=== PATIENT | male | born 1955 | race Caucasian/White ===

== ENCOUNTER 2020-09-03 08:42 | Inpatient (IN) | payer MEDICARE, MEDICAID, SELFPAY ==
[2020-09-03] VITALS (9 sets, daily range): BP systolic 131–165; BP diastolic 80–91; PULSE 67–102; RESP 13–20; TEMP 36.1–36.4; O2SAT 91–97; BMI 24.7
--- NOTE | ~2020-09-03 | XR_ITS ---
XR chest 2V DATE: 09/03/2020 10:41 INDICATION: Possible pneumonia on 09/03/2020 CT abdomen pelvis examination TECHNIQUE: PA and lateral views COMPARISON: 09/03/2020 CT abdomen pelvis FINDINGS: Normal heart size. Aortic arch calcification. No hilar or mediastinal enlargement. No pulmonary infiltrate or consolidation, pleural effusion or pulmonary vascular congestion or pneumo thorax is detected. Degenerative spurring of the thoracic spine. IMPRESSION: No active cardiopulmonary disease Reviewed, dictated and finalized at location A.
--- NOTE | ~2020-09-03 | US_ITS ---
US renal BI 09/03/2020 17:45 Procedure: Realtime transabdominal ultrasound of the kidneys and bladder. Indication: Right flank pain Comparison: CT dated 09/03/2020 Findings: Renal echotexture is normal bilaterally without hydronephrosis, contour deforming mass or r enal calculus. There are bilateral renal cysts, largest on the right measuring 8 mm in largest on the left measuring 2 cm. The right kidney measures 11.3 cm and left kidney measures 11.8 cm. Bladder wi thin normal limits. Impression: 1: Bilateral renal cysts. Reviewed, dictated and finalized at location A. Impression: 1: Bilateral renal cysts.
--- NOTE | ~2020-09-03 | CT_ITS ---
EXAMINATION: CT abdomen pelvis wo con DATE: 09/03/2020 09:57 INDICATION: 3-4 days of right flank pain. The penis. Groin pain. TECHNIQUE: Computed tomography (CT) of the abdomen and pelvis was performed without intravenous contr ast. Automated exposure control and iterative reconstruction technique were employed. The dose-length product was 644.55 mGy-cm. COMPARISON: None FINDINGS: Subtle groundglass opacities in the bilateral lower lobes with additional tree-in-bud pattern in the posterior basilar right lower lobe suggesting endobronchial spread of disease. No smooth septal line thickening to suggest pulmonary edema. No pleural effusion. Heart size is normal. Atherosclerotic cor onary artery calcified calcification. No pericardial effusion. Liver, gallbladder, pancreas and bilateral adrenal glands are normal. Splenic calcific a cyst consist ent with old granulomatous disease. 1.5 similar low-attenuation cyst at the medial left kidney. There is a peripheral 6 months wedge-shaped region of high attenuation measuring up to 10 mm in maximal di ameter at the medial right kidney consistent with a likely partially decompressed hemorrhagic cyst. 8 mm exophytic lesion at the lower pole of the right kidney which is slightly greater than simple flui d attenuation but which is too small to definitively characterize. Statistically most likely to repre sent an additional cyst. Ureters are normal. No urolithiasis or hydroureteronephrosis. Normal appendi x. Moderate amount of stool scattered throughout the colon. No abnormal bowel wall thickening or obst ruction. Bladder is normal. No free intraperitoneal gas or fluid. No pathologically enlarged abdomina l or pelvic lymphadenopathy. There is calcified atherosclerosis of the aorta and many of the other ar teries. Mild lumbar levocurvature with mild to moderate spondylosis. Mild left and mild to moderate r ight hip osteoarthritis. Bone islands at the left femoral neck and intertrochanteric right femur. IMPRESSION: 1. No urolithiasis or acute intra-abdominal/pelvic process. 2. Subtle groundglass opacities in the bilateral lower lobes with region of fine tree-in-bud pattern in the right lower lobe consistent with endobronchial spread of disease most likely bronchiolitis/ear ly pneumonia. 3. Indeterminate 8 mm exophytic right renal lesion which is too small to definitively characterize st atistically most likely to represent a cyst but would recommend 6-12 month follow-up pre and postcont rast MRI. Reviewed, dictated and finalized at location B. IMPRESSION: 1. No urolithiasis or acute intra-abdominal/pelvic process. 2. Subtle groundglass opacities in the bilateral lower lobes with region of fin e tree-in-bud pattern in the right lower lobe consistent with endobronchial spr ead of disease most likely bronchiolitis/early pneumonia. 3. Indeterminate 8 mm exophytic right renal lesion which is too small to defini tively characterize statistically most likely to represent a cyst but would rec ommend 6-12 month follow-up pre and postcontrast MRI.
[2020-09-03 09:08] LABS: Basophils Absolute Auto 0.1 K/mm3 (0.0-0.1); Eosinophils Absolute Auto 0.1 K/mm3 (0-0.3); Eosinophils Percent Auto 1.5 % (0-4.4); Hematocrit 43.1 % (42.0-52.0); Hemoglobin 15.7 g/dL (14.0-18.0); Immature Granulocyte Absolute 0.03 K/mm3 (0.00-0.031); Immature Granulocyte Percent A 0.3 % (0-0.5); Lymphocytes Absolute Auto 2.88 K/mm3 (0.9-3.2); Lymphocytes Percent Auto 30.6 % (18.3-44.2); Mean Corpuscular HGB Conc 36.4 g/dl (32-36); Mean Corpuscular Hemoglobin 31.4 pg (26-34); Mean Corpuscular Volume 86.2 fl (80-100); Mean Platelet Volume 9.3 fl (7.4-10.4); Monocytes Absolute Auto 0.9 K/mm3 (0.1-0.6); Neutrophils Absolute Auto 5.3 K/mm3 (1.3-6.7); Neutrophils Percent Auto 56.6 % (45.5-73.1); Platelet Count Result 239 k/mm3 (150-375); Red Cell Distribution Width 12.8 % (11.5-14.5); White Blood Count 9.4 K/mm3 (4.5-10.0)
[2020-09-03 09:13] LABS: Add Urine Microscopic? YES; Appearance Urine Clear (Clear); Bilirubin Urine Negative (Negative); Blood Urine Negative (Negative); Color Urine Straw (Yellow); Glucose Urine UA 3+ mg/dL (Negative); Ketones Urine Negative (Negative); Leukocyte Esterase Ur Negative LEU/UL (Negative); Nitrate Urine Negative (Negative); Protein Urine 1+ mg/dL (Negative); RBC Urine 0-2 /hpf (0-2); Specific Grav Ur 1.029 (1.001-1.035); Urobilinogen Urine Negative mg/dL (<2.0); WBC Urine 0-3 /hpf
[2020-09-03 09:22] LABS: Alanine Aminotransferase 65 U/L (4-50); Albumin Level 4.4 g/dL (3.5-5.1); Alkaline Phosphatase 113 U/L (38-126); Anion Gap 8 mmol/L (8-16); Aspartate Amino Transferase 31 U/L (17-59); Bilirubin,Total 0.5 mg/dL (0.2-1.3); Blood Urea Nitrogen 24 mg/dL (9-20); Carbon Dioxide 28 mmol/L (22-30); Chloride 91 mmol/L (98-107); Estimated CRCL calculation 91 ml/min; Estimated Glomerular Filt Rate > 60; Glucose 613 mg/dL (75-110); Lipase 236 U/L (23-300); Potassium 4.6 mmol/L (3.4-5.0); Sodium 127 mmol/L (137-145)
[2020-09-03] MEDS: INSULIN HUMAN REGULAR (*BKC) 100 UNITS/ML IV PUSH (10:02)
[2020-09-03] MEDS: SODIUM CHLORIDE 0.9% IV 1,000 ML 999 ML IV CONT ×2 (10:02→12:04)
[2020-09-03 10:11] LABS: Beta-Hydroxybutyrate/Acetoacetate 0.16 mmol/L (0.02-0.27)
[2020-09-03 10:59] LABS: Glucose Point of Care > 500 (65-105)
--- NOTE | 2020-09-03 11:08 | PC.NURSE ---
Blood sugar 514.
--- NOTE | 2020-09-03 11:51 | ED.GENADULT ---
HPI - General Adult General Chief complaint: Urogenital-Male Stated complaint: flank pain, penis is swollen and painful Time Seen by Provider: 09/03/20 09:24 Source: patient Mode of arrival: ambulatory Limitations: no limitations History of Present Illness HPI narrative: Patient presents with chief complaint of right flank pain that has been occurring since January 2020. Patient states that he has been seeing his primary care who diagnosed him with kidney stones without imaging. He states he was started on medication but he does not recall the name. Patient states he has been unable to see a urologist due to Covid problems. Patient also reports that his penis is uncircumcised that he has been unable to to retract his foreskin since December. He states there is a small hole opening in which he urinates out of. He denies fever, chills, nausea, vomiting, diarrhea, sores or drainage from his penis, cough, shortness of breath, chest pain. Related Data Home Medications Medication Instructions Recorded Confirmed No Home Medications 09/03/20 09/03/20 Allergies Allergy/AdvReac Type Severity Reaction Status Date / Time No Known Allergies Allergy Verified 09/03/20 09:04 Review of Systems Review of Systems: Narrative: CONSTITUTIONAL: Denies fever, chills, or sweats. EYES: Denies visual changes, redness, or discharge. ENT: Denies rhinorrhea, congestion, sore throat, or otalgia. CARDIOVASCULAR: Denies chest pain, palpitations, or edema. RESPIRATORY: Denies cough or dyspnea. GASTROINTESTINAL: Denies abdominal pain, nausea, vomiting, or diarrhea. GENITOURINARY: Reports right flank pain denies dysuria or hematuria. SKIN: Reports unable to retract penis foreskin denies rash or itching. MUSCULOSKELETAL: Denies back pain, myalgia, or joint pain NEUROLOGIC: Denies headache, numbness, dizziness, or weakness. PSYCHIATRIC: Denies anxiety or depression. Exam Narrative: Exam Narrative: GENERAL: Disheveled but nontoxic in appearance, well-nourished. HEAD: Normocephalic, atraumatic. EYES: PERRLA and EOMI. ENT: Nares clear, no rhinorrhea or epistaxis. Mucous membranes moist. Oropharynx without tonsillar hypertrophy exudate or other lesions. Bilateral TMs pearly castano nonbulging NECK: Supple. No adenopathy or masses. No vertebral tenderness or loss of ROM. CHEST: Clear to auscultation. No respiratory distress. No wheezes rales or rhonchi HEART: Regular rate and rhythm. Normal peripheral pulses. ABDOMEN: Soft, nontender, nondistended, normal active bowel sounds. No bruises noted. No CVA tenderness. EXTREMITIES: No acute changes in ROM. No edema. SKIN: Uncircumcised penis noted, unable to retract foreskin-small opening noted. There is no erythema, drainage, sores or lesions. Warm, dry, no rash. NEURO: No focal deficits. Alert and oriented x3. PSYCH: Normal mood and affect. Course Vital Signs Vital signs: Vital Signs Temperature 97.0 F L 09/03/20 08:55 Pulse Rate 90 09/03/20 08:55 Respiratory Rate 20 09/03/20 08:55 Blood Pressure 165/91 H 09/03/20 08:55 Pulse Oximetry 95 09/03/20 08:55 Temperature 97.0 F L 09/03/20 08:55 Pulse Rate 90 09/03/20 08:55 Respiratory Rate 20 09/03/20 08:55 Blood Pressure 165/91 H 09/03/20 08:55 Pulse Oximetry 95 09/03/20 08:55 Medical Decision Making MDM Narrative Medical decision making narrative: Consult with [facility] and they will consult on patient during his admission. Informed patient phimosis and right flank pain despite absence of urinary tract infection, signs of pyelonephritis or kidney stone. Consult with Dr. Lazar hospitalist who assessed patient for admission new onset diabetes with hyperglycemic hyperosmolar state. Vital Signs Vital Signs: Vital Signs Temperature 97.0 F L 09/03/20 08:55 Pulse Rate 90 09/03/20 08:55 Respiratory Rate 20 09/03/20 08:55 Blood Pressure 165/91 H 09/03/20 08:55 Pulse Oximetry 95 09/03/20 08:55 Tem
--- NOTE | 2020-09-03 13:05 | PC.NURSE ---
BG 338
[2020-09-03] MEDS: SODIUM CHLORIDE 0.9% IV 1,000 ML 999 ML (13:23)
[2020-09-03] MEDS: INSULIN HUMAN REGULAR (*BKC) 100 UNITS in SODIUM CHLORIDE 0.9% IV 99 ML 5.56 UNITS IV CONT (13:27)
[2020-09-03 13:32] LABS: Glucose Point of Care 388 (65-105)
--- NOTE | 2020-09-03 13:41 | PC.NURSE ---
1340 - Report attempted, PHARMACY CASHIER to call back when possible. Patient updated on plan to transfer to ICU. Pt has bag of belongings and cell phone with him at bedside that will go with him to ICU.
--- NOTE | 2020-09-03 14:25 | WPDCNINT ---
Assessment and Plan Assessment and plan (1) Hyperosmolar hyperglycemic state (HHS): Code(s): E11.00 - Type 2 diabetes mellitus with hyperosmolarity without nonketotic hyperglycemic-hyperosmolar coma (NKHHC); E11.65 - Type 2 diabetes mellitus with hyperglycemia Status: Acute Assessment and Plan: patient with hyperglycemia, nonketotic state, normal anion gap, no metabolic acidosis - likely hyperosmolar hyperglycemic state, likely due to undiagnosed diabetes - patient given adequate IV fluids in the ER and started on infusion per protocol - will transition patient to long-acting insulin with blood sugars normalize - 150 x 2 readings - check hemoglobin A1c - paraeducator and dietitian will be consulted (2) Acute right flank pain: Code(s): R10.9 - Unspecified abdominal pain Status: Acute Assessment and Plan: acute right flank pain with no intra-abdominal pathology noted on CT scan of the abdomen and pelvis - will obtain renal ultrasound (3) Phimosis of penis: Code(s): N47.1 - Phimosis Status: Chronic Assessment and Plan: Phimosis of the penis, unable to retract foreskin, small meatal opening, pain on micturition. - appreciate urology evaluation recommendations, patient will need to be circumcised at some point during this admission - urology also requested bladder scan (4) Hyponatremia: Code(s): E87.1 - Hypo-osmolality and hyponatremia Status: Acute Assessment and Plan: likely pseudohyponatremia secondary to hyperglycemia, will continue to monitor (5) Suspected 2019-nCoV infection: Code(s): Z20.828 - Contact with and (suspected) exposure to other viral communicable diseases Status: Acute Assessment and Plan: given bilateral ground-glass appearance of the lower lobes on CT scan of the abdomen and pelvis, will check SARS-CoV-2 PCR - will place patient on contact, droplet, airborne isolation /precautions Additional Plan discussed with patient updated with his condition and plan of care. He may be able to have some ice chips but no diet at this time given patient is on insulin infusion and I did reiterate that to him code status: Full code critical care time spent: 44 minutes Due to a high probability of clinically significant, life threatening deterioration, the patient required my highest level of preparedness to intervene emergently and I personally spent this critical care time directly and personally managing the patient. This critical care time included obtaining a history; examining the patient; pulse oximetry; ordering and review of studies; arranging urgent treatment with development of a management plan; evaluation of patient's response to treatment; frequent reassessment; and discussions with other providers. It was exclusive of separately billable procedures and treating other patients and teaching time. Please see Assessment and Plan section and the rest of the note for further information on patient assessment and treatment Supervisor Product Inspection Consult Note Consult date: 09/03/20 Time Seen: 14:18 Reason for consult: hyperglycemia, nonketotic hyperosmolar state, pain around the urethral meatus HPI: Samuel Yeeiza Conway Sr. is a 65 year old male history of kidney stones presented the ED with complains of pain around the urethral meatus and states his urethral meatal opening S significantly small and he has pain when he urinates. He is uncircumcised and has been unable to retract his foreskin since December or January. The pain had intensified around the meatal opening that is what prompted him to come to the ER on 09/03/2020. Patient denies any fevers, chills, nausea, vomiting, diarrhea, any drainage from his penis, denies any cough, shortness of breath or chest pain. Patient currently denies any abdominal pain, back pain, chest pain. In the ED was found to have hyperglycemia nonketotic hyperosmolar state for which he was given
--- NOTE | 2020-09-03 15:23 | PM.IMHP ---
H&P: HPI History of Present Illness Date/Time: 09/03/20 15:23 Chief complaint: Hyperglycemic Hyperosmolar State/Right flank pain/ Narrative: Samuel Conway Sr. is a 65 year old male Who came to the emergency room for complaints of right flank pain that is been occurring since January of this year. Patient is uncircumcised. He was diagnosed with a kidney stone without any imaging. The patient stated that he is not on any medication and was not able to get in to his regular doctor because of the COVID pandemic. Patient has been unable to retract his foreskin since December. Patient has a very small opening. Tells me that he is able to urinate somewhat but not much. He denies any fever chills. patient stated that he still smokes about a pack a cigarettes every 3 days. Patient is reluctant to give us any information about his health history of surgical history. I reviewed his results with him and explained that I did see something on the CT scan that was is turning for possible COVID. Initially the patient refused and any agreed to the testing. Urology has been consulted. Mehran scott nurse practitioner from the urology group came to the ICU to assess the patient. The patient tells me that he has never been diagnosed with diabetes and had not been on any medicine for diabetes. Also he stated that he is not on any medication for his high blood pressure. Abdominal and pelvis CT was read as no neurolysis has are acute intra-abdominal pelvic process. Subtle ground-glass opacities in the bilateral lower lobes with region of find tree and bud pattern in the right lower lobes consistent with endobronchial spread of disease most likely bronchiolitis early pneumonia. Indeterminate 8 mm exophytic right renal lesion which is too small to definitely characterize statistically most likely to represent a cyst but would recommend a 6-12 month follow-up Prieb and postcontrast MRI. The patient is afebrile. Patient's blood pressure is noted to be 138/82. Scharff 0127. First glucose was 613 on the blood work and an Accu-Chek was greater than 500. Repeat was 388. Anion gap was listed is 8. Was she only she will was placed on insulin drip for nonketotic hyper osmolar the hyperglycemia. I did not seen A1c. Patient was very irritated with me and was stating that he may sign out against medical advice. Patient was given IV fluids and 5 units of regular insulin she in the emergency room. Date of service 09/03/2020 Review of Systems Review of Systems: All systems reviewed & are unremarkable except as noted in HPI and below Constitutional: Constitutional: Reports as per HPI and Reports no additional constitutional complaints Eyes: Eyes: Reports as per HPI and Reports no additional eye complaints ENT: Reports system reviewed and no additional complaints, except as documented and Reports Normal hearing present Cardiovascular: Cardiovascular: Reports no additional cardiovascular complaints Respiratory: Respiratory: Reports no additional respiratory complaints and Reports no additional respiratory complaints Gastrointestinal: Gastrointestinal: Reports as per HPI and Reports no additional gastrointestinal complaints Musculoskeletal: Musculoskeletal: Reports no additional musculoskeletal complaints Integumentary/Breasts: Skin/Breast: Reports system reviewed and no additional complaints, except as docu and Reports as per HPI Neurologic: Reports system reviewed and no additional complaints, except as documented, Reports as per HPI and Reports Normal hearing present Psychiatric: Psychiatric: Reports no additional psychiatric complaints and Reports as per HPI Endocrine: Endocrine: Reports no additional endocrine complaints Hematologic/Lymphatic: Hematologic/Lymphatic: Reports no additional hematologic/lymphatic complaints Allergic/Immunologic: Allergic/Immunologic: Reports no additional allergic/immunologic complaints PMFSH Past Medical History Medical Hi
--- NOTE | 2020-09-03 15:47 | WPDURCON ---
Assessment and Plan Assessment and plan (1) Phimosis of penis: Code(s): N47.1 - Phimosis Status: Chronic Assessment and Plan: Patient will need a circumcison, however d/t newly diagnosed diabetes and hyperglycemia, we will not do the circumcison at this time. He has no hydronephrosis on CT and a JENNIFER is ordered to check PVR. If PVR is elevated, I would recommend a cathter placement. NO further assessment at this time. Will follow up as outpatient to discuss circumcision with Dr. Manzo. (2) Acute right flank pain: Code(s): R10.9 - Unspecified abdominal pain Status: Acute Assessment and Plan: Not urologic in nature. (3) Renal lesion: Code(s): N28.9 - Disorder of kidney and ureter, unspecified Status: Acute Assessment and Plan: Will need to be scanned again in 6-12 months with and without contrast MRI. Not the cause of flank pain. Urology Consult Note HPI Date Seen: 09/03/20 Requesting Physician: Mikey Lazar MD Primary Care Provider: PHYSICIAN NOT ON STAFF Consult Narrative Narrative: Samuel Conway Sr. is a 65 year old male who presented to the ER today with right flank pain that has been ongoing since 01/2020. He was diagnosed with kidney stones by his PCP without imaging. He also c/o difficulty urinating at the tip of his penis and that it feels swollen. He denies straining, hesitancy, frequency, ugrency or incontinence. He also denies dysuria, hematuria or abdominal pain. He is admitted with hyperglycemia and undiagnosed diabetes. His glucose was 613, WBC is 9.4, creatinine is 0.80. CT scan was done of abdomen and pelvis showing only an 8mm right renal lesion, most likely a cyst, but no hydronephrosis or urolithiasis present. He is afebrile at this time and denies chills, nausea or vomiting. Review of Systems Respiratory: Respiratory: Reports no additional respiratory complaints and Reports cough Gastrointestinal: Gastrointestinal: Denies abdominal pain, Denies nausea and Denies vomiting Genitourinary: Genitourinary: Denies hematuria, Denies oliguria, Denies genital pain, Denies dysuria, Reports flank pain, Denies testicular pain, Denies urinary frequency, Reports urinary hesitancy, Denies urinary incontinence and Denies urinary urgency [facility] Past Medical History Medical History Phimosis of penis Surgical History Surgical History Surgical history unknown Family History Family History Sibling Diabetes mellitus Social History Social History Social History: the patient tells me that he was a significant other. He is a full code and does not have of durable power commercial attorney. Patient tells me that he smokes about a pack a cigarettes in 3 days. He denies any alcohol bruising or illicit drugs. The patient tells me he is a full code. The patient tells me that he has 4 children. Meds Home Medications and Allergies Home Medications Medication Instructions Recorded Confirmed Type No Home Medications 09/03/20 09/03/20 History Allergies Allergy/AdvReac Type Severity Reaction Status Date / Time No Known Allergies Allergy Verified 09/03/20 09:04 Vital Signs Vital Signs - 24 hr 09/03/20 08:55 09/03/20 12:09 09/03/20 12:10 Temperature 97.0 F L Pulse Rate 90 Respiratory Rate 20 Blood Pressure 165/91 H 131/89 Pulse Oximetry 95 91 09/03/20 12:15 09/03/20 12:16 Temperature Pulse Rate Respiratory Rate Blood Pressure 138/82 Pulse Oximetry 93 91 Exam Resp: Effort & Inspection: normal respiratory effort and Actively coughing actively coughing Cardio: Rate: regular rate GI: GI Palp: Yes Soft to palpation and No Tenderness to palpation present (GI) : General: Yes no CV
--- NOTE | 2020-09-03 16:13 | ADMGEN ---
This patient, Samuel Mclaughlin Man Nguyen, was admitted to Intensive Care Unit-7. Patient/family oriented to hospital policies and general routines including ID bracelet, bed and alarms, visiting hours, pain management, procedures, bathroom and other care routines, personal items, smoking policy, room service/diet, and visiting hours. Information on how to activate the Rapid Response Team has been discussed. Patient/Family are encouraged to report perceived risks to care and to ask questions if they do not understand what they are told or what they should do.
[2020-09-03 16:21] LABS: Glucose Point of Care 99 (65-105)
[2020-09-03 16:21] LABS: Glucose Point of Care 333 (65-105)
[2020-09-03 17:34] LABS: Hemoglobin A1C 12.3 % (<5.7)
[2020-09-03 17:37] LABS: Anion Gap 5 mmol/L (8-16); Blood Urea Nitrogen 16 mg/dL (9-20); Calcium 7.6 mg/dL (8.4-10.2); Carbon Dioxide 28 mmol/L (22-30); Chloride 103 mmol/L (98-107); Estimated CRCL calculation 118 ml/min; Estimated Glomerular Filt Rate > 60; Glucose 156 mg/dL (75-110); Potassium 3.3 mmol/L (3.4-5.0); Sodium 136 mmol/L (137-145)
[2020-09-03 18:10] LABS: Glucose Point of Care 141 (65-105)
--- NOTE | 2020-09-03 18:37 | PC.NURSE ---
Pt arrived to floor upset at being admitted. Stated Why am I being brought up here Refused to cooperate with admission process. Pt belligerent and cursing with admission questions. When asked if in pain pt stated fuck you Pt kept inquiring where or when his girlfriend would be here. Pt upset that I was unable to answer. Pt continually threatening to leave AMA. 1525 [employer] Gail Hampton arrived to assess pt and requested a COVID swab. Pt initially refused swab. Pt finally agreed to covid swab but then once advised that his girlfriend wouldn't be able to visit until we had results stated again that he was leaving AMA. Gail GUZMAN and Dr. Carter made aware. 1630 Pt now agreeing to stay.
--- NOTE | 2020-09-03 18:49 | PC.NURSE ---
Pt stated uses [facility] in [place]. Pharmacy closed. Unable to verify PT's meds.
[2020-09-03] MEDS: POTASSIUM CHLORIDE 20 MEQ TABLET 40 MEQ PO (18:57)
[2020-09-03] MEDS: INSULIN DETEMIR 100 UNITS/ML 8 UNITS SUB-Q (20:00)
[2020-09-03 22:00] LABS: Glucose Point of Care 439 (65-105)
[2020-09-03 22:40] LABS: SARS-CoV-2 RNA PCR Negative
[2020-09-03 23:38] LABS: Glucose Point of Care 300 (65-105)
[2020-09-04] VITALS (14 sets, daily range): BP systolic 126–143; BP diastolic 58–105; PULSE 74–95; RESP 16–24; TEMP 36.4–36.9; O2SAT 92–96
[2020-09-04] MEDS: BENZOCAINE/MENTHOL (*BKC) 18 EA LOZENGE 1 LOZENGE PO (00:03)
[2020-09-04 04:27] LABS: Basophils Absolute Auto 0.1 K/mm3 (0.0-0.1); Basophils Percent Auto 0.7 % (0.2-1.2); Eosinophils Absolute Auto 0.2 K/mm3 (0-0.3); Eosinophils Percent Auto 2.4 % (0-4.4); Hematocrit 43.4 % (42.0-52.0); Hemoglobin 15.4 g/dL (14.0-18.0); Immature Granulocyte Absolute 0.03 K/mm3 (0.00-0.031); Immature Granulocyte Percent A 0.3 % (0-0.5); Lymphocytes Absolute Auto 2.76 K/mm3 (0.9-3.2); Lymphocytes Percent Auto 29.1 % (18.3-44.2); Mean Corpuscular HGB Conc 35.5 g/dl (32-36); Mean Corpuscular Hemoglobin 31.2 pg (26-34); Mean Corpuscular Volume 87.9 fl (80-100); Mean Platelet Volume 9.2 fl (7.4-10.4); Monocytes Absolute Auto 0.8 K/mm3 (0.1-0.6); Monocytes Percent Auto 8.2 % (2.6-8.5); Neutrophils Absolute Auto 5.6 K/mm3 (1.3-6.7); Neutrophils Percent Auto 59.3 % (45.5-73.1); Platelet Count Result 273 k/mm3 (150-375); Red Blood Count 4.94 M/mm3 (4.6-6.20); Red Cell Distribution Width 13.2 % (11.5-14.5); White Blood Count 9.5 K/mm3 (4.5-10.0)
[2020-09-04 04:45] LABS: Alanine Aminotransferase 63 U/L (4-50); Alkaline Phosphatase 92 U/L (38-126); Anion Gap 4 mmol/L (8-16); Aspartate Amino Transferase 42 U/L (17-59); Bilirubin,Total 0.5 mg/dL (0.2-1.3); Blood Urea Nitrogen 14 mg/dL (9-20); Calcium 9.1 mg/dL (8.4-10.2); Carbon Dioxide 33 mmol/L (22-30); Chloride 100 mmol/L (98-107); Estimated CRCL calculation 93 ml/min; Estimated Glomerular Filt Rate > 60; Glucose 232 mg/dL (75-110); Lactate Dehydrogenase 395 U/L (313-618); Magnesium 2.2 mg/dL (1.6-2.3); Phosphorus 3.5 mg/dL (2.5-4.5); Potassium 4.5 mmol/L (3.4-5.0); Sodium 137 mmol/L (137-145)
[2020-09-04 07:53] LABS: Glucose Point of Care 274 (65-105)
[2020-09-04] MEDS: INSULIN DETEMIR 100 UNITS/ML 12 UNITS SUB-Q (08:02)
[2020-09-04] MEDS: INSULIN ASPART (*BKC) 100 UNITS/ML SUB-Q ×4 (08:02→17:27)
[2020-09-04] MEDS: NICOTINE (*PBKC) 7 MG PATCH 1 PATCH TRANSDERM (08:04)
--- NOTE | 2020-09-04 09:26 | WPDINTPN ---
Progress Note: A&P Assessment and Plan (1) Hyperosmolar hyperglycemic state (HHS): Code(s): E11.00 - Type 2 diabetes mellitus with hyperosmolarity without nonketotic hyperglycemic-hyperosmolar coma (NKHHC); E11.65 - Type 2 diabetes mellitus with hyperglycemia Status: Acute Assessment and Plan: patient with hyperglycemia, nonketotic state, normal anion gap, no metabolic acidosis - likely hyperosmolar hyperglycemic state, likely due to undiagnosed diabetes - patient given adequate IV fluids in the ER and started on infusion per protocol - increased her Levemir and continue high dose sliding scale insulin with Accu-Cheks - hemoglobin A1c this admission is 12.3 - certified adaptive physical educator and dietitian have been consulted (2) Acute right flank pain: Code(s): R10.9 - Unspecified abdominal pain Status: Acute Assessment and Plan: acute right flank pain with no intra-abdominal pathology noted on CT scan of the abdomen and pelvis - renal ultrasound showed bilateral renal cyst. Bladder was within normal limits, no hydronephrosis bilaterally (3) Phimosis of penis: Code(s): N47.1 - Phimosis Status: Chronic Assessment and Plan: Phimosis of the penis, unable to retract foreskin, small meatal opening, pain on micturition. - appreciate urology evaluation recommendations, patient will need to be circumcised at some point during this admission - urology also requested bladder scan (4) Hyponatremia: Code(s): E87.1 - Hypo-osmolality and hyponatremia Status: Acute Assessment and Plan: sodium levels are normal - likely pseudohyponatremia secondary to hyperglycemia, will continue to monitor (5) Suspected 2019-nCoV infection: Code(s): Z20.828 - Contact with and (suspected) exposure to other viral communicable diseases Status: Acute Assessment and Plan: given bilateral ground-glass appearance of the lower lobes on CT scan of the abdomen and pelvis, - SARS-CoV-2 PCR was NEGATIVE - discontinued contact, droplet, airborne isolation /precautions Additional Plan discussed with patient updated with his condition and plan of care. patient is on diabetic diet, good appetite. code status: Full code critical care time spent: 31 minutes Will be transferred out of the ICU Due to a high probability of clinically significant, life threatening deterioration, the patient required my highest level of preparedness to intervene emergently and I personally spent this critical care time directly and personally managing the patient. This critical care time included obtaining a history; examining the patient; pulse oximetry; ordering and review of studies; arranging urgent treatment with development of a management plan; evaluation of patient's response to treatment; frequent reassessment; and discussions with other providers. It was exclusive of separately billable procedures and treating other patients and teaching time. Please see Assessment and Plan section and the rest of the note for further information on patient assessment and treatment Subjective Date/time seen: 09/04/20 09:26 Interval history: Reason for consult: hyperglycemia, nonketotic hyperosmolar state, pain around the urethral meatus 09/04/2020: Patient seen and examined this morning, denies any chest pain, shortness of breath abdominal pain, nausea, vomiting. States he feels better, blood sugars remain slightly high but his hemoglobin A1c is 12.3, new onset diabetes. Urine output has been adequate, patient is afebrile and hemodynamically stable. Review of Systems Review of Systems: All systems reviewed & are unremarkable except as noted in HPI and below Exam Const: General: comfortable and no acute distress HENMT: Mouth: Yes moist mucous membranes Eyes: Sclera: sclerae normal Pupils: Equal, round and reactive pupils present Neck: Neck: supple and no JVD Resp: Effort & Inspecti
[2020-09-04 11:29] LABS: Glucose Point of Care 400 (65-105)
[2020-09-04] MEDS: INSULIN DETEMIR 100 UNITS/ML 6 UNITS SUB-Q (11:47)
--- NOTE | 2020-09-04 13:42 | PCNSR ---
On 09/04/20, the student, Ana Luisa Duffy, provided care and completed [facility] documentation on this patient. I have reviewed the student's documentation and agree with the findings.
--- NOTE | 2020-09-04 15:52 | PM.IMPN ---
Progress Note: A&P Assessment and Plan (1) Hyperosmolar hyperglycemic state (HHS): Code(s): E11.00 - Type 2 diabetes mellitus with hyperosmolarity without nonketotic hyperglycemic-hyperosmolar coma (NKHHC); E11.65 - Type 2 diabetes mellitus with hyperglycemia Status: Acute Assessment and Plan: Patient's blood glucose was over 500 on admission. The patient was on an insulin drip. His blood sugars improved and eventually changed to Levemir. cosmetology educator and dietitian for new diabetic education. (2) Acute right flank pain: Code(s): R10.9 - Unspecified abdominal pain Status: Acute Assessment and Plan: Flank pain much improved. He is not requiring any pain medication at this time. No urolithiasis or acute intra-abdominal/pelvic process. Subtle groundglass opacities in the bilateral lower lobes with region of fine tree-in-bud pattern in the right lower lobe consistent with endobronchial spread of disease most likely bronchiolitis/early pneumonia. No fevers or elevated WBC but now hypoxic. Will add neb treatments and Symbicort. Add Levaquin. (3) Hyponatremia: Code(s): E87.1 - Hypo-osmolality and hyponatremia Status: Acute Assessment and Plan: Pseudohyponatremia related to the glucose. Na corrected quickly related to correction of the glucose. (4) Phimosis of penis: Code(s): N47.1 - Phimosis Status: Chronic Assessment and Plan: Patient with phimosis but able to void and no evidence of retention. He will be need to be circumcised at some point. (5) Renal lesion: Code(s): N28.9 - Disorder of kidney and ureter, unspecified Status: Acute Assessment and Plan: CT scan showing an indeterminate 8 mm exophytic right renal lesion which is too small to definitively characterize statistically most likely to represent a cyst but would recommend 6-12 month follow-up pre and postcontrast MRI. Patient will follow-up with urology for this issue (6) DVT prophylaxis: Code(s): Z29.9 - Encounter for prophylactic measures, unspecified Status: Acute Assessment and Plan: Lovenox (7) Diabetes mellitus: Code(s): E11.9 - Type 2 diabetes mellitus without complications Status: Acute Assessment and Plan: A1c 12.3. The patient's blood glucose was reviewed on 09/04 Glucose remains better controlled. Continue AccuCheks covering with sliding scale. Hypoglycemia protocol available as needed. Continue current medications. Dietitian consult. cosmetology educator consult (8) Tobacco abuse: Code(s): Z72.0 - Tobacco use Status: Acute Assessment and Plan: Patient has been educated about the benefits smoking cessation. Subjective Date/time seen: 09/04/20 15:52 Interval history: Date of service 09/04 65yo healthy male here for right flank pain and found to have phimosis and new onset DM. Patient does not wear O2 at home. His flank pain better but does have pain in the groin currntly. No CP or SOB. Eating okay. Exam Narrative: Exam Narrative: AF 98.2 131/79 80 16 92% 2L Gen - NARD lying semi-recumbent in bed Chest - inspiratory and expiratory rhocnhi throughout anteriorely. nml RR CV - RRR S1/S2; Tele showing no significant dysrhythmias Abd - minimal suprapubic pain; no significant right flank pain Ext - No pedal edema Psych - Nml mood and affect Skin - Warm and dry Objective Data Vital Signs Vital Signs: Vital Signs - 24 hr 09/03/20 16:00 09/03/20 18:00 09/03/20 20:00 Temperature 97.6 F 97.6 F Pulse Rate 69 68 102 H Respiratory Rate 19 18 16 Blood Pressure 150/80 H 131/83 137/88 Pulse Oximetry 94 95 95 09/03/20 22:00 09/04/20 00:00 09/04/20 02:00 Temperature 97.7 F Pulse Rate 76 82 78 Respiratory Rate 13 19 18 Blood Pressure 143/90 H 142/105 H 135/79 Pulse Oximetry 97 96 95 09/04/20 04:00 09/04/20 06:00 09/04/20 08:00 Tempera
[2020-09-04 17:07] LABS: Glucose Point of Care 252 (65-105)
[2020-09-04] MEDS: ENOXAPARIN 40 MG/0.4 ML SYRINGE SUB-Q (20:12)
[2020-09-04] MEDS: INSULIN DETEMIR 100 UNITS/ML 18 UNITS SUB-Q (20:12)
[2020-09-04] MEDS: CYCLOBENZAPRINE HCL 10 MG TABLET PO (20:14)
[2020-09-04] MEDS: IPRATROPIUM BR 0.02% INH SOLN 0.5 MG/2.5 ML VIAL INHALATION (20:16)
[2020-09-04 20:20] LABS: Glucose Point of Care 312 (65-105)
[2020-09-05] VITALS: PULSE 86; RESP 20
[2020-09-05] MEDS: IPRATROPIUM BR 0.02% INH SOLN 0.5 MG/2.5 ML VIAL INHALATION ×3 (01:49→13:10)
[2020-09-05 01:51] VITALS: PULSE 84; RESP 20
[2020-09-05 04:33] LABS: Albumin Level 3.9 g/dL (3.5-5.1); Anion Gap 7 mmol/L (8-16); Blood Urea Nitrogen 12 mg/dL (9-20); Calcium 8.8 mg/dL (8.4-10.2); Carbon Dioxide 30 mmol/L (22-30); Chloride 98 mmol/L (98-107); Estimated CRCL calculation 105 ml/min; Estimated Glomerular Filt Rate > 60; Glucose 234 mg/dL (75-110); Phosphorus 3.6 mg/dL (2.5-4.5); Potassium 4.3 mmol/L (3.4-5.0); Sodium 135 mmol/L (137-145)
[2020-09-05 05:37] LABS: Hepatitis C Virus Antibody Reactive (Negative)
[2020-09-05 07:50] VITALS: PULSE 84; RESP 18
[2020-09-05 08:00] VITALS: BP 119/73; PULSE 74; PULSE 84; RESP 18; RESP 20; TEMP 36.6; O2SAT 95
[2020-09-05] MEDS: INSULIN ASPART (*BKC) 100 UNITS/ML SUB-Q ×3 (08:39→17:55)
[2020-09-05] MEDS: ENOXAPARIN 40 MG/0.4 ML SYRINGE SUB-Q (08:40)
[2020-09-05] MEDS: INSULIN DETEMIR 100 UNITS/ML 24 UNITS SUB-Q (08:40)
[2020-09-05] MEDS: NICOTINE (*PBKC) 7 MG PATCH 1 PATCH TRANSDERM (08:41)
[2020-09-05] MEDS: TAMSULOSIN HCL 0.4 MG CAPSULE PO (09:01)
--- NOTE | 2020-09-05 11:16 | PCDIET ---
MD consult received. Patient educated re: carbohydrate counting on 09/04/20. Visited patient today - he denies questions or concerns at this time. Encouraged patient to see outpatient RD upon discharge; patient states he will consider this.
[2020-09-05 13:02] LABS: Glucose Point of Care 361 (65-105)
[2020-09-05 13:02] LABS: Glucose Point of Care 218 (65-105)
[2020-09-05 13:10] VITALS: PULSE 85; RESP 18
[2020-09-05 13:21] VITALS: PULSE 86; RESP 18
[2020-09-05 17:00] VITALS: BMI 24.7
--- NOTE | 2020-09-05 17:33 | PM.DS ---
DS: Admitting Diagnosis Admitting Diagnosis Admitting Diagnosis: Hyperglycemic Hyperosmolar State/Right flank pain/ DS: Discharge Diagnosis Discharge Diagnosis (1) Hyperosmolar hyperglycemic state (HHS): Code(s): E11.00 - Type 2 diabetes mellitus with hyperosmolarity without nonketotic hyperglycemic-hyperosmolar coma (NKHHC); E11.65 - Type 2 diabetes mellitus with hyperglycemia Status: Acute Assessment and Plan: Patient's blood glucose was over 500 on admission. The patient was placed on an insulin drip and admitted to the ICU. His blood sugars improved and eventually changed to Levemir then ultimately Lantus. software support representative and dietitian consulted and patient received education prior to discharge. Metformin added as well. (2) Acute right flank pain: Code(s): R10.9 - Unspecified abdominal pain Status: Acute Assessment and Plan: Presented with right flank pain. No urolithiasis or acute intra-abdominal/pelvic process. Subtle groundglass opacities in the bilateral lower lobes with region of fine tree-in-bud pattern in the right lower lobe consistent with endobronchial spread of disease most likely bronchiolitis/early pneumonia. No fevers or elevated WBC but with mild hypoxia. We added neb treatments and Symbicort. We also added Levaquin but he developed a fine maculopapular rash so Levaquin stopped. Unclear if allergic reaction or viral etiology. No respiratory problem or wheals. Flank pain much improved. He is not requiring any pain medication. Unclear if he has early PNA causing the flank pain. Will change to Azithromycin at discharge. (3) Hyponatremia: Code(s): E87.1 - Hypo-osmolality and hyponatremia Status: Acute Assessment and Plan: Sodium at 127 on admission. Pseudohyponatremia related to the glucose. Na corrected quickly related to correction of the glucose. (4) Phimosis of penis: Code(s): N47.1 - Phimosis Status: Chronic Assessment and Plan: Patient with phimosis but able to void and no evidence of retention. He was seen by Urology and will need to be circumcised at some point. Patient to follow up with urology after discharge. (5) Renal lesion: Code(s): N28.9 - Disorder of kidney and ureter, unspecified Status: Acute Assessment and Plan: CT scan showing an indeterminate 8 mm exophytic right renal lesion which is too small to definitively characterize statistically most likely to represent a cyst but would recommend 6-12 month follow-up pre and postcontrast MRI. Patient will follow-up with urology for this issue (6) Diabetes mellitus: Code(s): E11.9 - Type 2 diabetes mellitus without complications Status: Acute Assessment and Plan: A1c 12.3. The patient's blood glucose was monitored closely. Glucose became better controlled but still elevated. We monitored with AccuCheks covering with sliding scale. Hypoglycemia protocol available as needed. Education as above. Home with Lantus and metformin (7) Tobacco abuse: Code(s): Z72.0 - Tobacco use Status: Acute Assessment and Plan: Patient has been educated about the benefits smoking cessation. DS: Summary Hospital Course Reason for hospitalization: 65yo male prsents to the ER with complaints of right flank pain. Please see H&P for details. Hospital Course: As above Time Spent with Patient Time attestation: Total time spent providing and/or coordinating discharge services: 35 minutes Time spent: Greater than 30 minutes Exam Narrative: Exam Narrative: AF 98.0 119/72 86 18 95% ra Gen - NARD Chest - few scattered rhonchi, nml RR CV - RRR S1/S2; Tele showing no significant dysrhythmias Abd - NT/ND, +BS Ext - No pedal edema Psych - Nml mood and affect Skin - Warm and dry DS: Data Data Completed and Pending Labs on day of discharge: Labs from last 24 hours 09/05/20 09/05/20
[2020-09-05 17:48] LABS: Glucose Point of Care 278 (65-105)
[2020-09-05] MEDS: metFORMIN HCL 500 MG TABLET PO (17:55)
--- NOTE | 2020-09-12 12:11 | PC.NURSE ---
Hep C Ab RNa is reactive. Dr. Lazar aware. Patient does not remember the name of his PCP.
[2020-09-12 18:30] LABS: Hepatitis C RNA, Quant PCR <15 IU/mL
--- NOTE | 2020-09-18 09:54 | PC.NURSE ---
Attempted to call patient. VM box is full. No answer.
--- NOTE | 2020-09-23 09:55 | PC.NURSE ---
Attempted to contact patient. No answer. VM is full.
== END 2020-09-05 18:37 | disposition home or self-care (01) | DRG 638 ==
LOC: ANHED 12:30 → ANHICU 12:54
PROVIDERS: Emergency Medicine; Internal Medicine; Nurse Practitioner; Physician Assistant; Admitting Provider Internal Medicine; Emergency Provider Emergency Medicine; Visit Provider Internal Medicine
DX: E11.00 Type 2 diabetes mellitus with hyperosmolarity without nonketotic hyperglycemic-hyperosmolar coma (NKHHC) (principal); E87.1 Hypo-osmolality and hyponatremia; Z20.828 Contact with and (suspected) exposure to other viral communicable diseases; N47.1 Phimosis; R10.9 Unspecified abdominal pain; R33.9 Retention of urine, unspecified; N28.9 Disorder of kidney and ureter, unspecified; F17.210 Nicotine dependence, cigarettes, uncomplicated
CPT/HCPCS: 36415; 71046; 74176; 76775; 80048; 80053; 80069; 81001; 82010; 82728; 82948; 83036; 83605; 83615; 83690; 83735; 84100; 84443; 85025; 86803; 87522; 87635; 94640; 96361; 96374; 99285; A9270; C9803; J1650; J1815; J7030; U0003

== ENCOUNTER 2020-12-12 18:45 | Observation (INO) | payer MEDICARE, MEDICAID, SELFPAY ==
[2020-12-12 19:01] VITALS: BP 128/84; PULSE 97; RESP 16; TEMP 36.1; O2SAT 97
[2020-12-12 19:17] LABS: Glucose Point of Care 420 (65-105)
[2020-12-12 20:07] LABS: Basophils Percent Auto 0.4 % (0.2-1.2); Eosinophils Absolute Auto 0.2 K/mm3 (0-0.3); Eosinophils Percent Auto 1.7 % (0-4.4); Hematocrit 40.1 % (42.0-52.0); Hemoglobin 14.1 g/dL (14.0-18.0); Immature Granulocyte Absolute 0.03 K/mm3 (0.00-0.031); Immature Granulocyte Percent A 0.3 % (0-0.5); Lymphocytes Absolute Auto 1.73 K/mm3 (0.9-3.2); Lymphocytes Percent Auto 16.7 % (18.3-44.2); Mean Corpuscular HGB Conc 35.2 g/dl (32-36); Mean Corpuscular Hemoglobin 30.6 pg (26-34); Mean Platelet Volume 8.9 fl (7.4-10.4); Monocytes Absolute Auto 0.5 K/mm3 (0.1-0.6); Monocytes Percent Auto 4.4 % (2.6-8.5); Neutrophils Absolute Auto 7.9 K/mm3 (1.3-6.7); Neutrophils Percent Auto 76.5 % (45.5-73.1); Platelet Count Result 286 k/mm3 (150-375); Red Blood Count 4.61 M/mm3 (4.6-6.20); Red Cell Distribution Width 12.1 % (11.5-14.5); White Blood Count 10.3 K/mm3 (4.5-10.0)
[2020-12-12 20:08] VITALS: BP 119/70; PULSE 89; RESP 18; O2SAT 96
[2020-12-12 20:18] LABS: Anion Gap 2 mmol/L (8-16); Blood Urea Nitrogen 13 mg/dL (9-20); Calcium 8.6 mg/dL (8.4-10.2); Carbon Dioxide 33 mmol/L (22-30); Chloride 98 mmol/L (98-107); Estimated CRCL calculation 118 ml/min; Estimated Glomerular Filt Rate > 60; Glucose 362 mg/dL (75-110); Potassium 4.1 mmol/L (3.4-5.0); Sodium 133 mmol/L (137-145)
[2020-12-12 20:18] LABS: Add Urine Microscopic? YES; Appearance Urine Clear (Clear); Bilirubin Urine Negative (Negative); Blood Urine Negative (Negative); Color Urine Straw (Yellow); Glucose Urine UA 3+ mg/dL (Negative); Ketones Urine Negative (Negative); Leukocyte Esterase Ur Negative LEU/UL (Negative); Nitrate Urine Negative (Negative); Protein Urine 2+ mg/dL (Negative); RBC Urine 0-2 /hpf (0-2); Specific Grav Ur 1.027 (1.001-1.035); Squamous Epithelial Cell Urine Rare /hpf (Few); Urobilinogen Urine Negative mg/dL (<2.0); WBC Urine 0-3 /hpf
--- NOTE | 2020-12-12 20:43 | ED.MALEGU ---
HPI - Male Genitourinary General Chief complaint: Urogenital-Male Stated complaint: PENILE PROBLEM Time Seen by Provider: 12/12/20 19:16 History of Present Illness HPI Narrative: Patient is a 65-year-old male who presents ER with difficulty with urination. Patient has known phimosis of the foreskin of his penis. He has had increased issues with urination. Has a lot of pain when he urinates in the distal aspect of his penis swells when urine enters the cavity between the phymotic stricture and his glans. He reports he is having increased urinary frequency. He is supposed to have a circumcision performed by Dr. Manzo but that has not happened yet. Related Data Home Medications Medication Instructions Recorded Confirmed albuterol sulfate [ProAir HFA] 2 puff INHALATION QID PRN 09/04/20 12/12/20 tamsulosin 0.4 mg PO DAILY 09/04/20 12/12/20 Allergies Allergy/AdvReac Type Severity Reaction Status Date / Time No Known Allergies Allergy Verified 12/12/20 19:13 Review of Systems Review of Systems: All systems reviewed & are unremarkable except as noted in HPI and below Constitutional: Constitutional: Denies chills, Denies fever(s) and Denies weakness ENT: Denies nasal congestion and Denies sore throat Gastrointestinal: Gastrointestinal: Reports abdominal pain, Denies nausea and Denies vomiting Genitourinary: Genitourinary: Denies hematuria, Reports oliguria, Denies dysuria and Reports urinary frequency PMF Past Medical History Medical History COPD (chronic obstructive pulmonary disease) Diabetes mellitus Hemoglobin A1c 12.09 August 2020 Obstructive sleep apnea Renal lesion Skin cancer Surgical History Surgical History History of left knee surgery History of right knee surgery History of shoulder surgery Left Family History Family History Sibling Diabetes mellitus Father Emphysema lung Social History Social History Social History: He lives with his significant other. He smokes about a 3rd of pack of cigarettes per day. He denies any alcohol abuse or illicit drugs. He has 4 children. Primary care physician: Code status: Full code Surrogate decision maker: Smoking packs per day: 0.5 Smoking cigarettes per day: 10.0 Years smoked: 58 Smoking pack-years: 29.00 Smoking status: Current every day smoker Tobacco type: cigarettes Second hand tobacco smoke exposure: Yes Alcohol intake: former Substance use: former Substance use type: marijuana Other substance usage details: former meth user current marijuana, drinks 1 a month Gender identity (if verbalized by the patient): Male Spiritual care concerns: No Exam Narrative: Exam Narrative: GENERAL: Well-appearing, well-nourished, and in no acute distress. HEAD: Normocephalic, atraumatic. CHEST: Clear to auscultation. No respiratory distress. HEART: Regular rate and rhythm. Normal peripheral pulses. ABDOMEN: Soft, nontender, nondistended. : Phimosis of the foreskin. No redness or swelling. Nontender phallus. Testicles/scrotum appear normal. EXTREMITIES: Normal range of motion. No edema. SKIN: Warm, dry, no rash. NEURO: Alert and oriented x3. PSYCH: Normal mood and affect. Course Reevaluation(s) Reevaluation #1: Discussed case with Dr. Manzo who is on-call for urology. He would like the patient admitted for diabetic management to the hospitalist so that he can then perform a circumcision when the blood sugars are controlled. Patient to remain n.p.o. at midnight. Date: 12/12/20 Time: 20:47 Vital Signs Vital signs: Vital Signs Temperature 97 F L 12/12/20 19:01 Pulse Rate 97 12/12/20 19:01 Respiratory Rate 16 12/12/20 19:01 Blood Pressure 128/84 12/12/20 19:01 P
[2020-12-12] MEDS: INSULIN ASPART (*BKC) 100 UNITS/ML 8 UNITS SUB-Q (21:17)
[2020-12-12] MEDS: INSULIN GLARGINE (*BKC) 100 UNITS/ML 26 UNITS SUB-Q (21:17)
[2020-12-12 22:00] VITALS: BP 116/58; PULSE 86; RESP 13; O2SAT 93
[2020-12-12 22:45] LABS: Glucose Point of Care 237 (65-105)
--- NOTE | 2020-12-12 23:27 | ADMGEN ---
This patient, Samuel Conway , was admitted to Medical Room 242-01 at 2320. Patient/family oriented to hospital policies and general routines including ID bracelet, bed and alarms, visiting hours, pain management, procedures, bathroom and other care routines, personal items, smoking policy, room service/diet, and visiting hours. Information on how to activate the Rapid Response Team has been discussed. Patient/Family are encouraged to report perceived risks to care and to ask questions if they do not understand what they are told or what they should do.
[2020-12-12 23:53] VITALS: BP 124/90; PULSE 85; RESP 16; TEMP 36.3; O2SAT 95
[2020-12-13] VITALS (14 sets, daily range): BP systolic 100–126; BP diastolic 42–69; PULSE 69–96; RESP 11–16; TEMP 35.9–36.6; O2SAT 92–100; BMI 24.3
[2020-12-13] MEDS: MORPHINE SULFATE (*CRX) 4 MG/ML INJ IV PUSH (03:57)
[2020-12-13 05:14] LABS: Glucose Point of Care 142 (65-105)
--- NOTE | 2020-12-13 05:27 | PM.IMHP ---
H&P: HPI History of Present Illness Date/Time: 12/13/20 05:27 Chief Complaint: Difficulty urinating, high glucoses Narrative: Samuel Conway Sr. is a 65 year old male with a past medical history of COPD, insulin-dependent diabetes mellitus, chronic tobacco use, obstructive sleep apnea and medication non compliance who presented to the ER the patient has a history of phimosis and was supposed to have a circumcision earlier this year with Dr. Manzo but he failed to follow-up. He subsequently reports increased urinary frequency and spraying of urine from his urethral orifice. He has a sensation of incomplete bladder emptying and dysuria. Between his stricture and is glands. He will often get a release of white material when he urinates. He denies any hematuria. He has a known history of diabetes in his last hemoglobin A1c in August was 12.3 when he was admitted the hospital for HHS. He was discharged home on Lantus. He told the ER staff that he had ran out of his diabetic medications and did not get them refilled. However the time of my evaluation he told me that he still had 3 syringes of Lantus left and that he last took is insulin on the evening of the . He reports that his since he was discharged from the hospital in August his blood sugars immediately were reading high or air on his glucometer. His sugars have never been below 300 on on his home glucometer. He had not contacted the physician that he was referred to on discharge regarding his hyperglycemia. He states that he has been taking his insulin and his metformin. He has not followed up with an eye doctor for diabetic eye exam. He does have frequent cramping in his legs and sounds as if he is having some symptoms of peripheral neuropathy. Patient is a difficult historian at best. He has a history of obstructive sleep apnea and is supposed to use a CPAP machine. Instead of using his CPAP machine he just uses a fan to below in his face. He reports that he has been having some cough for the last couple of weeks but no increased shortness of breath. He continues to smoke a half a pack of cigarettes per day. His cough is productive of white sputum. He has not been having any fevers or chills. He does have some chest discomfort associated with his cough. He denies chest pain on exertion. He has not been having any palpitations. He denies any recent COVID exposure or ill contacts. Review of Systems Review of Systems: Narrative: 12 systems were reviewed with pertinent positives and negatives per HPI. Except as documented in the HPI, all other systems were reviewed and are negative. [facility] Past Medical History Medical History (Updated 12/13/20 @ 07:33 by Renetta Palacios DO) COPD (chronic obstructive pulmonary disease) Diabetes mellitus Hemoglobin A1c 12.09 August 2020 Obstructive sleep apnea Renal lesion Skin cancer Surgical History Surgical History (Updated 12/13/20 @ 07:33 by Renetta Palacios DO) History of left knee surgery History of right knee surgery History of shoulder surgery Left Family History Family History Sibling Diabetes mellitus Father Emphysema lung Social History Social History (Updated 12/13/20 @ 05:29 by Renetta Palacios DO) Social History: He lives with his significant other. He smokes about a 3rd of pack of cigarettes per day. He denies any alcohol abuse or illicit drugs. He has 4 children. Primary care physician: Code status: Full code Surrogate decision maker: Smoking packs per day: 0.5 Smoking cigarettes per day: 10.0 Years smoked: 58 Smoking pack-years: 29.00 Smoking status: Current every day smoker Tobacco type: cigarettes Second hand tobacco smoke exposure: Yes Alcohol intake: former Substance use: former Substance use type: marijuana Other substance usage details: former meth user current marijuana, drinks 1 a month Gender identi
[2020-12-13 06:31] LABS: Hematocrit 38.5 % (42.0-52.0); Hemoglobin 13.4 g/dL (14.0-18.0); Mean Corpuscular HGB Conc 34.8 g/dl (32-36); Mean Corpuscular Hemoglobin 30.3 pg (26-34); Mean Corpuscular Volume 87.1 fl (80-100); Platelet Count Result 301 k/mm3 (150-375); Red Blood Count 4.42 M/mm3 (4.6-6.20); White Blood Count 8.2 K/mm3 (4.5-10.0)
[2020-12-13 06:50] LABS: Anion Gap 1 mmol/L (8-16); Blood Urea Nitrogen 12 mg/dL (9-20); Calcium 8.4 mg/dL (8.4-10.2); Carbon Dioxide 33 mmol/L (22-30); Chloride 103 mmol/L (98-107); Estimated CRCL calculation 102 ml/min; Estimated Glomerular Filt Rate > 60; Glucose 146 mg/dL (75-110); Potassium 3.3 mmol/L (3.4-5.0); Sodium 137 mmol/L (137-145)
[2020-12-13 07:42] LABS: Glucose Point of Care 162 (65-105)
[2020-12-13] MEDS: TAMSULOSIN HCL 0.4 MG CAPSULE PO (10:04)
--- NOTE | 2020-12-13 11:03 | PM.IMPN ---
Progress Note: A&P Assessment and Plan (1) Phimosis of penis: Code(s): N47.1 - Phimosis Status: Acute Assessment and Plan: He is established with urology and was planning for outpatient circumcision but did not follow-up from prior hospitalization. Urology has been consulted and input is appreciated. Planning for circumcision this afternoon by Dr. Manzo. Analgesics available as needed for pain. Currently NPO for procedure. (2) Urinary retention: Code(s): R33.9 - Retention of urine, unspecified Status: Acute Assessment and Plan: He has urinary retention due to phimosis. Per RN he urinated this morning with 500 cc urine output. plan as above will monitor intake and output continue Flomax (3) Type 2 diabetes mellitus with hyperglycemia: Qualifiers: Diabetes mellitus machine long goods helper insulin use: with skilled nursing use Qualified Code(s): E11.65 - Type 2 diabetes mellitus with hyperglycemia; Z79.4 - senior living (current) use of insulin Code(s): E11.65 - Type 2 diabetes mellitus with hyperglycemia Status: Acute Assessment and Plan: poorly controlled. last A1c in August 2020 was 12.3 and he was admitted to the hospital with [facility]. It appears are some issues with noncompliance. Blood sugars better controlled today with appropriate insulin regimen. Continue Accu-Cheks ACHS, SSI, hypoglycemic protocol continue Lantus 26 units HS continue metformin 5 mg b.i.d. he will benefit from Diabetes Education. If he is still here on Tuesday, will consult CDE. If discharged prior, will provide outpatient referral for diabetes education. (4) Tobacco abuse: Code(s): Z72.0 - Tobacco use Status: Acute Assessment and Plan: Reports smoking about 1/3 pack per day. He declined need for nicotine patch. He has been educated on smoking cessation and resources have been provided. (5) Obstructive sleep apnea: Code(s): G47.33 - Obstructive sleep apnea (adult) (pediatric) Status: Acute Assessment and Plan: He does not use home CPAP and has refused CPAP therapy as an inpatient. (6) COPD (chronic obstructive pulmonary disease): Code(s): J44.9 - Chronic obstructive pulmonary disease, unspecified Status: Inactive Assessment and Plan: Does not appear to be in acute exacerbation. He does have occasional cough that he reports is chronic. No wheezing. He is maintaining adequate O2 sats on room air. Continue scheduled Symbicort and albuterol prn Subjective Date/time seen: 12/13/20 11:03 Interval history: Date of service: 12/13/2020 Samuel Conway is a 65-year-old male with a history of COPD, uncontrolled insulin-dependent diabetes mellitus, and MARTIN who is seen in follow-up for phimosis. he is having pain of his penis, his groin, and his lower abdomen. He reports an overall soreness. Currently endorsing 7/10 pain. Also endorses very significant dysuria, stating when he urinates his pain is 10/10. He is not urinated yet this morning. He has been ambulating around the room. He reports a little bit unsteadiness on his feet but states this is not uncommon for him. He denies dizziness or lightheadedness. No fevers, chills, nausea, vomiting. Denies chest pain. Reports occasional cough. Also endorses cramping in his legs. he is very hungry and eager to have something to eat and drink. Review of Systems Review of Systems: All systems reviewed & are unremarkable except as noted in HPI and below Exam Narrative: Exam Narrative: Mr. Conway is a well-nourished, slightly disheveled-appearing 65-year-old male who is lying supine in bed. he appears comfortable and is in NARD. HR 69, BP 108/56, R 16, T 97.8?, 90% on room air Neuro: awake, alert and oriented x4, speech clear, no focal neuro deficits noted HEENMT: normocephalic, atraumatic, EOMI, sclerae anicteric, moist oral mucosa
[2020-12-13 11:21] LABS: Glucose Point of Care 208 (65-105)
[2020-12-13] MEDS: INSULIN ASPART (*BKC) 100 UNITS/ML SUB-Q (11:24)
--- NOTE | 2020-12-13 13:04 | PC.NURSE ---
To OR per bed, IV 20 right forearm. Report given to Julia.
--- NOTE | 2020-12-13 13:24 | WPDURCON ---
Assessment and Plan Assessment and plan (1) Phimosis of penis: Code(s): N47.1 - Phimosis Status: Acute Assessment and Plan: Is a 65-year-old gentleman with poorly controlled diabetes who presents the emergency department with severe phimosis and difficult the urinating. The patient has able to empty his bladder to some degree leaving over 500mL in his bladder. It appears that the cause of his retention is likely due to severe phimosis. His foreskin is unretractable and has a pinpoint opening. -I discussed risk benefits and alternatives with the patient. He agrees to proceed with a circumcision today. He understands risks of procedure include but limited to infection, bleeding, pain, injury to surrounding structures, need for additional operations. -we will reassess the patient's ability to empty his bladder with a bladder scan after his circumcision. I expect that his voiding symptoms will improve significantly after today's procedure. (2) Urinary retention: Code(s): R33.9 - Retention of urine, unspecified Status: Acute Urology Consult Note HPI Date Seen: 12/13/20 Requesting Physician: Alisa Palm PA-C Primary Care Provider: UNKNOWN,DOCTOR Consult Narrative Narrative: Samuel Conway Sr. is a 65 year old male with phimosis Review of Systems Review of Systems: All systems reviewed & are unremarkable except as noted in HPI and below Constitutional: Constitutional: Reports as per HPI [facility] Past Medical History Medical History (Updated 12/13/20 @ 11:25 by Alisa Palm PA-C) COPD (chronic obstructive pulmonary disease) Diabetes mellitus Hemoglobin A1c 12.09 August 2020 Obstructive sleep apnea Renal lesion Skin cancer Surgical History Surgical History (Updated 12/13/20 @ 07:33 by Renetta Palacios DO) History of left knee surgery History of right knee surgery History of shoulder surgery Left Family History Family History Sibling Diabetes mellitus Father Emphysema lung Social History Social History (Updated 12/13/20 @ 05:29 by Renetta Palacios DO) Social History: He lives with his significant other. He smokes about a 3rd of pack of cigarettes per day. He denies any alcohol abuse or illicit drugs. He has 4 children. Primary care physician: Code status: Full code Surrogate decision maker: Smoking packs per day: 0.5 Smoking cigarettes per day: 10.0 Years smoked: 58 Smoking pack-years: 29.00 Smoking status: Current every day smoker Tobacco type: cigarettes Second hand tobacco smoke exposure: Yes Alcohol intake: former Substance use: former Substance use type: marijuana Other substance usage details: former meth user current marijuana, drinks 1 a month Gender identity (if verbalized by the patient): Male Spiritual care concerns: No Meds Home Medications and Allergies Home Medications Medication Instructions Recorded Confirmed Type albuterol sulfate [ProAir HFA] 2 puff INHALATION QID PRN 09/04/20 12/12/20 History tamsulosin 0.4 mg PO DAILY 09/04/20 12/12/20 History budesonide-formoterol [Symbicort] 2 puff INHALATION Q12HRT #10.2 g 09/05/20 12/12/20 Rx insulin glargine [Lantus Solostar 26 unit SUBCUT HS #15 ml 09/05/20 12/12/20 Rx U-100 Insulin] metformin [Glucophage] 500 mg PO BIDWM #60 tablet 09/05/20 12/12/20 Rx Allergies Allergy/AdvReac Type Severity Reaction Status Date / Time No Known Allergies Allergy Verified 12/12/20 19:13 Vital Signs Vital Signs - 24 hr 12/12/20 19:01 12/12/20 20:08 12/12/20 22:00 Temperature 36.1 C L Pulse Rate 97 89 86 Respiratory Rate 16 18 13 Blood Pressure 128/84 119/70 116/58 L Pulse Oximetry 97 96 93 12/12/20 23:53 12/13/20 01:44 12/13/20 05:01 Temperature 36.3 C L 36.6 C Pulse Rate 85 69 Respiratory Rate 16 16 Blood Pressure 124/90 108/56 L Pulse Oximetry 95 95 92 Exam Const: G
--- NOTE | 2020-12-13 13:27 | WPDANESEPPF ---
Anes - Initial Pre Proc Eval Procedure: Operation Date: 12/13/20 14:00 Proposed Procedures p Circumcision - Germán Manzo MD Date/Time: 12/13/20 13:27 Surgeon: Alisa Palm PA-C Pre Op Diagnosis: phimosis, hyperglycemia Patient Data Age: 65 Gender: M Height: 6 ft 1 in Weight: 83.8 kg Last Vital Signs Temp 36.6 C 12/13/20 05:01 Pulse 69 12/13/20 05:01 Resp 16 12/13/20 05:01 BP 108/56 L 12/13/20 05:01 Pulse Ox 92 12/13/20 05:01 Allergies Allergy/AdvReac Type Severity Reaction Status Date / Time No Known Allergies Allergy Verified 12/12/20 19:13 Home Medications Medication Instructions Recorded Confirmed Type albuterol sulfate [ProAir HFA] 2 puff INHALATION QID PRN 09/04/20 12/12/20 History tamsulosin 0.4 mg PO DAILY 09/04/20 12/12/20 History budesonide-formoterol [Symbicort] 2 puff INHALATION Q12HRT #10.2 g 09/05/20 12/12/20 Rx insulin glargine [Lantus Solostar 26 unit SUBCUT HS #15 ml 09/05/20 12/12/20 Rx U-100 Insulin] metformin [Glucophage] 500 mg PO BIDWM #60 tablet 09/05/20 12/12/20 Rx Laboratory Tests 12/12/20 12/12/20 12/12/20 19:15 19:54 19:54 WBC 10.3 K/mm3 H K/mm3 (4.5-10.0) RBC 4.61 M/mm3 M/mm3 (4.6-6.20) Hgb 14.1 g/dL g/dL (14.0-18.0) Hct 40.1 % L % (42.0-52.0) MCV 87.0 fl fl (80-100) MCH 30.6 pg pg (26-34) MCHC 35.2 g/dl g/dl (32-36) RDW 12.1 % % (11.5-14.5) Plt Count 286 k/mm3 k/mm3 (150-375) MPV 8.9 fl fl (7.4-10.4) Immature Gran % (Auto) 0.3 % % (0-0.5) Neut % (Auto) 76.5 % H % (45.5-73.1) Lymph % (Auto) 16.7 % L % (18.3-44.2) Stanton % (Auto) 4.4 % % (2.6-8.5) Eos % (Auto) 1.7 % % (0-4.4) Baso % (Auto) 0.4 % % (0.2-1.2) Lymph # (Auto) 1.73 K/mm3 K/mm3 (0.9-3.2) Stanton # (Auto) 0.5 K/mm3 K/mm3 (0.1-0.6) Eos # (Auto) 0.2 K/mm3 K/mm3 (0-0.3) Baso # (Auto) 0.0 K/mm3 K/mm3 (0.0-0.1) Abs Immat Gran (auto) 0.03 K/mm3 K/mm3 (0.00-0.031) Absolute Neuts (auto) 7.9 K/mm3 H K/mm3 (1.3-6.7) Absolute Nucleated RBC 0.0 K/mm3 K/mm3 (0.0-0.012) Nucleated RBC % 0.0 % % (0.0-0.2) Sodium 133 mmol/L L mmol/L (137-145) Potassium 4.1 mmol/L mmol/L (3.4-5.0) Chloride 98 mmol/L mmol/L (98-107) Carbon Dioxide 33 mmol/L H mmol/L (22-30) Anion Gap 2 mmol/L L mmol/L (8-16) BUN 13 mg/dL mg/dL (9-20) Creatinine 0.60 mg/dL L mg/dL (0.7-1.3) Estim Creat Clear Calc 118 ml/min ml/min Estimated GFR > 60 (59 - ) Glucose 362 mg/dL H mg/dL (75-110) POC Capillary Glucose 420 mg/dl H mg/dl (65-105) Hemoglobin A1c Calcium 8.6 mg/dL mg/dL (8.4-10.2) Urine Color Urine Appearance Urine pH Ur Specific [place] Urine Protein Urine Glucose (UA) Urine Ketones Ur Blood (Man) Urine Nitrate Urine Bilirubin Urine Urobilinogen Leukocyte Esterase Rfl Urine RBC Urine WBC Ur Squamous Epith Cells 12/12/20 12/12/20 12/13/20 20:06 22:41 05:00 WBC RBC Hgb Hct MCV MCH MCHC RDW Plt Count MPV Immature Gran % (Auto) Neut % (Auto) Lymph % (Auto) Stanton % (Auto) Eos % (Auto) Baso % (Auto) Lymph # (Auto) Stanton # (Auto) Eos # (Auto) Baso # (Auto) Abs Immat Gran (auto) Absolute Neuts (auto) Absolute Nucleated RBC Nucleated
--- NOTE | 2020-12-13 13:32 | WPDHPUPDATE1 ---
History and Physical Update Update Date/Time: 12/13/20 13:32 History and Physical has been reviewed, including an updated exam of the patient. There are NO changes in the patient's condition. Risks, benefits, and alternatives have been discussed and questions answered. Patient agrees to proceed with procedure.
[2020-12-13 13:56] LABS: Hemoglobin A1C > 14.0 % (<5.7)
[2020-12-13] MEDS: ceFAZolin SODIUM 1 GM VIAL 2 GM IV PUSH (13:57)
[2020-12-13] MEDS: BUPIVACAINE HCL 0.5% PF 30 ML VIAL INFILTRATE (14:10)
[2020-12-13] MEDS: LACTATED RINGERS 1,000 ML 30 ML IV CONT ×2 (14:52→15:20)
--- NOTE | 2020-12-13 15:03 | PM.PROC ---
Procedure Note - Detailed Date of procedure: 12/13/20 Pre-op diagnosis: phimosis, hyperglycemia Post-op diagnosis: same Procedure performed: Circumcision Description of procedure: Informed consent was obtained. Patient was taken the operating. He was given preoperative IV antibiotics. He was induced with anesthesia. He was shaved and prepped. Drapes were placed. We then performed a penile block with 0.5% Marcaine without epinephrine. The patient had a very fibrotic foreskin that was with a blunt instrument. We then incised the skin dorsally to reveal a normal appearing glans with moderate skin thickening around the coronal margin. A Prolene suture was used for retraction through the glans. We excised a 3cm portion of the preputial skin taking great care not to injure the urethra. Preputial skin was sent to specimen. We then irrigated copiously and achieved hemostasis. We reapproximated the deep dermal layers with the 3 0 Vicryl suture. We reapproximated the skin in quadrants of 3 O chromic suture and interrupted 4 0 chromic sutures were placed in between the 3 0 sutures. Considering the patient's skin thickening this appeared to be an excellent cosmetic result. Retraction suture was removed. A compressive dressing was placed. The patient was taken recovery room stable condition Anesthesia: GLMA Surgeon: Germán Manzo MD Drains: No Packing: No Pathology: yes Complications: No immediate complications Condition: stable Disposition: PACU
[2020-12-13] MEDS: fentaNYL CITRATE INJ (*CRX) 100 MCG/2 ML VIAL 25 MCG IV PUSH ×4 (15:10→15:26)
[2020-12-13 15:21] LABS: Glucose Point of Care 165 (65-105)
--- NOTE | 2020-12-13 15:39 | SUR.PHASEI ---
PT SLEEPING. RESP EVEN UNLABORED. REPORT FAXED TO FLOOR.
--- NOTE | 2020-12-13 15:53 | SUR.PHASEI ---
PT SLEEPING IN INTERVALS.
--- NOTE | 2020-12-13 16:02 | SUR.PHASEI ---
PT AWAKE AND ALERT. TALKATIVE, EATING ICE CHIPS.
--- NOTE | 2020-12-13 16:43 | SUR.PHASEI ---
CALLED FLOOR NURSE SUNDAY. SHE STATED LOIS FAJARDO THE HOSPITALIST, JUST ORDERED PO POTASSIUM FOR AMI. OK TO CONTINUE TO PROCESS THE TRANSFER
--- NOTE | 2020-12-13 16:57 | PC.NURSE ---
Returned from OR. Report received from Delfina.
[2020-12-13] MEDS: POTASSIUM CHLORIDE 20 MEQ TABLET PO (17:09)
[2020-12-13 18:03] LABS: Glucose Point of Care 174 (65-105)
[2020-12-13] MEDS: HYDROcodone/acetaminophen (*CRX) 5-325 MG TABLET 1 TAB PO (18:07)
[2020-12-13] MEDS: metFORMIN HCL 500 MG TABLET PO (18:07)
[2020-12-13] MEDS: INSULIN GLARGINE (*BKC) 100 UNITS/ML 26 UNITS SUB-Q (21:16)
[2020-12-13 21:54] LABS: Glucose Point of Care 337 (65-105)
[2020-12-14] MEDS: HYDROcodone/acetaminophen (*CRX) 5-325 MG TABLET 1 TAB PO ×3 (01:22→10:18)
[2020-12-14 01:58] VITALS: BP 132/76; PULSE 72; RESP 16; TEMP 36.1; O2SAT 96
[2020-12-14 05:39] VITALS: BP 120/50; PULSE 70; RESP 16; TEMP 36.3; O2SAT 97
[2020-12-14 05:51] LABS: Hematocrit 37.4 % (42.0-52.0); Hemoglobin 12.7 g/dL (14.0-18.0); Mean Corpuscular Hemoglobin 29.9 pg (26-34); Platelet Count Result 296 k/mm3 (150-375); Red Blood Count 4.25 M/mm3 (4.6-6.20); Red Cell Distribution Width 12.2 % (11.5-14.5); White Blood Count 6.8 K/mm3 (4.5-10.0)
[2020-12-14 06:06] LABS: Anion Gap 2 mmol/L (8-16); Blood Urea Nitrogen 10 mg/dL (9-20); Calcium 7.9 mg/dL (8.4-10.2); Carbon Dioxide 31 mmol/L (22-30); Chloride 101 mmol/L (98-107); Estimated CRCL calculation 91 ml/min; Estimated Glomerular Filt Rate > 60; Glucose 239 mg/dL (75-110); Sodium 134 mmol/L (137-145)
--- NOTE | 2020-12-14 07:34 | WPDANESPN ---
Anes - Prog Note Post-Op Date/Time: 12/14/20 07:34 Cardiovascular status: normal Respiratory status: normal Airway patency: baseline Mental status: baseline Post-Op hydration status: normal Vital Signs: Last Vital Signs Temp 36.3 C L 12/14/20 05:39 Pulse 70 12/14/20 05:39 Resp 16 12/14/20 05:39 BP 120/50 L 12/14/20 05:39 Pulse Ox 97 12/14/20 05:39 Pain Score (VAS): pain 4/10 I/O: Intake & Output 12/13/20 12/13/20 12/14/20 15:59 23:59 07:59 Intake Total 400 540 400 Output Total 500 500 Balance -100 40 400 Laboratory Tests 12/14/20 05:05 12/14/20 05:05 12/13/20 12/13/20 12/13/20 05:35 07:32 11:16 WBC RBC Hgb Hct MCV MCH MCHC RDW Plt Count MPV Sodium Potassium Chloride Carbon Dioxide Anion Gap BUN Creatinine Estim Creat Clear Calc Estimated GFR Glucose POC Capillary Glucose 162 H 208 H Hemoglobin A1c > 14.0 H Calcium 12/13/20 12/13/20 12/13/20 15:18 17:50 21:15 WBC RBC Hgb Hct MCV MCH MCHC RDW Plt Count MPV Sodium Potassium Chloride Carbon Dioxide Anion Gap BUN Creatinine Estim Creat Clear Calc Estimated GFR Glucose POC Capillary Glucose 165 H 174 H 337 H Hemoglobin A1c Calcium 12/14/20 12/14/20 05:05 05:05 WBC 6.8 RBC 4.25 L Hgb 12.7 L Hct 37.4 L MCV 88.0 MCH 29.9 MCHC 34.0 RDW 12.2 Plt Count 296 MPV 9.0 Sodium 134 L Potassium 4.0 Chloride 101 Carbon Dioxide 31 H Anion Gap 2 L BUN 10 Creatinine 0.80 Estim Creat Clear Calc 91 Estimated GFR > 60 Glucose 239 H POC Capillary Glucose Hemoglobin A1c Calcium 7.9 L Post-procedural complaints: none Patient Feedback: Patient satisfied with anesthetic care.
[2020-12-14] MEDS: TAMSULOSIN HCL 0.4 MG CAPSULE PO (08:01)
[2020-12-14] MEDS: metFORMIN HCL 500 MG TABLET PO (08:01)
[2020-12-14 08:46] LABS: Glucose Point of Care 185 (65-105)
[2020-12-14 10:00] VITALS: BP 145/70; PULSE 78; RESP 18; TEMP 35.9; O2SAT 96
--- NOTE | 2020-12-14 10:14 | WPDUROPN2 ---
Progress Note: A&P Assessment and Plan (1) Urinary retention: Code(s): R33.9 - Retention of urine, unspecified Status: Acute Assessment and Plan: -the patient is voiding well today after circumcision, PVR less than 100mL (2) Phimosis of penis: Code(s): N47.1 - Phimosis Status: Acute Assessment and Plan: The patient is healing well from circumcision. He should follow-up in the office in 3 to 4 weeks. The office will call to schedule this appointment Subjective Subjective Date/Time Seen: 12/14/20 10:14 Postop day 1. From circumcision Exam Narrative: Exam Narrative: The patient is awake alert oriented in no acute distress. He is feeling well. The patient incision is healing well without significant edema or ecchymosis. Objective Data Vital Signs Vital Signs: Vital Signs - 24 hr 12/13/20 14:52 12/13/20 15:05 12/13/20 15:20 Temperature 36.1 C L Pulse Rate 76 73 72 Respiratory Rate 11 L 14 12 Blood Pressure 100/68 106/68 108/64 Pulse Oximetry 99 97 100 12/13/20 15:35 12/13/20 15:50 12/13/20 16:05 Temperature Pulse Rate 74 74 71 Respiratory Rate 14 16 14 Blood Pressure 101/63 100/63 101/62 Pulse Oximetry 92 92 92 12/13/20 16:20 12/13/20 17:00 12/13/20 17:15 Temperature 35.9 C L 35.9 C L Pulse Rate 71 78 74 Respiratory Rate 16 16 16 Blood Pressure 100/62 114/66 110/62 Pulse Oximetry 92 96 100 12/13/20 17:45 12/13/20 18:45 12/13/20 20:45 Temperature 36.1 C L 36.4 C L 36.0 C L Pulse Rate 83 90 96 Respiratory Rate 16 16 16 Blood Pressure 118/69 126/64 100/42 L Pulse Oximetry 93 96 96 12/14/20 01:58 12/14/20 05:39 Temperature 36.1 C L 36.3 C L Pulse Rate 72 70 Respiratory Rate 16 16 Blood Pressure 132/76 120/50 L Pulse Oximetry 96 97 Intake/Output Intake/Output: Intake & Output 12/11/20 12/12/20 12/13/20 12/14/20 23:59 23:59 23:59 23:59 Intake Total 1040 880 Output Total 400 1000 Balance -400 40 880 Meds/Results Medications: Active Medications Generic Name Dose Route Start Last Admin Trade Name Freq PRN Reason Stop Dose Admin Hydrocodone Bitart/Acetaminophen 1 tab 12/13/20 16:43 12/14/20 05:45 Hydrocodone/Acetaminophen (*Crx) 5-325 Mg Tablet PO 1 tab Q4H PRN Administration Pain Rated 4-6 Albuterol 2 puff 12/13/20 02:24 Albuterol Sulfate (*Sp) Aerosol 1 Puff INHALATION QID PRN Shortness Of Breath Or Wheezing Budesonide/Formoterol Fumarate 2 puff 12/13/20 08:00 12/14/20 08:02 Budesonide/Form 160-4.5 Mcg (*Sp) INHALATION 2 puff Q12HRT GO Administration Dextrose 12.5 gm 12/13/20 02:23 Dextrose 50% 25 Gm/50 Ml Syringe IV PUSH PRN PRN Hypoglycemia Protocol Glucagon 1 mg 12/13/20 02:23 Glucagon For Inj 1 Mg Vial IM PRN PRN Hypoglycemia Protocol Glucose 15 gm 12/13/20 02:23 Glucose Oral Gel 15 Gm Of Glucse In 37.5 Gm Tube PO PRN PRN Hypoglycemia Protocol Dextrose 1,000 mls @ 100 mls/hr 12/13/20 02:23 Dextrose 5% 1,000 Ml IVPB PRN PRN Hypoglycemia Protocol Lactated Ringer's 1,000 mls @ 30 mls/hr 12/13/20 13:30 12/13/20 15:19 Lr - Lactated Ringers Iv IV CONT Infused .Q24H GO Infusion Lactated Ringer's 1,000 mls @ 30 mls/hr 12/13/20 13:30 12/13/20 15:53 Lr - Lactated Ringers Iv IV CONT Infused .Q24H GO Infusion Insulin Aspart 3 - 6 units 12/14/20 08:00 12/14/20 08:00 Insulin Aspart (*Bkc) 100 Units/Ml SUB-Q Not Given TIDWM GO Protocol Insulin Glargine 26 units 12/13/20 21:00 12/13/20 21:16 Insulin Glargine (*Bkc) 100 Units/Ml SUB-Q 26 units HS GO Administration Metformin HCl 500 mg 02/06/21 08:00 12/14/20 08:01 Metformin Hcl 500 Mg Tablet PO 500 mg BIDWM GO Administration Ondansetron HCl 4 mg 12/12/20 21:12 Ondansetron Inj 4 Mg/2 Ml Vial IV PUSH Q4H PRN Nausea Ondansetron HCl 4 mg 12/13/20 13:28 Ondansetron Inj
--- NOTE | 2020-12-14 10:20 | PM.DS ---
DS: Admitting Diagnosis Admitting Diagnosis Admitting Diagnosis: Phimosis DS: Discharge Diagnosis Discharge Diagnosis (1) Phimosis of penis: Code(s): N47.1 - Phimosis Status: Acute Assessment and Plan: He developed pain and dysuria secondary to known phimosis. He is established with urology and was planning for outpatient circumcision but did not follow-up from prior hospitalization. He was seen in consultation by Urology and underwent circumcision on 12/13/2020. he tolerated the procedure well. he is able to urinate without difficulty following. He will apply triple antibiotic ointment to the penis 2 times per day and will follow-up with urology in 1 month. Short course of analgesics provided. (2) Urinary retention: Code(s): R33.9 - Retention of urine, unspecified Status: Acute Assessment and Plan: He has urinary retention due to phimosis. Following circumcision, he was able to urinate without difficulty. Continue Flomax. (3) Type 2 diabetes mellitus with hyperglycemia: Qualifiers: Diabetes mellitus termite inspector insulin use: with termite inspector use Qualified Code(s): E11.65 - Type 2 diabetes mellitus with hyperglycemia; Z79.4 - skilled nursing (current) use of insulin Code(s): E11.65 - Type 2 diabetes mellitus with hyperglycemia Status: Acute Assessment and Plan: A1c >14.0. Poorly controlled and he has been noncompliant with medications. Last A1c in August 2020 was 12.3 and he was admitted to the hospital with [facility]. Blood sugars were better controlled after restarting his home regimen. Because he had not been taking his medication as prescribed, I did not increase any of his medications to prevent possible hypoglycemia. I discussed with him at length the importance of monitoring his blood sugars and taking his insulin consistently. I provided refills for glucometer, test strips, lancets, and pen needles. I have instructed him to record his blood sugar readings and bring a log to his PCP for review in 1-2 weeks. He will benefit from Diabetes Education and I will place an outpatient referral. (4) Tobacco abuse: Code(s): Z72.0 - Tobacco use Status: Acute Assessment and Plan: Reports smoking about 1/3 pack per day. He declined need for nicotine patch. He was educated on smoking cessation for 5 minutes and resources were provided. (5) Obstructive sleep apnea: Code(s): G47.33 - Obstructive sleep apnea (adult) (pediatric) Status: Acute Assessment and Plan: He does not use home CPAP and refused CPAP therapy as an inpatient. I encouraged him to revisit this topic with his PCP and consider CPAP therapy. (6) COPD (chronic obstructive pulmonary disease): Code(s): J44.9 - Chronic obstructive pulmonary disease, unspecified Status: Inactive Assessment and Plan: Not in acute exacerbation. He had occasional cough that he reports is chronic. No wheezing. He maintained adequate O2 sats on room air. I provided refills for his Symbicort and albuterol at his request DS: Summary Hospital Course Reason for hospitalization: difficulty urinating Hospital Course: date of admission: 12/12/2020 date of discharge: 12/14/2020 Samuel Conway is a noncompliant 65-year-old male with a history of COPD, uncontrolled insulin-dependent diabetes mellitus, MARTIN who has refused CPAP, and known phimosis who presented to the emergency department on 12/12/20 with pain with urination and penile swelling after urinating. upon presentation to the emergency department, his vital signs were stable H&H slightly decreased, potassium 3.3 with additional electrolytes stable, and UA with no signs of infection. He was admitted to the hospitalist service for further evaluation management was seen in consultation by Urology. Please see above for further details. He underwent circumcision on 12/13/2020 and his urinary symptoms resolved followin
[2020-12-14 14:00] VITALS: BP 131/73; PULSE 82; RESP 18; TEMP 35.7; O2SAT 93
[2020-12-14 14:15] LABS: Glucose Point of Care 382 (65-105)
[2020-12-14] MEDS: INSULIN ASPART (*BKC) 100 UNITS/ML SUB-Q (14:19)
[2020-12-14 16:08] LABS: Glucose Point of Care 302 (65-105)
== END 2020-12-14 16:23 | disposition home or self-care (01) ==
LOC: ANHED 19:22 → ANH2MED 22:39
PROVIDERS: Physician Assistant; Urology; Admitting Provider Internal Medicine; Emergency Provider Emergency Medicine; Visit Provider Family Medicine
PROC: (CPT 54161; principal; 2020-12-13 14:00)
DX: N47.1 Phimosis (principal); R33.8 Other retention of urine; N47.7 Other inflammatory diseases of prepuce; J44.9 Chronic obstructive pulmonary disease, unspecified; E11.9 Type 2 diabetes mellitus without complications; G47.33 Obstructive sleep apnea (adult) (pediatric); F17.210 Nicotine dependence, cigarettes, uncomplicated; F12.90 Cannabis use, unspecified, uncomplicated; E11.65 Type 2 diabetes mellitus with hyperglycemia; Z91.14 Patient's other noncompliance with medication regimen; Z79.84 Long term (current) use of oral hypoglycemic drugs; Z79.4 Long term (current) use of insulin; Z23 Encounter for immunization
CPT/HCPCS: 54161; 36415; 80048; 81001; 82948; 83036; 85025; 85027; 88304; 90471; 90653; 96374; 96375; 96376; 99285; A9270; G0008; G0378; J0131; J0690; J1815; J2250; J2270; J2405; J2704; J3010; J7120

== ENCOUNTER 2021-05-25 04:04 | Inpatient (IN) | payer MEDICARE, MEDICAID, SELFPAY ==
[2021-05-25] VITALS (9 sets, daily range): BP systolic 119–160; BP diastolic 64–85; PULSE 64–95; RESP 15–22; TEMP 37.3; O2SAT 91–97
--- NOTE | ~2021-05-25 | CT_ITS ---
EXAMINATION: CT brain wo con INDICATION: Transient alteration of awareness COMPARISON: 05/26/2009 TECHNIQUE: Standard unenhanced head CT. The dose-length product (DLP) was 605.33 mGy-cm. The mA was a djusted according to patient size. Iterative reconstruction technique was employed. FINDINGS: There is no acute intraparenchymal hemorrhage. No evidence of mass lesion. No evidence of a cute infarction. There is no lacunar infarct versus prominent perivascular space of the right basal g anglia which is unchanged. There is mild periventricular and subcortical hypodensity probably related to small vessel ischemic disease. There is mild prominence of the sulci and ventricles related to ce rebral atrophy. Intracranial calcified cerebral atherosclerosis is noted. There are no extra-axial co llections. There is no mass effect or midline shift. The orbits and soft tissues are unremarkable. Th e visualized sinuses and mastoid air cells are well aerated. IMPRESSION: 1. No acute intracranial abnormality. 2. Age related findings. Reviewed, dictated and finalized at location B.
--- NOTE | ~2021-05-25 | US_ITS ---
EXAMINATION: US abdomen limited DATE: 05/26/2021 09:36 INDICATION: Right upper quadrant pain TECHNIQUE: Multiple grayscale and Doppler ultrasound images of the abdomen were obtained. COMPARISON: None available FINDINGS: The pancreas is obscured by bowel gas. The liver is normal with normal echogenicity and ech otexture. No surface nodularity. Normal hepatopetal flow in the main portal vein. The gallbladder is normal with no abnormal wall thickening, pericholecystic fluid or stones. The normal common bile duct measures 4 mm. There was no sonographic Young sign. IMPRESSION: 1. Normal sonographic study of the gallbladder. Reviewed, dictated and finalized at location B.
--- NOTE | ~2021-05-25 | XR_ITS ---
EXAMINATION: XR chest 1V portable DATE: 05/25/2021 05:06 INDICATION: Cough. Hypoxia. TECHNIQUE: frontal view of the chest was obtained. COMPARISON: Chest radiograph dated 09/03/2020 FINDINGS: The lungs remain clear with no focal airspace opacities, pulmonary edema, pleural effusion or pneumot horax. The cardiomediastinal silhouette is normal. IMPRESSION: 1. No acute cardiopulmonary disease. Reviewed, dictated and finalized at location A.
--- NOTE | 2021-05-25 04:12 | ECG_ITS ---
Measurements Intervals [place] Rate: 93 P: 65 MD: 168 QRS: 50 QRSD: 103 T: 50 QT: 362 QTc: 451 Interpretive Statements SINUS RHYTHM VENTRICULAR PREMATURE COMPLEX POSSIBLE LEFT ATRIAL ENLARGEMENT BORDERLINE ECG Electronically Signed On 05-25-2021 6:20:05 CDT by Jordan Wright D.O.
[2021-05-25 04:18] LABS: Glucose Point of Care > 500 mg/dl (65-105)
--- NOTE | 2021-05-25 04:24 | ED.GENADULT ---
HPI - General Adult General Chief complaint: Altered Mental Status Stated complaint: hallucinations/ high bs Time Seen by Provider: 05/25/21 04:12 Limitations: altered mental status History of Present Illness HPI narrative: Patient 65-year-old gentleman who presents the emergency department with chief complaint of altered mental status and elevated blood sugar. Patient was brought in by EMS after the patient called the police and was trying to make a police report and was found to be somewhat confused. Patient reports she has not had his insulin for over a week and his blood sugars have been running very high. The patient states that he has not had a fever denies abdominal pain. Related Data Home Medications Medication Instructions Recorded Confirmed tamsulosin 0.4 mg PO DAILY 09/04/20 12/12/20 Allergies Allergy/AdvReac Type Severity Reaction Status Date / Time No Known Allergies Allergy Verified 05/25/21 04:51 Review of Systems Review of Systems: Narrative: A 10 system review of systems was completed on the patient and is negative except for what is stated in the HPI. Nursing and ancillary documentation was reviewed. [facility] Past Medical History Medical History COPD (chronic obstructive pulmonary disease) Diabetes mellitus Hemoglobin A1c 12.09 August 2020 Obstructive sleep apnea Renal lesion Skin cancer Surgical History Surgical History History of left knee surgery History of right knee surgery History of shoulder surgery Left Family History Family History Sibling Diabetes mellitus Father Emphysema lung Social History Social History Social History: He lives with his significant other. He smokes about a 3rd of pack of cigarettes per day. He denies any alcohol abuse or illicit drugs. He has 4 children. Primary care physician: Code status: Full code Surrogate decision maker: Smoking packs per day: 0.5 Smoking cigarettes per day: 10.0 Years smoked: 58 Smoking pack-years: 29.00 Smoking status: Current every day smoker Tobacco type: cigarettes Second hand tobacco smoke exposure: Yes Alcohol intake: former Substance use: former Substance use type: marijuana Other substance usage details: former meth user current marijuana, drinks 1 a month Gender identity (if verbalized by the patient): Male Spiritual care concerns: No Exam Narrative: Exam Narrative: GENERAL: Well-appearing, well-nourished, and in no acute distress. HEAD: Normocephalic, atraumatic. EYES: PERRLA and EOMI. ENT: Nares clear, no rhinorrhea or epistaxis. Mucous membranes moist. NECK: Supple. CHEST: Clear to auscultation. No respiratory distress. HEART: Regular rate and rhythm. No murmur heard. Normal peripheral pulses. ABDOMEN: Soft, nontender, nondistended, normal active bowel sounds. EXTREMITIES: Normal range of motion. No edema. SKIN: Warm, dry, no rash. NEURO: No focal deficits. Alert and oriented x3. Somewhat confused PSYCH: Normal mood and affect. Course Vital Signs Vital signs: Vital Signs Temperature 37.3 C 05/25/21 04:06 Pulse Rate 95 05/25/21 04:06 Respiratory Rate 22 H 05/25/21 04:06 Blood Pressure 147/75 H 05/25/21 04:06 Pulse Oximetry 93 05/25/21 04:06 Temperature 37.3 C 05/25/21 04:06 Pulse Rate 95 05/25/21 04:06 Respiratory Rate 22 H 05/25/21 04:06 Blood Pressure 147/75 H 05/25/21 04:06 Pulse Oximetry 93 05/25/21 04:06 Medical Decision Making Vital Signs Vital Signs: Vital Signs Temperature 37.3 C 05/25/21 04:06 Pulse Rate 95 05/25/21 04:06 Respiratory Rate 22 H 05/25/21 04:06 Blood Pressure 147/75 H 05/25/21 04:06 Pulse Oximetry 93 05/25/21 04:06 Temperature 37
[2021-05-25 04:39] LABS: Alveolar/Arterial O2 Gradient 38.1 mmHg; Base Excess ABG 0.1 mEq/l (+/-2.0); Fractional Inspired Oxygen 21 %; HCO3 ABG 26.1 mEq/l (22.0-26.0); Oxygen Content ABG 16.8 %vol (16.0-22.0); Oxygen Saturation ABG 87.1 % (95.0-100.0); PCO2 ABG 47.4 mmHg (35.0-45.0); PO2 ABG 54.9 mmHg (80.0-100.0); PO2 FiO2 Ratio Arterial Blood 2.61 %; Total Hemoglobin 13.9 g/dL (12.0-18.0); pH ABG 7.358 (7.350-7.450)
[2021-05-25 04:42] LABS: Device ROOM AIR; Modified Allen's Test Pass; Site Drawn RIGHT RADIAL
[2021-05-25] MEDS: SODIUM CHLORIDE 0.9% IV 1,000 ML 999 ML IV CONT ×2 (04:47→04:48)
[2021-05-25 04:53] LABS: Basophils Absolute Auto 0.1 K/mm3 (0.0-0.1); Basophils Percent Auto 0.9 % (0.2-1.2); Eosinophils Absolute Auto 0.1 K/mm3 (0-0.3); Eosinophils Percent Auto 1.1 % (0-4.4); Hematocrit 37.1 % (42.0-52.0); Hemoglobin 12.8 g/dL (14.0-18.0); Immature Granulocyte Absolute 0.03 K/mm3 (0.00-0.031); Immature Granulocyte Percent A 0.3 % (0-0.5); Lymphocytes Absolute Auto 1.77 K/mm3 (0.9-3.2); Lymphocytes Percent Auto 19.5 % (18.3-44.2); Mean Corpuscular HGB Conc 34.5 g/dl (32-36); Mean Corpuscular Hemoglobin 30.7 pg (26-34); Mean Platelet Volume 9.5 fl (7.4-10.4); Monocytes Absolute Auto 0.8 K/mm3 (0.1-0.6); Monocytes Percent Auto 9.3 % (2.6-8.5); Neutrophils Absolute Auto 6.3 K/mm3 (1.3-6.7); Neutrophils Percent Auto 68.9 % (45.5-73.1); Platelet Count Result 244 k/mm3 (150-375); Red Blood Count 4.17 M/mm3 (4.6-6.20); Red Cell Distribution Width 12.3 % (11.5-14.5); White Blood Count 9.1 K/mm3 (4.5-10.0)
[2021-05-25 05:09] LABS: INR 0.9; Prothrombin Time 12.1 Seconds (11.1-14.7)
[2021-05-25 05:10] LABS: Add Urine Microscopic? YES; Appearance Urine Clear (Clear); Bilirubin Urine Negative (Negative); Blood Urine Negative (Negative); Color Urine Straw (Yellow); Glucose Urine UA 3+ mg/dL (Negative); Ketones Urine Negative (Negative); Leukocyte Esterase Ur Negative LEU/UL (Negative); Nitrate Urine Negative (Negative); Protein Urine 2+ mg/dL (Negative); Specific Grav Ur 1.028 (1.001-1.035); Urobilinogen Urine Negative mg/dL (<2.0)
[2021-05-25 05:10] LABS: Partial Thromboplastin Time 26.4 SECONDS (22.3-36.8)
[2021-05-25 05:11] LABS: Alanine Aminotransferase 188 U/L (4-50); Albumin Level 3.4 g/dL (3.5-5.1); Alkaline Phosphatase 85 U/L (38-126); Anion Gap 8 mmol/L (8-16); Aspartate Amino Transferase 105 U/L (17-59); Bilirubin,Total 0.5 mg/dL (0.2-1.3); Blood Urea Nitrogen 20 mg/dL (9-20); Calcium 8.4 mg/dL (8.4-10.2); Carbon Dioxide 23 mmol/L (22-30); Chloride 97 mmol/L (98-107); Estimated CRCL calculation 91 ml/min; Estimated Glomerular Filt Rate > 60; Lipase 111 U/L (23-300); Magnesium 1.8 mg/dL (1.6-2.3); Potassium 3.8 mmol/L (3.4-5.0); Sodium 128 mmol/L (137-145)
[2021-05-25 05:15] LABS: Troponin I 0.016 ng/mL (0.000-0.034)
[2021-05-25 05:19] LABS: Ethanol < 10 mg/dL (<10)
[2021-05-25 05:25] LABS: Beta-Hydroxybutyrate/Acetoacetate 0.51 mmol/L (0.02-0.27)
[2021-05-25 05:30] LABS: Benzodiazepines Screen Urine Negative (Negative)
[2021-05-25 05:41] LABS: Glucose 638 mg/dL (65-110)
[2021-05-25 05:42] LABS: Amphetamine Screen Urine Positive (Negative); Barbiturate Screen Urine Negative (Negative); Cannabinoid Screen Urine Negative (Negative); Cocaine Screen Urine Negative (Negative); Methadone Screen Urine Negative (Negative); Opiate Screen Urine Negative (Negative); Phencyclidine Screen Urine Negative (Negative)
[2021-05-25 06:33] LABS: Glucose Point of Care > 500 mg/dl (65-105)
--- NOTE | 2021-05-25 07:30 | ADMGEN ---
This patient, Samuel Conway , was admitted to 3 [facility] Surg Room 304-01. Patient/family oriented to hospital policies and general routines including ID bracelet, bed and alarms, visiting hours, pain management, procedures, bathroom and other care routines, personal items, smoking policy, room service/diet, and visiting hours. Information on how to activate the Rapid Response Team has been discussed. Patient/Family are encouraged to report perceived risks to care and to ask questions if they do not understand what they are told or what they should do.
[2021-05-25] MEDS: SODIUM CHLORIDE 0.9% IV 1,000 ML 125 ML IV CONT (07:51)
[2021-05-25 07:58] LABS: Glucose Point of Care 432 mg/dl (65-105)
[2021-05-25] MEDS: INSULIN ASPART (*BKC) 100 UNITS/ML 12 UNITS SUB-Q ×2 (10:53→11:55)
[2021-05-25 10:56] LABS: Glucose Point of Care > 500 mg/dl (65-105)
[2021-05-25 11:34] LABS: Glucose 594 mg/dL (65-110)
--- NOTE | 2021-05-25 12:15 | PM.IMHP ---
H&P: HPI History of Present Illness Date/Time: 05/25/21 12:15 Samuel Conway is a 65 year old man who has been admitted after presenting to the ED via EMS due to mental status changes and elevated blood glucose levels. He tells me he was living with his girlfriend and her mother; and he was having a problem with his girlfriend's mother so he contacted the police. When the police arrive they found him confused and contacted EMS. He tells me he hasn't taken his insulin in a couple of weeks because it wasn't called in to the pharmacy. He denied any HICKEY, dizziness, CP, SOB, N/V or abdominal pain. ED evaluation and revealed: BG 638; anion gap wnl; Na+ 128; H/H 12.8/37.1. UDS positive for amphetamine. CT of head showed no acute abnormality; CXR showed no acute disease; ECG showed SR with PVC and possible left atrial enlargement. His blood glucose readings have been consistently >. He received 2L of NS while in the ED. He received 12 units of insulin and BG reading ws greater than 500. He was given an additional 12 units insulin. I have discussed the case with Dr. Dutton, consumer insights specialist and he agrees to accept the patient to ICU for further management. Chief Complaint: mental status change; elevated blood sugar Review of Systems Review of Systems: All systems reviewed & are unremarkable except as noted in HPI and below PMFSH Past Medical History Medical History COPD (chronic obstructive pulmonary disease) Diabetes mellitus Hemoglobin A1c 12.09 August 2020 Obstructive sleep apnea Renal lesion Skin cancer Surgical History Surgical History History of left knee surgery History of right knee surgery History of shoulder surgery Left Family History Family History Sibling Diabetes mellitus Father Emphysema lung Social History Social History Social History: He lives with his significant other. He smokes about a 3rd of pack of cigarettes per day. He denies any alcohol abuse or illicit drugs. He has 4 children. Primary care physician: Code status: Full code Surrogate decision maker: Smoking packs per day: 0.5 Smoking cigarettes per day: 10.0 Years smoked: 58 Smoking pack-years: 29.00 Smoking status: Current every day smoker Tobacco type: cigarettes Second hand tobacco smoke exposure: Yes Alcohol intake: former Substance use: former Substance use type: amphetamines Other substance usage details: former meth user current marijuana, drinks 1 a month Gender identity (if verbalized by the patient): Male Spiritual care concerns: No Meds Home Medications and Allergies Home Medications Medication Instructions Recorded Confirmed Type Lantus Solostar U-100 Insulin 26 unit SUBCUT HS #15 ml 09/05/20 05/25/21 Rx metformin [Glucophage] 500 mg PO BIDWM #60 tablet 09/05/20 05/25/21 Rx albuterol sulfate [ProAir HFA] 2 puff INHALATION QID PRN #6.7 g 12/14/20 05/25/21 Rx blood sugar diagnostic [OneTouch #1 [facility] 12/14/20 05/25/21 Rx Verio test strips] blood-glucose meter [OneTouch #1 g 12/14/20 05/25/21 Rx Verio Flex meter] lancets [OneTouch Delica Plus #1 pkg 12/14/20 05/25/21 Rx Lancet] pen needle, diabetic [BD #1 g 12/14/20 05/25/21 Rx Ultra-Fine Vannessa Pen Needle] Allergies Allergy/AdvReac Type Severity Reaction Status Date / Time No Known Allergies Allergy Verified 05/25/21 04:51 Vital Signs Vital Signs - 24 hr 05/25/21 04:06 05/25/21 06:32 Temperature 37.3 C Pulse Rate 95 88 Respiratory Rate 22 H 18 Blood Pressure 147/75 H 160/85 H Pulse Oximetry 93 93 Exam Const: General: no acute distress, alert and awake Orientation/consciousness: patient oriented x3 HENMT: Head: normocephalic and atraumatic Ears: hearing grossly no
--- NOTE | 2021-05-25 12:44 | PC.NURSE ---
This patient, Samuel Conway , was transferred to ICU on 05/25/21 at 1244. Personal belongings sent with patient. Report given to Johanna @ 1241. Appropriate documentation sent with patient.
[2021-05-25 12:58] LABS: Anion Gap 8 mmol/L (8-16); Blood Urea Nitrogen 15 mg/dL (9-20); Calcium 8.5 mg/dL (8.4-10.2); Carbon Dioxide 25 mmol/L (22-30); Chloride 97 mmol/L (98-107); Estimated CRCL calculation 102 ml/min; Estimated Glomerular Filt Rate > 60; Magnesium 1.9 mg/dL (1.6-2.3); Phosphorus 3.3 mg/dL (2.5-4.5); Potassium 4.5 mmol/L (3.4-5.0); Sodium 130 mmol/L (137-145)
--- NOTE | 2021-05-25 13:13 | WPDCNINT ---
Assessment and Plan Assessment and plan (1) DKA, type 2: Code(s): E11.10 - Type 2 diabetes mellitus with ketoacidosis without coma Status: Acute Assessment and Plan: patient is in DKA likely secondary to noncompliance. Although his anion gap was normal his beta hydroxybutyrate was positive patient has received 2 L IV fluid bolus and will continue IV fluids start insulin infusion serial BMPs monitor and treat electrolytes as needed (2) COPD (chronic obstructive pulmonary disease): Code(s): J44.9 - Chronic obstructive pulmonary disease, unspecified Status: Acute Assessment and Plan: not in exacerbation p.r.n. bronchodilators (3) Tobacco abuse: Code(s): Z72.0 - Tobacco use Status: Acute (4) DVT prophylaxis: Code(s): Z29.9 - Encounter for prophylactic measures, unspecified Status: Acute Assessment and Plan: Lovenox subcu (5) Elevated liver enzymes: Code(s): R74.8 - Abnormal levels of other serum enzymes Status: Acute Assessment and Plan: elevated AST and ALT with normal bilirubin check right upper quadrant ultrasound monitor levels Echocardiography Tech Consult Note Consult date: 05/25/21 Time Seen: 12:30 HPI: Samuel Conway . is a 65 year old male who was brought to ED by EMS for confusion and l elevated blood glucose. patient states that he has not been able to fill his insulin prescription for last 2-3 weeks and has not taken any insulin. Patient states that he does not have prescriptions to get his insulin refilled. He states he has been taking his metformin. Today police was called for other unrelated issue and they noticed the patient to be confused and called EMS. EMS found his blood sugar to be very high and brought him to ER. Patient denied any specific complaints and was found to be having very high blood sugar. Patient was given IV fluid bolus and was admitted on floor. Despite subcutaneous insulin his blood sugar increased to above 500 hence I was consulted to transfer patient to ICU for insulin infusion. Patient denies any specific complaint he states that he has been weaning weak and tired. Review of system was positive for cramps in legs. He is requesting diet and states that he will leave against medical advise if not fed. Patient denies fever, chest pain, shortness of breath, cough, nausea vomiting, abdominal pain, diarrhea, headache or constipation. All other systems were reviewed and were negative. He has not received a COVID vaccine. he has not seen a primary care physician for a long time in ED his head CT and chest x-ray were unremarkable. EKG showed sinus rhythm with PVCs. His WBC was normal. We showed compensated hypercarbia and hypoxia but not requiring supplemental oxygen. Beta hydroxybutyrate was slightly abnormal and most recent blood sugar was 594 Review of Systems Review of Systems: All systems reviewed & are unremarkable except as noted in HPI and below ( HPI) REPLACED BY [facility] Past Medical History Medical History (Updated 05/25/21 @ 13:24 by Chaitanya Dutton MD) COPD (chronic obstructive pulmonary disease) Diabetes mellitus Hemoglobin A1c 12.09 August 2020 Obstructive sleep apnea Renal lesion Skin cancer Surgical History Surgical History History of left knee surgery History of right knee surgery History of shoulder surgery Left Family History Family History Sibling Diabetes mellitus Father Emphysema lung Social History Social History (Updated 05/25/21 @ 13:21 by Chaitanya Dutton MD) Social History: He lives with his significant other. He smokes about a 3rd of pack of cigarettes per day. He denies any alcohol abuse or illicit drugs. He has 4 children. Primary care physician: Code status: Full code Surrogate decision maker: Smoking packs per day: 0.5 Smoking cigarette
[2021-05-25] MEDS: INSULIN HUMAN REGULAR (*BKC) 100 UNITS in SODIUM CHLORIDE 0.9% IV 99 ML IV CONT (13:21)
[2021-05-25 13:26] LABS: Glucose Point of Care 114 mg/dl (65-105)
[2021-05-25] MEDS: KCL 20 MEQ/D5/0.45% SOD CHL 1,000 ML 150 ML IV CONT ×2 (13:44→20:25)
[2021-05-25 13:58] LABS: Hemoglobin A1C > 14.0 % (<5.7)
[2021-05-25] MEDS: ACETAMINOPHEN 325 MG TABLET 650 MG PO (14:06)
[2021-05-25 15:03] LABS: Glucose Point of Care 249 mg/dl (65-105)
[2021-05-25] MEDS: NICOTINE (*PBKC) 14 MG PATCH 1 PATCH TRANSDERM (15:15)
[2021-05-25 15:37] LABS: Anion Gap 5 mmol/L (8-16); Blood Urea Nitrogen 16 mg/dL (9-20); Calcium 8.5 mg/dL (8.4-10.2); Carbon Dioxide 26 mmol/L (22-30); Chloride 103 mmol/L (98-107); Estimated CRCL calculation 102 ml/min; Estimated Glomerular Filt Rate > 60; Glucose 251 mg/dL (65-110); Potassium 3.6 mmol/L (3.4-5.0); Sodium 134 mmol/L (137-145)
[2021-05-25 16:54] LABS: Glucose Point of Care 293 mg/dl (65-105)
[2021-05-25] MEDS: POTASSIUM CHLORIDE 20 MEQ TABLET 40 MEQ PO (17:37)
[2021-05-25] MEDS: INSULIN GLARGINE (*BKC) 100 UNITS/ML 30 UNITS SUB-Q (17:37)
[2021-05-25] MEDS: ENOXAPARIN 40 MG/0.4 ML SYRINGE SUB-Q (17:41)
[2021-05-25 17:45] LABS: Glucose Point of Care 248 mg/dl (65-105)
[2021-05-25 19:02] LABS: Glucose Point of Care 190 mg/dl (65-105)
[2021-05-25 21:05] LABS: Glucose Point of Care 196 mg/dl (65-105)
[2021-05-25 21:07] LABS: Anion Gap 5 mmol/L (8-16); Blood Urea Nitrogen 16 mg/dL (9-20); Calcium 8.1 mg/dL (8.4-10.2); Carbon Dioxide 25 mmol/L (22-30); Chloride 106 mmol/L (98-107); Estimated CRCL calculation 102 ml/min; Estimated Glomerular Filt Rate > 60; Glucose 196 mg/dL (65-110); Potassium 4.1 mmol/L (3.4-5.0); Sodium 136 mmol/L (137-145)
[2021-05-25 22:16] LABS: Glucose Point of Care 138 mg/dl (65-105)
[2021-05-25 23:26] LABS: Glucose Point of Care 97 mg/dl (65-105)
--- NOTE | 2021-05-25 23:54 | PC.NURSE ---
Gail Hampton FELT COVERER updated regarding insulin drip. Patient has already had insulin too. Start low dose SSI. Shut off insulin drip.
[2021-05-26] VITALS (9 sets, daily range): BP systolic 119–148; BP diastolic 64–112; PULSE 61–85; RESP 13–25; TEMP 36.6–36.9; O2SAT 92–98; BMI 25.9
[2021-05-26 04:29] LABS: Hematocrit 37.4 % (42.0-52.0); Mean Corpuscular HGB Conc 34.8 g/dl (32-36); Mean Corpuscular Volume 89.3 fl (80-100); Mean Platelet Volume 9.3 fl (7.4-10.4); Platelet Count Result 226 k/mm3 (150-375); Red Blood Count 4.19 M/mm3 (4.6-6.20); Red Cell Distribution Width 12.6 % (11.5-14.5); White Blood Count 8.8 K/mm3 (4.5-10.0)
[2021-05-26 04:41] LABS: Alanine Aminotransferase 194 U/L (4-50); Alkaline Phosphatase 62 U/L (38-126); Anion Gap 2 mmol/L (8-16); Aspartate Amino Transferase 178 U/L (17-59); Bilirubin,Total 0.4 mg/dL (0.2-1.3); Blood Urea Nitrogen 12 mg/dL (9-20); Carbon Dioxide 28 mmol/L (22-30); Chloride 105 mmol/L (98-107); Estimated CRCL calculation 118 ml/min; Estimated Glomerular Filt Rate > 60; Glucose 155 mg/dL (65-110); Magnesium 1.9 mg/dL (1.6-2.3); Potassium 3.7 mmol/L (3.4-5.0); Sodium 135 mmol/L (137-145)
[2021-05-26] MEDS: NICOTINE (*PBKC) 14 MG PATCH 1 PATCH TRANSDERM (08:04)
[2021-05-26 08:21] LABS: Glucose Point of Care 214 mg/dl (65-105)
[2021-05-26 11:23] LABS: Glucose Point of Care 184 mg/dl (65-105)
--- NOTE | 2021-05-26 13:36 | WPDINTPN ---
Progress Note: A&P Assessment and Plan (1) DKA, type 2: Code(s): E11.10 - Type 2 diabetes mellitus with ketoacidosis without coma Status: Acute Assessment and Plan: patient is in DKA likely secondary to noncompliance. Although his anion gap was normal his beta hydroxybutyrate was positive patient has received 2 L IV fluid bolus and will continue IV fluids patient has been transition to long-acting insulin and sliding scale insulin. Off insulin infusion early this morning - patient has been noncompliant with his diabetic medications - hemoglobin A1 is > 14.0 - will have dietitian clinical informatics educator evaluate the patient (2) COPD (chronic obstructive pulmonary disease): Code(s): J44.9 - Chronic obstructive pulmonary disease, unspecified Status: Acute Assessment and Plan: not in exacerbation p.r.n. bronchodilators (3) Tobacco abuse: Code(s): Z72.0 - Tobacco use Status: Acute Assessment and Plan: consult patient's tobacco cessation (4) DVT prophylaxis: Code(s): Z29.9 - Encounter for prophylactic measures, unspecified Status: Acute Assessment and Plan: Lovenox subcu (5) Elevated liver enzymes: Code(s): R74.8 - Abnormal levels of other serum enzymes Status: Acute Assessment and Plan: elevated AST and ALT with normal bilirubin RUQ ultrasound of the abdomen showed normal sonographic study of the gallbladder - continue to monitor LFTs Additional Plan discussed with patient updated with his condition and plan of care. Code status: Full code Critical care time spent: 34 minutes This dictation may have been done utilizing a voice recognition system. Attempts have been made to correct errors. However, there may be uncorrected grammatical, spelling, and recognition errors present. Due to a high probability of clinically significant, life threatening deterioration, the patient required my highest level of preparedness to intervene emergently and I personally spent this critical care time directly and personally managing the patient. This critical care time included obtaining a history; examining the patient; pulse oximetry; ordering and review of studies; arranging urgent treatment with development of a management plan; evaluation of patient's response to treatment; frequent reassessment; and discussions with other providers. It was exclusive of separately billable procedures and treating other patients and teaching time. Please see Assessment and Plan section and the rest of the note for further information on patient assessment and treatment Subjective Date/time seen: 05/26/21 13:36 Interval history: Reason for consult: hyperglycemia, elevated beta hydroxybutyrate, noncompliance, Diabetic ketoacidosis 05/26/2021: Patient seen examined the ICU, has been transition to long-acting insulin sliding scale insulin. Patient was currently NPO the time of examination she was awaiting his abdominal ultrasound was elevated LFTs. Patient denies any chest pain, shortness of breath, nausea, vomiting. complains of mild abdominal pain right upper quadrant. Also complained of tingling sensation in his arms or legs which has been an ongoing. urine output has been adequate, patient is afebrile, hemodynamically stable. Positive bowel movement Review of Systems Review of Systems: All systems reviewed & are unremarkable except as noted in HPI and below ( HPI) Exam Narrative: Exam Narrative: General: Pt is alert awake and in NAD Lungs/Chest: Trachea central Clear BS B/L, No wheezing. few crackles on the bases Cardiac: RRR. Normal S1 S2. No murmurs Circulation: Pedal pulses are intact and symmetrical. Abdomen: Normal bowel sounds.. Soft. NT. ND. Extremities: No clubbing, cyanosis or edema. Warm : Armas in place Neurologic: alert oriented x3 Follows commands. Moves all 4 extremities PERRL Skin: No Rash, several tattoos Objecti
--- NOTE | 2021-05-26 15:55 | WPDGICN ---
Assessment and Plan Assessment and plan (1) Elevated liver enzymes: Code(s): R74.8 - Abnormal levels of other serum enzymes Status: Acute Assessment and Plan: could be from fatty liver/uncontrolled dm will repeat HCV again with RNA to assess if active disease ultrasound unremarkable, no abdominal pain (2) DKA, type 2: Code(s): E11.10 - Type 2 diabetes mellitus with ketoacidosis without coma Status: Acute Assessment and Plan: treated and better now on insulin (3) COPD (chronic obstructive pulmonary disease): Code(s): J44.9 - Chronic obstructive pulmonary disease, unspecified Status: Acute (4) Hyponatremia with normal extracellular fluid volume: Code(s): E87.1 - Hypo-osmolality and hyponatremia Status: Acute Assessment and Plan: improving after glucose was corrected (5) Tobacco abuse: Code(s): Z72.0 - Tobacco use Status: Acute (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 is a 65 year old male with history of DM who has not filled his meds including his insulin for few weeks. He was brought to emergency via EMS after he was confused and noted to have elevated blood glucose levels. Police was called and he was confused and contacted EMS. ER evaluation found BG 638; anion gap wnl; Na+ 128; Hb 12.8 UDS positive for amphetamine. CT of head reviewed, showed no acute abnormality. He was admitted to ICU for insulin drip and now he is feeling better. I was called because transaminases 100-190's, normal bili. HCV ab positive in the past with RNA + but too low to read. Abdominal ultrasound unremarkable. Review of Systems Constitutional: Constitutional: Denies chills Eyes: Eyes: Reports no additional eye complaints ENT: Reports Normal hearing present Cardiovascular: Cardiovascular: Denies chest pain Respiratory: Respiratory: Denies dyspnea Gastrointestinal: Gastrointestinal: Denies abdominal pain Genitourinary: Genitourinary: Denies hematuria Musculoskeletal: Musculoskeletal: Reports no additional musculoskeletal complaints Integumentary/Breasts: Skin/Breast: Reports system reviewed and no additional complaints, except as docu Neurologic: Reports system reviewed and no additional complaints, except as documented Psychiatric: Psychiatric: Reports no additional psychiatric complaints PMFSH Past Medical History Medical History (Updated 05/25/21 @ 13:24 by Chaitanya Dutton MD) COPD (chronic obstructive pulmonary disease) Diabetes mellitus Hemoglobin A1c 12.09 August 2020 Obstructive sleep apnea Renal lesion Skin cancer Surgical History Surgical History History of left knee surgery History of right knee surgery History of shoulder surgery Left Family History Family History Sibling Diabetes mellitus Father Emphysema lung Social History Social History (Updated 05/25/21 @ 13:21 by Chaitanya Dutton MD) Social History: He lives with his significant other. He smokes about a 3rd of pack of cigarettes per day. He denies any alcohol abuse or illicit drugs. He has 4 children. Primary care physician: Code status: Full code Surrogate decision maker: Smoking packs per day: 0.5 Smoking cigarettes per day: 10.0 Years smoked: 58 Smoking pack-years: 29.00 Smoking status: Current every day smoker Tobacco type: cigarettes Second hand tobacco smoke exposure: Yes Alcohol intake: former Substance use: current Substance use type: amphetamines Other substance usage details: former meth user current marijuana, drinks 1 a month Gender identity (if verbalized by the patient): Male Spiritual care con
[2021-05-26] MEDS: INSULIN ASPART (*BKC) 100 UNITS/ML SUB-Q (16:31)
[2021-05-26 16:34] LABS: Glucose Point of Care 341 mg/dl (65-105)
[2021-05-26] MEDS: ENOXAPARIN 40 MG/0.4 ML SYRINGE SUB-Q (17:19)
[2021-05-26] MEDS: INSULIN GLARGINE (*BKC) 100 UNITS/ML 30 UNITS SUB-Q (19:43)
[2021-05-26 20:06] LABS: Glucose Point of Care 456 mg/dl (65-105)
[2021-05-26] MEDS: INSULIN ASPART (*BKC) 100 UNITS/ML 8 UNITS SUB-Q (20:18)
[2021-05-26 23:18] LABS: Glucose Point of Care 334 mg/dl (65-105)
[2021-05-27] MEDS: ACETAMINOPHEN 325 MG TABLET 650 MG PO (01:53)
[2021-05-27 02:33] LABS: Basophils Absolute Auto 0.1 K/mm3 (0.0-0.1); Basophils Percent Auto 0.6 % (0.2-1.2); Eosinophils Absolute Auto 0.2 K/mm3 (0-0.3); Eosinophils Percent Auto 2.1 % (0-4.4); Hematocrit 39.9 % (42.0-52.0); Hemoglobin 13.6 g/dL (14.0-18.0); Immature Granulocyte Absolute 0.02 K/mm3 (0.00-0.031); Immature Granulocyte Percent A 0.3 % (0-0.5); Lymphocytes Absolute Auto 1.93 K/mm3 (0.9-3.2); Lymphocytes Percent Auto 24.8 % (18.3-44.2); Mean Corpuscular HGB Conc 34.1 g/dl (32-36); Mean Corpuscular Hemoglobin 30.6 pg (26-34); Mean Corpuscular Volume 89.7 fl (80-100); Mean Platelet Volume 9.3 fl (7.4-10.4); Monocytes Absolute Auto 0.8 K/mm3 (0.1-0.6); Monocytes Percent Auto 9.6 % (2.6-8.5); Neutrophils Absolute Auto 4.9 K/mm3 (1.3-6.7); Neutrophils Percent Auto 62.6 % (45.5-73.1); Platelet Count Result 246 k/mm3 (150-375); Red Blood Count 4.45 M/mm3 (4.6-6.20); Red Cell Distribution Width 12.5 % (11.5-14.5); White Blood Count 7.8 K/mm3 (4.5-10.0)
[2021-05-27 02:38] LABS: Alanine Aminotransferase 207 U/L (4-50); Albumin Level 3.2 g/dL (3.5-5.1); Alkaline Phosphatase 71 U/L (38-126); Anion Gap 4 mmol/L (8-16); Aspartate Amino Transferase 142 U/L (17-59); Bilirubin,Total 0.3 mg/dL (0.2-1.3); Blood Urea Nitrogen 12 mg/dL (9-20); Calcium 8.6 mg/dL (8.4-10.2); Carbon Dioxide 27 mmol/L (22-30); Chloride 100 mmol/L (98-107); Estimated CRCL calculation 118 ml/min; Estimated Glomerular Filt Rate > 60; Glucose 244 mg/dL (65-110); Magnesium 1.9 mg/dL (1.6-2.3); Sodium 131 mmol/L (137-145)
[2021-05-27] MEDS: INSULIN ASPART (*BKC) 100 UNITS/ML SUB-Q ×3 (03:10→17:03)
[2021-05-27 04:24] LABS: Hepatitis B Surface Antigen Negative (Negative)
[2021-05-27 04:42] LABS: Hepatitis B Surface Anti Res Negative
[2021-05-27 07:53] LABS: Glucose Point of Care 71 mg/dl (65-105)
[2021-05-27 08:00] VITALS: BP 137/64; PULSE 83; RESP 16; TEMP 37; O2SAT 95
[2021-05-27] MEDS: NICOTINE (*PBKC) 14 MG PATCH 1 PATCH TRANSDERM (08:59)
[2021-05-27] MEDS: INSULIN GLARGINE (*BKC) 100 UNITS/ML SUB-Q (09:15)
--- NOTE | 2021-05-27 11:09 | PCDIET ---
Nutrition Follow-Up Complete: Nutrition Diagnosis: Altered nutrition related labs related to diabetes mellitus as evidenced by HgbA1C of greater than 14%. Nutrition Goal: Patient to consume 75% of meals or greater. Goal met. Patient now consuming 100% of meals on diabetic diet. Reports good appetite and denies nutrition related concerns. Reviewed carbohydrate control with patient this date. See Nutritional Teaching for additional details. Last recorded weight is 89 kg (on admission). Bowel Motility: Last documented BM on 05/26/21 x 1. Labs Reviewed: RBC (4.45), Hgb (13.6), Hct (39.9), Glu (244), Na (131), Alb (3.2) Meds Noted: Novolog, Lantus Additional Notes: Right middle finger abrasion. No documented pressure sores. Will continue to monitor with same goal. Nutrition Monitoring and Evaluation: Follow up in 7 days.
[2021-05-27 11:37] LABS: Glucose Point of Care 228 mg/dl (65-105)
--- NOTE | 2021-05-27 14:09 | WPDINTPN ---
Progress Note: A&P Assessment and Plan (1) DKA, type 2: Code(s): E11.10 - Type 2 diabetes mellitus with ketoacidosis without coma Status: Acute Assessment and Plan: patient is in DKA likely secondary to noncompliance. Although his anion gap was normal his beta hydroxybutyrate was positive - increase Lantus - continue sliding scale insulin and Accu-Cheksg - patient has been noncompliant with his diabetic medications - hemoglobin A1 is > 14.0 - will have dietitian software educator evaluate the patient (2) COPD (chronic obstructive pulmonary disease): Code(s): J44.9 - Chronic obstructive pulmonary disease, unspecified Status: Acute Assessment and Plan: not in exacerbation p.r.n. bronchodilators (3) Tobacco abuse: Code(s): Z72.0 - Tobacco use Status: Acute Assessment and Plan: consult patient's tobacco cessation (4) DVT prophylaxis: Code(s): Z29.9 - Encounter for prophylactic measures, unspecified Status: Acute Assessment and Plan: Lovenox subcu (5) Elevated liver enzymes: Code(s): R74.8 - Abnormal levels of other serum enzymes Status: Acute Assessment and Plan: elevated AST and ALT with normal bilirubin RUQ ultrasound of the abdomen showed normal sonographic study of the gallbladder - continue to monitor LFTs - hepatitis B negative - hepatitis C pending - GI following the patient Additional Plan discussed with patient updated with his condition and plan of care. Code status: Full code This dictation may have been done utilizing a voice recognition system. Attempts have been made to correct errors. However, there may be uncorrected grammatical, spelling, and recognition errors present. Due to a high probability of clinically significant, life threatening deterioration, the patient required my highest level of preparedness to intervene emergently and I personally spent this critical care time directly and personally managing the patient. This critical care time included obtaining a history; examining the patient; pulse oximetry; ordering and review of studies; arranging urgent treatment with development of a management plan; evaluation of patient's response to treatment; frequent reassessment; and discussions with other providers. It was exclusive of separately billable procedures and treating other patients and teaching time. Please see Assessment and Plan section and the rest of the note for further information on patient assessment and treatment Subjective Date/time seen: 05/27/21 14:09 Interval history: Reason for consult: hyperglycemia, elevated beta hydroxybutyrate, noncompliance, Diabetic ketoacidosis 05/27/2021: patient being seen for hospitalist team. patient states he is doing well, denies any nausea, vomiting, abdominal pain, chest pain, diarrhea. Denies any shortness of breath. urine output has been adequate, hemodynamically stable, afebrile. Review of Systems Review of Systems: All systems reviewed & are unremarkable except as noted in HPI and below ( HPI) Exam Narrative: Exam Narrative: General: Pt is alert awake and in NAD Lungs/Chest: Trachea central Clear BS B/L, No wheezing. few crackles on the bases Cardiac: RRR. Normal S1 S2. No murmurs Circulation: Pedal pulses are intact and symmetrical. Abdomen: Normal bowel sounds.. Soft. NT. ND. Extremities: No clubbing, cyanosis or edema. Warm : Armas in place Neurologic: alert oriented x3 Follows commands. Moves all 4 extremities PERRL Skin: No Rash, several tattoos Objective Data Vital Signs Vital Signs: Vital Signs - 24 hr 05/26/21 16:00 05/26/21 20:00 05/26/21 21:10 Temperature 98.2 F Pulse Rate 85 83 55 L Respiratory Rate 16 25 H Blood Pressure 136/64 Pulse Oximetry 95 96 94 05/26/21 23:13 05/27/21 08:00 Temperature 98.3 F 98.6 F Pulse Rate 74 83 Respiratory Rate 14 16 Blood Pressure 148/87 H 137/6
[2021-05-27 15:26] LABS: Glucose Point of Care 306 mg/dl (65-105)
[2021-05-27 16:00] VITALS: BP 138/71; PULSE 88; RESP 16; TEMP 36.8; O2SAT 94
--- NOTE | 2021-05-27 16:15 | WPDGIPROGNO ---
Progress Note: A&P Assessment and Plan (1) Elevated liver enzymes: Code(s): R74.8 - Abnormal levels of other serum enzymes Status: Acute Assessment and Plan: relatively stable pending HCV RNA (if abnormal then he can follow up in office in 3-4 weeks to discuss potential treatment), if negative then we can complete work up of chronic liver disease as outpatient but probably related to DM ? fatty liver (2) DKA, type 2: Code(s): E11.10 - Type 2 diabetes mellitus with ketoacidosis without coma Status: Acute Assessment and Plan: treated and better h/o non-compliance (3) COPD (chronic obstructive pulmonary disease): Code(s): J44.9 - Chronic obstructive pulmonary disease, unspecified Status: Acute Subjective Date/time seen: 05/27/21 16:15 Interval history: no new events Review of Systems Review of Systems: All systems reviewed & are unremarkable except as noted in HPI and below Exam Const: General: comfortable and no acute distress HENMT: General nose exam: Normal nares present Eyes: Sclera: sclerae normal Neck: Neck: supple Resp: Auscultation: clear to auscultation bilaterally Cardio: Rate: regular rate GI: GI Palp: Yes Soft to palpation, No Tenderness to palpation present (GI) and No Guarding due to palpation present (GI) Auscultation: normal bowel sounds Skin: General skin exam: no rashes or lesions noted Neuro: Speech: normal speech Extrem: General: normal to inspection Psych: Mental Status: mental status grossly normal Objective Data Vital Signs Vital Signs: Vital Signs - 24 hr 05/26/21 20:00 05/26/21 21:10 05/26/21 23:13 Temperature 98.3 F Pulse Rate 83 55 L 74 Respiratory Rate 25 H 14 Blood Pressure 148/87 H Pulse Oximetry 96 94 95 05/27/21 08:00 Temperature 98.6 F Pulse Rate 83 Respiratory Rate 16 Blood Pressure 137/64 Pulse Oximetry 95 Intake/Output Intake/Output: Intake & Output 05/24/21 05/25/21 05/26/21 05/27/21 23:59 23:59 23:59 23:59 Intake Total 4800 3640 4130 Output Total 2754 8140 Balance 4800 -235 1380 Meds/Results Medications: Active Medications Generic Name Dose Route Start Last Admin Trade Name Freq PRN Reason Stop Dose Admin Acetaminophen 650 mg 05/25/21 13:49 05/27/21 01:53 Acetaminophen 325 Mg Tablet PO 650 mg Q4H PRN Administration Headache or Fever Albuterol 2 puff 05/25/21 12:20 Albuterol Sulfate (*Sp) Aerosol 1 Puff INHALATION Q6HRT PRN Shortness Of Breath Dextrose 12.5 gm 05/25/21 12:18 Dextrose 50% 25 Gm/50 Ml Syringe IV PUSH PRN PRN Hypoglycemia Protocol Enoxaparin Sodium 40 mg 05/25/21 18:00 05/26/21 17:19 Enoxaparin 40 Mg/0.4 Ml Syringe SUB-Q 40 mg Q24H GO Administration Glucagon 1 mg 05/25/21 12:18 Glucagon For Inj 1 Mg Vial IM PRN PRN Hypoglycemia Protocol Glucose 15 gm 05/25/21 12:18 Glucose Oral Gel 15 Gm Of Glucse In 37.5 Gm Tube PO PRN PRN Hypoglycemia Protocol Dextrose 1,000 mls @ 100 mls/hr 05/25/21 12:18 Dextrose 5% 1,000 Ml IVPB PRN PRN Hypoglycemia Protocol Insulin Aspart 3 - 6 units 05/26/21 08:00 05/27/21 15:24 Insulin Aspart (*Bkc) 100 Units/Ml SUB-Q 5 units TIDWM [facility] Administration Protocol Insulin Glargine 35 units 05/27/21 21:00 Insulin Glargine (*Bkc) 100 Units/Ml SUB-Q HS GO Nicotine 1 patch 05/25/21 14:00 05/27/21 08:59 Nicotine (*Pbkc) 14 Mg Patch TRANSDERM 1 patch QAM [facility] Administration Radiology Results: ITS Impressions Head CT 05/25/21 08:08 IMPRESSION: 1. No acute intracranial abnormality. 2. Age related findings. Chest X-Ray 05/25/21 08:11 IMPRESSION: 1. No acute cardiopulmonary disease. Abdomen Ultrasound 05/26/21 10:01 IMPRESSION: 1. Normal sonographic study of the gallbladder. Labs Labs: Laboratory Results - last 24 hr 05/26/21 0
[2021-05-27 17:00] LABS: Glucose Point of Care 255 mg/dl (65-105)
[2021-05-27] MEDS: ENOXAPARIN 40 MG/0.4 ML SYRINGE SUB-Q (17:04)
--- NOTE | 2021-05-27 20:07 | PC.NURSE ---
Obtained patient point of care glucose. Noted it to be 300. Patient requested snack of gracie crackers, pudding and turkey sandwich. Encouraged to wait until POC glucose is closer to normal since patient was admitted on an insulin drip and no evening SSI dose was ordered. Patient states he wants to leave AMA. Dr. Palacios notified. Patient provided with AMA paperwork. States I'll just wait until tomorrow morning.
[2021-05-27] MEDS: INSULIN GLARGINE (*BKC) 100 UNITS/ML 35 UNITS SUB-Q (20:08)
[2021-05-27 20:14] LABS: Glucose Point of Care 300 mg/dl (65-105)
[2021-05-27 23:58] VITALS: BP 139/81; PULSE 61; RESP 14; TEMP 36.6; O2SAT 95
[2021-05-28 00:05] LABS: Glucose Point of Care 209 mg/dl (65-105)
[2021-05-28 04:26] LABS: Basophils Absolute Auto 0.1 K/mm3 (0.0-0.1); Basophils Percent Auto 0.9 % (0.2-1.2); Eosinophils Absolute Auto 0.2 K/mm3 (0-0.3); Eosinophils Percent Auto 1.8 % (0-4.4); Hematocrit 42.4 % (42.0-52.0); Hemoglobin 14.8 g/dL (14.0-18.0); Immature Granulocyte Absolute 0.03 K/mm3 (0.00-0.031); Immature Granulocyte Percent A 0.4 % (0-0.5); Lymphocytes Absolute Auto 2.16 K/mm3 (0.9-3.2); Lymphocytes Percent Auto 25.5 % (18.3-44.2); Mean Corpuscular HGB Conc 34.9 g/dl (32-36); Mean Corpuscular Volume 88.9 fl (80-100); Mean Platelet Volume 9.3 fl (7.4-10.4); Monocytes Absolute Auto 0.8 K/mm3 (0.1-0.6); Monocytes Percent Auto 8.8 % (2.6-8.5); Neutrophils Absolute Auto 5.3 K/mm3 (1.3-6.7); Neutrophils Percent Auto 62.6 % (45.5-73.1); Platelet Count Result 304 k/mm3 (150-375); Red Blood Count 4.77 M/mm3 (4.6-6.20); Red Cell Distribution Width 12.5 % (11.5-14.5); White Blood Count 8.5 K/mm3 (4.5-10.0)
[2021-05-28 04:36] LABS: Alanine Aminotransferase 247 U/L (4-50); Albumin Level 3.5 g/dL (3.5-5.1); Alkaline Phosphatase 84 U/L (38-126); Anion Gap 5 mmol/L (8-16); Aspartate Amino Transferase 185 U/L (17-59); Bilirubin,Total 0.4 mg/dL (0.2-1.3); Blood Urea Nitrogen 11 mg/dL (9-20); Calcium 8.7 mg/dL (8.4-10.2); Carbon Dioxide 29 mmol/L (22-30); Chloride 102 mmol/L (98-107); Estimated CRCL calculation 91 ml/min; Estimated Glomerular Filt Rate > 60; Glucose 321 mg/dL (65-110); Phosphorus 3.9 mg/dL (2.5-4.5); Potassium 4.2 mmol/L (3.4-5.0); Sodium 136 mmol/L (137-145)
--- NOTE | 2021-05-28 05:51 | PC.NURSE ---
Patient refusing to void per urinal. Uses toilet per self
[2021-05-28 08:00] VITALS: BP 149/87; PULSE 75; RESP 16; TEMP 36.8; O2SAT 92
[2021-05-28] MEDS: INSULIN GLARGINE (*BKC) 100 UNITS/ML 10 UNITS SUB-Q (08:52)
[2021-05-28] MEDS: NICOTINE (*PBKC) 14 MG PATCH 1 PATCH TRANSDERM (08:54)
[2021-05-28 09:41] LABS: Glucose Point of Care 182 mg/dl (65-105)
--- NOTE | 2021-05-28 12:32 | PM.DS ---
DS: Admitting Diagnosis Admitting Diagnosis Admitting Diagnosis: DKA DS: Discharge Diagnosis Discharge Diagnosis (1) DKA, type 2: Code(s): E11.10 - Type 2 diabetes mellitus with ketoacidosis without coma Status: Acute Assessment and Plan: patient is in DKA likely secondary to noncompliance. Although his anion gap was normal his beta hydroxybutyrate was positive - increase Lantus - continue sliding scale insulin and Accu-Cheksg - patient has been noncompliant with his diabetic medications - hemoglobin A1 is > 14.0 - Appreciate dietitian evaluation (2) COPD (chronic obstructive pulmonary disease): Code(s): J44.9 - Chronic obstructive pulmonary disease, unspecified Status: Acute Assessment and Plan: not in exacerbation p.r.n. bronchodilators (3) Tobacco abuse: Code(s): Z72.0 - Tobacco use Status: Acute Assessment and Plan: consult patient's tobacco cessation (4) DVT prophylaxis: Code(s): Z29.9 - Encounter for prophylactic measures, unspecified Status: Acute Assessment and Plan: Lovenox subcu (5) Elevated liver enzymes: Code(s): R74.8 - Abnormal levels of other serum enzymes Status: Acute Assessment and Plan: elevated AST and ALT with normal bilirubin RUQ ultrasound of the abdomen showed normal sonographic study of the gallbladder - continue to monitor LFTs - hepatitis B negative - hepatitis C pending - GI following the patient DS: Summary Hospital Course Reason for hospitalization: Samuel Conway is a 65 year old man who has been admitted after presenting to the ED via EMS due to mental status changes and elevated blood glucose levels. He tells me he was living with his girlfriend and her mother; and he was having a problem with his girlfriend's mother so he contacted the police. When the police arrive they found him confused and contacted EMS. He tells me he hasn't taken his insulin in a couple of weeks because it wasn't called in to the pharmacy. He denied any HICKEY, dizziness, CP, SOB, N/V or abdominal pain. ED evaluation and revealed: BG 638; anion gap wnl; Na+ 128; H/H 12.8/37.1. UDS positive for amphetamine. CT of head showed no acute abnormality; CXR showed no acute disease; ECG showed SR with PVC and possible left atrial enlargement. His blood glucose readings have been consistently >. He received 2L of NS while in the ED. He received 12 units of insulin and BG reading ws greater than 500. He was given an additional 12 units insulin. I have discussed the case with Dr. Dutton, briquette maker and he agrees to accept the patient to ICU for further management. Chief Complaint: mental status change; elevated blood sugar Hospital Course: Patient is clinically stable, his blood sugars are trending down, he is noncompliants with his meds, He has scheduled appointment with Dr. Hernandez at [facility]. he was seen by GI and will follow up with software consultant, patient is clinically stable, will discharge patient home today. Status at Discharge Functional status at discharge: independent ambulation Overall status at discharge: patient is back to baseline Time Spent with Patient Time attestation: Total time spent providing and/or coordinating discharge services: Time spent: Greater than 30 minutes Exam Narrative: Exam Narrative: Patient is comfortable, NAD HEENT: eyes are clear and none icteric LUNGS: respiratory effort are normal ABD: not distended Lower extremities: no edema SKIN: nonjaundiced Neuro: grossly intact and normal speech. DS: Data Data Completed and Pending Labs on day of discharge: Labs from last 24 hours 05/28/21 05/28/21 05/28/21 08:51 03:40 03:40 WBC 8.5 RBC 4.77 Hgb 14.8 Hct 42.4 MCV 88.9 MCH 31.0 MCHC 34.9 RDW 12.5 Plt Count 304 MPV 9.3 Immature Gran % (Auto) 0.4 Neut % (Auto) 62.6 Lymph % (Auto) 25.5 Harper % (Auto) 8.8 H Eos % (Auto) 1
--- NOTE | 2021-05-28 12:46 | PM.IMPN ---
Progress Note: A&P Assessment and Plan (1) DKA, type 2: Code(s): E11.10 - Type 2 diabetes mellitus with ketoacidosis without coma Status: Acute Assessment and Plan: patient is in DKA likely secondary to noncompliance. Although his anion gap was normal his beta hydroxybutyrate was positive - increase Lantus - continue sliding scale insulin and Accu-Cheksg - patient has been noncompliant with his diabetic medications - hemoglobin A1 is > 14.0 - Appreciate dietitian evaluation (2) COPD (chronic obstructive pulmonary disease): Code(s): J44.9 - Chronic obstructive pulmonary disease, unspecified Status: Acute Assessment and Plan: not in exacerbation p.r.n. bronchodilators (3) Tobacco abuse: Code(s): Z72.0 - Tobacco use Status: Acute Assessment and Plan: consult patient's tobacco cessation (4) DVT prophylaxis: Code(s): Z29.9 - Encounter for prophylactic measures, unspecified Status: Acute Assessment and Plan: Lovenox subcu (5) Elevated liver enzymes: Code(s): R74.8 - Abnormal levels of other serum enzymes Status: Acute Assessment and Plan: elevated AST and ALT with normal bilirubin RUQ ultrasound of the abdomen showed normal sonographic study of the gallbladder - continue to monitor LFTs - hepatitis B negative - hepatitis C pending - GI following the patient Additional Plan discussed with patient, updated with his condition and plan of care. I encouraged him to take his insulin regular basis as his hemoglobin A1c is > 14.0. - Care coordination as arranged for his transport, set have a primary care physician appointment, and insulin Code status: Full code This dictation may have been done utilizing a voice recognition system. Attempts have been made to correct errors. However, there may be uncorrected grammatical, spelling, and recognition errors present. Due to a high probability of clinically significant, life threatening deterioration, the patient required my highest level of preparedness to intervene emergently and I personally spent this critical care time directly and personally managing the patient. This critical care time included obtaining a history; examining the patient; pulse oximetry; ordering and review of studies; arranging urgent treatment with development of a management plan; evaluation of patient's response to treatment; frequent reassessment; and discussions with other providers. It was exclusive of separately billable procedures and treating other patients and teaching time. Please see Assessment and Plan section and the rest of the note for further information on patient assessment and treatment Subjective Date/time seen: 05/28/21 12:46 Interval history: Reason for consult: hyperglycemia, elevated beta hydroxybutyrate, noncompliance, Diabetic ketoacidosis 05/28/2021: Patient being seen for hospitalist team. Patient states he is feeling better denies any shortness of breath, chest pain, abdominal pain, nausea vomiting. Urine output has been adequate, patient has good appetite. Hemodynamically stable and afebrile. Blood sugars were slightly elevated requiring increase in his Lantus. Review of Systems Review of Systems: All systems reviewed & are unremarkable except as noted in HPI and below ( HPI) Exam Narrative: Exam Narrative: General: Pt is alert awake and in NAD Lungs/Chest: Trachea central Clear BS B/L, No wheezing. few crackles on the bases Cardiac: RRR. Normal S1 S2. No murmurs Circulation: Pedal pulses are intact and symmetrical. Abdomen: Normal bowel sounds.. Soft. NT. ND. Extremities: No clubbing, cyanosis or edema. Warm : Armas in place Neurologic: alert oriented x3 Follows commands. Moves all 4 extremities PERRL Skin: No Rash, several tattoos Objective Data Vital Signs Vital Signs: Vital Signs - 24 hr 05/27/21 16:00 05/27/21 23:58 05/28/21 08:0
[2021-06-01 13:25] LABS: HCV Genotype, LiPA 3
[2021-06-01 14:22] LABS: Hepatitis B Core Ab Total Reactive (Nonreactive)
== END 2021-05-28 13:15 | disposition home or self-care (01) | DRG 639 ==
LOC: ANHED 06:01 → ANH3MEDSUR 09:07 → ANHICU 05-26 04:15 → ANH3MEDSUR 05-29 13:13 → ANHICU 05-29 13:13
PROVIDERS: Internal Medicine; Internal Medicine Gastroenterology; Nurse Practitioner Adult Health; Admitting Provider Internal Medicine; Emergency Provider Emergency Medicine; Visit Provider Family Medicine
DX: E11.10 Type 2 diabetes mellitus with ketoacidosis without coma (principal); Z91.14 Patient's other noncompliance with medication regimen; J44.9 Chronic obstructive pulmonary disease, unspecified; F17.210 Nicotine dependence, cigarettes, uncomplicated; R74.8 Abnormal levels of other serum enzymes; F15.10 Other stimulant abuse, uncomplicated; G47.33 Obstructive sleep apnea (adult) (pediatric); Z79.4 Long term (current) use of insulin
CPT/HCPCS: 36415; 36600; 70450; 71045; 76705; 80048; 80053; 80307; 81001; 82010; 82805; 82947; 82948; 83036; 83690; 83735; 84100; 84484; 85025; 85027; 85610; 85730; 86704; 86706; 87340; 87522; 93005; 94003; 99285; A9270; J1650; J1815; J3480; J7030

== ENCOUNTER 2022-03-30 07:20 | Outpatient (CLI) | payer MEDICARE, MEDICAID, SELFPAY ==
--- NOTE | ~2022-03-30 | US_ITS ---
EXAMINATION: US aorta [facility] DATE: 03/30/2022 09:19 INDICATION: Screening for abdominal aortic aneurysm TECHNIQUE: Grayscale, color Doppler, and pulsed Doppler images of the aorta and common iliac arteries were obtained. COMPARISON: None. FINDINGS: The proximal aorta measures 2.7 cm. The mid aorta measures 2.3 cm. The distal aorta measures 2.1 cm. The right common iliac artery measures 1.7 cm. The left common iliac artery measures 1.4 cm. IMPRESSION: 1. Normal caliber abdominal aorta. Reviewed, dictated and finalized at location B.
== END 2022-03-30 07:21 | disposition home or self-care (01) ==
LOC: ANHIMG 07:23
PROVIDERS: Visit Provider Internal Medicine
DX: Z12.2 Encounter for screening for malignant neoplasm of respiratory organs (principal); Z13.6 Encounter for screening for cardiovascular disorders; J44.9 Chronic obstructive pulmonary disease, unspecified; R06.00 Dyspnea, unspecified
CPT/HCPCS: 76706

== ENCOUNTER 2022-04-03 01:09 | Inpatient (IN) | payer MEDICARE, MEDICAID, SELFPAY ==
[2022-04-03] VITALS (33 sets, daily range): BP systolic 91–167; BP diastolic 61–91; PULSE 54–103; RESP 16–30; TEMP 36.2–36.8; O2SAT 91–100; BMI 21.9
--- NOTE | 2022-04-03 | ECHO_ITS ---
Patient Info Name: Samuel Conway Age: 66 years : 1955 Gender: Male Ht: 73 in Wt: 198 lbs BSA: 2.16 m2 HR: 95 bpm BP: 127 / 91 mmHg Heart Rhythm: Sinus Rhythm Technical Quality: Fair Exam Date: 04/03/2022 9:11 AM Exam Location: [facility] Pulmonary Patient Status: Inpatient Admit Date: 04/03/2022 Staff Ordering Physician: Chaitanya Dutton MD Neuropsychiatric Aide: 95 Attending Provider: Chantelle Gutiérrez DO Exam Type: CA echo dop color flow w con Study Info Indications I21.4 - Non-ST elevation (NSTEMI) myocardial infarction Complete two-dimensional, color flow and Doppler transthoracic echocardiogram is performed with contrast to opacify the left ventricle and to improve the deliniation of the left ventricle endocardial borders. Contrast/Agitated Saline Contrast/Ag. Saline: Definity Amount: 4.00 ml Summary 1. Left ventricular chamber dimension is mildly enlarged. 2. Left ventricular systolic function is severely reduced, estimated at 25% with dyskinetic apex, akinetic apical septal and apical lateral harrell, hypokinesis of the anterior wall.. 3. There is mildly increased left ventricular wall thickness. 4. There is mild mitral valve regurgitation. Left Ventricle Left ventricular chamber dimension is mildly enlarged. Left ventricular systolic function is severely reduced, estimated at 25% with dyskinetic apex, akinetic apical septal and apical lateral harrell, hypokinesis of the anterior wall.. There is mildly increased left ventricular wall thickness. The left ventricular diastolic function is abnormal. There is no thrombus visualized in the left ventricle. Right Ventricle Right ventricular chamber dimension is normal. Right ventricular systolic function is normal. Left Atria Left atrial chamber dimension is moderately enlarged. Right Atria Right atrial chamber dimension is normal. Aortic Valve The aortic valve is not well visualized. There is moderate aortic valve sclerosis. There is no aortic valve stenosis. There is no aortic valve regurgitation. Pulmonic Valve The pulmonic valve is not well visualized. Mitral Valve The mitral valve has thickened leaflets. There is mild mitral valve regurgitation. The mitral valve annulus is moderately calcified. Tricuspid Valve The tricuspid valve leaflets are normal. There is mild tricuspid valve regurgitation. Unable to estimate PA systolic pressure due to poor spectral resolution of tricuspid regurgitant jet velocity. Pericardium/Pleural The pericardium appears normal. There is no pericardial effusion. Inferior Vena Cava Normal inferior vena cava with >50% collapse upon inspiration consistent with normal right atrial pressure, 5 mmHg. Aorta The aortic root size at the sinus of Valsalva is normal. Left Ventricular Outflow Tract Name Value Normal LVOT 2D LVOT Diameter 2.32 cm LVOT Doppler LVOT Peak Gradient 2 mmHg LVOT Mean Gradient 1 mmHg LVOT VTI 13.30 cm LVOT VTI/AV VTI Ratio 0.63
--- NOTE | ~2022-04-03 | XR_ITS ---
XR chest 2V DATE: 04/03/2022 01:56 INDICATION: Chest pain TECHNIQUE: 2 views COMPARISON: 05/25/2021 portable AP chest views FINDINGS: Normal heart size. Bilateral hyperinflation suggesting obstructive airways disease. No pulmonary consolidation, pleural effusion, pulmonary vascular congestion or pneumothorax. Osteopenia. Degenerative spurring of the thoracic spine. IMPRESSION: Bilateral hyperinflation consistent with COPD No active cardiopulmonary disease Reviewed, dictated and finalized at location A.
--- NOTE | 2022-04-03 01:21 | ECG_ITS ---
Measurements Intervals [place] Rate: 103 P: 18 [place]: 186 QRS: 54 QRSD: 101 T: 113 QT: 361 QTc: 473 Interpretive Statements SINUS TACHYCARDIA CONSIDER ANTERIOR INFARCT, AGE INDETERMINATE BORDERLINE ST-T WAVE ABNORMALITY IN ANTEROLAT/HIGH LAT LEADS ABNORMAL ECG Electronically Signed On 04-03-2022 7:11:17 CDT by Jordan Wright D.O.
--- NOTE | 2022-04-03 01:33 | ECG_ITS ---
Measurements Intervals [place] Rate: 101 P: 20 [place]: 189 QRS: 51 QRSD: 98 T: 111 QT: 345 QTc: 449 Interpretive Statements SINUS TACHYCARDIA ANTERIOR INFARCT, AGE INDETERMINATE BORDERLINE ST-T WAVE ABNORMALITY- ANTEROLAT/HIGH LAT LEADS ABNORMAL ECG Electronically Signed On 04-03-2022 7:10:43 CDT by Jordan Wright D.O.
[2022-04-03 01:36] LABS: Glucose Point of Care 298 mg/dl (65-105)
[2022-04-03 01:37] LABS: Basophils Absolute Auto 0.1 K/mm3 (0.0-0.1); Basophils Percent Auto 0.6 % (0.2-1.2); Eosinophils Absolute Auto 0.2 K/mm3 (0-0.3); Eosinophils Percent Auto 1.5 % (0-4.4); Hematocrit 36.9 % (42.0-52.0); Hemoglobin 12.3 g/dL (14.0-18.0); Immature Granulocyte Absolute 0.02 K/mm3 (0.00-0.031); Immature Granulocyte Percent A 0.2 % (0-0.5); Lymphocytes Absolute Auto 2.01 K/mm3 (0.9-3.2); Lymphocytes Percent Auto 20.4 % (18.3-44.2); Mean Corpuscular HGB Conc 33.3 g/dl (32-36); Mean Corpuscular Hemoglobin 30.4 pg (26-34); Mean Corpuscular Volume 91.1 fl (80-100); Mean Platelet Volume 9.1 fl (7.4-10.4); Monocytes Absolute Auto 0.9 K/mm3 (0.1-0.6); Monocytes Percent Auto 8.6 % (2.6-8.5); Neutrophils Absolute Auto 6.8 K/mm3 (1.3-6.7); Neutrophils Percent Auto 68.7 % (45.5-73.1); Platelet Count Result 238 k/mm3 (150-375); Red Blood Count 4.05 M/mm3 (4.6-6.20); Red Cell Distribution Width 12.6 % (11.5-14.5); White Blood Count 9.9 K/mm3 (4.5-10.0)
[2022-04-03] MEDS: NITROGLYCERIN SL 0.4 MG TABLET SUBLINGUAL ×2 (01:40→03:30)
[2022-04-03] MEDS: ASPIRIN 81 MG CHEWABLE TABLET 324 MG PO (01:46)
--- NOTE | 2022-04-03 01:46 | PC.NURSE ---
Pt reports pain 2/10 after nitro SL
[2022-04-03 01:48] LABS: INR 1.2; Prothrombin Time 14.5 Seconds (11.1-14.7)
[2022-04-03 01:49] LABS: Partial Thromboplastin Time 30.8 SECONDS (22.3-36.8)
--- NOTE | 2022-04-03 01:55 | ED.CHESTPAIN ---
HPI - Chest Pain General Chief Complaint: Chest Pain Stated Complaint: CHEST PAIN ALL DAY Time Seen by Provider: 04/03/22 01:12 History of Present Illness HPI narrative: Patient is a 66-year-old male who presents ER with chest pain. Reports its been ongoing for 2 to 3 weeks intermittently. Unsure what causes the pain to occur. Reports it last for 30 minutes at a time. It will radiate to his back. He also feels it in his abdomen. Reports mild nausea but no vomiting. No fevers or chills or sweats. Denies exertional component. Unsure if it is associated with eating or drinking. Reports he called the ambulance because the symptoms came back tonight around 11 PM. He reports its a hard pain in his chest that goes into his abdomen and back. He has found no alleviating factors for this. Denies history of heart disease. Patient does have history of diabetes. Related Data Allergies Allergy/AdvReac Type Severity Reaction Status Date / Time No Known Allergies Allergy Verified 05/25/21 04:51 Review of Systems Review of Systems: All systems reviewed & are unremarkable except as noted in HPI and below Constitutional: Constitutional: Denies chills, Denies fatigue and Denies fever(s) Cardiovascular: Cardiovascular: Reports chest pain, Denies rapid heart rate and Denies radiating jaw, neck or arm pain Respiratory: Respiratory: Denies chest congestion, Denies cough and Denies dyspnea Gastrointestinal: Gastrointestinal: Reports abdominal pain, Denies diarrhea, Reports nausea and Denies vomiting PMFSH Past Medical History Medical History COPD (chronic obstructive pulmonary disease) Diabetes mellitus Hemoglobin A1c 12.09 August 2020 Obstructive sleep apnea Renal lesion Skin cancer Surgical History Surgical History History of left knee surgery History of right knee surgery History of shoulder surgery Left Family History Family History Sibling Diabetes mellitus Father Emphysema lung Social History Social History Social History: He lives with his significant other. He smokes about a 3rd of pack of cigarettes per day. He denies any alcohol abuse or illicit drugs. He has 4 children. Primary care physician: Code status: Full code Surrogate decision maker: Smoking packs per day: 0.33 Smoking cigarettes per day: 6.6 Years smoked: 58 Smoking pack-years: 19.14 Smoking status: Current every day smoker Tobacco type: cigarettes Second hand tobacco smoke exposure: Yes Additional smoking assessment comments: currently wearing nocitone patch, reports he is cutting down and trying to Alcohol intake: current Drinks per week: 2 Substance use: current Substance use type: marijuana and amphetamines Other substance usage details: former meth user current marijuana, drinks 1 a month Last use: daughter suspects amphetamine use-not sure Gender identity (if verbalized by the patient): Male Spiritual care concerns: No Exam Narrative: GENERAL: Chronically ill-appearing, well-nourished, and in mild distress. HEAD: Normocephalic, atraumatic. ENT: Mucous membranes moist. NECK: Supple. CHEST: Clear to auscultation. No respiratory distress. HEART: Regular rate and rhythm. Normal peripheral pulses. ABDOMEN: Soft, nontender, nondistended. EXTREMITIES: Normal range of motion. No edema. SKIN: Warm, dry, no rash. NEURO: Alert and oriented x3. PSYCH: Normal mood and affect. Course Course Emergency Course: Patient had improvement of chest pain from 05/16-2/ with [address] Hernandez at the mail inserter was consulted about the EKGs and does not feel this is sales representatives of [facility]. It does look like the patient has LVH with early repolarization abnormality. P
[2022-04-03 02:01] LABS: Alanine Aminotransferase 89 U/L (6-50); Albumin Level 3.7 g/dL (3.5-5.1); Alkaline Phosphatase 66 U/L (38-126); Anion Gap 2 mmol/L (8-16); Aspartate Amino Transferase 51 U/L (17-59); Bilirubin,Total 0.6 mg/dL (0.2-1.3); Blood Urea Nitrogen 18 mg/dL (9-20); Calcium 8.4 mg/dL (8.4-10.2); Carbon Dioxide 29 mmol/L (22-30); Chloride 105 mmol/L (98-107); Estimated CRCL calculation 73 ml/min; Estimated Glomerular Filt Rate > 60; Glucose 294 mg/dL (65-110); Lipase 47 U/L (23-300); NT Pro B Type Natriuretic Pept 4610 pg/mL (5-100); Potassium 4.1 mmol/L (3.4-5.0); Sodium 136 mmol/L (137-145); Troponin I 0.121 ng/mL (0.000-0.034)
[2022-04-03] MEDS: FUROSEMIDE INJ 40 MG/4 ML VIAL IV PUSH ×2 (02:42→10:22)
[2022-04-03] MEDS: HEPARIN SODIUM 5,000 UNITS/ML VIAL 4000 UNITS IV PUSH ×3 (02:43→17:25)
[2022-04-03] MEDS: HEPARIN SOD/D5W 100 UNITS/ML 25,000 UNITS/250 ML BAG 10 UNITS IV CONT (02:46)
--- NOTE | 2022-04-03 03:03 | PM.IMHP ---
H&P: HPI History of Present Illness Date/Time: 04/03/22 03:03 Chief Complaint: chest pain Narrative: 66-year-old male with past medical history significant for COPD, prior polysubstance user, current tobacco user, uncontrolled diabetes, sleep apnea and prior skin cancers presenting with chest pain for the last 2-3 weeks. The pain is intermittent and lasts for about a 1/2 hour time and radiates into his back. Sometimes it radiates into his belly. He does report some associated nausea but denies any emesis or diarrhea. No fevers or chills. No associated shortness of breath. It does not seem to alleviate with rest and is not worse with exertion. Does not seem to be associated with food intake or positional changes. It is not reproducible with palpation. Cardiology was consulted from the ER for abnormal EKG and did not think it was an acute STEMI. He was started on Lasix for some noted pulmonary edema and elevated BNP. His chest pain worsened and was associated with shortness of breath and orthopnea any had oxygen requirement at that time. He was given nitroglycerin which seemed to improve his pain and therefore he was started on nitroglycerin drip as well as a heparin drip. The leaf tier was consulted and he was accepted to the ICU on BiPAP. Diuresis continues with Lasix. ABG pending. [facility] Past Medical History Medical History COPD (chronic obstructive pulmonary disease) Diabetes mellitus Hemoglobin A1c 12.09 August 2020 Obstructive sleep apnea Renal lesion Skin cancer Surgical History Surgical History History of left knee surgery History of right knee surgery History of shoulder surgery Left Family History Family History Sibling Diabetes mellitus Father Emphysema lung Social History Social History Social History: He lives with his significant other. He smokes about a 3rd of pack of cigarettes per day. He denies any alcohol abuse or illicit drugs. He has 4 children. Primary care physician: Code status: Full code Surrogate decision maker: Smoking packs per day: 0.33 Smoking cigarettes per day: 6.6 Years smoked: 58 Smoking pack-years: 19.14 Smoking status: Current every day smoker Tobacco type: cigarettes Second hand tobacco smoke exposure: Yes Additional smoking assessment comments: currently wearing nocitone patch, reports he is cutting down and trying to Alcohol intake: current Drinks per week: 2 Substance use: current Substance use type: marijuana and amphetamines Other substance usage details: former meth user current marijuana, drinks 1 a month Last use: daughter suspects amphetamine use-not sure Gender identity (if verbalized by the patient): Male Spiritual care concerns: No Meds Home Medications and Allergies Home Medications Medication Instructions Recorded Confirmed Type albuterol sulfate 90 mcg/actuation 2 puff inhalation QID PRN 12/14/20 04/03/22 Rx aerosol inhaler (ProAir HFA) Shortness Of Breath Or Wheezing #6.7 grams blood sugar diagnostic (OneTouch #1 pkg 12/14/20 04/03/22 Rx Verio test strips) blood-glucose meter (OneTouch #1 pkg 12/14/20 04/03/22 Rx Verio Flex meter) lancets 30 gauge (OneTouch Delica #1 pkg 12/14/20 04/03/22 Rx Plus Lancet) pen needle, diabetic 32 gauge x #1 pkg 12/14/20 04/03/22 Rx 5/32 (BD Ultra-Fine Vannessa Pen Needle) insulin glargine 100 unit/mL 45 unit (0.45 mL) subcut HS #10 mL 05/28/21 04/03/22 Rx subcutaneous solution (Lantus U-100 Insulin) metformin 500 mg tablet 500 mg PO BID #60 tabs 05/28/21 04/03/22 Rx nicotine 14 mg/24 hr daily 1 patch transdermal QAM #28 ea 05/28/21 04/03/22 Rx transdermal patch Allergies Allergy/AdvReac Type Severity Reaction Status
--- NOTE | 2022-04-03 03:22 | ECG_ITS ---
Measurements Intervals [place] Rate: 100 P: 24 [place]: 188 QRS: 54 QRSD: 96 T: 117 QT: 338 QTc: 436 Interpretive Statements SINUS TACHYCARDIA ANTERIOR INFARCT, AGE INDETERMINATE BORDERLINE ST-T WAVE ABNORMALITY- ANTEROLAT/HIGH LAT LEADS BASELINE ARTIFACT- I, II, III ABNORMAL ECG Electronically Signed On 04-03-2022 7:10:04 CDT by Jordan Wright D.O.
--- NOTE | 2022-04-03 03:26 | ECG_ITS ---
Measurements Intervals [place] Rate: 109 P: 22 HI: 152 QRS: 57 QRSD: 98 T: 150 QT: 311 QTc: 420 Interpretive Statements SINUS TACHYCARDIA BASELINE ARTIFACT ST DEVIATION AND MODERATE T-WAVE ABNORMALITY, CONSIDER LATERAL ISCHEMIA [-0.1+ mV T WAVE IN I/aVL/V5/V6] ANTEROSEPTAL INFARCTION, AGE INDETERMINATE ABNORMAL ECG COMPARED TO ECG 04/03/2022 02:05:44 NO SIGNIFICANT CHANGES Electronically Signed On 04-07-2022 11:27:32 CDT by Jose Angel Garcia M.D.
[2022-04-03] MEDS: NITROGLYCERIN/D5W 200 MCG/ML 50 MG/250 ML BTL IV CONT (03:39)
--- NOTE | 2022-04-03 03:46 | PC.NURSE ---
first dose of 0.4 mg subl nitro given at 0330 per order, pt symptoms not relieved second dose given 0335 and final dose given [address]10.
[2022-04-03] MEDS: LORazepam INJ (*CRX) 2 MG/ML VIAL 0.5 MG IV PUSH (04:11)
[2022-04-03 05:04] LABS: Troponin I 0.139 ng/mL (0.000-0.034)
--- NOTE | 2022-04-03 05:06 | ADMGEN ---
This patient, Samuel Conway , was admitted to Intensive Care Unit-9. Patient/family oriented to hospital policies and general routines including ID bracelet, bed and alarms, visiting hours, pain management, procedures, bathroom and other care routines, personal items, smoking policy, room service/diet, and visiting hours. Information on how to activate the Rapid Response Team has been discussed. Patient/Family are encouraged to report perceived risks to care and to ask questions if they do not understand what they are told or what they should do.
--- NOTE | 2022-04-03 05:43 | PC.NURSE ---
ed rn dumped 200ml urine output at this time.
[2022-04-03 05:48] LABS: Glucose Point of Care 144 mg/dl (65-105)
--- NOTE | 2022-04-03 06:00 | PC.NURSE ---
[id number] Patient requests his daughter answer admission questions. Suicide screening and abuse questions answered by patient. Daughter states that patient has been getting increasingly paranoid over the last 2 years. He thinks there is a conspiracy with the internet; that people are watching him and know what he is doing. Pt does not have cell phone with him because per daughter it makes him worse . Daughter Shaina states he may ask staff to read his papers he keeps in a yellow bag as part of the paranoia.
[2022-04-03 06:37] LABS: Alveolar/Arterial O2 Gradient 157.1 mmHg; Base Excess ABG 3.6 mEq/l (+/-2.0); Carboxyhemoglobin 0.3 % THb (0-2.0); Fractional Inspired Oxygen 50 %; HCO3 ABG 28.4 mEq/l (22.0-26.0); Methemoglobin ABG 0.4 %THb (0-1.5); Oxygen Content ABG 18.9 %vol (16.0-22.0); Oxyhemoglobin 97.4 % THb (90.0-100.0); PCO2 ABG 43.9 mmHg (35.0-45.0); Reduced Hemoglobin 1.9 %THb (0-5.0); Total Hemoglobin 13.6 g/dL (12.0-18.0); pH ABG 7.429 (7.350-7.450)
[2022-04-03 06:38] LABS: Device BIPAP; Expiratory Pressure 5 cmH2O; Inspiratory Pressure 10 cmH2O; Modified Allen's Test Pass; Site Drawn LEFT RADIAL
[2022-04-03 08:03] LABS: Hemoglobin A1C 8.2 % (<5.7)
[2022-04-03 08:07] LABS: Troponin I 0.149 ng/mL (0.000-0.034)
[2022-04-03 08:26] LABS: Cholesterol 143 mg/dL (0-200); HDL Direct 36 mg/dL; Triglycerides 52 mg/dL (<150)
[2022-04-03 08:36] LABS: LDL Cholesterol Direct 80 mg/dL
--- NOTE | 2022-04-03 08:44 | WPDCNINT ---
Assessment and Plan Assessment and plan (1) Acute respiratory failure: Code(s): J96.00 - Acute respiratory failure, unspecified whether with hypoxia or hypercapnia Status: Acute Assessment and Plan: Acute Respiratory failure secondary to CHF and acute exacerbation of COPD patient was placed on BiPAP last night. will wean BiPAP of this morning see if patient tolerates nasal cannula ABG and chest x-ray reviewed short course of prednisone bronchodilators Lasix IV will be continued patient's is afebrile and WBCs normal but he does report increased expectoration patient. Start a course of azithromycin wean nitroglycerin infusion check COVID influenza (2) Congestive heart failure: Code(s): I50.9 - Heart failure, unspecified Status: Acute Assessment and Plan: see above (3) Acute exacerbation of chronic obstructive pulmonary disease (COPD): Code(s): J44.1 - Chronic obstructive pulmonary disease with (acute) exacerbation Status: Acute Assessment and Plan: see above (4) NSTEMI (non-ST elevated myocardial infarction): Code(s): I21.4 - Non-ST elevation (NSTEMI) myocardial infarction Status: Acute Assessment and Plan: continue heparin infusion, aspirin check lipid panel add statin, low-dose beta-jessica and low-dose lisinopril check echocardiogram cardiology has been consulted and is following wean down nitroglycerin infusion (5) Type 2 diabetes mellitus with hyperglycemia: Qualifiers: Diabetes mellitus roasterman insulin use: with shelter use Qualified Code(s): E11.65 - Type 2 diabetes mellitus with hyperglycemia; Z79.4 - exterminator helper termite (current) use of insulin Code(s): E11.65 - Type 2 diabetes mellitus with hyperglycemia Status: Acute Assessment and Plan: resume Lantus increase sliding scale in density (6) Amphetamine abuse: Code(s): F15.10 - Other stimulant abuse, uncomplicated Status: Acute Assessment and Plan: patient was counseled to not use methamphetamine (7) Tobacco abuse: Code(s): Z72.0 - Tobacco use Status: Acute Assessment and Plan: patient was encouraged and counseled to quit smoking. He states that he will try to quit this time Additional Plan DVT prophylaxis - on heparin infusion Nutrition - diabetic diet Code Status - Full Code Total Critical Care Time - 35 minutes Due to a high probability of clinically significant, life threatening deterioration, the patient required my highest level of preparedness to intervene emergently and I personally spent this critical care time directly and personally managing the patient. This critical care time included obtaining a history; examining the patient; pulse oximetry; ordering and review of studies; arranging urgent treatment with development of a management plan; evaluation of patient's response to treatment; frequent reassessment; and discussions with other providers. It was exclusive of separately billable procedures and treating other patients and teaching time. Please see Assessment and Plan section and the rest of the note for further information on patient assessment and treatment Classified Ad Taker Consult Note Consult date: 04/03/22 Reason for consult: respiratory failure,nstemi HPI: Samuel Conway . is a 66 year old male with past medical history of COPD, poorly-controlled diabetes, tobacco abuse, Drug abuse presented yesterday to ER with chief complaint of shortness of breath. Patient states that he started having shortness of breath therefore yesterday. He also noticed cough with white sputum. He denied any fever chills or rigors. He also states that inhaler that he has at home was not working. He also reported chest pain which she has been having for 2-3 weeks. Chest pain is intermittent pressure-like quality in anterior chest with no radiation. Pain is 7 to 8/10 severe Lasts 20 minutes and goes
[2022-04-03] MEDS: PERFLUTREN LIPID MICROSPHERES 1.5 ML VIAL DILUTED TO 10 ML TOTAL VOLUME IV PUSH (09:11)
--- NOTE | 2022-04-03 09:43 | PM.CNCAR ---
Assessment and Plan Assessment and plan (1) NSTEMI (non-ST elevated myocardial infarction): Code(s): I21.4 - Non-ST elevation (NSTEMI) myocardial infarction Status: Acute Assessment and Plan: likely subacute NSTEMI mild fairly flat troponin elevation with significant LV dysfunction and dyskinetic apex with primary insult recurring much prior to admission. Continue heparin infusion times 48 hours then transition to subcutaneous Lovenox. Aspirin, statin, beta-jessica, YASIR-inhibitor, supportive medical therapy. Discussed with Interventional Cardiology plan to continue supportive care for the time being and invasive angiography this hospitalization. Would like to stabilize patient from a respiratory perspective prior to proceeding to the tree tapping laborer as patient is currently asymptomatic and chest pain-free. Continue to monitor patient clinically and if any decompensation and recurrent 0 refractorychest pain will proceed to coronary angiography. discussed importance of compliance with medications, follow-up and the risks with stent thrombosis and myocardial infarction resulting in potential . Patient verbalized understanding and states he would be compliant with medications And follow-up. (2) Ischemic cardiomyopathy: Code(s): I25.5 - Ischemic cardiomyopathy Status: Acute Assessment and Plan: New diagnosis mild acute heart failure with reduced ejection fraction EF visually estimated proximal 25-30%. (3) Congestive heart failure: Code(s): I50.9 - Heart failure, unspecified Status: Acute Assessment and Plan: As above, new diagnosis acute heart failure with reduced ejection fraction. patient denies prior history of CHF. (4) Acute exacerbation of chronic obstructive pulmonary disease (COPD): Code(s): J44.1 - Chronic obstructive pulmonary disease with (acute) exacerbation Status: Acute Assessment and Plan: Per primary service. Bronchodilator therapy, O2 supplementation. noninvasive positive-pressure ventilatory support. (5) Type 2 diabetes mellitus with hyperglycemia: Qualifiers: Diabetes mellitus residential insulin use: with residential use Qualified Code(s): E11.65 - Type 2 diabetes mellitus with hyperglycemia; Z79.4 - terminal makeup operator (current) use of insulin Code(s): E11.65 - Type 2 diabetes mellitus with hyperglycemia Status: Acute Assessment and Plan: Per primary service. (6) Amphetamine abuse: Code(s): F15.10 - Other stimulant abuse, uncomplicated Status: Acute Assessment and Plan: Patient must immediately and absolutely avoid amphetamine use. Discussed risk for decompensation acute cardiovascular complications including . (7) Tobacco abuse: Code(s): Z72.0 - Tobacco use Status: Acute Assessment and Plan: Immediate and absolute smoking cessation counseling. History of Present Illness History of Present Illness Consult date/time: Date of service: 04/03/22 09:43 Cardiology consultation at the request of Dr. Gutiérrez of the [facility] service for opinion regarding chest pain shortness of breath and elevated troponin. Requesting physician: Chantelle Gutiérrez DO Reason For Visit: nstemi Narrative: Patient is a 66-year-old male with a history of COPD, polysubstance abuse with recent methamphetamine use, uncontrolled diabetes mellitus, obstructive sleep apnea, patient reported history of CAD and prior myocardial infarction 1996 presents emergency department complaint chest pain worsening shortness of breath with the past 3 weeks intermittent, occurring at rest and with activity. Symptoms described as a heaviness and pressure-like sensation center of his chest EKG radiating to his back worse with activity associated with fatigue, decreased activity tolerance and shortness of breath. Patient states with regards to shortness of breath inhalers would help but then with
[2022-04-03 10:10] LABS: Glucose Point of Care 158 mg/dl (65-105)
[2022-04-03] MEDS: ASPIRIN 325 MG ENTERIC TABLET PO (10:19)
[2022-04-03] MEDS: predniSONE 40 MG, predniSONE 10 MG 50 MG PO (10:20)
[2022-04-03] MEDS: AZITHROMYCIN 250 MG TABLET 500 MG PO (10:21)
[2022-04-03] MEDS: ATORVASTATIN 20 MG TABLET PO (10:21)
[2022-04-03] MEDS: carvediloL 3.125 MG TABLET PO ×2 (10:54→20:07)
[2022-04-03] MEDS: lisinopriL 10 MG TABLET PO (10:54)
--- NOTE | 2022-04-03 11:24 | PM.IMPN ---
Progress Note: A&P Assessment and Plan (1) Acute respiratory failure: Code(s): J96.00 - Acute respiratory failure, unspecified whether with hypoxia or hypercapnia Status: Acute Assessment and Plan: Acute Respiratory failure secondary to CHF and acute exacerbation of COPD patient was placed on BiPAP last night. will wean BiPAP of this morning see if patient tolerates nasal cannula ABG and chest x-ray reviewed short course of prednisone bronchodilators Lasix IV will be continued patient's is afebrile and WBCs normal but he does report increased expectoration patient. Start a course of azithromycin wean nitroglycerin infusion check COVID influenza (2) Congestive heart failure: Code(s): I50.9 - Heart failure, unspecified Status: Acute Assessment and Plan: see above (3) Acute exacerbation of chronic obstructive pulmonary disease (COPD): Code(s): J44.1 - Chronic obstructive pulmonary disease with (acute) exacerbation Status: Acute Assessment and Plan: see above (4) NSTEMI (non-ST elevated myocardial infarction): Code(s): I21.4 - Non-ST elevation (NSTEMI) myocardial infarction Status: Acute Assessment and Plan: continue heparin infusion, aspirin check lipid panel add statin, low-dose beta-jessica and low-dose lisinopril check echocardiogram cardiology has been consulted and is following wean down nitroglycerin infusion (5) Type 2 diabetes mellitus with hyperglycemia: Qualifiers: Diabetes mellitus long filler cigar roller machine insulin use: with long filler cigar roller machine use Qualified Code(s): E11.65 - Type 2 diabetes mellitus with hyperglycemia; Z79.4 - wafer substrate tester (current) use of insulin Code(s): E11.65 - Type 2 diabetes mellitus with hyperglycemia Status: Acute Assessment and Plan: resume Lantus increase sliding scale in density (6) Amphetamine abuse: Code(s): F15.10 - Other stimulant abuse, uncomplicated Status: Acute Assessment and Plan: patient was counseled to not use methamphetamine (7) Tobacco abuse: Code(s): Z72.0 - Tobacco use Status: Acute Assessment and Plan: patient was encouraged and counseled to quit smoking. He states that he will try to quit this time Additional Plan 04/03/2022 consult noted. plan is to continue current treatment, monitor labs. DVT prophylaxis - on heparin infusion Nutrition - diabetic diet Code Status - Full Code Subjective Date/time seen: 04/03/22 11:24 patient was seen during the morning rounds today. Feeling slightly better. No chest pain. Mild shortness of breath. Mood stable. Review of Systems Review of Systems: All systems reviewed & are unremarkable except as noted in HPI and below ( HPI) Exam Narrative: General: Pt is alert awake and in NAD Lungs/Chest: Trachea central Clear BS B/L, bibasilar crackles and occasional wheezing bilaterally Cardiac: RRR. Normal S1 S2. No murmurs Circulation: Pedal pulses are intact and symmetrical. Abdomen: Normal bowel sounds.. Soft. NT. ND. Extremities: No clubbing, cyanosis , no significant edema on lower extremity exam, Warm : Armas in place Neurologic: Follows commands. Moves all 4 extremities PERRL AO x3 Skin: No Rash Objective Data Vital Signs Vital Signs: Vital Signs - 24 hr 04/03/22 01:13 04/03/22 01:22 04/03/22 01:23 Temperature 36.4 C L Pulse Rate 102 H 101 H 102 H Respiratory Rate 23 H 22 H Blood Pressure 130/78 130/76 Pulse Oximetry 91 92 Oxygen Delivery Room Air Oxygen Flow Rate Fraction of Inspired Oxygen 04/03/22 03:39 04/03/22 04:05 04/03/22 04:06 Temperature Pulse Rate 96 103 H Respiratory Rate 26 H Blood Pressure 167/91 H Pulse Oximetry 100 100 Oxygen Delivery BiPAP BiPAP Oxygen Flow Rate Fraction of Inspired Oxygen 50 04/03/22 05:17 04/03/22 05:25 04/03/22 05:29 Temperature 36.2 C L Pulse Rate 99 93 Resp
--- NOTE | 2022-04-03 14:12 | PC.NURSE ---
1400 Pt dangling legs while eating lunch. Bed alarm was on. On rounding, pt supine, lying sideways in bed. He woke easily to voice and followed commands. Pt stated I fell asleep. I sleep sideways in bed at home. RN assisted patient in getting legs back into the bed. BP checked and noted to be 80's/60's. Pt also diaphoretic. Denied chest pain, dizziness, lightheadedness. Drowsy still, but oriented to person, place, time, and situation. Daughter in the room with patient. BP medications started this am and patient stated he does not take cardiac meds at home. He also has been diuresed today and urine output has been over 1.5 L. BP being obtained every 10 minutes. Pt no longer diaphoretic. Pressure 95/67. Will continue to monitor closely.
[2022-04-03 14:56] LABS: Glucose Point of Care 341 mg/dl (65-105)
[2022-04-03 16:57] LABS: Anion Gap 7 mmol/L (8-16); Blood Urea Nitrogen 19 mg/dL (9-20); Calcium 8.5 mg/dL (8.4-10.2); Carbon Dioxide 29 mmol/L (22-30); Chloride 98 mmol/L (98-107); Estimated CRCL calculation 68 ml/min; Estimated Glomerular Filt Rate > 60; Glucose 332 mg/dL (65-110); Partial Thromboplastin Time 36.1 SECONDS (22.3-36.8); Potassium 4.5 mmol/L (3.4-5.0); Sodium 134 mmol/L (137-145)
[2022-04-03 17:52] LABS: Glucose Point of Care 328 mg/dl (65-105)
[2022-04-03] MEDS: INSULIN ASPART (*BKC) 100 UNITS/ML SUB-Q (17:57)
[2022-04-03 20:07] LABS: Glucose Point of Care 354 mg/dl (65-105)
[2022-04-03] MEDS: INSULIN GLARGINE (*BKC) 100 UNITS/ML 30 UNITS SUB-Q (20:08)
[2022-04-03 20:52] LABS: Influenza A QL RT-PCR Negative (Negative); Influenza B QL RT-PCR Negative (Negative); SARS-CoV-2 RNA PCR Negative
[2022-04-03] MEDS: HEPARIN SOD/D5W 100 UNITS/ML 25,000 UNITS/250 ML BAG 15 UNITS IV CONT (22:36)
[2022-04-04] VITALS (18 sets, daily range): BP systolic 95–121; BP diastolic 60–77; PULSE 70–90; RESP 15–20; TEMP 36.3–36.9; O2SAT 92–100
[2022-04-04 00:08] LABS: Partial Thromboplastin Time 59.4 SECONDS (22.3-36.8)
[2022-04-04] MEDS: HEPARIN SODIUM 5,000 UNITS/ML VIAL 3000 UNITS IV PUSH (00:17)
[2022-04-04 06:57] LABS: Basophils Percent Auto 0.3 % (0.2-1.2); Eosinophils Absolute Auto 0.1 K/mm3 (0-0.3); Eosinophils Percent Auto 0.9 % (0-4.4); Hematocrit 41.8 % (42.0-52.0); Hemoglobin 14.1 g/dL (14.0-18.0); Immature Granulocyte Absolute 0.04 K/mm3 (0.00-0.031); Immature Granulocyte Percent A 0.3 % (0-0.5); Lymphocytes Absolute Auto 2.56 K/mm3 (0.9-3.2); Lymphocytes Percent Auto 20.2 % (18.3-44.2); Mean Corpuscular HGB Conc 33.7 g/dl (32-36); Mean Corpuscular Hemoglobin 30.9 pg (26-34); Mean Corpuscular Volume 91.7 fl (80-100); Mean Platelet Volume 9.1 fl (7.4-10.4); Monocytes Absolute Auto 0.9 K/mm3 (0.1-0.6); Neutrophils Absolute Auto 9.1 K/mm3 (1.3-6.7); Neutrophils Percent Auto 71.3 % (45.5-73.1); Platelet Count Result 271 k/mm3 (150-375); Red Blood Count 4.56 M/mm3 (4.6-6.20); Red Cell Distribution Width 12.6 % (11.5-14.5); White Blood Count 12.7 K/mm3 (4.5-10.0)
[2022-04-04 07:05] LABS: Alanine Aminotransferase 98 U/L (6-50); Albumin Level 3.9 g/dL (3.5-5.1); Alkaline Phosphatase 67 U/L (38-126); Anion Gap 4 mmol/L (8-16); Aspartate Amino Transferase 61 U/L (17-59); Bilirubin,Total 0.6 mg/dL (0.2-1.3); Blood Urea Nitrogen 25 mg/dL (9-20); Calcium 8.4 mg/dL (8.4-10.2); Carbon Dioxide 30 mmol/L (22-30); Chloride 101 mmol/L (98-107); Estimated CRCL calculation 80 ml/min; Estimated Glomerular Filt Rate > 60; Glucose 142 mg/dL (65-110); Magnesium 2.3 mg/dL (1.6-2.3); Potassium 3.9 mmol/L (3.4-5.0); Sodium 135 mmol/L (137-145)
[2022-04-04 07:12] LABS: Partial Thromboplastin Time 34.3 SECONDS (22.3-36.8)
[2022-04-04] MEDS: HEPARIN SODIUM 5,000 UNITS/ML VIAL 4000 UNITS IV PUSH (07:24)
--- NOTE | 2022-04-04 08:08 | WPDINTPN ---
Progress Note: A&P Assessment and Plan (1) Acute respiratory failure: Code(s): J96.00 - Acute respiratory failure, unspecified whether with hypoxia or hypercapnia Status: Acute Assessment and Plan: Acute Respiratory failure secondary to CHF and acute exacerbation of COPD patient was placed on BiPAP for admission but has been weaned off since yesterday morning most recent ABG and chest x-ray reviewed continue short course of prednisone continue bronchodilators improved and will hold further Lasix patient's is afebrile and WBCs normal but he does report increased expectoration patient. continue course of azithromycin off nitroglycerin infusion negative influenza and COVID (2) Congestive heart failure: Code(s): I50.9 - Heart failure, unspecified Status: Acute Assessment and Plan: see above (3) Acute exacerbation of chronic obstructive pulmonary disease (COPD): Code(s): J44.1 - Chronic obstructive pulmonary disease with (acute) exacerbation Status: Acute Assessment and Plan: see above (4) NSTEMI (non-ST elevated myocardial infarction): Code(s): I21.4 - Non-ST elevation (NSTEMI) myocardial infarction Status: Acute Assessment and Plan: continue heparin infusion, aspirin will discuss with cardiology regarding transition to subcutaneous Lovenox check lipid panel continue statin, low-dose beta-jessica and low-dose lisinopril cardiology has been consulted and is following. For cardiac catheterization echo Summary ? 1. Left ventricular chamber dimension is mildly enlarged. ? 2. Left ventricular systolic function is severely reduced, estimated at 25% with dyskinetic apex, akinetic apical septal and apical lateral harrell, hypokinesis of the anterior wall.. ? 3. There is mildly increased left ventricular wall thickness. ? 4. There is mild mitral valve regurgitation. (5) Type 2 diabetes mellitus with hyperglycemia: Qualifiers: Diabetes mellitus intermediate manager insulin use: with fdc use Qualified Code(s): E11.65 - Type 2 diabetes mellitus with hyperglycemia; Z79.4 - FDC (current) use of insulin Code(s): E11.65 - Type 2 diabetes mellitus with hyperglycemia Status: Acute Assessment and Plan: continue Lantus and sliding scale insulin (6) Amphetamine abuse: Code(s): F15.10 - Other stimulant abuse, uncomplicated Status: Acute Assessment and Plan: patient was counseled to not use methamphetamine (7) Tobacco abuse: Code(s): Z72.0 - Tobacco use Status: Acute Assessment and Plan: patient was encouraged and counseled to quit smoking. He states that he will try to quit this time (8) Elevated liver enzymes: Code(s): R74.8 - Abnormal levels of other serum enzymes Status: Acute Assessment and Plan: on review of record patient has chronically elevated liver enzymes. Patient now has been started on a statin for his ischemic cardiomyopathy and non STEMI monitor levels he had ultrasound done as an outpatient last year and was negative for any abnormality of his gallbladder Additional Plan DVT prophylaxis - on heparin infusion Nutrition - diabetic diet Code Status - Full Code incentive spirometry, up in chair transfer out of ICU today Subjective Date/time seen: 04/04/22 08:08 Patient denies any new complaints and states he feels fine. he would like to go home possible . Denies any chest pain shortness a breath. All other systems were reviewed and were negative. He has been off of nitroglycerin infusion since yesterday. He also had a good response to Lasix. Blood pressure has been on the softer side starting all the medications. Review of Systems Review of Systems: All systems reviewed & are unremarkable except as noted in HPI and below ( HPI) Exam Narrative: General: Pt is alert awake and in NAD Lungs/Chest: Trachea central Clear
[2022-04-04 08:39] LABS: Glucose Point of Care 119 mg/dl (65-105)
[2022-04-04] MEDS: AZITHROMYCIN 250 MG TABLET 500 MG PO (08:43)
[2022-04-04] MEDS: predniSONE 40 MG, predniSONE 10 MG 50 MG PO (08:43)
[2022-04-04] MEDS: ASPIRIN 325 MG ENTERIC TABLET PO (08:43)
[2022-04-04] MEDS: carvediloL 3.125 MG TABLET PO ×2 (08:43→20:07)
[2022-04-04] MEDS: ATORVASTATIN 20 MG TABLET PO (08:43)
[2022-04-04] MEDS: lisinopriL 5 MG TABLET PO (08:44)
--- NOTE | 2022-04-04 10:10 | PM.IMPN ---
Progress Note: A&P Assessment and Plan (1) Acute respiratory failure: Code(s): J96.00 - Acute respiratory failure, unspecified whether with hypoxia or hypercapnia Status: Acute Assessment and Plan: Acute Respiratory failure secondary to CHF and acute exacerbation of COPD patient was placed on BiPAP for admission but has been weaned off since yesterday morning most recent ABG and chest x-ray reviewed continue short course of prednisone continue bronchodilators improved and will hold further Lasix patient's is afebrile and WBCs normal but he does report increased expectoration patient. continue course of azithromycin off nitroglycerin infusion negative influenza and COVID (2) Congestive heart failure: Code(s): I50.9 - Heart failure, unspecified Status: Acute Assessment and Plan: see above (3) Acute exacerbation of chronic obstructive pulmonary disease (COPD): Code(s): J44.1 - Chronic obstructive pulmonary disease with (acute) exacerbation Status: Acute Assessment and Plan: see above (4) NSTEMI (non-ST elevated myocardial infarction): Code(s): I21.4 - Non-ST elevation (NSTEMI) myocardial infarction Status: Acute Assessment and Plan: continue heparin infusion, aspirin will discuss with cardiology regarding transition to subcutaneous Lovenox check lipid panel continue statin, low-dose beta-jessica and low-dose lisinopril cardiology has been consulted and is following. For cardiac catheterization echo Summary ? 1. Left ventricular chamber dimension is mildly enlarged. ? 2. Left ventricular systolic function is severely reduced, estimated at 25% with dyskinetic apex, akinetic apical septal and apical lateral harrell, hypokinesis of the anterior wall.. ? 3. There is mildly increased left ventricular wall thickness. ? 4. There is mild mitral valve regurgitation. (5) Type 2 diabetes mellitus with hyperglycemia: Qualifiers: Diabetes mellitus superintendent container terminal insulin use: with penitentiary use Qualified Code(s): E11.65 - Type 2 diabetes mellitus with hyperglycemia; Z79.4 - correction (current) use of insulin Code(s): E11.65 - Type 2 diabetes mellitus with hyperglycemia Status: Acute Assessment and Plan: continue Lantus and sliding scale insulin (6) Amphetamine abuse: Code(s): F15.10 - Other stimulant abuse, uncomplicated Status: Acute Assessment and Plan: patient was counseled to not use methamphetamine (7) Tobacco abuse: Code(s): Z72.0 - Tobacco use Status: Acute Assessment and Plan: patient was encouraged and counseled to quit smoking. He states that he will try to quit this time (8) Elevated liver enzymes: Code(s): R74.8 - Abnormal levels of other serum enzymes Status: Acute Assessment and Plan: on review of record patient has chronically elevated liver enzymes. Patient now has been started on a statin for his ischemic cardiomyopathy and non STEMI monitor levels he had ultrasound done as an outpatient last year and was negative for any abnormality of his gallbladder Additional Plan 04/04/2022 Plan is to continue with IV heparin. Patient is pain-free now. Cardiology consult. DVT prophylaxis - on heparin infusion Nutrition - diabetic diet Code Status - Full Code incentive spirometry, up in chair transfer out of ICU today Subjective Date/time seen: 04/04/22 10:10 Patient was seen during the morning rounds today. Patient is pain-free now. No shortness of breath or chest pain. Mood stable. Review of Systems Review of Systems: All systems reviewed & are unremarkable except as noted in HPI and below ( HPI) Exam Narrative: General: Pt is alert awake and in NAD Lungs/Chest: Trachea central Clear BS B/L, No crackles or wheezing heard on today's exam Cardiac: RRR. Normal S1 S2. No murmurs Circulation: Pedal pulses are intact an
[2022-04-04] MEDS: ENOXAPARIN 100 MG/ML SYRINGE 90 MG SUB-Q ×2 (10:16→20:08)
[2022-04-04 12:06] LABS: Glucose Point of Care 126 mg/dl (65-105)
--- NOTE | 2022-04-04 13:44 | PM.PNCARD ---
Progress Note: A&P Assessment and Plan (1) NSTEMI (non-ST elevated myocardial infarction): Code(s): I21.4 - Non-ST elevation (NSTEMI) myocardial infarction Status: Acute Assessment and Plan: Clinically suspect subacute NSTEMI mild fairly flat troponin elevation with significant LV dysfunction and dyskinetic apex with primary insult recurring much prior to admission. Continue heparin infusion times 48 hours then transition to subcutaneous Lovenox. Aspirin, statin, beta-jessica, YASIR-inhibitor, supportive medical therapy. As previously discussed with Interventional Cardiology, plan to continue supportive care for the time being and invasive angiography this hospitalization on Tuesday. Would like to stabilize patient from a respiratory perspective prior to proceeding to the lab technician as patient is currently asymptomatic and chest pain-free. Continue to monitor patient clinically and if any decompensation and recurrent pain will proceed to coronary angiography. Patient agrees with plan. May discontinue heparin infusion, transition to enoxaparin 1 mg/kg subcutaneous q.12 hours. Last dose of enoxaparin Tuesday in anticipation for coronary angiography Tuesday. Into after midnight tomorrow evening. Continue atorvastatin 20 mg daily. Abnormal LFTs. LDL 80 goal less than 70. Continue for now. Okay to transfer to IMU on telemetry (2) Ischemic cardiomyopathy: Code(s): I25.5 - Ischemic cardiomyopathy Status: Acute Assessment and Plan: New diagnosis mild acute heart failure with reduced ejection fraction EF visually estimated proximal 25-30%. Continue lisinopril, carvedilol as BP tolerates. (3) Congestive heart failure: Code(s): I50.9 - Heart failure, unspecified Status: Acute Assessment and Plan: As above, new diagnosis acute heart failure with reduced ejection fraction. patient denies prior history of CHF. Patient compensated at this time and not requiring diuretic therapy. (4) Acute exacerbation of chronic obstructive pulmonary disease (COPD): Code(s): J44.1 - Chronic obstructive pulmonary disease with (acute) exacerbation Status: Acute Assessment and Plan: Per primary service. Bronchodilator therapy, O2 supplementation. noninvasive positive-pressure ventilatory support. 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 (6) Amphetamine abuse: Code(s): F15.10 - Other stimulant abuse, uncomplicated Status: Acute Assessment and Plan: Patient must immediately and absolutely avoid amphetamine use. Discussed risk for decompensation acute cardiovascular complications including . (7) Tobacco abuse: Code(s): Z72.0 - Tobacco use Status: Acute Assessment and Plan: Immediate and absolute smoking cessation counseling. Subjective Date/time seen: Date of service: 04/04/22 10:15 Follow-up for NSTEMI, CHF, respiratory failure No new issues overnight. Denies chest pain. Breathing improved much less short of breath. Remains on heparin infusion. No significant arrhythmias noted on telemetry. Afebrile. Review of Systems Review of Systems: All systems reviewed & are unremarkable except as noted in HPI and below Constitutional: Constitutional: Reports as per HPI and Reports no additional constitutional complaints Eyes: Eyes: Reports as per HPI and Reports no additional eye complaints ENT: Reports system reviewed and no additional complaints, except as documented and Reports as per HPI Cardiovascular: Cardiovascular: Reports as per HPI and Reports no additi
[2022-04-04 16:25] LABS: Glucose Point of Care 281 mg/dl (65-105)
[2022-04-04] MEDS: INSULIN ASPART (*BKC) 100 UNITS/ML SUB-Q (17:25)
[2022-04-04 19:57] LABS: Glucose Point of Care 316 mg/dl (65-105)
[2022-04-04] MEDS: INSULIN GLARGINE (*BKC) 100 UNITS/ML 30 UNITS SUB-Q (20:10)
[2022-04-05] VITALS (21 sets, daily range): BP systolic 107–138; BP diastolic 59–86; PULSE 62–97; RESP 18–20; TEMP 36.1–37; O2SAT 90–100
[2022-04-05 04:34] LABS: Hematocrit 41.9 % (42.0-52.0); Mean Corpuscular HGB Conc 33.4 g/dl (32-36); Mean Corpuscular Hemoglobin 30.6 pg (26-34); Mean Corpuscular Volume 91.5 fl (80-100); Mean Platelet Volume 9.3 fl (7.4-10.4); Platelet Count Result 309 k/mm3 (150-375); Red Blood Count 4.58 M/mm3 (4.6-6.20); Red Cell Distribution Width 12.7 % (11.5-14.5); White Blood Count 14.7 K/mm3 (4.5-10.0)
[2022-04-05 04:48] LABS: Alanine Aminotransferase 87 U/L (6-50); Alkaline Phosphatase 65 U/L (38-126); Anion Gap 7 mmol/L (8-16); Aspartate Amino Transferase 54 U/L (17-59); Bilirubin,Total 0.4 mg/dL (0.2-1.3); Blood Urea Nitrogen 29 mg/dL (9-20); Calcium 8.8 mg/dL (8.4-10.2); Carbon Dioxide 29 mmol/L (22-30); Chloride 102 mmol/L (98-107); Estimated CRCL calculation 66 ml/min; Estimated Glomerular Filt Rate > 60; Glucose 109 mg/dL (65-110); Magnesium 2.4 mg/dL (1.6-2.3); Sodium 138 mmol/L (137-145)
[2022-04-05 08:34] LABS: Glucose Point of Care 196 mg/dl (65-105)
[2022-04-05] MEDS: ASPIRIN 325 MG ENTERIC TABLET PO (08:49)
[2022-04-05] MEDS: predniSONE 40 MG, predniSONE 10 MG 50 MG PO (08:49)
[2022-04-05] MEDS: carvediloL 3.125 MG TABLET PO ×2 (08:50→20:17)
[2022-04-05] MEDS: AZITHROMYCIN 250 MG TABLET 500 MG PO (08:50)
[2022-04-05] MEDS: ENOXAPARIN 100 MG/ML SYRINGE 90 MG SUB-Q (08:51)
[2022-04-05] MEDS: lisinopriL 5 MG TABLET PO (08:51)
[2022-04-05] MEDS: ATORVASTATIN 20 MG TABLET PO (08:51)
--- NOTE | 2022-04-05 11:16 | PM.IMPN ---
Progress Note: A&P Assessment and Plan (1) Acute respiratory failure: Code(s): J96.00 - Acute respiratory failure, unspecified whether with hypoxia or hypercapnia Status: Acute Assessment and Plan: Acute Respiratory failure secondary to CHF and acute exacerbation of COPD patient was placed on BiPAP for admission but has been weaned off since yesterday morning most recent ABG and chest x-ray reviewed continue short course of prednisone continue bronchodilators improved and will hold further Lasix patient's is afebrile and WBCs normal but he does report increased expectoration patient. continue course of azithromycin off nitroglycerin infusion negative influenza and COVID (2) Congestive heart failure: Code(s): I50.9 - Heart failure, unspecified Status: Acute Assessment and Plan: see above (3) Acute exacerbation of chronic obstructive pulmonary disease (COPD): Code(s): J44.1 - Chronic obstructive pulmonary disease with (acute) exacerbation Status: Acute Assessment and Plan: see above (4) NSTEMI (non-ST elevated myocardial infarction): Code(s): I21.4 - Non-ST elevation (NSTEMI) myocardial infarction Status: Acute Assessment and Plan: continue heparin infusion, aspirin will discuss with cardiology regarding transition to subcutaneous Lovenox check lipid panel continue statin, low-dose beta-jessica and low-dose lisinopril cardiology has been consulted and is following. For cardiac catheterization echo Summary ? 1. Left ventricular chamber dimension is mildly enlarged. ? 2. Left ventricular systolic function is severely reduced, estimated at 25% with dyskinetic apex, akinetic apical septal and apical lateral harrell, hypokinesis of the anterior wall.. ? 3. There is mildly increased left ventricular wall thickness. ? 4. There is mild mitral valve regurgitation. (5) Type 2 diabetes mellitus with hyperglycemia: Qualifiers: Diabetes mellitus press tender long goods insulin use: with shelter use Qualified Code(s): E11.65 - Type 2 diabetes mellitus with hyperglycemia; Z79.4 - FDC (current) use of insulin Code(s): E11.65 - Type 2 diabetes mellitus with hyperglycemia Status: Acute Assessment and Plan: continue Lantus and sliding scale insulin (6) Amphetamine abuse: Code(s): F15.10 - Other stimulant abuse, uncomplicated Status: Acute Assessment and Plan: patient was counseled to not use methamphetamine (7) Tobacco abuse: Code(s): Z72.0 - Tobacco use Status: Acute Assessment and Plan: patient was encouraged and counseled to quit smoking. He states that he will try to quit this time (8) Elevated liver enzymes: Code(s): R74.8 - Abnormal levels of other serum enzymes Status: Acute Assessment and Plan: on review of record patient has chronically elevated liver enzymes. Patient now has been started on a statin for his ischemic cardiomyopathy and non STEMI monitor levels he had ultrasound done as an outpatient last year and was negative for any abnormality of his gallbladder Additional Plan 04/04/2022 Plan is to continue with IV heparin. Patient is pain-free now. Cardiology consult. 04/05/2022 patient is pain-free at present time. Patient is scheduled for cardiac catheterization tomorrow morning. Increased WBC probably secondary to steroids. Will continue current treatment. Monitor closely. Code Status - Full Code Subjective Date/time seen: 04/05/22 11:16 Patient was seen during the morning rounds today. Patient shortness of breath is much better. No chest pain. No abdominal pain, nausea, no vomiting. Mood stable Review of Systems Review of Systems: All systems reviewed & are unremarkable except as noted in HPI and below ( HPI) Exam Narrative: General: Pt is alert awake and in NAD Lungs/Chest: Trachea central Clear BS
[2022-04-05 11:38] LABS: Glucose Point of Care 168 mg/dl (65-105)
--- NOTE | 2022-04-05 12:39 | ECG_ITS ---
Measurements Intervals [place] Rate: 67 P: 19 OK: 184 QRS: 50 QRSD: 98 T: 123 QT: 395 QTc: 418 Interpretive Statements SINUS RHYTHM BORDERLINE R WAVE PROGRESSION, ANTERIOR LEADS ST-T WAVE ABNORMALITY IN HIGH LATERAL LEADS- CONSIDER ISCHEMIA BASELINE WANDER- V5 ABNORMAL ECG Electronically Signed On 04-05-2022 20:14:43 CDT by Jordan Wright D.O.
--- NOTE | 2022-04-05 15:31 | PM.PNCARD ---
Progress Note: A&P Assessment and Plan (1) NSTEMI (non-ST elevated myocardial infarction): Code(s): I21.4 - Non-ST elevation (NSTEMI) myocardial infarction Status: Acute Assessment and Plan: Clinically suspect subacute NSTEMI mild fairly flat troponin elevation with significant LV dysfunction and dyskinetic apex with primary insult recurring much prior to admission. Continue heparin infusion times 48 hours then transition to subcutaneous Lovenox. Aspirin, statin, beta-jessica, YASIR-inhibitor, supportive medical therapy. As previously discussed with Interventional Cardiology, plan for invasive angiography this hospitalization on Tuesday morning given unstable angina presentation, a new diagnosis severe LV dysfunction with wall motion abnormalities. Patient agrees with plan. Enoxaparin has been held in anticipation for coronary angiography with last dose morning of 04/05/2022. Continue atorvastatin 20 mg daily. Abnormal LFTs. LDL 80 goal less than 70. Continue for now. NPO after midnight for coronary angiography in a.m.. Check labs in a.m.. (2) Ischemic cardiomyopathy: Code(s): I25.5 - Ischemic cardiomyopathy Status: Acute Assessment and Plan: New diagnosis mild acute heart failure with reduced ejection fraction EF visually estimated proximal 25-30%. Continue lisinopril, carvedilol as BP tolerates. (3) Congestive heart failure: Code(s): I50.9 - Heart failure, unspecified Status: Acute Assessment and Plan: As above, new diagnosis acute heart failure with reduced ejection fraction. patient denies prior history of CHF. Patient compensated at this time and not requiring diuretic therapy. (4) Acute exacerbation of chronic obstructive pulmonary disease (COPD): Code(s): J44.1 - Chronic obstructive pulmonary disease with (acute) exacerbation Status: Acute Assessment and Plan: Per primary service. Bronchodilator therapy, O2 supplementation. noninvasive positive-pressure ventilatory support. 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 (6) Amphetamine abuse: Code(s): F15.10 - Other stimulant abuse, uncomplicated Status: Acute Assessment and Plan: Patient must immediately and absolutely avoid amphetamine use. Discussed risk for decompensation acute cardiovascular complications including . (7) Tobacco abuse: Code(s): Z72.0 - Tobacco use Status: Acute Assessment and Plan: Immediate and absolute smoking cessation counseling. Subjective Date/time seen: Date of service: 04/05/22 12:25 Follow-up for NSTEMI, severe cardiomyopathy, acute respiratory failure Patient feeling better overall. No chest pain or significant shortness of breath. Complains of restless legs. No new issues overnight. No palpitations. Tolerating medications. Review of Systems Review of Systems: All systems reviewed & are unremarkable except as noted in HPI and below Constitutional: Constitutional: Reports as per HPI and Reports no additional constitutional complaints Eyes: Eyes: Reports as per HPI and Reports no additional eye complaints ENT: Reports system reviewed and no additional complaints, except as documented and Reports as per HPI Cardiovascular: Cardiovascular: Reports as per HPI and Reports no additional cardiovascular complaints Respiratory: Respiratory: Reports as per HPI and Reports no additional respiratory complaints Gastrointestinal: Gastrointestinal: Reports as per HPI and Reports no additional gastrointestinal complaints Genitourinary: Genitourinary: Reports no a
[2022-04-05 16:02] LABS: Glucose Point of Care 335 mg/dl (65-105)
[2022-04-05] MEDS: INSULIN ASPART (*BKC) 100 UNITS/ML SUB-Q (16:22)
[2022-04-05 19:57] LABS: Glucose Point of Care 336 mg/dl (65-105)
[2022-04-05] MEDS: INSULIN GLARGINE (*BKC) 100 UNITS/ML 30 UNITS SUB-Q (20:18)
[2022-04-06] VITALS (29 sets, daily range): BP systolic 111–138; BP diastolic 67–90; PULSE 56–99; RESP 12–20; TEMP 36.2–36.6; O2SAT 90–100
[2022-04-06 04:59] LABS: Hematocrit 40.1 % (42.0-52.0); Hemoglobin 13.6 g/dL (14.0-18.0); Mean Corpuscular HGB Conc 33.9 g/dl (32-36); Mean Corpuscular Hemoglobin 30.6 pg (26-34); Mean Corpuscular Volume 90.3 fl (80-100); Mean Platelet Volume 9.1 fl (7.4-10.4); Platelet Count Result 333 k/mm3 (150-375); Red Blood Count 4.44 M/mm3 (4.6-6.20); Red Cell Distribution Width 12.5 % (11.5-14.5); White Blood Count 12.9 K/mm3 (4.5-10.0)
[2022-04-06 05:16] LABS: Alanine Aminotransferase 74 U/L (6-50); Albumin Level 3.5 g/dL (3.5-5.1); Alkaline Phosphatase 60 U/L (38-126); Anion Gap 4 mmol/L (8-16); Aspartate Amino Transferase 45 U/L (17-59); Bilirubin,Total 0.4 mg/dL (0.2-1.3); Blood Urea Nitrogen 22 mg/dL (9-20); Calcium 8.4 mg/dL (8.4-10.2); Carbon Dioxide 31 mmol/L (22-30); Chloride 104 mmol/L (98-107); Estimated CRCL calculation 80 ml/min; Estimated Glomerular Filt Rate > 60; Glucose 136 mg/dL (65-110); Magnesium 2.3 mg/dL (1.6-2.3); Sodium 139 mmol/L (137-145)
[2022-04-06 07:55] LABS: Glucose Point of Care 84 mg/dl (65-105)
[2022-04-06] MEDS: ASPIRIN 325 MG ENTERIC TABLET PO (08:08)
[2022-04-06] MEDS: carvediloL 3.125 MG TABLET PO (08:08)
[2022-04-06] MEDS: ATORVASTATIN 20 MG TABLET PO (08:09)
[2022-04-06] MEDS: predniSONE 20 MG TABLET PO (08:09)
[2022-04-06] MEDS: AZITHROMYCIN 250 MG TABLET 500 MG PO (08:09)
[2022-04-06] MEDS: lisinopriL 5 MG TABLET PO (08:09)
[2022-04-06 10:05] LABS: Glucose Point of Care 94 mg/dl (65-105)
--- NOTE | 2022-04-06 10:31 | WPDMODSED ---
Moderate Sedation Note-Pt Data Patient Data Allergies Allergy/AdvReac Type Severity Reaction Status Date / Time No Known Allergies Allergy Verified 05/25/21 04:51 Home Medications Medication Instructions Recorded Confirmed Type albuterol sulfate 90 mcg/actuation 2 puff inhalation QID PRN 12/14/20 04/03/22 Rx aerosol inhaler (ProAir HFA) Shortness Of Breath Or Wheezing #6.7 grams blood sugar diagnostic (OneTouch #1 pkg 12/14/20 04/03/22 Rx Verio test strips) blood-glucose meter (OneTouch #1 pkg 12/14/20 04/03/22 Rx Verio Flex meter) lancets 30 gauge (OneTouch Delica #1 pkg 12/14/20 04/03/22 Rx Plus Lancet) pen needle, diabetic 32 gauge x #1 g 12/14/20 04/03/22 Rx 5/32 (BD Ultra-Fine [place] Pen Needle) insulin glargine 100 unit/mL 45 unit (0.45 mL) subcut HS #10 mL 05/28/21 04/03/22 Rx subcutaneous solution (Lantus U-100 Insulin) metformin 500 mg tablet 500 mg PO BID #60 tabs 05/28/21 04/03/22 Rx nicotine 14 mg/24 hr daily 1 patch transdermal QAM #28 ea 05/28/21 04/03/22 Rx transdermal patch Current Medications: Active Medications Hydrocodone Bitart/Acetaminophen (Hydrocodone/Acetaminophen (*Crx) 5-325 Mg Tablet) 1 tab PO Q4H PRN PRN Reason: Pain Rated 4-6 Albuterol (Albuterol Sulfate (*Sp) Aerosol 1 Puff) 2 puff INHALATION QID PRN PRN Reason: Shortness Of Breath Or Wheezing Aspirin (Aspirin 325 Mg Enteric Tablet) 325 mg PO QAM [facility] Last Admin: 04/06/22 08:08 Dose: 325 mg Atorvastatin Calcium (Atorvastatin 20 Mg Tablet) 20 mg PO DAILY [facility] Last Admin: 04/06/22 08:09 Dose: 20 mg Azithromycin (Azithromycin 250 Mg Tablet) 500 mg PO DAILY [facility] Last Admin: 04/06/22 08:09 Dose: 500 mg Carvedilol (Carvedilol 3.125 Mg Tablet) 3.125 mg PO Q12HR [facility] Last Admin: 04/06/22 08:08 Dose: 3.125 mg Dextrose (Dextrose 50% 25 Gm/50 Ml Syringe) 12.5 gm IV PUSH PRN PRN; Protocol PRN Reason: Hypoglycemia Glucagon (Glucagon For Inj 1 Mg Vial) 1 mg IM PRN PRN; Protocol PRN Reason: Hypoglycemia Glucose (Glucose Oral Gel 15 Gm Of Glucse In 37.5 Gm Tube) 15 gm PO PRN PRN; Protocol PRN Reason: Hypoglycemia Dextrose (Dextrose 5% 1,000 Ml) 1,000 mls @ 100 mls/hr IVPB PRN PRN; Protocol PRN Reason: Hypoglycemia Insulin Aspart (Insulin Aspart (*Bkc) 100 Units/Ml) 3 - 6 units SUB-Q TIDWM GO; Protocol Last Admin: 04/06/22 08:09 Dose: Not Given Insulin Glargine (Insulin Glargine (*Bkc) 100 Units/Ml) 30 units SUB-Q HS [facility] Last Admin: 04/05/22 20:18 Dose: 30 units Lisinopril (Lisinopril 5 Mg Tablet) 5 mg PO DAILY [facility] Last Admin: 04/06/22 08:09 Dose: 5 mg Morphine Sulfate (Morphine Sulfate (*Crx) 4 Mg/Ml Inj) 4 mg IV PUSH Q2H PRN PRN Reason: Pain Rated 7-10 Perflutren Lipid Microsphere (Perflutren Lipid Microspheres 1.5 Ml Vial Diluted To 10 Ml Total Volume) 0 ml IV PUSH ONCE PRN; Protocol PRN Reason: adequate visualization Prednisone (Prednisone 20 Mg Tablet) 20 mg PO DAILY@0800 [facility] Stop: 04/08/22 06:00 Last Admin: 04/06/22 08:09 Dose: 20 mg Sedation/Anesthesia: No previous sedation/anesthesia problems (including family history). [facility] Past Medical History Medical History COPD (chronic obstructive pulmonary disease) Diabetes mellitus Hemoglobin A1c 12.09 August 2020 Obstructive sleep apnea Renal lesion Skin cancer Surgical History Surgical History History of left knee surgery History of right knee surgery History of shoulder surgery Left Family History Family History Sibling Diabetes mellitus Father Emphysema lung Social History Social History Social History: He lives with his significant other. He smokes about a 3rd of pack of cigarettes per day. He denies any alcohol abuse or illicit drugs. He has 4 children. [place]
--- NOTE | 2022-04-06 10:31 | WPDHPUPDATE1 ---
History and Physical Update Update Date/Time: 04/06/22 10:31 History and Physical has been reviewed, including an updated exam of the patient. There are NO changes in the patient's condition. Risks, benefits, and alternatives have been discussed and questions answered. Patient agrees to proceed with procedure.
--- NOTE | 2022-04-06 11:19 | WPDCARDPROC ---
Cardiac Cath Procedure Note Date of procedure:: 04/06/22 Performing physician:: Abdoulaye Irving MD Procedure Procedure note:: LEFT HEART CATHETERIZATION, CORONARY AND PERIPHERAL ANGIOGRAM REPORT DATE OF PROCEDURE: 04/06/2022 INDICATION FOR PROCEDURE: Non ST-elevation OK BRIEF CLINICAL HISTORY: 66-year-old male with history of ? CAD; uncontrolled diabetes mellitus, COPD, polysubstance abuse with recent methamphetamine use, obstructive sleep apnea. Patient presented to [facility] Room on 04/03/2022 with about 3 week history of intermittent chest pain and shortness of breath. EKG showed sinus rhythm, ST-T abnormality suggestive of ischemia. Troponins were mildly elevated with clinical presentation consistent with non ST elevation myocardial infarction. Echocardiogram reportedly showed severe LV systolic dysfunction, EF about 25% with dyskinetic apex, akinetic apical septal and apical lateral harrell, hypokinesis of the anterior wall. Patient was referred for cardiac catheterization to rule out significant obstructive CAD. Benefits and risks of the procedure were discussed with the patient in depth, and informed consent was obtained prior to the procedure. Risks of the procedure include but are not limited to vascular complications including groin hematoma, retroperitoneal bleed, vessel perforation; periprocedural OK, cardiac arrhythmias, stroke, contrast induced nephropathy, and . After discussing all the benefits, risks and alternatives, patient was willing to proceed with the procedure. PROCEDURES PERFORMED: 1. Left heart catheterization- Selective left and right coronary angiogram; left ventriculogram and hemodynamic assessment 2. Distal abdominal aortogram with bilateral iliac runoff 3. Moderate sedation-CPT code 39851 MODERATE SEDATION: Midazolam 1 mg; fentanyl 25 mcg; Start time 1054 , Stop time 1111 ; Total [id number] time 17 minutes; Alen Sloan RN was trained observer for moderate sedation. ACCESS SITE: Right common femoral artery PROCEDURE NOTE: After obtaining informed consent, patient was brought to catheterization lab and prepped and draped in a usual sterile manner. After local anesthesia with lidocaine, right common femoral artery access was taken with micropuncture needle followed by insertion of a 5 [place] sheath. Selective left and right coronary angiogram was performed using 5 [place] JL4 and JR4 catheters respectively. Orthogonal views were taken. Next, a 5 [place] pigtail catheter was advanced in the LV cavity and was flushed with normal saline. LV pressure measurement was performed. After this, left ventriculogram was performed. The catheter was flushed again, and gradient across the aortic valve was measured on the pullback of the catheter. Finally, the pigtail catheter was withdrawn into the distal abdominal aorta and distal abdominal aortagram was performed with bilateral iliac runoff to check for patency of the iliac vessels before consideration for any mechanical support for PCI. The sheath was secured in place which will be taken out in the cath laboratory technician holding area, manual pressure will be used for local hemostasis. Patient tolerated procedure well without any immediate procedure related complications. FINDINGS: LEFT MAIN CORONARY: The left main coronary artery is a medium to large caliber vessel in the proximal and mid segment with a taper in the distal segment. No significant focal stenosis seen. The vessel bifurcates into LAD and left circumflex branches. LEFT ANTERIOR DESCENDING ARTERY: The LAD is a medium caliber vessel with mild diffuse disease in the proximal segment. There is high-grade diffuse about 90-95% stenosis in the mid segment. The vessel becomes medium caliber vessel in the mid -distal segment and reaches LV apex. Sluggish blood flow is seen in the LAD due to the high-grade stenosis. LEFT CIRCUMFLEX ARTERY: The LCX is a large size, dominant vessel with minor irre
--- NOTE | 2022-04-06 12:09 | PM.TDS ---
Transfer Discharge Sum: Prov Provider Date of admission: 04/03/22 08:33 Primary care physician: German Henrandez MD Admitting clinician: Chantelle Gutiérrez DO Consults: 04/03/22 Care Coordination Consult Routine Comment: family concerned about paranoid thoughts Reason for Consult:: Other Consult to Physician Routine Comment: Consulting Provider: Chaitanya Dutton will call clerk/MD group to consult: anna Reason for consultation: nstemi Has provider been notified: Yes 04/03/22 02:27 Consult to Physician Routine Comment: Consulting Provider: Jose Angel Garcia will call clerk/MD group to consult: Jose Reason for consultation: NSTEMI, chf Has provider been notified: Yes Anticipated date of transfer: 04/07/22 Receiving physician/facility: [facility] DS: Admitting Diagnosis Discharge Date 04/06/2022 Admitting Diagnosis Chest pain DS: Discharge Diagnosis Discharge Diagnosis Plan Non ST-elevation MT Severe CAD Severe LV systolic dysfunction with segmental wall motion abnormality Transfer Discharge Sum: Med Medications Active and Home Medications: Home Medications albuterol sulfate 90 mcg/actuation aerosol inhaler (ProAir HFA) 2 puff inhalation QID PRN Shortness Of Breath Or Wheezing #6.7 grams 12/14/20 [Rx Confirmed 04/03/22] blood sugar diagnostic (OneTouch Verio test strips) #1 pkg 12/14/20 [Rx Confirmed 04/03/22] blood-glucose meter (OneTouch Verio Flex meter) #1 pkg 12/14/20 [Rx Confirmed 04/03/22] lancets 30 gauge (OneTouch Delica Plus Lancet) #1 pkg 12/14/20 [Rx Confirmed 04/03/22] pen needle, diabetic 32 gauge x 5/32 (BD Ultra-Fine Vannessa Pen Needle) #1 pkg 12/14/20 [Rx Confirmed 04/03/22] insulin glargine 100 unit/mL subcutaneous solution (Lantus U-100 Insulin) 45 unit (0.45 mL) subcut HS #10 mL 05/28/21 [Rx Confirmed 04/03/22] metformin 500 mg tablet 500 mg PO BID #60 tabs 05/28/21 [Rx Confirmed 04/03/22] nicotine 14 mg/24 hr daily transdermal patch 1 patch transdermal QAM #28 ea 05/28/21 [Rx Confirmed 04/03/22] Active Medications Hydrocodone Bitart/Acetaminophen (Hydrocodone/Acetaminophen (*Crx) 5-325 Mg Tablet) 1 tab PO Q4H PRN PRN Reason: Pain Rated 4-6 Albuterol (Albuterol Sulfate (*Sp) Aerosol 1 Puff) 2 puff INHALATION QID PRN PRN Reason: Shortness Of Breath Or Wheezing Aspirin (Aspirin 325 Mg Enteric Tablet) 325 mg PO QAM [facility] Last Admin: 04/06/22 08:08 Dose: 325 mg Atorvastatin Calcium (Atorvastatin 20 Mg Tablet) 20 mg PO DAILY [facility] Last Admin: 04/06/22 08:09 Dose: 20 mg Azithromycin (Azithromycin 250 Mg Tablet) 500 mg PO DAILY [facility] Last Admin: 04/06/22 08:09 Dose: 500 mg Carvedilol (Carvedilol 3.125 Mg Tablet) 3.125 mg PO Q12HR [facility] Last Admin: 04/06/22 08:08 Dose: 3.125 mg Dextrose (Dextrose 50% 25 Gm/50 Ml Syringe) 12.5 gm IV PUSH PRN PRN; Protocol PRN Reason: Hypoglycemia Glucagon (Glucagon For Inj 1 Mg Vial) 1 mg IM PRN PRN; Protocol PRN Reason: Hypoglycemia Glucose (Glucose Oral Gel 15 Gm Of Glucse In 37.5 Gm Tube) 15 gm PO PRN PRN; Protocol PRN Reason: Hypoglycemia Dextrose (Dextrose 5% 1,000 Ml) 1,000 mls @ 100 mls/hr IVPB PRN PRN; Protocol PRN Reason: Hypoglycemia Insulin Aspart (Insulin Aspart (*Bkc) 100 Units/Ml) 3 - 6 units SUB-Q TIDWM [facility]; Protocol Last Admin: 04/06/22 08:09 Dose: Not Given Insulin Glargine (Insulin Glargine (*Bkc) 100 Units/Ml) 30 units SUB-Q HS [facility] Last Admin: 04/05/22 20:18 Dose: 30 units Lisinopril (Lisinopril 5 Mg Tablet) 5 mg PO DAILY [facility] Last Admin: 04/06/22 08:09 Dose: 5 mg Morphine Sulfate (Morphine Sulfate (*Crx) 4 Mg/Ml Inj) 4 mg IV PUSH Q2H PRN PRN Reason: Pain Rated 7-10 Perflutren Lipid Microsphere (Perflutren Lipid Microspheres 1.5 Ml Vial Diluted To 10 Ml Total Volume) 0 ml IV PUSH ONCE PRN; Protocol PRN Reason: adequate visualization Prednisone (Prednisone 20 Mg Tablet) 20 mg PO DAILY@0800 GO Stop: 04/08/22 06:00 Last Admin: 04/06/22 08:09 Dose: 20 mg Transfer Disch
--- NOTE | 2022-04-06 12:10 | SUR.PHASEII ---
Dr Irving attempted to call daughter Kaylen - number not a working number. Pt gave Dr Irving phone number for girlfriend. Dr Irving spoke with girlfriend Charleen and informed her of the findings of procedure and that pt will need to be transferred to another facility to fix his heart. Dr Irving had already discussed findings and needing to transport with pt.
[2022-04-06 15:38] LABS: Glucose Point of Care 123 mg/dl (65-105)
--- NOTE | 2022-04-06 16:54 | PC.NURSE ---
[facility] flyer was given to patient.
--- NOTE | 2022-04-06 18:02 | PM.IMPN ---
Progress Note: A&P Assessment and Plan (1) Acute respiratory failure: Code(s): J96.00 - Acute respiratory failure, unspecified whether with hypoxia or hypercapnia Status: Acute Assessment and Plan: Acute Respiratory failure secondary to CHF and acute exacerbation of COPD patient was placed on BiPAP for admission but has been weaned off since yesterday morning most recent ABG and chest x-ray reviewed continue short course of prednisone continue bronchodilators improved and will hold further Lasix patient's is afebrile and WBCs normal but he does report increased expectoration patient. continue course of azithromycin off nitroglycerin infusion negative influenza and COVID (2) Congestive heart failure: Code(s): I50.9 - Heart failure, unspecified Status: Acute Assessment and Plan: see above (3) Acute exacerbation of chronic obstructive pulmonary disease (COPD): Code(s): J44.1 - Chronic obstructive pulmonary disease with (acute) exacerbation Status: Acute Assessment and Plan: see above (4) NSTEMI (non-ST elevated myocardial infarction): Code(s): I21.4 - Non-ST elevation (NSTEMI) myocardial infarction Status: Acute Assessment and Plan: continue heparin infusion, aspirin will discuss with cardiology regarding transition to subcutaneous Lovenox check lipid panel continue statin, low-dose beta-jessica and low-dose lisinopril cardiology has been consulted and is following. For cardiac catheterization echo Summary ? 1. Left ventricular chamber dimension is mildly enlarged. ? 2. Left ventricular systolic function is severely reduced, estimated at 25% with dyskinetic apex, akinetic apical septal and apical lateral harrell, hypokinesis of the anterior wall.. ? 3. There is mildly increased left ventricular wall thickness. ? 4. There is mild mitral valve regurgitation. (5) Type 2 diabetes mellitus with hyperglycemia: Qualifiers: Diabetes mellitus intermediate designer insulin use: with chcf use Qualified Code(s): E11.65 - Type 2 diabetes mellitus with hyperglycemia; Z79.4 - terminal makeup operator (current) use of insulin Code(s): E11.65 - Type 2 diabetes mellitus with hyperglycemia Status: Acute Assessment and Plan: continue Lantus and sliding scale insulin (6) Amphetamine abuse: Code(s): F15.10 - Other stimulant abuse, uncomplicated Status: Acute Assessment and Plan: patient was counseled to not use methamphetamine (7) Tobacco abuse: Code(s): Z72.0 - Tobacco use Status: Acute Assessment and Plan: patient was encouraged and counseled to quit smoking. He states that he will try to quit this time (8) Elevated liver enzymes: Code(s): R74.8 - Abnormal levels of other serum enzymes Status: Acute Assessment and Plan: on review of record patient has chronically elevated liver enzymes. Patient now has been started on a statin for his ischemic cardiomyopathy and non STEMI monitor levels he had ultrasound done as an outpatient last year and was negative for any abnormality of his gallbladder Additional Plan 04/04/2022 Plan is to continue with IV heparin. Patient is pain-free now. Cardiology consult. 04/05/2022 patient is pain-free at present time. Patient is scheduled for cardiac catheterization tomorrow morning. Increased WBC probably secondary to steroids. Will continue current treatment. Monitor closely. 04/06/2022 interval history: 66 year old male with history of coronary artery presented with shortness of breath found to have non STEMI, today patient had a cardiac catheterization it showed patient with severe coronary artery disease and severe systolic dysfunction with ejection fraction of 20%, grievance and appeals coordinator recommending thoracic surgery evaluation and possibly CABG, patient is being transferred to [facility] grievance and appeals coordinator at [facility] for the t
[2022-04-06] MEDS: ALBUTEROL SULFATE (*SP) AEROSOL 1 PUFF 2 PUFF INHALATION (19:40)
== END 2022-04-06 19:58 | disposition short-term general hospital (02) | DRG 280 ==
LOC: ANHED 01:40 → ANHICU 04:11 → ANHIMU 04-06 08:50 → ANHICU 04-07 15:02 → ANHIMU 04-07 15:02
PROVIDERS: Internal Medicine; Admitting Provider Student in an Organized Health Care Education/Training Program; Emergency Provider Emergency Medicine; PCP Internal Medicine; Visit Provider Internal Medicine Cardiovascular Disease
PROC: 4A023N7 Measurement of Cardiac Sampling and Pressure, Left Heart, Percutaneous Approach (ICD-10-PCS; CPT 93452; principal; 2022-04-06 10:30)
PROC: 4A023N7 Measurement of Cardiac Sampling and Pressure, Left Heart, Percutaneous Approach (ICD-10-PCS; CPT 36200; 2022-04-06 10:30)
PROC: 4A023N7 Measurement of Cardiac Sampling and Pressure, Left Heart, Percutaneous Approach (ICD-10-PCS; CPT 75625; 2022-04-06 10:30)
DX: I21.4 Non-ST elevation (NSTEMI) myocardial infarction (principal); J96.00 Acute respiratory failure, unspecified whether with hypoxia or hypercapnia; I50.21 Acute systolic (congestive) heart failure; J44.1 Chronic obstructive pulmonary disease with (acute) exacerbation; Z20.822 Contact with and (suspected) exposure to COVID-19; I25.110 Atherosclerotic heart disease of native coronary artery with unstable angina pectoris; I25.5 Ischemic cardiomyopathy; E11.65 Type 2 diabetes mellitus with hyperglycemia; G47.33 Obstructive sleep apnea (adult) (pediatric); F15.10 Other stimulant abuse, uncomplicated; F17.210 Nicotine dependence, cigarettes, uncomplicated; Z85.828 Personal history of other malignant neoplasm of skin; Z79.4 Long term (current) use of insulin; Z79.84 Long term (current) use of oral hypoglycemic drugs; I25.2 Old myocardial infarction
CPT/HCPCS: 36140; 36200; 36415; 36600; 71046; 75625; 80048; 80053; 80061; 82375; 82805; 82948; 83036; 83050; 83690; 83735; 83880; 84484; 85025; 85027; 85610; 85730; 87502; 93005; 93458; 94002; 94640; 96365; 96366; 96368; 96375; 99285; A9270; C1887; C1894; C8929; C9803; G0378; J1644; J1650; J1815; J1940; J2060; J2250; J3010; J7040; J7512; Q9957; U0003; U0005

== ENCOUNTER 2022-07-03 11:17 | Inpatient (IN) | payer MEDICARE, MEDICAID, SELFPAY ==
[2022-07-03] VITALS (79 sets, daily range): BP systolic 77–192; BP diastolic 57–167; PULSE 84–130; RESP 10–32; TEMP 36.4–36.9; O2SAT 77–100; BMI 24.5
--- NOTE | ~2022-07-03 | XR_ITS ---
EXAMINATION: XR abdomen NG/feed tube insert INDICATION: OG tube placement TECHNIQUE: Portable AP KUB-NG at 1347 hours COMPARISON: None available FINDINGS: The tip of the OG tube is in the stomach. The proximal side port is at the gastroesophageal junction. Patchy airspace opacities are seen throughout the lungs. IMPRESSION: 1. OG tube in the stomach with the proximal side port at the gastroesophageal junction. Recommend adv ancing 4 to 5 cm. Reviewed, dictated and finalized at location A. IMPRESSION: 1. OG tube in the stomach with the proximal side port at the gastroesophageal j unction. Recommend advancing 4 to 5 cm.
--- NOTE | ~2022-07-03 | XR_ITS ---
EXAMINATION: XR chest 1V portable DATE: 07/10/2022 05:23 INDICATION: Congestive heart failure. Respiratory failure. TECHNIQUE: frontal view of the chest was obtained. COMPARISON: Chest radiograph dated 07/09/2022 FINDINGS: Right internal jugular central venous catheter with distal tip at the midsuperior vena cava. Persiste nt gradient of hazy opacities throughout both lungs with basilar predominance consistent with likely small bilateral posterior layering pleural effusions. Mild increased perihilar and infrahilar interst itial pattern consistent with mild pulmonary edema. No pneumothorax. The cardiomediastinal silhouette is normal. Coronary artery stenting. IMPRESSION: 1. Interval development of mild pulmonary edema with small bilateral posterior layering pleural effus ions. Superimposed atelectasis or pneumonia not excludable. Reviewed, dictated and finalized at location A. IMPRESSION: 1. Interval development of mild pulmonary edema with small bilateral posterior layering pleural effusions. Superimposed atelectasis or pneumonia not excludabl e.
--- NOTE | ~2022-07-03 | XR_ITS ---
EXAMINATION: XR chest 1V portable DATE: 07/07/2022 05:16 INDICATION: Respiratory failure. Congestive heart failure. TECHNIQUE: A single frontal view of the chest was obtained. COMPARISON: Chest single view 07/06/2022 FINDINGS: There are interstitial and airspace opacities in all lung zones bilaterally. No pleural eff usion or pneumothorax. The heart size is normal. The endotracheal tube tip is 6.0 cm above the ruthann . A right internal jugular central venous catheter is seen with tip in the superior vena cava. The na sogastric tube tip is beyond the inferior margin of the radiograph, but at least to the stomach. IMPRESSION: 1. Stable diffuse lung disease, left worse than right, consistent with pulmonary edema versus pneumon ia. Reviewed, dictated and finalized at location A. IMPRESSION: 1. Stable diffuse lung disease, left worse than right, consistent with pulmonar y edema versus pneumonia.
--- NOTE | ~2022-07-03 | XR_ITS ---
EXAMINATION: XR chest 1V portable DATE: 07/08/2022 06:05 INDICATION: Respiratory failure. Congestive heart failure. TECHNIQUE: A single frontal view of the chest was obtained. COMPARISON: Chest single view 07/07/2022 FINDINGS: There are airspace opacities in right lower lung zone and left mid and lower lung zones. No pleural effusion or pneumothorax. The heart size is normal. The endotracheal tube tip is 5.4 cm abov e the ruthann. A right internal jugular central venous catheter is seen with tip in the superior vena cava. The nasogastric tube tip is beyond the inferior margin of the radiograph, but at least to the s tomach. IMPRESSION: 1. Airspace opacities in right lower lung zone and left mid and lower lung zones with mild interval i mprovement, pulmonary edema versus pneumonia. Reviewed, dictated and finalized at location A. IMPRESSION: 1. Airspace opacities in right lower lung zone and left mid and lower lung zone s with mild interval improvement, pulmonary edema versus pneumonia.
--- NOTE | ~2022-07-03 | XR_ITS ---
EXAMINATION: XR abdomen obstructive series DATE: 07/11/2022 08:21 INDICATION: Nausea and vomiting. TECHNIQUE: Upright and supine views of the abdomen on 3 radiographs were obtained. COMPARISON: CT abdomen and pelvis 09/03/2020 FINDINGS: There are no dilated loops of bowel. There is a small volume of stool in the colon. No free intraperitoneal gas. There is a central line tip in superior vena cava. IMPRESSION: 1. Normal bowel gas pattern. Reviewed, dictated and finalized at location A.
--- NOTE | ~2022-07-03 | XR_ITS ---
EXAMINATION: XR chest 1V portable DATE: 07/06/2022 05:23 INDICATION: Respiratory failure. TECHNIQUE: A single frontal view of the chest was obtained. COMPARISON: Chest single view 07/05/2022, CT abdomen and pelvis 09/03/2020 FINDINGS: There is a diffuse interstitial pattern in the lungs. There are airspace opacities in the l ower lung zones. No pleural effusion or pneumothorax. The heart size is normal. IMPRESSION: 1. Stable diffuse lung disease, consistent with mild pulmonary edema without or with superimposed pne umonia. Reviewed, dictated and finalized at location A. IMPRESSION: 1. Stable diffuse lung disease, consistent with mild pulmonary edema without or with superimposed pneumonia.
--- NOTE | ~2022-07-03 | XR_ITS ---
EXAMINATION: XR chest 1V portable DATE: 07/11/2022 05:23 INDICATION: Respiratory failure. TECHNIQUE: A single frontal view of the chest was obtained. COMPARISON: Chest single view 07/10/2022, CT abdomen and pelvis 09/03/2020 FINDINGS: There is a small right pleural effusion. There are airspace opacities in the lower lung zon es. No pneumothorax. The heart size is normal. A right internal jugular central venous catheter is se en with tip in the superior vena cava. IMPRESSION: 1. Stable small right pleural effusion. 2. Airspace opacities in the lower lung zones with interval improvement, consistent with atelectasis versus pneumonia. Reviewed, dictated and finalized at location A. IMPRESSION: 1. Stable small right pleural effusion. 2. Airspace opacities in the lower lung zones with interval improvement, consis tent with atelectasis versus pneumonia.
--- NOTE | ~2022-07-03 | XR_ITS ---
EXAMINATION: XR chest ET placement, XR abdomen NG/feed tube insert DATE: 07/06/2022 10:23 INDICATION: Intubation. Respiratory failure. Orogastric tube insertion. TECHNIQUE: 1. Portable AP view of the chest was obtained. 2. Portable AP view of the abdomen was obtained. COMPARISON: Chest radiograph dated 07/06/2022 at 5:11 AM FINDINGS: Chest: Endotracheal tube tip 6.8 cm above the ruthann. Diffuse increased interstitial pattern with some scatt ered patchy airspace opacities throughout both lungs. No pleural effusion or pneumothorax. Mild degen erative skeletal changes in the spine and at both shoulders. ABDOMEN: Nasogastric tube tip in proximal side port in the body of the stomach. IMPRESSION: 1. Endotracheal tube tip 6.8 cm above the ruthann. Consider advancement by 4 cm. 2. Nasogastric tube in the stomach. 3. Diffuse bilateral lung disease consistent with pulmonary edema detected with superimposed atelecta sis or pneumonia. Reviewed, dictated and finalized at location A. IMPRESSION: 1. Endotracheal tube tip 6.8 cm above the ruthann. Consider advancement by 4 cm. 2. Nasogastric tube in the stomach. 3. Diffuse bilateral lung disease consistent with pulmonary edema detected with superimposed atelectasis or pneumonia.
--- NOTE | ~2022-07-03 | XR_ITS ---
EXAMINATION: XR chest 1V portable DATE: 07/09/2022 06:02 INDICATION: Respiratory failure. Congestive heart failure. TECHNIQUE: A single frontal view of the chest was obtained. COMPARISON: Chest single view 07/08/2022 FINDINGS: There are mild airspace opacities in the mid and lower lung zones. No pleural effusion or p neumothorax. The heart size is normal. The endotracheal tube tip is 5.1 cm above the ruthann. The naso gastric tube tip is in the stomach. A right internal jugular central venous catheter is seen with tip in the superior vena cava. IMPRESSION: 1. Mild airspace opacities in the mid and lower lung zones with improvement on the left, consistent w ith pulmonary edema versus pneumonia. Reviewed, dictated and finalized at location A. IMPRESSION: 1. Mild airspace opacities in the mid and lower lung zones with improvement on the left, consistent with pulmonary edema versus pneumonia.
--- NOTE | ~2022-07-03 | XR_ITS ---
EXAMINATION: XR chest ET placement INDICATION: Respiratory failure TECHNIQUE: Portable AP chest at 1304 hours COMPARISON: 1240 hours FINDINGS: An endotracheal tube has been inserted which ends approximately 3 cm above the ruthann. Patc hy bilateral airspace opacities are unchanged. No pleural effusion or pneumothorax. The cardiomediast inal silhouette is normal. IMPRESSION: 1. Endotracheal tube ending approximately 3 cm above the ruthann, otherwise no change. Reviewed, dictated and finalized at location A. IMPRESSION: 1. Endotracheal tube ending approximately 3 cm above the ruthann, otherwise no c hange.
--- NOTE | ~2022-07-03 | XR_ITS ---
EXAMINATION: XR chest 1V portable DATE: 07/05/2022 05:36 INDICATION: Respiratory failure TECHNIQUE: frontal view of the chest was obtained. COMPARISON: Chest radiograph dated 07/04/2022 FINDINGS: Endotracheal tube tip 4.0 cm above the ruthann. Nasogastric tube tip in the body of the stomach. No significant interval change in patchy airspace opacity scattered throughout both lungs most promin ent at the lower lung zones. No pleural effusion or pneumothorax. The cardiomediastinal silhouette is normal. Coronary artery stenting. IMPRESSION: 1. No significant change in the lower lung predominant scattered bilateral lung disease which could r epresent pneumonia, pulmonary edema, atelectasis or some combination thereof. Reviewed, dictated and finalized at location A. IMPRESSION: 1. No significant change in the lower lung predominant scattered bilateral lung disease which could represent pneumonia, pulmonary edema, atelectasis or some combination thereof.
--- NOTE | ~2022-07-03 | XR_ITS ---
EXAMINATION: XR chest port-a-cath/central DATE: 07/06/2022 13:31 INDICATION: Central line placement. TECHNIQUE: A single frontal view of the chest was obtained. COMPARISON: Chest single view at 10:14 AM FINDINGS: There are patchy airspace opacities in all lung zones bilaterally. Left lateral costophreni c angle is not included. No pleural effusion or pneumothorax. The heart size is normal. The endotrach eal tube tip is 6.3 cm above the ruthann. The nasogastric tube tip is beyond the inferior margin of th e radiograph, but at least to the stomach. A right internal jugular central venous catheter is seen w ith tip in the superior vena cava. IMPRESSION: 1. Central line tip in superior vena cava. 2. Diffuse lung disease with mild improvement on the right and mild worsening in the left, likely mod erate pulmonary edema without or with superimposed pneumonia. Reviewed, dictated and finalized at location A. IMPRESSION: 1. Central line tip in superior vena cava. 2. Diffuse lung disease with mild improvement on the right and mild worsening i n the left, likely moderate pulmonary edema without or with superimposed pneumo olivia.
--- NOTE | ~2022-07-03 | XR_ITS ---
EXAMINATION: XR chest 1V portable INDICATION: Respiratory failure TECHNIQUE: Portable AP chest at 0533 hours COMPARISON: 07/03/2022 FINDINGS: The endotracheal tube ends approximately 5.6 cm above the ruthann. The nasogastric tube is i n the stomach. Patchy bilateral airspace opacities persist with slight interval worsening. No pleural effusion or pneumothorax. The cardiac mediastinal silhouette is stable. IMPRESSION: 1. Diffuse lung disease with interval worsening, consistent with pneumonia and/or pulmonary edema. Reviewed, dictated and finalized at location A. IMPRESSION: 1. Diffuse lung disease with interval worsening, consistent with pneumonia and/ or pulmonary edema.
--- NOTE | ~2022-07-03 | XR_ITS ---
EXAMINATION: XR chest 1V portable INDICATION: Shortness of breath TECHNIQUE: Portable AP chest at 1240 hours COMPARISON: 04/03/2022 FINDINGS: There are patchy bilateral airspace opacities. No pleural effusion or pneumothorax. The hea rt size is normal for technique. IMPRESSION: 1. Patchy bilateral airspace opacities, consistent with atelectasis versus pneumonia versus pulmonary edema. Reviewed, dictated and finalized at location A. IMPRESSION: 1. Patchy bilateral airspace opacities, consistent with atelectasis versus pneu monia versus pulmonary edema.
--- NOTE | 2022-07-03 11:32 | ECG_ITS ---
Measurements Intervals [place] Rate: 129 P: 75 [place]: 185 QRS: 66 QRSD: 94 T: 90 QT: 250 QTc: 366 Interpretive Statements SINUS TACHYCARDIA POSSIBLE ANTERIOR MYOCARDIAL INFARCTION , OF INDETERMINATE AGE [30 ms Q WAVE IN V3/V4, OR R < 0.2 mV IN V4] ABNORMAL ECG COMPARED TO ECG 04/05/2022 14:22:54 SINUS TACHYCARDIA NOW PRESENT Electronically Signed On 07-03-2022 17:22:35 CDT by Chemo Best M.D.
[2022-07-03] MEDS: FUROSEMIDE INJ 40 MG/4 ML VIAL IV PUSH (11:36)
[2022-07-03] MEDS: NITROGLYCERIN OINTMENT 1 INCH DOSE 0.5 INCH TRANSDERM ×2 (11:40→12:03)
[2022-07-03 11:49] LABS: Alveolar/Arterial O2 Gradient 303.2 mmHg; Base Excess ABG 2.5 mEq/l (+/-2.0); Carboxyhemoglobin 0.4 % THb (0-2.0); Fractional Inspired Oxygen 100 %; HCO3 ABG 32.4 mEq/l (22.0-26.0); Methemoglobin ABG 0.3 %THb (0-1.5); Oxygen Content ABG 20.2 %vol (16.0-22.0); Oxygen Saturation ABG 99.6 % (95.0-100.0); Oxyhemoglobin 98.2 % THb (90.0-100.0); PO2 ABG 331.9 mmHg (80.0-100.0); PO2 FiO2 Ratio Arterial Blood 3.32 %; Reduced Hemoglobin 1.1 %THb (0-5.0)
[2022-07-03 11:50] LABS: Basophils Absolute Auto 0.1 K/mm3 (0.0-0.1); Basophils Percent Auto 0.6 % (0.2-1.2); Eosinophils Absolute Auto 0.4 K/mm3 (0-0.3); Hematocrit 43.6 % (42.0-52.0); Hemoglobin 14.3 g/dL (14.0-18.0); Immature Granulocyte Percent A 0.5 % (0-0.5); Lymphocytes Absolute Auto 5.85 K/mm3 (0.9-3.2); Lymphocytes Percent Auto 27.8 % (18.3-44.2); Mean Corpuscular HGB Conc 32.8 g/dl (32-36); Mean Corpuscular Hemoglobin 30.6 pg (26-34); Mean Corpuscular Volume 93.4 fl (80-100); Mean Platelet Volume 8.8 fl (7.4-10.4); Monocytes Absolute Auto 1.6 K/mm3 (0.1-0.6); Monocytes Percent Auto 7.4 % (2.6-8.5); Neutrophils Percent Auto 61.7 % (45.5-73.1); Platelet Count Result 427 k/mm3 (150-375); Red Blood Count 4.67 M/mm3 (4.6-6.20); Red Cell Distribution Width 15.3 % (11.5-14.5); White Blood Count 21.1 K/mm3 (4.5-10.0)
[2022-07-03 11:52] LABS: pH ABG 7.237 (7.350-7.450)
[2022-07-03 11:53] LABS: Device BIPAP; Inspiratory Pressure 14 cmH2O; PCO2 ABG 77.9 mmHg (35.0-45.0); Site Drawn LEFT RADIAL
[2022-07-03 11:54] LABS: Expiratory Pressure 8 cmH2O
[2022-07-03 12:00] LABS: Prothrombin Time 12.9 Seconds (11.1-14.7)
[2022-07-03 12:01] LABS: Partial Thromboplastin Time 28.6 SECONDS (22.3-36.8)
[2022-07-03 12:02] LABS: Alanine Aminotransferase 79 U/L (6-50); Albumin Level 4.9 g/dL (3.5-5.1); Alkaline Phosphatase 73 U/L (38-126); Anion Gap 10 mmol/L (8-16); Aspartate Amino Transferase 78 U/L (17-59); Bilirubin,Total 0.8 mg/dL (0.2-1.3); Blood Urea Nitrogen 15 mg/dL (9-20); Calcium 9.2 mg/dL (8.4-10.2); Carbon Dioxide 36 mmol/L (22-30); Chloride 96 mmol/L (98-107); Estimated CRCL calculation 72 ml/min; Estimated Glomerular Filt Rate > 60; Glucose 200 mg/dL (65-110); Potassium 3.8 mmol/L (3.4-5.0); Sodium 142 mmol/L (137-145)
[2022-07-03 12:04] LABS: Glucose Point of Care 216 mg/dl (65-105)
[2022-07-03 12:16] LABS: NT Pro B Type Natriuretic Pept 5700 pg/mL (5-100); Troponin I 0.037 ng/mL (0.000-0.034)
--- NOTE | 2022-07-03 12:16 | ECG_ITS ---
Measurements Intervals [place] Rate: 126 P: [place]: 0 QRS: 65 QRSD: 88 T: 68 QT: 395 QTc: 573 Interpretive Statements SINUS TACHYCARDIA ANTEROSEPTAL MYOCARDIAL INFARCTION , PROBABLY RECENT [40+ ms Q WAVE IN V1-V4] ABNORMAL ECG COMPARED TO ECG 07/03/2022 11:38:59 NO SIGNIFICANT CHANGE Electronically Signed On 07-03-2022 17:23:40 CDT by Chemo Best M.D.
[2022-07-03] MEDS: LORazepam INJ (*CRX) 2 MG/ML VIAL 1 MG IV PUSH (12:31)
[2022-07-03 12:39] LABS: Alveolar/Arterial O2 Gradient 149.4 mmHg; Fractional Inspired Oxygen 40 %; HCO3 ABG 31.7 mEq/l (22.0-26.0); Oxygen Content ABG 17.1 %vol (16.0-22.0); PO2 ABG 58.2 mmHg (80.0-100.0); PO2 FiO2 Ratio Arterial Blood 1.46 %; Total Hemoglobin 14.1 g/dL (12.0-18.0)
[2022-07-03 12:40] LABS: pH ABG 7.289 (7.350-7.450)
[2022-07-03 12:41] LABS: Oxygen Saturation ABG 86.2 % (95.0-100.0); PCO2 ABG 67.5 mmHg (35.0-45.0)
[2022-07-03 12:42] LABS: Device BIPAP; Expiratory Pressure 8 cmH2O; Inspiratory Pressure 14 cmH2O; Oxyhemoglobin 86.4 % THb (90.0-100.0); Site Drawn LEFT RADIAL
--- NOTE | 2022-07-03 12:51 | ED.GENADULT ---
HPI - General Adult General Chief complaint: Chest Pain Stated complaint: CP Time Seen by Provider: 07/03/22 11:26 History of Present Illness HPI narrative: Patient is a 67-year-old male who presents ER with shortness of breath. Sudden onset prior to arrival. Reports he has been compliant with home medications. Denies chest pain. Patient tripoding and on nonrebreather. Poor perfusion to extremities. Related Data Home Medications Medication Instructions Recorded Confirmed atorvastatin 40 mg tablet 40 mg PO HS 07/03/22 07/03/22 carvedilol 3.125 mg tablet 3.125 mg PO BID 07/03/22 07/03/22 clopidogrel 75 mg tablet 75 mg PO DAILY 07/03/22 07/03/22 furosemide 20 mg tablet 20 mg PO DAILY 07/03/22 07/03/22 lisinopril 5 mg tablet 5 mg PO DAILY 07/03/22 07/03/22 metformin 500 mg tablet 500 mg PO BIDWM 07/03/22 07/03/22 ticagrelor 90 mg tablet (Brilinta) 90 mg PO BID 07/03/22 07/03/22 Allergies Allergy/AdvReac Type Severity Reaction Status Date / Time No Known Allergies Allergy Verified 07/03/22 11:33 [facility] Past Medical History Medical History COPD (chronic obstructive pulmonary disease) Diabetes mellitus Hemoglobin A1c 12.09 August 2020 Obstructive sleep apnea Renal lesion Skin cancer Surgical History Surgical History History of left knee surgery History of right knee surgery History of shoulder surgery Left Family History Family History Sibling Diabetes mellitus Father Emphysema lung Social History Social History Social History: He lives with his significant other. He smokes about a 3rd of pack of cigarettes per day. He denies any alcohol abuse or illicit drugs. He has 4 children. Code status: Full code Smoking packs per day: 0.33 Smoking cigarettes per day: 6.6 Years smoked: 58 Smoking pack-years: 19.14 Smoking status: Current every day smoker Tobacco type: cigarettes Second hand tobacco smoke exposure: Yes Additional smoking assessment comments: currently wearing nocitone patch, reports he is cutting down and trying to Alcohol intake: current Drinks per week: 2 Substance use: current Substance use type: marijuana and amphetamines Other substance usage details: former meth user current marijuana, drinks 1 a month Last use: daughter suspects amphetamine use-not sure Gender identity (if verbalized by the patient): Male Spiritual care concerns: No Exam Narrative: GENERAL: Ill-appearing, well-nourished, and in severe distress. HEAD: Normocephalic, atraumatic. EYES: PERRL and EOMI. ENT: Mucous membranes moist. CHEST: Diminished breath sounds bilaterally with faint crackles. Severe respiratory distress. Elevated respiratory rate. Accessory muscle usage. HEART: Tachycardic and regular. Normal peripheral pulses. ABDOMEN: Soft, nontender, nondistended. EXTREMITIES: Normal range of motion. No edema. SKIN: Cool, dry, mottled. NEURO: Alert and oriented x3. PSYCH: Anxious. Course Course Emergency Course: Multiple discussions with cardiology about EKG. Not felt to be STEMI. Patient can go to the ICU. ICU physician consulted and has seen patient at bedside. Patient being diuresed but also received IV antibiotics for possible pneumonia given elevated white blood cell count. Patient was transiently hypotensive and propofol was discontinued, the Nitropaste was removed, patient was switched to fentanyl and Versed for sedation. Apparently last month patient had in-stent thrombosis that required balloon angioplasty at [facility]. This affected the LAD. Reevaluation(s) Reevaluation #1: Patient failing BiPAP as patient is wearing out. Discussed intubation and patient agreed though patient was an extremis Date: 07/03/22 Time: 13:23 Vital
[2022-07-03] MEDS: PROPOFOL IV EMULSION 100 ML 2.54 MG IV CONT (13:04)
[2022-07-03] MEDS: fentaNYL CITRATE INJ (*CRX) 100 MCG/2 ML VIAL 25 MCG IV PUSH (13:23)
--- NOTE | 2022-07-03 13:33 | WPDCNINT ---
Assessment and Plan Assessment and plan (1) Acute respiratory failure: Code(s): J96.00 - Acute respiratory failure, unspecified whether with hypoxia or hypercapnia Status: Acute Assessment and Plan: Acute multifactorial hypoxic and hypercarbic Respiratory failure secondary to congestive heart failure, COPD and possible community-acquired pneumonia Patient intubated in the ER Continue full mechanical ventilation support to prevent hypoxemia/hypercarbia and end organ damage. PCXR reviewed and will repeat in am. ABG and Vent settings reviewed -rate increased to 18. Will repeat ABG Low tidal volume ventilation strategy to prevent volutrauma Short course of steroid, Bronchodilators Patient received Lasix in the ER. Hold further Lasix due to soft blood pressure on sedation Currently sedated with propofol Check blood culture and sputum culture Check procalcitonin level Empiric Rocephin and azithromycin Patient will be going for chest CT scan in ER which is pending (2) CHF exacerbation: Code(s): I50.9 - Heart failure, unspecified Status: Acute Assessment and Plan: See above (3) Pneumonia: Code(s): J18.9 - Pneumonia, unspecified organism Status: Acute Assessment and Plan: See above (4) COPD (chronic obstructive pulmonary disease): Code(s): J44.9 - Chronic obstructive pulmonary disease, unspecified Status: Acute Assessment and Plan: See above (5) Non-ST elevation OR (NSTEMI): Code(s): I21.4 - Non-ST elevation (NSTEMI) myocardial infarction Status: Acute Assessment and Plan: Elevated troponin, there is ST segment abnormality on EKG but patient had similar changes on his last admission Patient denied chest pain or presentation Patient has known coronary artery disease and is status post recent stent placement Cardiology is being consulted in ER for further guidance in case patient need to go to cardiac catheterization lab. Serial troponin to be continue Check echocardiogram Continue aspirin and statin Hold beta-jessica and YASIR-inhibitor due to some low blood pressure (6) Ischemic cardiomyopathy: Code(s): I25.5 - Ischemic cardiomyopathy Status: Acute Assessment and Plan: Last echo showed EF of 20% post that patient had stents placed Will check limited echo (7) Type 2 diabetes mellitus with hyperglycemia: Qualifiers: Diabetes mellitus mcc insulin use: with mcc use Qualified Code(s): E11.65 - Type 2 diabetes mellitus with hyperglycemia; Z79.4 - intermediate manager (current) use of insulin Code(s): E11.65 - Type 2 diabetes mellitus with hyperglycemia Status: Acute Assessment and Plan: Sliding scale insulin Plan DVT prophylaxis -Lovenox Stress ulcer prophylaxis -PPI Nutrition -NPO Code Status - Full Code Total Critical Care Time - minutes Due to a high probability of clinically significant, life threatening deterioration, the patient required my highest level of preparedness to intervene emergently and I personally spent this critical care time directly and personally managing the patient. This critical care time included obtaining a history; examining the patient; pulse oximetry; ordering and review of studies; arranging urgent treatment with development of a management plan; evaluation of patient's response to treatment; frequent reassessment; and discussions with other providers. It was exclusive of separately billable procedures and treating other patients and teaching time. Please see Assessment and Plan section and the rest of the note for further information on patient assessment and treatment Change Management Consultant Consult Note Consult date: 07/04/22 Reason for consult: Acute respiratory failure HPI: Samuel Conway Sr. is a 67 year old male with history of CAD, uncontrolled diabetes mellitus, COPD, polysubstance abuse with methamphetamine use, obstructive sleep apnea who was recently admi
[2022-07-03] MEDS: IPRATROPIUM BR 0.02% INH SOLN 0.5 MG/2.5 ML VIAL INHALATION ×2 (14:07→20:48)
[2022-07-03] MEDS: ALBUTEROL SULFATE NEB 2.5 MG/3 ML INH INHALATION ×2 (14:07→20:49)
[2022-07-03] MEDS: MIDAZOLAM 100MG/NS 100ML(*CRX) 100 MG/100 ML BAG IV CONT (14:13)
[2022-07-03] MEDS: FENTANYL 2,500MCG/NS250ML(*CRX 2,500 MCG/250 ML BAG IV CONT (14:20)
[2022-07-03 14:24] LABS: Glucose Point of Care 177 mg/dl (65-105)
--- NOTE | 2022-07-03 14:34 | PC.NURSE ---
Patient began not tolerating bipap mask. MD made aware and decision was made to intubate patient at 1250. 1254: 30mg of etomidate was administered by SILVIA El 1254: 100mg of succ administered by SILVIA El 1256: 7.5mm ET tube placed at 25cm at the lip. positive color change.
--- NOTE | 2022-07-03 14:36 | PM.IMHP ---
H&P: HPI History of Present Illness Date/Time: 07/03/22 14:36 Chief Complaint: chest pain Narrative: this is a 67-year-old male patient with a history of COPD COPD and diabetes. The patient came to the emergency room with complaints of shortness of breath. It was sudden onset just prior to arrival to the emergency room. It was reported that the patient has been compliant with his home medications. Patient was tripoding in the non-rebreather was placed on the patient. Also BiPAP was attempted. The patient was intubated in the emergency room. The patient was placed on propofol drip. His white count is noted to be 21.1. Initial chest x-ray was read as patchy bilateral airspace opacities consistent with atelectasis versus pneumonia versus pulmonary edema. Follow-up chest x-ray shows endotracheal tube ending approximately 3 cm above the ruthann otherwise no change. Abdominal x-ray shows OG tube in the stomach with proximal side port at the gastroesophageal junction. Recommend advancing 4-5 cm. The patient was started on a azithromycin Rocephin. The patient was given nitroglycerin, Lasix IV, Ativan, and rapid sequence intubation medication. The patient was initially admitted to observation but then changed to inpatient. The patient is being admitted to ICU as inpatient status on 07/03/2022. Review of Systems Review of Systems: See HPI All systems reviewed & are unremarkable except as noted in HPI and below Constitutional: Constitutional: Reports as per HPI and Reports no additional constitutional complaints Eyes: Eyes: Reports as per HPI and Reports no additional eye complaints ENT: Reports system reviewed and no additional complaints, except as documented and Reports Normal hearing present Cardiovascular: Cardiovascular: Reports no additional cardiovascular complaints Respiratory: Respiratory: Reports no additional respiratory complaints and Reports no additional respiratory complaints Gastrointestinal: Gastrointestinal: Reports as per HPI and Reports no additional gastrointestinal complaints Musculoskeletal: Musculoskeletal: Reports no additional musculoskeletal complaints Integumentary/Breasts: Skin/Breast: Reports system reviewed and no additional complaints, except as docu and Reports as per HPI Neurologic: Reports system reviewed and no additional complaints, except as documented, Reports as per HPI and Reports Normal hearing present Psychiatric: Psychiatric: Reports no additional psychiatric complaints and Reports as per HPI Endocrine: Endocrine: Reports no additional endocrine complaints Hematologic/Lymphatic: Hematologic/Lymphatic: Reports no additional hematologic/lymphatic complaints Allergic/Immunologic: Allergic/Immunologic: Reports no additional allergic/immunologic complaints [facility] Past Medical History Medical History COPD (chronic obstructive pulmonary disease) Diabetes mellitus Hemoglobin A1c 12.09 August 2020 Obstructive sleep apnea Renal lesion Skin cancer Surgical History Surgical History History of left knee surgery History of right knee surgery History of shoulder surgery Left Family History Family History Sibling Diabetes mellitus Father Emphysema lung Social History Social History (Updated 07/03/22 @ 14:53 by Gail Hampton NP) Social History: He lives with his significant other. He smokes about a 3rd of pack of cigarettes per day. He denies any alcohol abuse or illicit drugs. He has 4 children. Code status: Full code Smoking packs per day: 0.33 Smoking cigarettes per day: 6.6 Years smoked: 58 Smoking pack-years: 19.14 Smoking status: Current every day smoker Tobacco type: cigarettes Second hand tobacco smoke exposure: Yes Additional smoking assessment comments: currently wearing noc
[2022-07-03 15:05] LABS: Barbiturate Screen Urine Negative (Negative); Benzodiazepines Screen Urine Positive (Negative)
[2022-07-03] MEDS: RAPID SEQUENCE INTUBATION KIT 1 EACH (15:09)
[2022-07-03 15:13] LABS: Cannabinoid Screen Urine Negative (Negative); Cocaine Screen Urine Negative (Negative); Methadone Screen Urine Negative (Negative); Opiate Screen Urine Negative (Negative); Phencyclidine Screen Urine Negative (Negative)
[2022-07-03 15:16] LABS: Alveolar/Arterial O2 Gradient 331.5 mmHg; Base Excess ABG 4.1 mEq/l (+/-2.0); Device VENTILATOR; Fractional Inspired Oxygen 100 %; HCO3 ABG 30.8 mEq/l (22.0-26.0); Oxygen Content ABG 18.1 %vol (16.0-22.0); Oxygen Saturation ABG 99.7 % (95.0-100.0); Oxyhemoglobin 98.3 % THb (90.0-100.0); PCO2 ABG 55.3 mmHg (35.0-45.0); PO2 ABG 326.2 mmHg (80.0-100.0); PO2 FiO2 Ratio Arterial Blood 3.26 %; Site Drawn LEFT RADIAL; Total Hemoglobin 12.5 g/dL (12.0-18.0); pH ABG 7.363 (7.350-7.450)
[2022-07-03 15:17] LABS: Arterial Blood Gas PEEP 5 cmH2O; Arterial Blood Gas Vent Mode ASSIST CONTROL; Arterial Blood Gas Ventilator rate 18 /MIN
[2022-07-03 15:18] LABS: Procalcitonin 0.2 ng/mL
[2022-07-03 15:18] LABS: Arterial Blood Gas Tidal Volume 450 ml
[2022-07-03 15:35] LABS: Amphetamine Screen Urine Positive (Negative)
--- NOTE | 2022-07-03 16:01 | ADMGEN ---
This patient, Samuel Conway , was admitted to Intensive Care Unit-8 at 1600. Patient/family oriented to hospital policies and general routines including ID bracelet, bed and alarms, visiting hours, pain management, procedures, bathroom and other care routines, personal items, smoking policy, room service/diet, and visiting hours. Information on how to activate the Rapid Response Team has been discussed. Patient/Family are encouraged to report perceived risks to care and to ask questions if they do not understand what they are told or what they should do.
--- NOTE | 2022-07-03 17:11 | PM.CNCAR ---
Assessment and Plan Assessment and plan (1) Acute exacerbation of CHF (congestive heart failure): Code(s): I50.9 - Heart failure, unspecified Status: Acute Assessment and Plan: Acute on chronic systolic congestive heart failure. Possibly related to hypertension at the time. Continue carvedilol and lisinopril as BP will tolerate. Continue diuresis with IV furosemide (2) Acute respiratory failure: Code(s): J96.00 - Acute respiratory failure, unspecified whether with hypoxia or hypercapnia Status: Acute Assessment and Plan: Secondary to pulmonary edema versus pneumonia (3) Ischemic cardiomyopathy: Code(s): I25.5 - Ischemic cardiomyopathy Status: Acute Assessment and Plan: Severe (4) Amphetamine abuse: Code(s): F15.10 - Other stimulant abuse, uncomplicated Status: Acute (5) CAD (coronary artery disease): Code(s): I25.10 - Atherosclerotic heart disease of [place] coronary artery without angina pectoris Status: Acute Assessment and Plan: Status post multivessel PCI and recent stent thrombosis of the LAD. Continue aspirin, Plavix, statin History of Present Illness History of Present Illness Consult date/time: 07/03/22 17:11 Requesting physician: Micha Bhatt MD Consult reason: congestive heart failure Reason For Visit: Acute Respiratory Failure, Pneumonia, CHF Narrative: Date of service 07/03/2022 Requesting provider: Dr. Bhatt Reason consultation: Elevated troponin, CHF, pulmonary edema History: Patient is a 67-year-old male patient with a history of COPD COPD and diabetes.? The patient came to the emergency room with complaints of shortness of breath.? It was sudden onset just prior to arrival to the emergency room.? Reported the patient was compliant with medications. His respiratory status worsened and he needed to be placed on BiPAP. Patient was still in distress and so he was intubated. He does have patchy by space opacifications consistent with pneumonia versus pulmonary edema. Reportedly no recent chest pain. Was given IV furosemide and currently is stable. He does have a complex coronary history with multivessel PCI performed at [facility] and acute stent thrombosis of the LAD. He also has a history of substance abuse. Review of Systems Review of Systems: All systems reviewed & are unremarkable except as noted in HPI and below Constitutional: Constitutional: Denies body ache(s) Eyes: Eyes: Denies blurry vision ENT: Denies epistaxis Cardiovascular: Cardiovascular: Denies leg edema Respiratory: Respiratory: Reports dyspnea Gastrointestinal: Gastrointestinal: Denies melena Genitourinary: Genitourinary: Denies hematuria Musculoskeletal: Musculoskeletal: Denies arthralgias Integumentary/Breasts: Skin/Breast: Denies unusual bruising Neurologic: Denies Abnormal speech present Psychiatric: Psychiatric: Denies confusion Endocrine: Endocrine: Denies excessive sweating Hematologic/Lymphatic: Hematologic/Lymphatic: Reports easy bleeding Allergic/Immunologic: Allergic/Immunologic: Denies lip swelling PMFSH Past Medical History Medical History COPD (chronic obstructive pulmonary disease) Diabetes mellitus Hemoglobin A1c 12.09 August 2020 Obstructive sleep apnea Renal lesion Skin cancer Surgical History Surgical History History of left knee surgery History of right knee surgery History of shoulder surgery Left Family History Family History Sibling Diabetes mellitus Father Emphysema lung Social History Social History Social History: He lives with his significant other. He smokes about a 3rd of pack of cigarettes per day. He denies any alcohol abuse or illic
[2022-07-03 18:16] LABS: Troponin I 0.123 ng/mL (0.000-0.034)
[2022-07-03] MEDS: ASPIRIN 325 MG TABLET FEED TUBE (18:36)
[2022-07-03 20:56] LABS: Glucose Point of Care 106 mg/dl (65-105)
[2022-07-04] VITALS (40 sets, daily range): BP systolic 88–122; BP diastolic 55–78; PULSE 70–105; RESP 18–20; TEMP 36.8–37.2; O2SAT 94–98
[2022-07-04 00:25] LABS: Glucose Point of Care 109 mg/dl (65-105)
[2022-07-04] MEDS: IPRATROPIUM BR 0.02% INH SOLN 0.5 MG/2.5 ML VIAL INHALATION ×4 (02:30→20:31)
[2022-07-04] MEDS: ALBUTEROL SULFATE NEB 2.5 MG/3 ML INH INHALATION ×4 (02:30→20:31)
[2022-07-04 04:06] LABS: Basophils Absolute Auto 0.1 K/mm3 (0.0-0.1); Basophils Percent Auto 0.7 % (0.2-1.2); Eosinophils Absolute Auto 0.2 K/mm3 (0-0.3); Eosinophils Percent Auto 2.1 % (0-4.4); Hematocrit 35.1 % (42.0-52.0); Hemoglobin 11.3 g/dL (14.0-18.0); Immature Granulocyte Absolute 0.03 K/mm3 (0.00-0.031); Immature Granulocyte Percent A 0.3 % (0-0.5); Lymphocytes Absolute Auto 2.17 K/mm3 (0.9-3.2); Lymphocytes Percent Auto 23.6 % (18.3-44.2); Mean Corpuscular HGB Conc 32.2 g/dl (32-36); Mean Corpuscular Hemoglobin 30.8 pg (26-34); Mean Corpuscular Volume 95.6 fl (80-100); Mean Platelet Volume 8.9 fl (7.4-10.4); Monocytes Absolute Auto 0.9 K/mm3 (0.1-0.6); Monocytes Percent Auto 10.2 % (2.6-8.5); Neutrophils Absolute Auto 5.8 K/mm3 (1.3-6.7); Neutrophils Percent Auto 63.1 % (45.5-73.1); Platelet Count Result 251 k/mm3 (150-375); Red Blood Count 3.67 M/mm3 (4.6-6.20); Red Cell Distribution Width 15.4 % (11.5-14.5); White Blood Count 9.2 K/mm3 (4.5-10.0)
[2022-07-04 04:22] LABS: Alanine Aminotransferase 66 U/L (6-50); Albumin Level 3.4 g/dL (3.5-5.1); Alkaline Phosphatase 53 U/L (38-126); Anion Gap 9 mmol/L (8-16); Aspartate Amino Transferase 61 U/L (17-59); Bilirubin,Total 0.7 mg/dL (0.2-1.3); Blood Urea Nitrogen 21 mg/dL (9-20); Calcium 8.7 mg/dL (8.4-10.2); Carbon Dioxide 33 mmol/L (22-30); Chloride 99 mmol/L (98-107); Estimated CRCL calculation 72 ml/min; Estimated Glomerular Filt Rate > 60; Glucose 96 mg/dL (65-110); Magnesium 1.8 mg/dL (1.6-2.3); Potassium 3.3 mmol/L (3.4-5.0); Sodium 141 mmol/L (137-145)
[2022-07-04 05:17] LABS: Alveolar/Arterial O2 Gradient 235.4 mmHg; Base Excess ABG 4.3 mEq/l (+/-2.0); Fractional Inspired Oxygen 50 %; HCO3 ABG 30.4 mEq/l (22.0-26.0); Methemoglobin ABG 0.3 %THb (0-1.5); Oxygen Content ABG 17.4 %vol (16.0-22.0); Oxygen Saturation ABG 91.4 % (95.0-100.0); Oxyhemoglobin 90.8 % THb (90.0-100.0); PCO2 ABG 51.9 mmHg (35.0-45.0); PO2 ABG 62.7 mmHg (80.0-100.0); PO2 FiO2 Ratio Arterial Blood 1.25 %; Reduced Hemoglobin 8.9 %THb (0-5.0); Total Hemoglobin 13.6 g/dL (12.0-18.0); pH ABG 7.386 (7.350-7.450)
[2022-07-04 05:19] LABS: Device VENTILATOR; Modified Allen's Test Pass; Site Drawn RIGHT RADIAL
[2022-07-04 05:20] LABS: Arterial Blood Gas PEEP 5 cmH2O; Arterial Blood Gas Tidal Volume 450 ml; Arterial Blood Gas Vent Mode CMV; Arterial Blood Gas Ventilator rate 18 /MIN
[2022-07-04 08:18] LABS: Glucose Point of Care 99 mg/dl (65-105)
--- NOTE | 2022-07-04 08:46 | WPDINTPN ---
Progress Note: A&P Assessment and Plan (1) Acute respiratory failure: Code(s): J96.00 - Acute respiratory failure, unspecified whether with hypoxia or hypercapnia Status: Acute Assessment and Plan: Acute multifactorial hypoxic and hypercarbic Respiratory failure secondary to congestive heart failure, COPD and possible community-acquired pneumonia Patient intubated in the ER Continue full mechanical ventilation support to prevent hypoxemia/hypercarbia and end organ damage. PCXR reviewed -advance ET tube by 3 cm. ABG and Vent settings reviewed - continue current settings Low tidal volume ventilation strategy to prevent volutrauma Continue Short course of steroid, Bronchodilators Will give another dose of Lasix today Currently sedated with Versed and fentanyl Pending blood culture and sputum culture procalcitonin level low suggesting infection Patient is on Empiric Rocephin and azithromycin His urine drug screen is positive again for amphetamines which may have precipitated the respiratory failure (2) CHF exacerbation: Code(s): I50.9 - Heart failure, unspecified Status: Acute Assessment and Plan: Repeat echo is pending See above (3) Pneumonia: Code(s): J18.9 - Pneumonia, unspecified organism Status: Acute Assessment and Plan: See above (4) COPD (chronic obstructive pulmonary disease): Code(s): J44.9 - Chronic obstructive pulmonary disease, unspecified Status: Acute Assessment and Plan: See above (5) Non-ST elevation [place] (NSTEMI): Code(s): I21.4 - Non-ST elevation (NSTEMI) myocardial infarction Status: Acute Assessment and Plan: Elevated troponin, there is ST segment abnormality on EKG but patient had similar changes on his last admission Patient denied chest pain on presentation Patient has known coronary artery disease and is status post recent stent placement which was followed by acute stent thrombosis of LAD likely due to noncompliance which was intervened Cardiology was consulted in ER and evaluated patient and did not feel the patient needed to go for for emergent cardiac catheterization. Serial troponin were checked and although elevated remained flat for the most part Pending echocardiogram Continue aspirin Plavix and statin Continue to Hold beta-jessica and YASIR-inhibitor due to soft blood pressure (6) Ischemic cardiomyopathy: Code(s): I25.5 - Ischemic cardiomyopathy Status: Acute Assessment and Plan: Last echo showed EF of 20% post that patient had stents placed Will check limited echo (7) Type 2 diabetes mellitus with hyperglycemia: Qualifiers: Diabetes mellitus terminal manager insulin use: with chcf use Qualified Code(s): E11.65 - Type 2 diabetes mellitus with hyperglycemia; Z79.4 - termite technician (current) use of insulin Code(s): E11.65 - Type 2 diabetes mellitus with hyperglycemia Status: Acute Assessment and Plan: Continue Sliding scale insulin (8) Electrolyte abnormality: Code(s): E87.8 - Other disorders of electrolyte and fluid balance, not elsewhere classified Status: Acute Assessment and Plan: Replace low potassium Plan DVT prophylaxis -Lovenox Stress ulcer prophylaxis -PPI Nutrition -start tube feeds Code Status - Full Code Total Critical Care Time - 30 minutes Due to a high probability of clinically significant, life threatening deterioration, the patient required my highest level of preparedness to intervene emergently and I personally spent this critical care time directly and personally managing the patient. This critical care time included obtaining a history; examining the patient; pulse oximetry; ordering and review of studies; arranging urgent treatment with development of a management plan; evaluation of patient's response to treatment; frequent reassessment; and discussions with other providers. It was exclusive of separately billable p
[2022-07-04] MEDS: POTASSIUM CHLORIDE 20 MEQ PACKET (FOR LIQUID) 40 MEQ FEED TUBE (09:06)
[2022-07-04] MEDS: FUROSEMIDE INJ 40 MG/4 ML VIAL IV PUSH (09:06)
[2022-07-04] MEDS: ENOXAPARIN 40 MG/0.4 ML SYRINGE SUB-Q (09:07)
[2022-07-04] MEDS: ASPIRIN 325 MG TABLET FEED TUBE (09:07)
[2022-07-04] MEDS: CLOPIDOGREL BISULFATE 75 MG TABLET PO (09:07)
[2022-07-04] MEDS: ATORVASTATIN 20 MG TABLET PO (09:07)
[2022-07-04] MEDS: PANTOPRAZOLE SODIUM IV 40 MG VIAL IV PUSH (09:08)
[2022-07-04] MEDS: methylPREDNISolone SOD SUCC 125 MG VIAL 60 MG IV PUSH (09:11)
--- NOTE | 2022-07-04 09:52 | PM.PNCARD ---
Progress Note: A&P Assessment and Plan (1) Acute exacerbation of CHF (congestive heart failure): Code(s): I50.9 - Heart failure, unspecified Status: Acute Assessment and Plan: Acute on chronic systolic congestive heart failure. Possibly related to hypertension at the time. Restarting lisinopril 5 mg daily today. Add carvedilol as tolerated. Continue diuresis with IV furosemide (2) Acute respiratory failure: Code(s): J96.00 - Acute respiratory failure, unspecified whether with hypoxia or hypercapnia Status: Acute Assessment and Plan: Secondary to pulmonary edema versus pneumonia (3) Ischemic cardiomyopathy: Code(s): I25.5 - Ischemic cardiomyopathy Status: Acute Assessment and Plan: Severe (4) Amphetamine abuse: Code(s): F15.10 - Other stimulant abuse, uncomplicated Status: Acute (5) CAD (coronary artery disease): Code(s): I25.10 - Atherosclerotic heart disease of [place] coronary artery without angina pectoris Status: Acute Assessment and Plan: Status post multivessel PCI and recent stent thrombosis of the LAD. Continue aspirin, Plavix, statin Subjective Date/time seen: 07/04/22 09:52 Interval history: 67-year-old admitted for shortness of breath, acute pulmonary edema. History of multivessel PCI, polysubstance abuse Date of service 07/04/2022: Still intubated sedated. Hemodynamically more stable. Oxygenating well. Review of Systems Review of Systems: All systems reviewed & are unremarkable except as noted in HPI and below Constitutional: Constitutional: Denies body ache(s) and Denies excessive sweating Eyes: Eyes: Denies blurry vision ENT: Denies lip swelling and Denies epistaxis Cardiovascular: Cardiovascular: Denies leg edema and Reports dyspnea Respiratory: Respiratory: Reports dyspnea Gastrointestinal: Gastrointestinal: Denies melena Genitourinary: Genitourinary: Denies hematuria Musculoskeletal: Musculoskeletal: Denies arthralgias Integumentary/Breasts: Skin/Breast: Denies unusual bruising Neurologic: Denies Abnormal speech present and Denies confusion Psychiatric: Psychiatric: Denies confusion Endocrine: Endocrine: Denies excessive sweating Hematologic/Lymphatic: Hematologic/Lymphatic: Reports easy bleeding Allergic/Immunologic: Allergic/Immunologic: Denies lip swelling Exam Narrative: Currently intubated appears stated age Const: General: No confusion or uncomfortable Orientation/consciousness: No confusion Other: Intubated sedated HENMT: General nose exam: Normal nares present Eyes: Sclera: sclerae normal Neck: Neck: supple Carotids: no bruits Chest: Other: No chest wall deformity Resp: Effort & Inspection: normal respiratory effort Auscultation: diminished lung sounds Cardio: Rate: regular rate Rhythm: regular rhythm GI: Inspection: non-distended Auscultation: normal bowel sounds Skin: General skin exam: normal color Neuro: General: No confusion Speech: No Abnormal speech present Other: Sedated Extrem: General: no edema Psych: Other: Intubated and sedated Objective Data Vital Signs Vital Signs: Vital Signs - 24 hr 07/03/22 11:30 07/03/22 11:39 07/03/22 11:45 Temperature Pulse Rate 124 H 130 H 123 H Respiratory Rate 30 H 26 H 26 H Blood Pressure 185/160 H Pulse Oximetry 77 L 100 Oxygen Delivery Fraction of Inspired Oxygen 07/03/22 11:46 07/03/22 11:47 07/03/22 11:54 Temperature 36.4 C Pulse Rate Respiratory Rate 29 H Blood Pressure Pulse Oximetry Oxygen Delivery BiPAP BiPAP Fraction of Inspired Oxygen 07/03/22 11:46 07/03/22 12:01 07/03/22 13:04 Temperature Pulse Rate 124 H 124 H 115 H Respiratory Rate 27 H 26 H 26 H Blood Pressure 192/120 H 191/167 H Pulse Oximetry 100 93 Oxygen Delivery Fraction of Inspired Oxygen 07/03/22 13:10 07/03/22 12:02 07/03/22 12:13 Temperature
[2022-07-04] MEDS: lisinopriL 5 MG TABLET PO (11:57)
[2022-07-04 12:00] LABS: Glucose Point of Care 141 mg/dl (65-105)
[2022-07-04] MEDS: MIDAZOLAM 100MG/NS 100ML(*CRX) 100 MG/100 ML BAG IV CONT (13:41)
--- NOTE | 2022-07-04 13:44 | PM.IMPN ---
Progress Note: A&P Assessment and Plan (1) Acute respiratory failure: Code(s): J96.00 - Acute respiratory failure, unspecified whether with hypoxia or hypercapnia Status: Acute Assessment and Plan: -Acute multifactorial hypoxic and hypercarbic Respiratory failure secondary to congestive heart failure, COPD and possible community-acquired pneumonia -Patient intubated in the ER via ED provider -Continue full mechanical ventilation support per online media director. -PCXR r repeat in am. -ABG reviewed per intensive and Vent settings reviewed -rate increased to 18 per online media director.? Will repeat ABG -Low tidal volume ventilation strategy to prevent volutrauma -Short course of steroid, Bronchodilators -Patient received Lasix in the ER.? Hold further Lasix due to soft blood pressure on sedation -Currently sedated with propofol -Check blood culture and sputum culture -Check procalcitonin level -Empiric Rocephin and azithromycin -Patient will be going for chest CT scan in ER which is pending - online media director was consulted and the recommendations were mentioned above per online media director. 07/04/2022 interval history: patient with shortness of breath, respiratry failure on vent 2/2 multifactorial secondary to exacerbation of acute on chronic systolic congestive Heart failure patient is being diuresed seen by cardiology resume lisinopril and added Coreg, community-acquired pneumonia being treated with ceftriaxone and azithromycin, exacerbation of COPD patient is being treated with steroids and bronchodilator, also patient with a drug abuse and positive for amphetamine, patient with history severe ischemic cardiomyopathy now with a non STEMI seen by cardiology no ischemic workup recommended (2) CHF exacerbation: Code(s): I50.9 - Heart failure, unspecified Status: Acute Assessment and Plan: - Echo has been ordered. - Lasix is on hold due to low blood pressure. (3) Pneumonia: Code(s): J18.9 - Pneumonia, unspecified organism Status: Acute Assessment and Plan: - Azithromycin Rocephin - blood and sputum cultures pending. (4) Acute exacerbation of chronic obstructive pulmonary disease (COPD): Code(s): J44.1 - Chronic obstructive pulmonary disease with (acute) exacerbation Status: Acute Assessment and Plan: - Continue with nebulizer treatments - continue with steroid (5) Non-ST elevation [place] (NSTEMI): Code(s): I21.4 - Non-ST elevation (NSTEMI) myocardial infarction Status: Acute Assessment and Plan: -Elevated troponin, there is ST segment abnormality on EKG but patient had similar changes on his last admission -Patient has known coronary artery disease and is status post recent stent placement -Cardiology is being consulted in ER for further guidance in case patient need to go to cardiac catheterization lab. -Serial troponin to be continue -Check echocardiogram -Continue aspirin and statin -Hold beta-jessica and YASIR-inhibitor due to some low blood pressure (6) Ischemic cardiomyopathy: Code(s): I25.5 - Ischemic cardiomyopathy Status: Acute Assessment and Plan: -Last echo showed EF of 20% post that patient had stents placed Will check limited echo (7) Type 2 diabetes mellitus with hyperglycemia: Qualifiers: Diabetes mellitus care home insulin use: with roasterman use Qualified Code(s): E11.65 - Type 2 diabetes mellitus with hyperglycemia; Z79.4 - termite treater helper (current) use of insulin Code(s): E11.65 - Type 2 diabetes mellitus with hyperglycemia Status: Acute Assessment and Plan: - sliding scale insulin with Accu-Cheks every 4 hours - check A1c Subjective Date/time seen: 07/04/22 13:44 chest pain HPI-Narrative: ?this is a 67-year-old male patient with a history of COPD COPD and diabetes.? The patient came to the emergency room with complaints of shortness of breath.? It was sudden onset just prior to arrival to the emergency
[2022-07-04 18:14] LABS: Glucose Point of Care 278 mg/dl (65-105)
[2022-07-04] MEDS: INSULIN ASPART (*BKC) 100 UNITS/ML SUB-Q ×2 (18:33→23:19)
[2022-07-04] MEDS: MINERAL OIL/WHITE PETROLATUM OINTMENT 1 APPLIC EACH EYE (19:38)
[2022-07-04] MEDS: FENTANYL 2,500MCG/NS250ML(*CRX 2,500 MCG/250 ML BAG 7.5 MCG IV CONT (22:10)
[2022-07-04 23:18] LABS: Glucose Point of Care 240 mg/dl (65-105)
[2022-07-05] VITALS (35 sets, daily range): BP systolic 95–124; BP diastolic 60–78; PULSE 71–89; RESP 12–23; TEMP 36.2–37.2; O2SAT 88–100; BMI 25.1
--- NOTE | 2022-07-05 | ECHO_ITS ---
Patient Info Name: Samuel Conway Age: 67 years : 1955 Gender: Male Ht: 73 in Wt: 197 lbs BSA: 2.15 m2 HR: 76 bpm BP: 108 / 68 mmHg Heart Rhythm: Sinus Rhythm Technical Quality: Fair Exam Date: 07/05/2022 7:49 AM Exam Location: [facility] Pulmonary Patient Status: Inpatient Admit Date: 07/03/2022 Staff Ordering Physician: Chaitanya Dutton MD Sales Advisor: Fior Velazquez RDCS Attending Provider: Adria Pond MD Exam Type: CA echo limited w contrast Study Info Indications - congestive heart failure Complete two-dimensional, color flow and Doppler transthoracic echocardiogram is performed with contrast to opacify the left ventricle and to improve the deliniation of the left ventricle endocardial borders. Contrast/Agitated Saline Contrast/Ag. Saline: Definity Amount: 3.00 ml Administered By: Fior Velazquez RDCS Existing IV Access: Yes IV Access Condition: patent with no signs of infiltration Summary 1. The mid to apical anterior wall is akinetic. 2. The apex is dyskinetic. 3. The mid to apical septum is akinetic. 4. The apical lateral wall is akinetic. 5. The apical inferior wall is akinetic. 6. Left ventricular systolic function is severely reduced, estimated at 25-30%. 7. Left atrial chamber dimension is mildly enlarged. 8. Compared with examination from March of this year left ventricular systolic function has not changed appreciably. Left Ventricle The mid to apical anterior wall is akinetic. The apex is dyskinetic. The mid to apical septum is akinetic. The apical lateral wall is akinetic. The apical inferior wall is akinetic. Left ventricular chamber dimension is moderately enlarged. Left ventricular systolic function is severely reduced, estimated at 25-30%. Right Ventricle Right ventricular chamber dimension is normal. Left Atria Left atrial chamber dimension is mildly enlarged. Right Atria Right atrial chamber dimension is normal. Aortic Valve The aortic valve is trileaflet. There is mild aortic valve sclerosis. Pulmonic Valve The pulmonic valve is not well visualized. Mitral Valve The mitral valve has normal leaflets. Tricuspid Valve The tricuspid valve leaflets are normal. Pericardium/Pleural The pericardium appears normal. Aorta The aortic root size at the sinus of Valsalva is normal. Left Ventricular Outflow Tract Name Value Normal LVOT Doppler LVOT Peak Gradient 2 mmHg LVOT Mean Gradient 1 mmHg LVOT VTI 14 cm LVOT VTI/AV VTI Ratio 0.5 Mitral Valve Name Value Normal MV Doppler MV Decel [place] 381 cm/s2 MV PHT 47 ms MV Area (PHT) 4.7 cm2 4.0-5.0 MV Diastolic Function
[2022-07-05] MEDS: ALBUTEROL SULFATE NEB 2.5 MG/3 ML INH INHALATION ×4 (02:42→20:15)
[2022-07-05] MEDS: IPRATROPIUM BR 0.02% INH SOLN 0.5 MG/2.5 ML VIAL INHALATION ×4 (02:43→20:15)
[2022-07-05 05:01] LABS: Basophils Percent Auto 0.2 % (0.2-1.2); Eosinophils Percent Auto 0.1 % (0-4.4); Hematocrit 34.4 % (42.0-52.0); Hemoglobin 11.1 g/dL (14.0-18.0); Immature Granulocyte Absolute 0.07 K/mm3 (0.00-0.031); Immature Granulocyte Percent A 0.6 % (0-0.5); Lymphocytes Absolute Auto 1.36 K/mm3 (0.9-3.2); Lymphocytes Percent Auto 12.1 % (18.3-44.2); Mean Corpuscular HGB Conc 32.3 g/dl (32-36); Mean Corpuscular Hemoglobin 30.4 pg (26-34); Mean Corpuscular Volume 94.2 fl (80-100); Monocytes Absolute Auto 0.9 K/mm3 (0.1-0.6); Monocytes Percent Auto 8.1 % (2.6-8.5); Neutrophils Absolute Auto 8.8 K/mm3 (1.3-6.7); Neutrophils Percent Auto 78.9 % (45.5-73.1); Platelet Count Result 292 k/mm3 (150-375); Red Blood Count 3.65 M/mm3 (4.6-6.20); Red Cell Distribution Width 14.7 % (11.5-14.5); White Blood Count 11.2 K/mm3 (4.5-10.0)
[2022-07-05 05:14] LABS: Alanine Aminotransferase 56 U/L (6-50); Albumin Level 3.6 g/dL (3.5-5.1); Alkaline Phosphatase 57 U/L (38-126); Anion Gap 4 mmol/L (8-16); Aspartate Amino Transferase 42 U/L (17-59); Bilirubin,Total 0.4 mg/dL (0.2-1.3); Blood Urea Nitrogen 41 mg/dL (9-20); Calcium 8.6 mg/dL (8.4-10.2); Carbon Dioxide 33 mmol/L (22-30); Chloride 98 mmol/L (98-107); Estimated CRCL calculation 49 ml/min; Estimated Glomerular Filt Rate 47; Glucose 239 mg/dL (65-110); Magnesium 2.2 mg/dL (1.6-2.3); Potassium 3.8 mmol/L (3.4-5.0); Sodium 135 mmol/L (137-145)
[2022-07-05 05:46] LABS: Alveolar/Arterial O2 Gradient 198.3 mmHg; Base Excess ABG 4.7 mEq/l (+/-2.0); Carboxyhemoglobin 0.5 % THb (0-2.0); Fractional Inspired Oxygen 50 %; HCO3 ABG 31.2 mEq/l (22.0-26.0); Methemoglobin ABG 0.4 %THb (0-1.5); Oxygen Content ABG 20.7 %vol (16.0-22.0); Oxygen Saturation ABG 97.3 % (95.0-100.0); PCO2 ABG 53.3 mmHg (35.0-45.0); PO2 ABG 98.2 mmHg (80.0-100.0); PO2 FiO2 Ratio Arterial Blood 1.96 %; Reduced Hemoglobin 3.1 %THb (0-5.0); Total Hemoglobin 15.3 g/dL (12.0-18.0); pH ABG 7.385 (7.350-7.450)
[2022-07-05 05:47] LABS: Device VENTILATOR; Modified Allen's Test Pass; Site Drawn RIGHT RADIAL
[2022-07-05 05:48] LABS: Arterial Blood Gas PEEP 5 cmH2O; Arterial Blood Gas Tidal Volume 450 ml; Arterial Blood Gas Vent Mode CMV; Arterial Blood Gas Ventilator rate 18 /MIN
[2022-07-05] MEDS: INSULIN ASPART (*BKC) 100 UNITS/ML SUB-Q ×3 (06:34→18:37)
[2022-07-05] MEDS: SODIUM CHLORIDE 0.9% IV 1,000 ML 100 ML IV CONT (07:55)
[2022-07-05] MEDS: ATORVASTATIN 20 MG TABLET PO (08:01)
[2022-07-05] MEDS: ENOXAPARIN 40 MG/0.4 ML SYRINGE SUB-Q (08:01)
[2022-07-05] MEDS: CLOPIDOGREL BISULFATE 75 MG TABLET PO (08:01)
[2022-07-05] MEDS: ASPIRIN 325 MG TABLET FEED TUBE (08:01)
[2022-07-05] MEDS: PANTOPRAZOLE SODIUM IV 40 MG VIAL IV PUSH (08:01)
[2022-07-05] MEDS: MINERAL OIL/WHITE PETROLATUM OINTMENT 1 APPLIC EACH EYE (08:01)
[2022-07-05] MEDS: methylPREDNISolone SOD SUCC 125 MG VIAL 60 MG IV PUSH (08:03)
[2022-07-05] MEDS: PERFLUTREN LIPID MICROSPHERES 1.5 ML VIAL DILUTED TO 10 ML TOTAL VOLUME IV PUSH (08:14)
--- NOTE | 2022-07-05 08:14 | IVDEFINITY ---
Prior to administration of IV Definity the patient was educated on the risks and benefits of the imaging enhancing agent including potential adverse side effects. The patient verbalized understanding. Allergies were verified. No exclusion criteria were identified and at least one of the following inclusion criteria were met: 1) physician request, 2) patient technically difficult to image (per the [place] Society of Echocardiography guidelines of two or more segments not discernable within the apical view), or 3) questionable left ventricular function. ?
--- NOTE | 2022-07-05 08:34 | WPDINTPN ---
Progress Note: A&P Assessment and Plan (1) Acute respiratory failure: Code(s): J96.00 - Acute respiratory failure, unspecified whether with hypoxia or hypercapnia Status: Acute Assessment and Plan: Acute multifactorial hypoxic and hypercarbic Respiratory failure secondary to congestive heart failure, COPD and possible community-acquired pneumonia Patient intubated in the ER Continue full mechanical ventilation support to prevent hypoxemia/hypercarbia and end organ damage. PCXR reviewed ABG and Vent settings reviewed - continue current settings Will attempt a weaning trial today after sedation holiday Continue Short course of steroid, Bronchodilators Hold further Lasix due to increasing creatinine Currently sedated with Versed and fentanyl Pending blood cultures procalcitonin level low suggesting against infection Patient is on Empiric Rocephin and azithromycin His urine drug screen is positive again for amphetamines which may have precipitated the respiratory failure (2) CHF exacerbation: Code(s): I50.9 - Heart failure, unspecified Status: Acute Assessment and Plan: Repeat echo was done and report is pending See above (3) Pneumonia: Code(s): J18.9 - Pneumonia, unspecified organism Status: Acute Assessment and Plan: See above (4) COPD (chronic obstructive pulmonary disease): Code(s): J44.9 - Chronic obstructive pulmonary disease, unspecified Status: Acute Assessment and Plan: See above (5) Non-ST elevation [place] (NSTEMI): Code(s): I21.4 - Non-ST elevation (NSTEMI) myocardial infarction Status: Acute Assessment and Plan: Elevated troponin, there is ST segment abnormality on EKG but patient had similar changes on his last admission Patient denied chest pain on presentation Patient has known coronary artery disease and is status post recent stent placement which was followed by acute stent thrombosis of LAD likely due to noncompliance which was intervened Cardiology was consulted in ER and evaluated patient and did not feel the patient needed to go for for emergent cardiac catheterization. 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 Qualified Code(s): E11.65 - Type 2 diabetes mellitus with hyperglycemia; Z79.4 - snf (current) use of insulin Code(s): E11.65 - Type 2 diabetes mellitus with hyperglycemia Status: Acute Assessment and Plan: Continue Sliding scale insulin Add Lantus if unable to extubate and patient continues to be on tube feeds (8) Electrolyte abnormality: Code(s): E87.8 - Other disorders of electrolyte and fluid balance, not elsewhere classified Status: Acute Assessment and Plan: Replace low potassium (9) Acute kidney injury: Code(s): N17.9 - Acute kidney failure, unspecified Status: Acute Assessment and Plan: Creatinine increased to 1.5 this morning with drop in urine output Patient has been getting diuretics. This is likely secondary to intravascular volume depletion and cardiogenic Hold further diuretics Will give some IV fluids and albumin Monitor renal function creatinine and electrolytes Plan DVT prophylaxis -Lovenox Stress ulcer prophylaxis -PPI Nutrition -continue tube feeds Code Status - Full Code Total Critical Care Time - 30 minutes Due to a high probability of clinically significant, life threatening deterioratio
[2022-07-05] MEDS: ALBUMIN HUMAN 5% 25 GM/500 ML BTL IV CONT (08:44)
[2022-07-05] MEDS: INSULIN GLARGINE (*BKC) 100 UNITS/ML 10 UNITS SUB-Q (10:17)
[2022-07-05 10:45] LABS: Alveolar/Arterial O2 Gradient 153.6 mmHg; Fractional Inspired Oxygen 40 %; HCO3 ABG 32.2 mEq/l (22.0-26.0); Oxygen Content ABG 15.9 %vol (16.0-22.0); Oxygen Saturation ABG 93.5 % (95.0-100.0); Oxyhemoglobin 92.6 % THb (90.0-100.0); PCO2 ABG 54.1 mmHg (35.0-45.0); PO2 ABG 69.4 mmHg (80.0-100.0); PO2 FiO2 Ratio Arterial Blood 1.74 %; Total Hemoglobin 12.2 g/dL (12.0-18.0); pH ABG 7.393 (7.350-7.450)
[2022-07-05 10:47] LABS: Device VENTILATOR; Modified Allen's Test Pass; Site Drawn LEFT RADIAL
[2022-07-05 10:48] LABS: Arterial Blood Gas PEEP 5 cmH2O; Arterial Blood Gas Vent Mode SPONTANEOUS
[2022-07-05 10:49] LABS: Arterial Blood Gas Pressure Support 5 cmH2O
--- NOTE | 2022-07-05 10:53 | PM.EVENT ---
Event Note Event Note Event Note: 5/5 PSV SBT done for close to 1 hour. RSBI, ABGI and Vitals acceptable. Patient does have chronic hypercarbia. Pt awake and following commands. Will extubate and monitor. NPO for now. Bipap PRN and at night
[2022-07-05 11:53] LABS: Glucose Point of Care 302 mg/dl (65-105)
[2022-07-05] MEDS: ALBUMIN HUMAN 25% 25 GM/100 ML 100 ML IVPB ×2 (13:13→18:41)
--- NOTE | 2022-07-05 14:41 | PM.PNCARD ---
Progress Note: A&P Assessment and Plan (1) Acute exacerbation of CHF (congestive heart failure): Code(s): I50.9 - Heart failure, unspecified Status: Acute Assessment and Plan: Acute on chronic systolic congestive heart failure. Possibly related to hypertension at the time. Furosemide and lisinopril on hold today because of PEREZ Adding carvedilol today and up titrate as tolerated. (2) Acute respiratory failure: Code(s): J96.00 - Acute respiratory failure, unspecified whether with hypoxia or hypercapnia Status: Acute Assessment and Plan: Secondary to pulmonary edema versus pneumonia (3) Ischemic cardiomyopathy: Code(s): I25.5 - Ischemic cardiomyopathy Status: Acute Assessment and Plan: Severe (4) Amphetamine abuse: Code(s): F15.10 - Other stimulant abuse, uncomplicated Status: Acute (5) CAD (coronary artery disease): Code(s): I25.10 - Atherosclerotic heart disease of [place] coronary artery without angina pectoris Status: Acute Assessment and Plan: Status post multivessel PCI and recent stent thrombosis of the LAD. Continue aspirin, Plavix, statin Subjective Date/time seen: 07/05/22 14:41 Cardiology follow up for CHF, cardiomyopathy, CAD He is extubated today. States he is feeling okay and does not have any complaints. Denies shortness of breath or chest pain. Review of Systems Review of Systems: All systems reviewed & are unremarkable except as noted in HPI and below Constitutional: Constitutional: Denies body ache(s) and Denies excessive sweating Eyes: Eyes: Denies blurry vision ENT: Denies lip swelling and Denies epistaxis Cardiovascular: Cardiovascular: Denies leg edema and Reports dyspnea Respiratory: Respiratory: Reports dyspnea Gastrointestinal: Gastrointestinal: Denies melena Genitourinary: Genitourinary: Denies hematuria Musculoskeletal: Musculoskeletal: Denies arthralgias Integumentary/Breasts: Skin/Breast: Denies unusual bruising Neurologic: Denies Abnormal speech present and Denies confusion Psychiatric: Psychiatric: Denies confusion Endocrine: Endocrine: Denies excessive sweating Hematologic/Lymphatic: Hematologic/Lymphatic: Reports easy bleeding Allergic/Immunologic: Allergic/Immunologic: Denies lip swelling Exam Const: General: No confusion or uncomfortable Orientation/consciousness: No confusion Other: Alert and oriented. Comfortable. HENMT: General nose exam: Normal nares present Eyes: Sclera: sclerae normal Neck: Neck: supple Carotids: no bruits Chest: Other: No chest wall deformity Resp: Effort & Inspection: normal respiratory effort Auscultation: diminished lung sounds Cardio: Rate: regular rate Rhythm: regular rhythm GI: Inspection: non-distended Auscultation: normal bowel sounds Skin: General skin exam: normal color Neuro: General: No confusion Speech: No Abnormal speech present Other: Sedated Extrem: General: no edema Other: no edema distal pulses intact Psych: Other: Intubated and sedated Objective Data Vital Signs Vital Signs: Vital Signs - 24 hr 07/04/22 15:00 07/04/22 15:00 07/04/22 16:00 Temperature Pulse Rate 100 100 Respiratory Rate 18 18 Blood Pressure Pulse Oximetry 98 Oxygen Delivery Mechanical Ventilation Oxygen Flow Rate Fraction of Inspired Oxygen 50 07/04/22 16:00 07/04/22 16:00 07/04/22 16:00 Temperature 37.1 C Pulse Rate 101 H 102 H Respiratory Rate 18 Blood Pressure 102/66 Pulse Oximetry 98 Oxygen Delivery Oxygen Flow Rate Fraction of Inspired Oxygen 50 07/04/22 16:40 07/04/22 18:00 07/04/22 18:00 Temperature Pulse Rate 96 91 91 Respiratory Rate 18 Blood Pressure 97/55 L Pulse Oximetry 98 97 Oxygen Delivery Mechanical Ventilation Oxygen Flow Rate Fraction of Inspired Oxygen 50 07/04/22 19:43 07/04/22 19:43 07/04/22 20:00 Tempera
--- NOTE | 2022-07-05 17:09 | PM.IMPN ---
Progress Note: A&P Assessment and Plan (1) Acute respiratory failure: Code(s): J96.00 - Acute respiratory failure, unspecified whether with hypoxia or hypercapnia Status: Acute Assessment and Plan: -Acute multifactorial hypoxic and hypercarbic Respiratory failure secondary to congestive heart failure, COPD and possible community-acquired pneumonia -Patient intubated in the ER via ED provider -Continue full mechanical ventilation support per financial aid. -PCXR r repeat in am. -ABG reviewed per intensive and Vent settings reviewed -rate increased to 18 per financial aid.? Will repeat ABG -Low tidal volume ventilation strategy to prevent volutrauma -Short course of steroid, Bronchodilators -Patient received Lasix in the ER.? Hold further Lasix due to soft blood pressure on sedation -Currently sedated with propofol -Check blood culture and sputum culture -Check procalcitonin level -Empiric Rocephin and azithromycin -Patient will be going for chest CT scan in ER which is pending - financial aid was consulted and the recommendations were mentioned above per financial aid. 07/04/2022 interval history: patient with shortness of breath, respiratry failure on vent 2/2 multifactorial secondary to exacerbation of acute on chronic systolic congestive Heart failure patient is being diuresed seen by cardiology resume lisinopril and added Coreg, community-acquired pneumonia being treated with ceftriaxone and azithromycin, exacerbation of COPD patient is being treated with steroids and bronchodilator, also patient with a drug abuse and positive for amphetamine, patient with history severe ischemic cardiomyopathy now with a non STEMI seen by cardiology no ischemic workup recommended. 07/05/2022 interval history: patient with shortness of breath, respiratry failure on vent 2/2 multifactorial secondary to exacerbation of acute on chronic systolic congestive Heart failure patient is being diuresed seen by cardiology resume lisinopril and added Coreg, community-acquired pneumonia being treated with ceftriaxone and azithromycin, exacerbation of COPD patient is being treated with steroids and bronchodilator, also patient with a drug abuse and positive for amphetamine, today patient was given SBT and extubated, stats he wants to go home, will continue to monitor financial aid has placed BIPAP as needs, today patient BUN and creatinine are rising cardiology is holding lisinopril, will monitor, patient with history severe ischemic cardiomyopathy now with a non STEMI seen by cardiology no ischemic workup recommended (2) CHF exacerbation: Code(s): I50.9 - Heart failure, unspecified Status: Acute Assessment and Plan: - Echo has been ordered. - Lasix is on hold due to low blood pressure. (3) Pneumonia: Code(s): J18.9 - Pneumonia, unspecified organism Status: Acute Assessment and Plan: - Azithromycin Rocephin - blood and sputum cultures pending. (4) Acute exacerbation of chronic obstructive pulmonary disease (COPD): Code(s): J44.1 - Chronic obstructive pulmonary disease with (acute) exacerbation Status: Acute Assessment and Plan: - Continue with nebulizer treatments - continue with steroid (5) Non-ST elevation [place] (NSTEMI): Code(s): I21.4 - Non-ST elevation (NSTEMI) myocardial infarction Status: Acute Assessment and Plan: -Elevated troponin, there is ST segment abnormality on EKG but patient had similar changes on his last admission -Patient has known coronary artery disease and is status post recent stent placement -Cardiology is being consulted in ER for further guidance in case patient need to go to cardiac catheterization lab. -Serial troponin to be continue -Check echocardiogram -Continue aspirin and statin -Hold beta-jessica and YASIR-inhibitor due to some low blood pressure (6) Ischemic cardiomyopathy: Code(s): I25.5 - Ischemic cardiomyopathy Status: Acute
[2022-07-05 18:42] LABS: Glucose Point of Care 312 mg/dl (65-105)
[2022-07-05] MEDS: carvediloL 3.125 MG TABLET PO (20:56)
[2022-07-06] VITALS (71 sets, daily range): BP systolic 51–183; BP diastolic 40–144; PULSE 53–151; RESP 13–30; TEMP 36.1–37.8; O2SAT 83–98; BMI 25.4
[2022-07-06] MEDS: INSULIN ASPART (*BKC) 100 UNITS/ML SUB-Q ×3 (00:26→18:17)
[2022-07-06] MEDS: ALBUMIN HUMAN 25% 25 GM/100 ML 100 ML IVPB ×4 (00:28→18:19)
[2022-07-06 00:35] LABS: Glucose Point of Care 282 mg/dl (65-105)
[2022-07-06 04:58] LABS: Basophils Percent Auto 0.1 % (0.2-1.2); Hematocrit 30.3 % (42.0-52.0); Hemoglobin 9.8 g/dL (14.0-18.0); Immature Granulocyte Absolute 0.04 K/mm3 (0.00-0.031); Immature Granulocyte Percent A 0.3 % (0-0.5); Lymphocytes Absolute Auto 1.51 K/mm3 (0.9-3.2); Lymphocytes Percent Auto 12.1 % (18.3-44.2); Mean Corpuscular HGB Conc 32.3 g/dl (32-36); Mean Corpuscular Volume 95.9 fl (80-100); Mean Platelet Volume 9.3 fl (7.4-10.4); Monocytes Absolute Auto 0.7 K/mm3 (0.1-0.6); Monocytes Percent Auto 5.8 % (2.6-8.5); Neutrophils Absolute Auto 10.2 K/mm3 (1.3-6.7); Neutrophils Percent Auto 81.7 % (45.5-73.1); Platelet Count Result 266 k/mm3 (150-375); Red Blood Count 3.16 M/mm3 (4.6-6.20); Red Cell Distribution Width 14.6 % (11.5-14.5); White Blood Count 12.4 K/mm3 (4.5-10.0)
[2022-07-06] MEDS: ALBUTEROL SULFATE NEB 2.5 MG/3 ML INH INHALATION ×5 (05:12→20:32)
[2022-07-06] MEDS: IPRATROPIUM BR 0.02% INH SOLN 0.5 MG/2.5 ML VIAL INHALATION ×5 (05:12→20:32)
[2022-07-06 05:15] LABS: Alanine Aminotransferase 37 U/L (6-50); Albumin Level 4.3 g/dL (3.5-5.1); Alkaline Phosphatase 45 U/L (38-126); Anion Gap 2 mmol/L (8-16); Aspartate Amino Transferase 37 U/L (17-59); Bilirubin,Total 0.3 mg/dL (0.2-1.3); Blood Urea Nitrogen 31 mg/dL (9-20); Calcium 8.9 mg/dL (8.4-10.2); Carbon Dioxide 37 mmol/L (22-30); Chloride 96 mmol/L (98-107); Estimated CRCL calculation 72 ml/min; Estimated Glomerular Filt Rate > 60; Glucose 199 mg/dL (65-110); Magnesium 2.5 mg/dL (1.6-2.3); Potassium 4.3 mmol/L (3.4-5.0); Sodium 135 mmol/L (137-145)
[2022-07-06 05:18] LABS: Glucose Point of Care 184 mg/dl (65-105)
[2022-07-06 05:20] LABS: Alveolar/Arterial O2 Gradient 160.4 mmHg; Carboxyhemoglobin 0.3 % THb (0-2.0); Fractional Inspired Oxygen 40 %; HCO3 ABG 33.4 mEq/l (22.0-26.0); Methemoglobin ABG 0.2 %THb (0-1.5); Modified Allen's Test Pass; Oxygen Saturation ABG 90.1 % (95.0-100.0); PCO2 ABG 56.5 mmHg (35.0-45.0); PO2 ABG 59.8 mmHg (80.0-100.0); Reduced Hemoglobin 10.5 %THb (0-5.0); Site Drawn RIGHT RADIAL; Total Hemoglobin 11.2 g/dL (12.0-18.0); pH ABG 7.389 (7.350-7.450)
[2022-07-06 05:21] LABS: Device NASAL CANNULA
--- NOTE | 2022-07-06 08:29 | WPDINTPN ---
Progress Note: A&P Assessment and Plan (1) Acute respiratory failure: Code(s): J96.00 - Acute respiratory failure, unspecified whether with hypoxia or hypercapnia Status: Acute Assessment and Plan: Acute multifactorial hypoxic and hypercarbic Respiratory failure secondary to congestive heart failure, COPD and possible community-acquired pneumonia Intubated on 07/03 Extubated on 07/05 -required BiPAP earlier this morning due to hypoxia -07/06 chest x-ray:Stable diffuse lung disease, consistent with mild pulmonary edema without or with superimposed pneumonia -will diurese patient today with Lasix 40 mg IV x1 -07/03/2022: Blood cultures negative x2 -07/05/2022: Sputum culture pending procalcitonin level low suggesting against infection - Rocephin and azithromycin (07/04) His urine drug screen is positive again for amphetamines which may have precipitated the respiratory failure (2) CHF exacerbation: Code(s): I50.9 - Heart failure, unspecified Status: Acute Assessment and Plan: Echocardiogram 07/05/2022 Summary ? 1. The mid to apical anterior wall is akinetic. ? 2. The apex is dyskinetic. ? 3. The mid to apical septum is akinetic. ? 4. The apical lateral wall is akinetic. ? 5. The apical inferior wall is akinetic. ? 6. Left ventricular systolic function is severely reduced, estimated at 25-30%. ? 7. Left atrial chamber dimension is mildly enlarged. ? 8. Compared with examination from March of this year left ventricular systolic function has not changed appreciably. -cardiology following the patient (3) Pneumonia: Code(s): J18.9 - Pneumonia, unspecified organism Status: Acute Assessment and Plan: Continue ceftriaxone azithromycin (4) COPD (chronic obstructive pulmonary disease): Code(s): J44.9 - Chronic obstructive pulmonary disease, unspecified Status: Acute Assessment and Plan: Continue bronchodilators, now on BiPAP -will switch to nasal cannula high-flow therapy alternate with BiPAP if required (5) Non-ST elevation [place] (NSTEMI): Code(s): I21.4 - Non-ST elevation (NSTEMI) myocardial infarction Status: Acute Assessment and Plan: Elevated troponin, there is ST segment abnormality on EKG but patient had similar changes on his last admission Patient denied chest pain on presentation Patient has known coronary artery disease and is status post recent stent placement which was followed by acute stent thrombosis of LAD likely due to noncompliance which was intervened Cardiology was consulted in ER and evaluated patient and did not feel the patient needed to go for for emergent cardiac catheterization. 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 Qualified Code(s): E11.65 - Type 2 diabetes mellitus with hyperglycemia; Z79.4 - senior living (current) use of insulin Code(s): E11.65 - Type 2 diabetes mellitus with hyperglycemia Status: Acute Assessment and Plan: Continue Sliding scale insulin Add Lantus (8) Electrolyte abnormality: Code(s): E87.8 - Other disorders of electrolyte and fluid balance, not elsewhere classified Status: Acute Assessment and Plan: Electrolytes within normal limits (9) Acute kidney injury: Code(s): N17.9 - Acute kidney failure, unspecified Status: Acute Assessment and Plan: Creatinine increased to 1.5 this morning with drop in urine output Derian
[2022-07-06] MEDS: methylPREDNISolone SOD SUCC 125 MG VIAL 60 MG IV PUSH ×2 (08:55→09:40)
[2022-07-06] MEDS: FUROSEMIDE INJ 40 MG/4 ML VIAL IV PUSH (08:55)
[2022-07-06] MEDS: PANTOPRAZOLE SODIUM IV 40 MG VIAL IV PUSH (08:56)
[2022-07-06] MEDS: ATORVASTATIN 20 MG TABLET PO (08:57)
[2022-07-06] MEDS: CLOPIDOGREL BISULFATE 75 MG TABLET PO (08:57)
[2022-07-06] MEDS: carvediloL 3.125 MG TABLET PO (08:57)
[2022-07-06] MEDS: ASPIRIN 325 MG TABLET FEED TUBE (08:58)
[2022-07-06] MEDS: ENOXAPARIN 40 MG/0.4 ML SYRINGE SUB-Q (08:58)
[2022-07-06] MEDS: INSULIN GLARGINE (*BKC) 100 UNITS/ML 10 UNITS SUB-Q (09:00)
[2022-07-06] MEDS: MORPHINE SULFATE (*CRX) 2 MG/ML INJ 1 MG IV PUSH (09:40)
[2022-07-06] MEDS: IPRATROPIUM BR 0.02% INH SOLN 0.5 MG/2.5 ML VIAL ×2 (09:47→14:15)
[2022-07-06] MEDS: ALBUTEROL SULFATE NEB 2.5 MG/3 ML INH (09:48)
[2022-07-06] MEDS: PROPOFOL IV EMULSION 100 ML 2.63 MG IV CONT (10:07)
[2022-07-06] MEDS: PROPOFOL IV EMULSION 100 ML 13.13 MG IV CONT (10:10)
[2022-07-06] MEDS: METOPROLOL TARTRATE INJ 5 MG/5 ML VIAL IV PUSH (10:30)
[2022-07-06 11:06] LABS: Alveolar/Arterial O2 Gradient 567.3 mmHg; Base Excess ABG 0.5 mEq/l (+/-2.0); Fractional Inspired Oxygen 100 %; HCO3 ABG 30.7 mEq/l (22.0-26.0); Oxygen Content ABG 17.6 %vol (16.0-22.0); Oxygen Saturation ABG 88.2 % (95.0-100.0); Oxyhemoglobin 88.3 % THb (90.0-100.0); PO2 ABG 66.9 mmHg (80.0-100.0); PO2 FiO2 Ratio Arterial Blood 0.67 %; Total Hemoglobin 14.2 g/dL (12.0-18.0)
[2022-07-06 11:07] LABS: pH ABG 7.209 (7.350-7.450)
[2022-07-06 11:09] LABS: Arterial Blood Gas Vent Mode CMV; Arterial Blood Gas Ventilator rate 18 /MIN; Device VENTILATOR; Modified Allen's Test Pass; PCO2 ABG 78.8 mmHg (35.0-45.0); Site Drawn RIGHT RADIAL
[2022-07-06 11:10] LABS: Arterial Blood Gas PEEP 5 cmH2O; Arterial Blood Gas Tidal Volume 500 ml
[2022-07-06] MEDS: MIDAZOLAM 100MG/NS 100ML(*CRX) 100 MG/100 ML BAG IV CONT (11:28)
[2022-07-06 11:32] LABS: Glucose Point of Care 314 mg/dl (65-105)
--- NOTE | 2022-07-06 11:34 | PCNFU ---
Nutrition Follow-Up Complete: Inadequate intake from enteral feeding related to NPO status, mechanical ventilation, need for full tube feeding, as evidenced by tube feeding providing about 70% estimated energy needs. Goal: Tolerate tube feeding at goal rate. Meet estimated protein energy needs. Patient is progressing towards goal. We will continue current goal. Pt current nutrition is Vital AF 1.2 at 20 ml/hr Last recorded weight is 87.5 kg, up from 86.5 kg on admit Bowel Motility:No BM reported. Labs Reviewed:Mg 2.5, BUN 31, Na 135, Hct 30.3,Hgb 9.8,BUN 31 Meds Noted:Versed,Propofol 26 ml/wv=933 kcals, Lipitor, Coreg, Lantus, Atrovent, Protonix Skin: WNL Additional Notes: Patient reintubated today. Tube feeding orders for Vital AF 1.2 at 20 ml/hr, goal rate for tube feedings at 40 ml/hr at this time due to propofol infusion providing an additional 686 kcals. Total caloric intake at 1742 kcals/66 gms protein. Meeting 96% kcal needs and 63% protein needs at this time. Will continue to monitor daily for tube feeding rate recommendations. Will monitor daily in ICU rounds and reassessing every Tuesday and Tuesday.
[2022-07-06] MEDS: ONDANSETRON INJ 4 MG/2 ML VIAL IV PUSH (11:46)
[2022-07-06] MEDS: fentaNYL CITRATE INJ (*CRX) 100 MCG/2 ML VIAL IV PUSH (13:08)
[2022-07-06] MEDS: NOREPINEPHRINE 8 MG/D5W 250 ML 8 MG/250 ML BAG 9.38 MG IV CONT (13:13)
--- NOTE | 2022-07-06 13:28 | WPDPROCEDUR ---
Procedures Intubation Intubation Date: 07/06/22 Intubation Time: 09:48 A pre-procedural Time-Out was completed immediately before starting the procedure and confirmed: Patient Identification, Site, Procedure, Patient Position and the Availability of Requisite Equipment: Yes Sedative: etomidate Paralytic: rocuronium Laryngoscope: fiber optic video scope Assist device used: fiber optic device ET tube size: 8 Tube secured depth (cm): 23 Tube secured location: lips Tube placement confirmation: visualized tube passing through cords, equal breath sounds bilaterally, no breath sounds over epigastrium and confirmation by capnometry Patient tolerated procedure: well Intubation complications: none Additional comments: Patient was on BiPAP, hypoxic with respiratory distress, tachypneic, impending respiratory failure . Discussed with patient regarding intubation, he was agreeable, ETT placement was uneventful
[2022-07-06] MEDS: FENTANYL 2,500MCG/NS250ML(*CRX 2,500 MCG/250 ML BAG IV CONT (13:30)
[2022-07-06] MEDS: hetaSTARCH 6%/NACL 500 ML 250 ML IV CONT (13:30)
--- NOTE | 2022-07-06 13:31 | WPDPROCEDUR ---
Procedures Central Line Placement Right IJ: Central Line Date: 07/06/22 Central Line Time: 13:17 Discussed w/ the patient/family/POA,the placement of a central venous catheter, including its clinical necessity/indication & associated potential risks, benifits and alternatives.: Yes Performed Emergently - Given emergent patient condition, temporal constraints may have precluded informed consent.: Yes Consent: I have discussed with the patient and/or surrogate, the non-emergent placement of a central venous catheter, including its clinical necessity/indication and associated potential risks and complications. The patient and/or surrogate understand(s) and acknowledge(s) the need to proceed with central venous catheter insertion as an important element of the patient's clinical management. Time Out Performed: Yes Patient Position: supine Patient placed on monitor/pulse ox: Yes Provider Prep: mask, sterile gown, sterile gloves, Max. sterile barrier precautions, cap, hand hygiene with conventional soap/water or alcohol based hand rub and emergent ? sterile barriers not used Central line prep: 2% Chlorhexidine scrub Local anesthesia used: lidocaine 1% Amount of anesthesia used (ml): 3 Sterile US Technique with sterile gel/sterile probe covers: Yes Central line lumen inserted: triple [place]: 12 Length (cm): 16 Depth of Insertion (cm): 16 Post Procedure: sutured in place, good blood return, all ports aspirated, flushed, capped, transparent dressing, hemostatic product, antimicrobial product, securement product and aseptic technique maintained throughout procedure Post procedure x-ray: tip of catheter in good position Patient tolerated procedure: well Complications: none
--- NOTE | 2022-07-06 13:43 | PM.PNCARD ---
Progress Note: A&P Assessment and Plan (1) Acute exacerbation of CHF (congestive heart failure): Code(s): I50.9 - Heart failure, unspecified Status: Acute Assessment and Plan: Acute on chronic systolic congestive heart failure. Possibly related to hypertension (BP 180-190/120-167 on admission) and poor LV fxn. Furosemide and lisinopril on hold because of PEREZ and hypotension. Carvedilol added 07/05/2022 but now on hold because of hypotension CXR shows some CHF but only mild/moderate so COPD/pneumonia playing a role May need to add dobutamine if he doesn't improve (2) Acute respiratory failure: Code(s): J96.00 - Acute respiratory failure, unspecified whether with hypoxia or hypercapnia Status: Acute Assessment and Plan: Secondary to pulmonary edema, pneumonia and COPD. (3) Ischemic cardiomyopathy: Code(s): I25.5 - Ischemic cardiomyopathy Status: Acute Assessment and Plan: EF 25-40% (4) CAD (coronary artery disease): Code(s): I25.10 - Atherosclerotic heart disease of [place] coronary artery without angina pectoris Status: Acute Assessment and Plan: Status post multivessel PCI and recent stent thrombosis of the LAD. Trop minimally elevated, doubt any ACS this admission Continue aspirin, Plavix, statin (5) Amphetamine abuse: Code(s): F15.10 - Other stimulant abuse, uncomplicated Status: Acute Assessment and Plan: Drug screen + for amphetamines on admission. Subjective Date/time seen: 07/06/22 13:43 Interval history: 67-year-old admitted for shortness of breath, acute pulmonary edema. History of multivessel PCI in April 2022, readmitted to [facility] in May 2022 with subacute stent thrombosis and an occluded Left anterior descending ( noncompliant with DAPT), Ischemic cardiomyopathy, polysubstance abuse. 07/04/2022: Still intubated sedated. Hemodynamically more stable. Oxygenating well. 07/05/2022: He is extubated today.? States he is feeling okay and does not have any complaints.? Denies shortness of breath or chest pain.? Date of service 07/06/2022: Unfortunately the patient had more respiratory distress with wheezing, coughing, and hypoxia which didn't improve w/ BIPAP and he required re-intubation. He then became hypotensive and now on Levophed. Given some IV fluids for low BP. Review of Systems Review of Systems: ROS obtained fr the pt's nurse, Dr. Carter and the EMR; relevant info in Hx. ROS unobtainable: Yes unobtainable due to endotracheal tube and unobtainable due to mental status Exam Narrative: INtubated and sedated Const: General: comfortable HENMT: Mouth: Yes moist mucous membranes Eyes: General: appearance normal, both eyes and all related structures Resp: Effort & Inspection: normal respiratory effort Auscultation: clear to auscultation bilaterally Cardio: Rate: regular rate Rhythm: regular rhythm Heart sounds: no murmurs GI: GI Palp: Yes Soft to palpation and No Tenderness to palpation present (GI) Neuro: Other: Unresponsive, intubated and sedated. Extrem: General: no edema Other: warm feet Psych: Mental Status: mental status grossly abnormal Other: sedated Objective Data Vital Signs Vital Signs: Vital Signs - 24 hr 07/05/22 14:00 07/05/22 14:00 07/05/22 14:14 Temperature Pulse Rate 79 78 77 Respiratory Rate 13 13 Blood Pressure 109/66 Pulse Oximetry 92 Oxygen Delivery Oxygen Flow Rate Fraction of Inspired Oxygen 07/05/22 14:26 07/05/22 14:26 07/05/22 16:00 Temperature Pulse Rate 76 77 85 Respiratory Rate 15 15 Blood Pressure Pulse Oximetry 92 Oxygen Delivery Nasal Cannula Oxygen Flow Rate 4 Fraction of Inspired Oxygen 07/05/22 16:00 07/05/22 16:00 07/05/22 18:00 Temperature 97.7 F Pulse Rate 85 86 Respiratory Rate 15 Blood Pressure 109/70 Pulse Oximetry 92 90 Oxygen Del
[2022-07-06] MEDS: PROPOFOL IV EMULSION 100 ML 15.75 MG IV CONT (14:20)
[2022-07-06 15:11] LABS: Alveolar/Arterial O2 Gradient 585.7 mmHg; Base Excess ABG 4.1 mEq/l (+/-2.0); Device VENTILATOR; Fractional Inspired Oxygen 100 %; HCO3 ABG 29.2 mEq/l (22.0-26.0); Modified Allen's Test Pass; Oxygen Content ABG 15.7 %vol (16.0-22.0); Oxygen Saturation ABG 96.1 % (95.0-100.0); Oxyhemoglobin 95.2 % THb (90.0-100.0); PCO2 ABG 46.2 mmHg (35.0-45.0); PO2 ABG 81.1 mmHg (80.0-100.0); PO2 FiO2 Ratio Arterial Blood 0.81 %; Site Drawn LEFT RADIAL; Total Hemoglobin 11.7 g/dL (12.0-18.0); pH ABG 7.419 (7.350-7.450)
[2022-07-06 15:12] LABS: Arterial Blood Gas PEEP 5 cmH2O; Arterial Blood Gas Tidal Volume 500 ml; Arterial Blood Gas Vent Mode CMV; Arterial Blood Gas Ventilator rate 18 /MIN
--- NOTE | 2022-07-06 15:26 | PM.IMPN ---
Progress Note: A&P Assessment and Plan (1) Acute respiratory failure: Code(s): J96.00 - Acute respiratory failure, unspecified whether with hypoxia or hypercapnia Status: Acute Assessment and Plan: -Acute multifactorial hypoxic and hypercarbic Respiratory failure secondary to congestive heart failure, COPD and possible community-acquired pneumonia -Patient intubated in the ER via ED provider -Continue full mechanical ventilation support per linting machine operator. -PCXR r repeat in am. -ABG reviewed per intensive and Vent settings reviewed -rate increased to 18 per linting machine operator.? Will repeat ABG -Low tidal volume ventilation strategy to prevent volutrauma -Short course of steroid, Bronchodilators -Patient received Lasix in the ER.? Hold further Lasix due to soft blood pressure on sedation -Currently sedated with propofol -Check blood culture and sputum culture -Check procalcitonin level -Empiric Rocephin and azithromycin -Patient will be going for chest CT scan in ER which is pending - linting machine operator was consulted and the recommendations were mentioned above per linting machine operator. 07/04/2022 interval history: patient with shortness of breath, respiratry failure on vent 2/2 multifactorial secondary to exacerbation of acute on chronic systolic congestive Heart failure patient is being diuresed seen by cardiology resume lisinopril and added Coreg, community-acquired pneumonia being treated with ceftriaxone and azithromycin, exacerbation of COPD patient is being treated with steroids and bronchodilator, also patient with a drug abuse and positive for amphetamine, patient with history severe ischemic cardiomyopathy now with a non STEMI seen by cardiology no ischemic workup recommended. 07/05/2022 interval history: patient with shortness of breath, respiratry failure on vent 2/2 multifactorial secondary to exacerbation of acute on chronic systolic congestive Heart failure patient is being diuresed seen by cardiology resume lisinopril and added Coreg, community-acquired pneumonia being treated with ceftriaxone and azithromycin, exacerbation of COPD patient is being treated with steroids and bronchodilator, also patient with a drug abuse and positive for amphetamine, today patient was given SBT and extubated, stats he wants to go home, will continue to monitor linting machine operator has placed BIPAP as needs, today patient BUN and creatinine are rising cardiology is holding lisinopril, will monitor, patient with history severe ischemic cardiomyopathy now with a non STEMI seen by cardiology no ischemic workup recommended. 07/06/2022 interval history: patient with shortness of breath, respiratry failure was on vent 2/2 multifactorial secondary to exacerbation of acute on chronic systolic congestive Heart failure patient is being diuresed seen by cardiology resume lisinopril and added Coreg, community-acquired pneumonia being treated with ceftriaxone and azithromycin, exacerbation of COPD patient is being treated with steroids and bronchodilator, also patient with a drug abuse and positive for amphetamine, on 07/05 patient was given SBT and extubated, stated he wants to go home, will continue to monitor linting machine operator has placed BIPAP as needs, however today patient became hypoxic and hypotensive, was reintubated and started patient on Levophed, on 07/05 patient BUN and creatinine were rising cardiology is holding lisinopril, will monitor, patient with history severe ischemic cardiomyopathy now with a non STEMI seen by cardiology no ischemic workup recommended (2) CHF exacerbation: Code(s): I50.9 - Heart failure, unspecified Status: Acute Assessment and Plan: - Echo has been ordered. - Lasix is on hold due to low blood pressure. (3) Pneumonia: Code(s): J18.9 - Pneumonia, unspecified organism Status: Acute Assessment and Plan: - Azithromycin Rocephin - blood and sputum cultures pending. (4) Acute exacerbation of chronic obstructive
[2022-07-06 18:12] LABS: Glucose Point of Care 361 mg/dl (65-105)
[2022-07-06] MEDS: CENTRAL LINE FLUSH 10 ML IV PUSH ×2 (18:19→21:20)
[2022-07-06] MEDS: MINERAL OIL/WHITE PETROLATUM OINTMENT 1 APPLIC EACH EYE (21:19)
[2022-07-07] VITALS (47 sets, daily range): BP systolic 89–124; BP diastolic 56–75; PULSE 49–95; RESP 18–24; TEMP 36.6–37.6; O2SAT 90–97
[2022-07-07] MEDS: INSULIN ASPART (*BKC) 100 UNITS/ML SUB-Q ×4 (00:11→17:53)
[2022-07-07] MEDS: ALBUMIN HUMAN 25% 25 GM/100 ML 100 ML IVPB ×4 (00:11→17:54)
[2022-07-07 01:14] LABS: Glucose Point of Care 312 mg/dl (65-105)
[2022-07-07] MEDS: ALBUTEROL SULFATE NEB 2.5 MG/3 ML INH INHALATION ×4 (03:07→20:49)
[2022-07-07] MEDS: IPRATROPIUM BR 0.02% INH SOLN 0.5 MG/2.5 ML VIAL INHALATION ×4 (03:07→20:50)
[2022-07-07] MEDS: CENTRAL LINE FLUSH 10 ML IV PUSH ×4 (05:03→20:40)
[2022-07-07 05:06] LABS: Basophils Percent Auto 0.1 % (0.2-1.2); Hematocrit 29.1 % (42.0-52.0); Hemoglobin 9.5 g/dL (14.0-18.0); Immature Granulocyte Absolute 0.08 K/mm3 (0.00-0.031); Immature Granulocyte Percent A 0.6 % (0-0.5); Lymphocytes Absolute Auto 1.33 K/mm3 (0.9-3.2); Lymphocytes Percent Auto 10.2 % (18.3-44.2); Mean Corpuscular HGB Conc 32.6 g/dl (32-36); Mean Corpuscular Hemoglobin 30.8 pg (26-34); Mean Corpuscular Volume 94.5 fl (80-100); Mean Platelet Volume 9.4 fl (7.4-10.4); Monocytes Absolute Auto 0.8 K/mm3 (0.1-0.6); Monocytes Percent Auto 6.4 % (2.6-8.5); Neutrophils Absolute Auto 10.7 K/mm3 (1.3-6.7); Neutrophils Percent Auto 82.7 % (45.5-73.1); Platelet Count Result 313 k/mm3 (150-375); Red Blood Count 3.08 M/mm3 (4.6-6.20); Red Cell Distribution Width 15.1 % (11.5-14.5)
[2022-07-07 05:10] LABS: Alveolar/Arterial O2 Gradient 209.9 mmHg; Base Excess ABG 5.5 mEq/l (+/-2.0); Carboxyhemoglobin 0.1 % THb (0-2.0); Fractional Inspired Oxygen 45 %; HCO3 ABG 29.8 mEq/l (22.0-26.0); Methemoglobin ABG 0.3 %THb (0-1.5); Oxygen Content ABG 17.1 %vol (16.0-22.0); Oxygen Saturation ABG 93.2 % (95.0-100.0); Oxyhemoglobin 92.1 % THb (90.0-100.0); PCO2 ABG 42.4 mmHg (35.0-45.0); PO2 ABG 62.7 mmHg (80.0-100.0); PO2 FiO2 Ratio Arterial Blood 1.39 %; Reduced Hemoglobin 7.5 %THb (0-5.0); Total Hemoglobin 13.2 g/dL (12.0-18.0); pH ABG 7.465 (7.350-7.450)
[2022-07-07 05:12] LABS: Arterial Blood Gas Vent Mode CMV; Arterial Blood Gas Ventilator rate 22 /MIN; Device VENTILATOR; Modified Allen's Test Pass; Site Drawn RIGHT RADIAL
[2022-07-07 05:13] LABS: Arterial Blood Gas PEEP 8 cmH2O; Arterial Blood Gas Tidal Volume 500 ml
[2022-07-07] MEDS: MIDAZOLAM 100MG/NS 100ML(*CRX) 100 MG/100 ML BAG IV CONT (05:20)
[2022-07-07 05:21] LABS: Lactic Acid Reflex 1.1 mmol/L (0.7-2.0)
[2022-07-07 05:29] LABS: Alanine Aminotransferase 29 U/L (6-50); Alkaline Phosphatase 41 U/L (38-126); Anion Gap 11 mmol/L (8-16); Aspartate Amino Transferase 52 U/L (17-59); Bilirubin,Total 0.7 mg/dL (0.2-1.3); Blood Urea Nitrogen 44 mg/dL (9-20); Calcium 9.1 mg/dL (8.4-10.2); Carbon Dioxide 34 mmol/L (22-30); Chloride 96 mmol/L (98-107); Estimated CRCL calculation 56 ml/min; Estimated Glomerular Filt Rate 55; Glucose 247 mg/dL (65-110); Magnesium 2.3 mg/dL (1.6-2.3); Phosphorus 2.7 mg/dL (2.5-4.5); Potassium 4.3 mmol/L (3.4-5.0); Sodium 141 mmol/L (137-145)
[2022-07-07 05:35] LABS: Glucose Point of Care 291 mg/dl (65-105)
[2022-07-07 07:47] LABS: Glucose Point of Care 237 mg/dl (65-105)
[2022-07-07] MEDS: ASPIRIN 325 MG TABLET FEED TUBE (08:09)
[2022-07-07] MEDS: CLOPIDOGREL BISULFATE 75 MG TABLET PO (08:09)
[2022-07-07] MEDS: ATORVASTATIN 20 MG TABLET PO (08:09)
[2022-07-07] MEDS: INSULIN GLARGINE (*BKC) 100 UNITS/ML 30 UNITS SUB-Q (08:11)
[2022-07-07] MEDS: ENOXAPARIN 40 MG/0.4 ML SYRINGE SUB-Q (08:11)
[2022-07-07] MEDS: MINERAL OIL/WHITE PETROLATUM OINTMENT 1 APPLIC EACH EYE ×2 (08:12→20:40)
[2022-07-07] MEDS: PANTOPRAZOLE SODIUM IV 40 MG VIAL IV PUSH (08:12)
[2022-07-07] MEDS: methylPREDNISolone SOD SUCC 125 MG VIAL 60 MG IV PUSH (08:15)
[2022-07-07] MEDS: NOREPINEPHRINE 8 MG/D5W 250 ML 8 MG/250 ML BAG 3.75 MG IV CONT (08:15)
[2022-07-07] MEDS: FENTANYL 2,500MCG/NS250ML(*CRX 2,500 MCG/250 ML BAG 15 MCG IV CONT (08:31)
[2022-07-07 11:12] LABS: Glucose Point of Care 288 mg/dl (65-105)
--- NOTE | 2022-07-07 11:21 | PCFNICU ---
ICU Rounding Note: Pt current nutrition is Vital AF 1.2 at 40 ml/hr. Last recorded weight is 87.7 kg, up from 86.5 kg on admit. Bowel Motility:No BM reported. Labs Reviewed:Glu 247, BUN 44, GFR 55, Hct 29.1,Hgb 9.5 Meds Noted:Cefepime, Lipitor, Versed, Fentanyl, Vancomycin,Plavix, Lovenox, NovoLog, Lantus, Atrovent, Levophed,Solu Medrol. Skin: WNL Additional Notes: Patient intubated on tolerating tube feedings of Vital AF 1.2 at 40 ml/hr with orders to increased tube feedings to 65 ml/hr. Free water flush at 30 ml q 4 hours. Agree with diet orders. Following daily in ICU rounds and reassessing every Tuesday and Tuesday.
--- NOTE | 2022-07-07 11:34 | WPDINTPN ---
Progress Note: A&P Assessment and Plan (1) Acute respiratory failure: Code(s): J96.00 - Acute respiratory failure, unspecified whether with hypoxia or hypercapnia Status: Acute Assessment and Plan: Acute multifactorial hypoxic and hypercarbic Respiratory failure secondary to congestive heart failure, COPD and possible community-acquired pneumonia Intubated on 07/03 Extubated on 07/05 Reintubated on 07/06/ -07/07 chest x-ray:Stable diffuse lung disease, left worse than right, consistent with pulmonary edema versus pneumonia -continue CMV mode of ventilation, peep of 8, 45% FiO2, maintain O2 sats greater than 90% -07/03/2022: Blood cultures negative x2 -07/05/2022: Sputum culture pending -given sudden decompensation and his respiratory status with green-colored secretion from ETT, patient was started on vancomycin and cefepime on 07/07 -discontinue ceftriaxone, continue azithromycin for atypical -His urine drug screen is positive again for amphetamines which may have precipitated the respiratory failure (2) CHF exacerbation: Code(s): I50.9 - Heart failure, unspecified Status: Acute Assessment and Plan: Echocardiogram 07/05/2022 Summary ? 1. The mid to apical anterior wall is akinetic. ? 2. The apex is dyskinetic. ? 3. The mid to apical septum is akinetic. ? 4. The apical lateral wall is akinetic. ? 5. The apical inferior wall is akinetic. ? 6. Left ventricular systolic function is severely reduced, estimated at 25-30%. ? 7. Left atrial chamber dimension is mildly enlarged. ? 8. Compared with examination from March of this year left ventricular systolic function has not changed appreciably. -cardiology following the patient -lactic acid is normal at 1.1, adequate perfusion for now, no need for dobutamine at this time (3) Pneumonia: Code(s): J18.9 - Pneumonia, unspecified organism Status: Acute Assessment and Plan: Antibiotics switched to vancomycin, cefepime. Continue azithromycin for atypicals -increased secretions, will add Pulmozyme (4) COPD (chronic obstructive pulmonary disease): Code(s): J44.9 - Chronic obstructive pulmonary disease, unspecified Status: Acute Assessment and Plan: Currently on mechanical ventilation, continue bronchodilators (5) Non-ST elevation [place] (NSTEMI): Code(s): I21.4 - Non-ST elevation (NSTEMI) myocardial infarction Status: Acute Assessment and Plan: Elevated troponin, there is ST segment abnormality on EKG but patient had similar changes on his last admission Patient denied chest pain on presentation Patient has known coronary artery disease and is status post recent stent placement which was followed by acute stent thrombosis of LAD likely due to noncompliance which was intervened Cardiology was consulted in ER and evaluated patient and did not feel the patient needed to go for for emergent cardiac catheterization. Serial troponin were checked and although elevated remained flat for the most part Echo as above Continue aspirin Plavix and statin Continue to Hold beta-jessica and YASIR-inhibitor due to soft blood pressure and elevated creatinine (6) Ischemic cardiomyopathy: Code(s): I25.5 - Ischemic cardiomyopathy Status: Acute Assessment and Plan: Last echo showed EF of 20% post that patient had stents placed Repeat Echo as above (7) Type 2 diabetes mellitus with hyperglycemia: Qualifiers: Diabetes mellitus exterminator termite insulin use: with alf use Qualified Code(s): E11.65 - Type 2 diabetes mellitus with hyperglycemia; Z79.4 - roasterman (current) use of insulin Code(s): E11.65 - Type 2 diabetes mellitus with hyperglycemia Status: Acute Assessment and Plan: Continue Sliding scale insulin Increase Lantus (8) Electrolyte abnormality: Code(s): E87.8 - Other disorders of electrolyte and fluid balance, not elsewhere classified Status: Acute As
[2022-07-07] MEDS: DORNASE ALFA INH SOLN 1 MG/ML 2.5 ML AMP 2.5 MG INHALATION ×2 (14:39→20:49)
[2022-07-07] MEDS: LORazepam INJ (*CRX) 2 MG/ML VIAL IV PUSH (15:43)
--- NOTE | 2022-07-07 15:44 | PM.PNCARD ---
Progress Note: A&P Assessment and Plan (1) Acute exacerbation of CHF (congestive heart failure): Code(s): I50.9 - Heart failure, unspecified Status: Acute Assessment and Plan: Acute on chronic systolic congestive heart failure. Possibly related to hypertension (BP 180-190/120-167 on admission) and poor LV fxn. Furosemide and lisinopril on hold because of PEREZ and hypotension. Carvedilol added 07/05/2022 but now on hold because of hypotension CXR shows some CHF but only mild/moderate so COPD/pneumonia playing a role May need to add dobutamine if he doesn't improve (2) Acute respiratory failure: Code(s): J96.00 - Acute respiratory failure, unspecified whether with hypoxia or hypercapnia Status: Acute Assessment and Plan: Secondary to pulmonary edema, pneumonia and COPD. (3) Ischemic cardiomyopathy: Code(s): I25.5 - Ischemic cardiomyopathy Status: Acute Assessment and Plan: EF 25-40% Resume CHF therapy once blood pressure is more stable (4) CAD (coronary artery disease): Code(s): I25.10 - Atherosclerotic heart disease of [place] coronary artery without angina pectoris Status: Acute Assessment and Plan: Status post multivessel PCI and recent stent thrombosis of the LAD. Trop minimally elevated, doubt any ACS this admission Continue aspirin, Plavix, statin (5) Amphetamine abuse: Code(s): F15.10 - Other stimulant abuse, uncomplicated Status: Acute Assessment and Plan: Drug screen + for amphetamines on admission. Subjective Date/time seen: 07/07/22 15:44 Interval history: 67-year-old admitted for shortness of breath, acute pulmonary edema. History of multivessel PCI in April 2022, readmitted to [facility] in May 2022 with subacute stent thrombosis and an occluded Left anterior descending ( noncompliant with DAPT), Ischemic cardiomyopathy with an EF of 25-40%,, polysubstance abuse. 07/04/2022: Still intubated sedated. Hemodynamically more stable. Oxygenating well. 07/05/2022: He is extubated today.? States he is feeling okay and does not have any complaints.? Denies shortness of breath or chest pain.? Date of service 07/06/2022: Unfortunately the patient had more respiratory distress with wheezing, coughing, and hypoxia which didn't improve w/ BIPAP and he required re-intubation. He then became hypotensive and now on Levophed. Given some IV fluids for low BP. Date of service 07/07/2022: Remains intubated, Levophed down to 1 liza, sedated.I's and O's 2200 in, 1450 out . O2 at 45% FiO2 Review of Systems Review of Systems: review of systems obtained from conversation with Dr. Carter and EMR ROS unobtainable: Yes unobtainable due to endotracheal tube and unobtainable due to mental status Exam Narrative: INtubated and sedated Const: General: comfortable HENMT: Mouth: Yes moist mucous membranes Eyes: General: appearance normal, both eyes and all related structures Resp: Effort & Inspection: normal respiratory effort Auscultation: clear to auscultation bilaterally Cardio: Rate: regular rate Rhythm: regular rhythm Heart sounds: no murmurs Neuro: Other: Unresponsive, intubated and sedated. Extrem: General: no edema Other: warm feet Psych: Mental Status: mental status grossly abnormal Other: sedated Objective Data Vital Signs Vital Signs: Vital Signs - 24 hr 07/06/22 16:20 07/06/22 16:21 07/06/22 16:00 Temperature Pulse Rate 66 67 67 Respiratory Rate 24 H Blood Pressure 120/85 Pulse Oximetry Oxygen Delivery Fraction of Inspired Oxygen 07/06/22 16:56 07/06/22 17:00 07/06/22 17:00 Temperature Pulse Rate 65 64 64 Respiratory Rate 22 H Blood Pressure 121/78 Pulse Oximetry 95 Oxygen Delivery Mechanical Ventilation Fraction of Inspired Oxygen 85 07/06/22 17:23 07/06/22 18:00 07/06/22 18:00 Temperature 97.7 F
[2022-07-07 17:48] LABS: Glucose Point of Care 343 mg/dl (65-105)
[2022-07-08] VITALS (46 sets, daily range): BP systolic 93–119; BP diastolic 54–73; PULSE 48–84; RESP 16–24; TEMP 36.7–37; O2SAT 92–100
[2022-07-08] MEDS: INSULIN ASPART (*BKC) 100 UNITS/ML SUB-Q ×5 (00:15→23:52)
[2022-07-08] MEDS: ALBUMIN HUMAN 25% 25 GM/100 ML 100 ML IVPB (00:16)
[2022-07-08 00:28] LABS: Glucose Point of Care 308 mg/dl (65-105)
[2022-07-08] MEDS: FENTANYL 2,500MCG/NS250ML(*CRX 2,500 MCG/250 ML BAG 15 MCG IV CONT (00:49)
[2022-07-08] MEDS: IPRATROPIUM BR 0.02% INH SOLN 0.5 MG/2.5 ML VIAL INHALATION ×4 (01:26→20:00)
[2022-07-08] MEDS: ALBUTEROL SULFATE NEB 2.5 MG/3 ML INH INHALATION ×4 (01:26→20:00)
[2022-07-08] MEDS: MIDAZOLAM 100MG/NS 100ML(*CRX) 100 MG/100 ML BAG IV CONT (04:55)
[2022-07-08] MEDS: CENTRAL LINE FLUSH 10 ML IV PUSH ×4 (04:56→21:52)
[2022-07-08 05:23] LABS: Hemoglobin 8.7 g/dL (14.0-18.0); Immature Granulocyte Absolute 0.02 K/mm3 (0.00-0.031); Immature Granulocyte Percent A 0.2 % (0-0.5); Lymphocytes Absolute Auto 1.48 K/mm3 (0.9-3.2); Lymphocytes Percent Auto 16.9 % (18.3-44.2); Mean Corpuscular HGB Conc 31.1 g/dl (32-36); Mean Corpuscular Hemoglobin 30.3 pg (26-34); Mean Corpuscular Volume 97.6 fl (80-100); Mean Platelet Volume 9.8 fl (7.4-10.4); Monocytes Absolute Auto 0.6 K/mm3 (0.1-0.6); Monocytes Percent Auto 7.3 % (2.6-8.5); Neutrophils Absolute Auto 6.6 K/mm3 (1.3-6.7); Neutrophils Percent Auto 75.6 % (45.5-73.1); Platelet Count Result 246 k/mm3 (150-375); Red Blood Count 2.87 M/mm3 (4.6-6.20); Red Cell Distribution Width 14.7 % (11.5-14.5); White Blood Count 8.8 K/mm3 (4.5-10.0)
[2022-07-08 05:27] LABS: Alveolar/Arterial O2 Gradient 205.2 mmHg; Base Excess ABG 5.2 mEq/l (+/-2.0); Carboxyhemoglobin 0.3 % THb (0-2.0); Fractional Inspired Oxygen 45 %; HCO3 ABG 29.5 mEq/l (22.0-26.0); Methemoglobin ABG 0.3 %THb (0-1.5); Oxygen Content ABG 13.8 %vol (16.0-22.0); Oxygen Saturation ABG 94.3 % (95.0-100.0); Oxyhemoglobin 92.4 % THb (90.0-100.0); PCO2 ABG 42.5 mmHg (35.0-45.0); PO2 ABG 67.3 mmHg (80.0-100.0); Total Hemoglobin 10.6 g/dL (12.0-18.0)
[2022-07-08 05:30] LABS: Arterial Blood Gas Vent Mode CMV; Arterial Blood Gas Ventilator rate 22 /MIN; Device VENTILATOR; Modified Allen's Test Pass; Site Drawn LEFT RADIAL
[2022-07-08 05:31] LABS: Arterial Blood Gas PEEP 8 cmH2O; Arterial Blood Gas Tidal Volume 500 ml
[2022-07-08 05:39] LABS: Alanine Aminotransferase 21 U/L (6-50); Albumin Level 4.3 g/dL (3.5-5.1); Alkaline Phosphatase 32 U/L (38-126); Anion Gap 11 mmol/L (8-16); Aspartate Amino Transferase 23 U/L (17-59); Bilirubin,Total 0.5 mg/dL (0.2-1.3); Blood Urea Nitrogen 51 mg/dL (9-20); Calcium 9.4 mg/dL (8.4-10.2); Carbon Dioxide 31 mmol/L (22-30); Chloride 99 mmol/L (98-107); Estimated CRCL calculation 72 ml/min; Estimated Glomerular Filt Rate > 60; Glucose 259 mg/dL (65-110); Magnesium 2.7 mg/dL (1.6-2.3); Sodium 141 mmol/L (137-145)
[2022-07-08] MEDS: MINERAL OIL/WHITE PETROLATUM OINTMENT 1 APPLIC EACH EYE ×2 (08:00→20:11)
[2022-07-08] MEDS: ATORVASTATIN 20 MG TABLET PO (08:01)
[2022-07-08] MEDS: ENOXAPARIN 40 MG/0.4 ML SYRINGE SUB-Q (08:01)
[2022-07-08] MEDS: PANTOPRAZOLE SODIUM IV 40 MG VIAL IV PUSH (08:01)
[2022-07-08] MEDS: ASPIRIN 325 MG TABLET FEED TUBE (08:01)
[2022-07-08] MEDS: CLOPIDOGREL BISULFATE 75 MG TABLET PO (08:01)
[2022-07-08] MEDS: methylPREDNISolone SOD SUCC 125 MG VIAL 60 MG IV PUSH (08:07)
[2022-07-08] MEDS: INSULIN GLARGINE (*BKC) 100 UNITS/ML 45 UNITS SUB-Q (08:07)
[2022-07-08] MEDS: DORNASE ALFA INH SOLN 1 MG/ML 2.5 ML AMP 2.5 MG INHALATION ×2 (08:10→20:00)
[2022-07-08] MEDS: POTASSIUM/PHOSPHORUS/SODIUM 1.5 GM PACKET 1 PACKET PO (08:26)
--- NOTE | 2022-07-08 11:03 | PM.PNCARD ---
Progress Note: A&P Assessment and Plan (1) Acute exacerbation of CHF (congestive heart failure): Code(s): I50.9 - Heart failure, unspecified Status: Acute Assessment and Plan: Acute on chronic systolic congestive heart failure. Possibly related to hypertension (BP 180-190/120-167 on admission) and poor LV fxn. Furosemide, lisinopril and carvedilol on hold because of PEREZ (resolved) and hypotension. CXR shows some CHF but only mild/moderate so COPD/pneumonia playing a role Overall improving; CXR better and no edema Resume CHF meds when BP more stable (2) Acute respiratory failure: Code(s): J96.00 - Acute respiratory failure, unspecified whether with hypoxia or hypercapnia Status: Acute Assessment and Plan: Secondary to pneumonia and COPD with some CHF contributing. Improving Hoping to wean off Levo today (3) Ischemic cardiomyopathy: Code(s): I25.5 - Ischemic cardiomyopathy Status: Acute Assessment and Plan: EF 25-40% Resume CHF therapy once blood pressure is more stable (4) CAD (coronary artery disease): Code(s): I25.10 - Atherosclerotic heart disease of [place] coronary artery without angina pectoris Status: Acute Assessment and Plan: Status post multivessel PCI and recent stent thrombosis of the LAD w/ repeat PCI 05/2022. Trop minimally elevated, doubt any ACS this admission Continue aspirin, Plavix, statin (5) Amphetamine abuse: Code(s): F15.10 - Other stimulant abuse, uncomplicated Status: Acute Assessment and Plan: Drug screen + for amphetamines on admission. Subjective Date/time seen: 07/08/22 11:03 Interval history: 67-year-old admitted for shortness of breath, acute pulmonary edema. History of multivessel PCI in April 2022, readmitted to [facility] in May 2022 with subacute stent thrombosis and an occluded Left anterior descending ( noncompliant with DAPT) which underwent repeat PCI (Dr. Hernandez), Ischemic cardiomyopathy with an EF of 25-40%, polysubstance abuse. 07/04/2022: Still intubated sedated. Hemodynamically more stable. Oxygenating well. 07/05/2022: He is extubated today.? States he is feeling okay and does not have any complaints.? Denies shortness of breath or chest pain.? Date of service 07/06/2022: Unfortunately the patient had more respiratory distress with wheezing, coughing, and hypoxia which didn't improve w/ BIPAP and he required re-intubation. He then became hypotensive and now on Levophed. Given some IV fluids for low BP. Date of service 07/07/2022: Remains intubated, Levophed down to 1 liza, sedated.I's and O's 2200 in, 1450 out . O2 at 45% FiO2 Date of service 07/08/2022: Uneventful night. Remains intubated and sedated but lightening up on sedation due to bradycardia. Still on Levophed 1 liza. O2 at FiO2 45%. CXR shows improvment of CHF (personally reviewed, lungs mostly clear). H&H trending down. Tele: NSR, some bradycardia last night, occ APCs and PVCs. Review of Systems Review of Systems: ROS obtained fr the EMR, significant items as above ROS unobtainable: Yes unobtainable due to endotracheal tube and unobtainable due to mental status Exam Narrative: INtubated and sedated Const: General: comfortable HENMT: Mouth: Yes moist mucous membranes Eyes: General: appearance normal, both eyes and all related structures Resp: Effort & Inspection: normal respiratory effort Auscultation: clear to auscultation bilaterally Cardio: Rate: regular rate Rhythm: regular rhythm Heart sounds: no murmurs Neuro: Other: Iintubated and sedated. MOves a little when stimulated Extrem: General: no edema Other: warm feet Psych: Mental Status: mental status grossly abnormal Other: sedated Objective Data Vital Signs Vital Signs: Vital Signs - 24 hr 07/07/22 11:05 07/07/22 12:00 07/07/22 12:00 Temperature 98.9 F Pulse Rate 66 66 66
--- NOTE | 2022-07-08 11:20 | PCFNICU ---
ICU Rounding Note: Pt current nutrition is Vital AF 1.2 at 65 ml/hr. Last recorded weight is 87.7 kg, up from 86.5 kg on admit. Bowel Motility:No BM reported-hypoactive Labs Reviewed:Mg 2.7, BUN 51, Hct 28.0,Hgb 8.7 Meds Noted:Versed, Lantus, Fentanyl, Vancomycin, Protonix, Atrovent Skin: WNL Additional Notes: Patient remains on mechanical vent and tube feedings of Vital AF 1.2 at 65 ml/hr. Tolerating tube feedings. Free water flush 30 ml q 4 hours. Agree with diet orders. Following daily in ICU rounds and reassessing every Tuesday and Tuesday.
[2022-07-08 12:25] LABS: Glucose Point of Care 311 mg/dl (65-105)
--- NOTE | 2022-07-08 12:30 | WPDINTPN ---
Progress Note: A&P Assessment and Plan (1) Acute respiratory failure: Code(s): J96.00 - Acute respiratory failure, unspecified whether with hypoxia or hypercapnia Status: Acute Assessment and Plan: Acute multifactorial hypoxic and hypercarbic Respiratory failure secondary to congestive heart failure, COPD and possible community-acquired pneumonia Intubated on 07/03 Extubated on 07/05 Reintubated on 07/06/ -07/07 chest x-ray:Stable diffuse lung disease, left worse than right, consistent with pulmonary edema versus pneumonia -continue CMV mode of ventilation, peep of 8, 45% FiO2, maintain O2 sats greater than 90% -07/03/2022: Blood cultures negative x2 -07/05/2022 and 07/07/2022: Sputum cultures negative -given sudden decompensation and his respiratory status with green-colored secretion from ETT, patient was started on vancomycin and cefepime on 07/07 -continue azithromycin -His urine drug screen is positive again for amphetamines which may have precipitated the respiratory failure (2) CHF exacerbation: Code(s): I50.9 - Heart failure, unspecified Status: Acute Assessment and Plan: Echocardiogram 07/05/2022 Summary ? 1. The mid to apical anterior wall is akinetic. ? 2. The apex is dyskinetic. ? 3. The mid to apical septum is akinetic. ? 4. The apical lateral wall is akinetic. ? 5. The apical inferior wall is akinetic. ? 6. Left ventricular systolic function is severely reduced, estimated at 25-30%. ? 7. Left atrial chamber dimension is mildly enlarged. ? 8. Compared with examination from March of this year left ventricular systolic function has not changed appreciably. -cardiology following the patient - -lactic acid is normal at 1.1, adequate perfusion for now, no need for dobutamine at this time -will diurese gently with Bumex today (3) Pneumonia: Code(s): J18.9 - Pneumonia, unspecified organism Status: Acute Assessment and Plan: Antibiotics switched to vancomycin, cefepime. Continue azithromycin for atypicals -increased secretions, -continue Pulmozyme (4) COPD (chronic obstructive pulmonary disease): Code(s): J44.9 - Chronic obstructive pulmonary disease, unspecified Status: Acute Assessment and Plan: Currently on mechanical ventilation, continue bronchodilators -on Solu-Medrol daily (5) Non-ST elevation SD (NSTEMI): Code(s): I21.4 - Non-ST elevation (NSTEMI) myocardial infarction Status: Acute Assessment and Plan: Elevated troponin, there is ST segment abnormality on EKG but patient had similar changes on his last admission Patient denied chest pain on presentation Patient has known coronary artery disease and is status post recent stent placement which was followed by acute stent thrombosis of LAD likely due to noncompliance which was intervened Cardiology was consulted in ER and evaluated patient and did not feel the patient needed to go for for emergent cardiac catheterization. Serial troponin were checked and although elevated remained flat for the most part Echo as above Continue aspirin Plavix and statin Continue to Hold beta-jessica and YASIR-inhibitor due to soft blood pressure and elevated creatinine (6) Ischemic cardiomyopathy: Code(s): I25.5 - Ischemic cardiomyopathy Status: Acute Assessment and Plan: Last echo showed EF of 20% post that patient had stents placed Repeat Echo as above (7) Type 2 diabetes mellitus with hyperglycemia: Qualifiers: Diabetes mellitus halfway insulin use: with halfway use Qualified Code(s): E11.65 - Type 2 diabetes mellitus with hyperglycemia; Z79.4 - long-term (current) use of insulin Code(s): E11.65 - Type 2 diabetes mellitus with hyperglycemia Status: Acute Assessment and Plan: Continue Sliding scale insulin Increase Lantus (8) Electrolyte abnormality: Code(s): E87.8 - Other disorders of electrolyte and fluid balance, not el
[2022-07-08] MEDS: BUMETANIDE INJ 1 MG/4 ML VIAL 0.5 MG IV PUSH (13:07)
[2022-07-08 17:32] LABS: Glucose Point of Care 363 mg/dl (65-105)
[2022-07-08] MEDS: FENTANYL 2,500MCG/NS250ML(*CRX 2,500 MCG/250 ML BAG 12.5 MCG IV CONT (19:15)
[2022-07-08 23:46] LABS: Glucose Point of Care 286 mg/dl (65-105)
[2022-07-09] VITALS (44 sets, daily range): BP systolic 90–164; BP diastolic 60–91; PULSE 44–116; RESP 11–32; TEMP 36.5–36.9; O2SAT 90–100
[2022-07-09] MEDS: MIDAZOLAM 100MG/NS 100ML(*CRX) 100 MG/100 ML BAG 6 MG IV CONT (01:28)
[2022-07-09] MEDS: ALBUTEROL SULFATE NEB 2.5 MG/3 ML INH INHALATION ×4 (02:15→20:21)
[2022-07-09] MEDS: IPRATROPIUM BR 0.02% INH SOLN 0.5 MG/2.5 ML VIAL INHALATION ×4 (02:15→20:21)
[2022-07-09 05:12] LABS: Glucose Point of Care 278 mg/dl (65-105)
[2022-07-09 05:15] LABS: Basophils Percent Auto 0.1 % (0.2-1.2); Eosinophils Percent Auto 0.3 % (0-4.4); Hematocrit 29.6 % (42.0-52.0); Hemoglobin 9.4 g/dL (14.0-18.0); Immature Granulocyte Absolute 0.05 K/mm3 (0.00-0.031); Immature Granulocyte Percent A 0.5 % (0-0.5); Lymphocytes Absolute Auto 1.81 K/mm3 (0.9-3.2); Lymphocytes Percent Auto 18.2 % (18.3-44.2); Mean Corpuscular HGB Conc 31.8 g/dl (32-36); Mean Corpuscular Hemoglobin 30.8 pg (26-34); Mean Platelet Volume 9.5 fl (7.4-10.4); Monocytes Absolute Auto 0.7 K/mm3 (0.1-0.6); Monocytes Percent Auto 7.1 % (2.6-8.5); Neutrophils Absolute Auto 7.4 K/mm3 (1.3-6.7); Neutrophils Percent Auto 73.8 % (45.5-73.1); Platelet Count Result 258 k/mm3 (150-375); Red Blood Count 3.05 M/mm3 (4.6-6.20); Red Cell Distribution Width 14.7 % (11.5-14.5)
[2022-07-09] MEDS: CENTRAL LINE FLUSH 10 ML IV PUSH ×4 (05:15→21:26)
[2022-07-09] MEDS: INSULIN ASPART (*BKC) 100 UNITS/ML SUB-Q (05:15)
[2022-07-09 05:25] LABS: Alanine Aminotransferase 21 U/L (6-50); Alkaline Phosphatase 35 U/L (38-126); Anion Gap 1 mmol/L (8-16); Aspartate Amino Transferase 19 U/L (17-59); Bilirubin,Total 0.5 mg/dL (0.2-1.3); Blood Urea Nitrogen 50 mg/dL (9-20); Calcium 8.6 mg/dL (8.4-10.2); Carbon Dioxide 33 mmol/L (22-30); Chloride 102 mmol/L (98-107); Estimated CRCL calculation 72 ml/min; Estimated Glomerular Filt Rate > 60; Glucose 255 mg/dL (65-110); Magnesium 2.5 mg/dL (1.6-2.3); Potassium 4.1 mmol/L (3.4-5.0); Sodium 136 mmol/L (137-145)
[2022-07-09 05:56] LABS: Base Excess ABG 3.7 mEq/l (+/-2.0); HCO3 ABG 29.7 mEq/l (22.0-26.0); Oxygen Saturation ABG 97.7 % (95.0-100.0); PCO2 ABG 51.3 mmHg (35.0-45.0); PO2 ABG 105.9 mmHg (80.0-100.0)
[2022-07-09 05:57] LABS: Alveolar/Arterial O2 Gradient 120.3 mmHg; Carboxyhemoglobin 0.3 % THb (0-2.0); Fractional Inspired Oxygen 40 %; Methemoglobin ABG 0.4 %THb (0-1.5); Modified Allen's Test Unable to perform; Oxygen Content ABG 15.2 %vol (16.0-22.0); Oxyhemoglobin 96.3 % THb (90.0-100.0); PO2 FiO2 Ratio Arterial Blood 2.65 %; Site Drawn RIGHT RADIAL; Total Hemoglobin 11.1 g/dL (12.0-18.0)
[2022-07-09 05:58] LABS: Arterial Blood Gas PEEP 8 cmH2O; Arterial Blood Gas Tidal Volume 500 ml; Arterial Blood Gas Vent Mode CMV; Arterial Blood Gas Ventilator rate 20 /MIN; Device VENTILATOR
[2022-07-09] MEDS: MINERAL OIL/WHITE PETROLATUM OINTMENT 1 APPLIC EACH EYE (08:03)
[2022-07-09] MEDS: PANTOPRAZOLE SODIUM IV 40 MG VIAL IV PUSH (08:04)
[2022-07-09] MEDS: CLOPIDOGREL BISULFATE 75 MG TABLET PO (08:04)
[2022-07-09] MEDS: ATORVASTATIN 20 MG TABLET PO (08:04)
[2022-07-09] MEDS: ENOXAPARIN 40 MG/0.4 ML SYRINGE SUB-Q (08:04)
[2022-07-09] MEDS: ASPIRIN 325 MG TABLET FEED TUBE (08:04)
[2022-07-09] MEDS: dexmedeTOMIDine 400 MCG/100 ML 400 MCG/100 ML BAG IV CONT (08:30)
[2022-07-09] MEDS: INSULIN GLARGINE (*BKC) 100 UNITS/ML 55 UNITS SUB-Q (08:31)
[2022-07-09] MEDS: DORNASE ALFA INH SOLN 1 MG/ML 2.5 ML AMP 2.5 MG INHALATION (08:32)
[2022-07-09] MEDS: FUROSEMIDE 40 MG TABLET PO (09:05)
[2022-07-09] MEDS: lisinopriL 5 MG TABLET PO (09:06)
[2022-07-09] MEDS: polyethylene glycoL 3350 17 GM POWD.PACK PO (11:11)
--- NOTE | 2022-07-09 11:16 | WPDINTPN ---
Progress Note: A&P Assessment and Plan (1) Acute respiratory failure: Code(s): J96.00 - Acute respiratory failure, unspecified whether with hypoxia or hypercapnia Status: Acute Assessment and Plan: Acute multifactorial hypoxic and hypercarbic Respiratory failure secondary to congestive heart failure, COPD and possible community-acquired pneumonia Intubated on 07/03 Extubated on 07/05 Reintubated on 07/06/ -07/09 chest x-ray: Mild airspace opacities in the mid and lower lung zones with improvement on the left, consistent with pulmonary edema versus pneumonia. -continue CMV mode of ventilation, peep of 8, 40% FiO2, maintain O2 sats greater than 90% will decrease PEEP to 5 -patient remains on fentanyl and Versed sedation, start Precedex and wean fentanyl Versed, will evaluate for extubation -will start Lasix 40 mg p.o. daily -will prevent hypertension post extubation given patient's EF is 20-25%, which will land mL pen pulmonary edema and respiratory distress -07/03/2022: Blood cultures negative x2 -07/05/2022 and 07/07/2022: Sputum cultures negative -given sudden decompensation and his respiratory status with green-colored secretion from ETT, patient was started on vancomycin and cefepime on 07/07 -status post 7 days of azithromycin whic was discontinued on 07/09 -His urine drug screen is positive again for amphetamines which may have precipitated the respiratory failure (2) CHF exacerbation: Code(s): I50.9 - Heart failure, unspecified Status: Acute Assessment and Plan: Echocardiogram 07/05/2022 Summary ? 1. The mid to apical anterior wall is akinetic. ? 2. The apex is dyskinetic. ? 3. The mid to apical septum is akinetic. ? 4. The apical lateral wall is akinetic. ? 5. The apical inferior wall is akinetic. ? 6. Left ventricular systolic function is severely reduced, estimated at 25-30%. ? 7. Left atrial chamber dimension is mildly enlarged. ? 8. Compared with examination from March of this year left ventricular systolic function has not changed appreciably. -cardiology following the patient - -lactic acid is normal, with good urine output, reflecting adequate perfusion for now, no need for dobutamine at this time -started on home dose Lasix (3) Pneumonia: Code(s): J18.9 - Pneumonia, unspecified organism Status: Acute Assessment and Plan: Antibiotics switched to vancomycin, cefepime. DC azithromycin, status post day 7 -secretions have improved -continue Pulmozyme (4) COPD (chronic obstructive pulmonary disease): Code(s): J44.9 - Chronic obstructive pulmonary disease, unspecified Status: Acute Assessment and Plan: Currently on mechanical ventilation, continue bronchodilators -discontinue Solu-Medrol (5) Non-ST elevation [place] (NSTEMI): Code(s): I21.4 - Non-ST elevation (NSTEMI) myocardial infarction Status: Acute Assessment and Plan: Elevated troponin, there is ST segment abnormality on EKG but patient had similar changes on his last admission Patient denied chest pain on presentation Patient has known coronary artery disease and is status post recent stent placement which was followed by acute stent thrombosis of LAD likely due to noncompliance which was intervened Cardiology was consulted in ER and evaluated patient and did not feel the patient needed to go for for emergent cardiac catheterization. Serial troponin were checked and although elevated remained flat for the most part Echo as above Continue aspirin Plavix and statin Patient has been started on carvedilol and p.o. Lasix -blood pressures borderline, will hold lisinopril (6) Ischemic cardiomyopathy: Code(s): I25.5 - Ischemic cardiomyopathy Status: Acute Assessment and Plan: Last echo showed EF of 20% post that patient had stents placed Repeat Echo as above (7) Type 2 diabetes mellitus with hyperglycemia: Qualifiers: Diabetes mellitus ad terminal makeup operator in
[2022-07-09 11:19] LABS: Glucose Point of Care 196 mg/dl (65-105)
--- NOTE | 2022-07-09 11:43 | PM.PNCARD ---
Progress Note: A&P Assessment and Plan (1) Ischemic cardiomyopathy: Code(s): I25.5 - Ischemic cardiomyopathy Status: Acute Plan 67-year-old man with: Multivessel coronary artery disease status post multivessel PCI earlier this summer. Patient unfortunately also has a history of illicit drug abuse and noncompliance with guideline directed medical therapy. Because of this he developed abrupt stent thrombosis in his LAD which was treated emergently at [facility] but as expected this is a devastating event that has left him with very poor LV function/ severe ischemic cardiomyopathy. He hemodynamically at this time cannot tolerate any specific therapy for his LV dysfunction and obviously his prognosis in this situation is very poor. Will follow with you once he is extubated we will make another attempt at introduction of medical therapy for his ischemic myopathy this likely will be difficult given his bradycardia and hypotension Adria Soriano MD [facility] Subjective Date/time seen: Date of service:07/09/22 11:43 Interval history: 67-year-old admitted for shortness of breath, acute pulmonary edema. History of multivessel PCI in April 2022, readmitted to [facility] in May 2022 with subacute stent thrombosis and an occluded Left anterior descending ( noncompliant with DAPT) which underwent repeat PCI (Dr. Hernandez), Ischemic cardiomyopathy with an EF of 25-40%, polysubstance abuse. 07/04/2022: Still intubated sedated. Hemodynamically more stable. Oxygenating well. 07/05/2022: He is extubated today.? States he is feeling okay and does not have any complaints.? Denies shortness of breath or chest pain.? Date of service 07/06/2022: Unfortunately the patient had more respiratory distress with wheezing, coughing, and hypoxia which didn't improve w/ BIPAP and he required re-intubation. He then became hypotensive and now on Levophed. Given some IV fluids for low BP. Date of service 07/07/2022: Remains intubated, Levophed down to 1 liza, sedated.I's and O's 2200 in, 1450 out . O2 at 45% FiO2 Date of service 07/08/2022: Uneventful night. Remains intubated and sedated but lightening up on sedation due to bradycardia. Still on Levophed 1 liza. O2 at FiO2 45%. CXR shows improvment of CHF (personally reviewed, lungs mostly clear). H&H trending down. Tele: NSR, some bradycardia last night, occ APCs and PVCs. Date of service 07/09/2022: No new cardiac events overnight. Staff are continuing to reduce sedation in hopes of being able to consider another attempt at extubation. Still minimally responsive to stimulation. Remains in sinus bradycardia with no new significant cardiac events since yesterday. Exam Narrative: INtubated and sedated Const: General: comfortable; No confusion or uncomfortable Orientation/consciousness: No confusion Other: Alert and oriented. Comfortable. HENMT: General nose exam: Normal nares present Mouth: Yes moist mucous membranes Eyes: General: appearance normal, both eyes and all related structures Sclera: sclerae normal Neck: Neck: supple Carotids: no bruits Chest: Other: No chest wall deformity Resp: Effort & Inspection: normal respiratory effort Auscultation: clear to auscultation bilaterally and diminished lung sounds Cardio: Rate: regular rate Rhythm: regular rhythm Heart sounds: no murmurs GI: Inspection: non-distended Auscultation: normal bowel sounds Skin: General skin exam: normal color Neuro: General: No confusion Speech: No Abnormal speech present Other: Iintubated and sedated. MOves a little when stimulated Extrem: General: no edema Other: warm feet Psych: Mental Status: mental status grossly abnormal Other: sedated Objective Data Vital Signs Vital Signs: Vital Signs - 24 hr 07/08/22 12:21 07/08/22 12:22 07/08/22 12:00 Temperature Pulse Rate 84 74 61 Respiratory Rate 22 H 22 H Blood Pressure
--- NOTE | 2022-07-09 12:07 | PM.IMPN ---
Progress Note: A&P Assessment and Plan (1) Acute respiratory failure: Code(s): J96.00 - Acute respiratory failure, unspecified whether with hypoxia or hypercapnia Status: Acute Assessment and Plan: Acute multifactorial hypoxic and hypercarbic Respiratory failure secondary to congestive heart failure, COPD and possible community-acquired pneumonia Intubated currently -07/09 chest x-ray: Mild airspace opacities in the mid and lower lung zones with improvement on the left, consistent with pulmonary edema versus pneumonia. Continue ventilatory support. (2) CHF exacerbation: Code(s): I50.9 - Heart failure, unspecified Status: Acute Assessment and Plan: EF 25-30%, acute on chronic systolic Cardiology and ICU managing. (3) Pneumonia: Code(s): J18.9 - Pneumonia, unspecified organism Status: Acute Assessment and Plan: Continue IV antibiotics (4) COPD (chronic obstructive pulmonary disease): Code(s): J44.9 - Chronic obstructive pulmonary disease, unspecified Status: Acute Assessment and Plan: Currently on mechanical ventilation, continue bronchodilators (5) Non-ST elevation [place] (NSTEMI): Code(s): I21.4 - Non-ST elevation (NSTEMI) myocardial infarction Status: Acute Assessment and Plan: Monitor, Cardiology following (6) Type 2 diabetes mellitus with hyperglycemia: Qualifiers: Diabetes mellitus nursing home insulin use: with nursing home use Qualified Code(s): E11.65 - Type 2 diabetes mellitus with hyperglycemia; Z79.4 - emt intermediate (current) use of insulin Code(s): E11.65 - Type 2 diabetes mellitus with hyperglycemia Status: Acute Assessment and Plan: Continue Sliding scale insulin Lantus increased (7) Electrolyte abnormality: Code(s): E87.8 - Other disorders of electrolyte and fluid balance, not elsewhere classified Status: Acute Assessment and Plan: Electrolytes within normal limits (8) Acute kidney injury: Code(s): N17.9 - Acute kidney failure, unspecified Status: Acute Assessment and Plan: Monitor kidney function. Subjective Date/time seen: 07/09/22 12:07 Intubated Exam Narrative: General: Patient is intubated and sedated Lungs/Chest: Trachea central, coarse breath sounds bilaterally, ETT in place, adequate air entry Cardiac: RRR. Normal S1 S2. No murmurs Circulation: Pedal pulses are decreased symmetrical, feet are warm. Abdomen: Normal bowel sounds. Soft. NT. ND. Extremities: No clubbing, cyanosis or edema. Warm : Armas in place Neurologic: Intubated and sedated, opens his eyes does not follow simple commands Skin: Several tattoos on chest wall, arms Objective Data Vital Signs Vital Signs: Vital Signs - 24 hr 07/08/22 12:21 07/08/22 12:22 07/08/22 14:13 Temperature Pulse Rate 84 74 62 Respiratory Rate 22 H 22 H 21 H Blood Pressure Pulse Oximetry Oxygen Delivery Fraction of Inspired Oxygen 07/08/22 14:13 07/08/22 14:00 07/08/22 14:00 Temperature 98.5 F Pulse Rate 64 64 61 Respiratory Rate 21 H 20 Blood Pressure 100/64 Pulse Oximetry 96 Oxygen Delivery Fraction of Inspired Oxygen 07/08/22 14:38 07/08/22 14:46 07/08/22 14:47 Temperature Pulse Rate 60 71 70 Respiratory Rate 18 20 Blood Pressure Pulse Oximetry 98 Oxygen Delivery Mechanical Ventilation Fraction of Inspired Oxygen 45 07/08/22 16:00 07/08/22 16:00 07/08/22 16:00 Temperature Pulse Rate 57 L Respiratory Rate Blood Pressure Pulse Oximetry 100 Oxygen Delivery Mechanical Ventilation Fraction of Inspired Oxygen 45 45 07/08/22 16:13 07/08/22 16:15 07/08/22 16:00 Temperature 98.4 F Pulse Rate 57 L 57 L 52 L Respiratory Rate 20 20 20 Blood Pressure 93/54 L Pulse Oximetry 96 Oxygen Delivery Fraction of Inspired Oxygen 07/08/22 17:17 07/08/22 17:27 07/08/22 18:00 Temperat
--- NOTE | 2022-07-09 12:19 | PCNFU ---
Nutrition Follow-Up Complete: Inadequate intake from enteral feeding related to NPO status, mechanical ventilation, need for full tube feeding, as evidenced by tube feeding providing about 70% estimated energy needs. Goal; Tolerate tube feeding at goal rate. Meet estimated protein energy needs. patient is progressing towards goal. We will continue current goal. Pt current nutrition is Vital AF 1.2 at 65 ml/hr. Last recorded weight is 91 kg, up from 86.5 kg on admit. Bowel Motility: No BM reported, miralax ordered. Labs Reviewed:Mg 2.5, BUN 50, Na 136, Hct 29.6,Hgb 9.4 Meds Noted:Precedex, Cefepime, Lipitor,Lovenox, Lasix, Miralax. Skin: WNL Additional Notes: Patient remains on mechanical vent and tube feedings of Vital AF 1.2 at 65 ml/hr over 22 hours. Tolerating tube feedings, which are providing 1716 kcas and 107 gms protein. This is meeting 94% kcal needs and 100% protein needs. Free water flush 30 ml q 4 hours. Agree with diet orders. Will follow in ICU rounds and reassessing every Tuesday and Tuesday.
[2022-07-09 13:55] LABS: Alveolar/Arterial O2 Gradient 120.9 mmHg; Base Excess ABG 4.1 mEq/l (+/-2.0); Fractional Inspired Oxygen 35 %; Oxygen Content ABG 14.9 %vol (16.0-22.0); Oxygen Saturation ABG 93.4 % (95.0-100.0); PCO2 ABG 51.3 mmHg (35.0-45.0); PO2 FiO2 Ratio Arterial Blood 1.97 %; Total Hemoglobin 11.5 g/dL (12.0-18.0); pH ABG 7.385 (7.350-7.450)
[2022-07-09 13:56] LABS: Arterial Blood Gas PEEP 5 cmH2O; Arterial Blood Gas Vent Mode SPONTANEOUS; Device VENTILATOR; Modified Allen's Test Pass; Site Drawn LEFT RADIAL
[2022-07-09 13:57] LABS: Arterial Blood Gas Pressure Support 5 cmH2O
--- NOTE | 2022-07-09 14:28 | PCRCNOTE ---
14:10 pt extubated per ABG results ordered by Dr. Carter, pt currently on venturi mask of 12L and 40%.
[2022-07-09 17:43] LABS: Glucose Point of Care 167 mg/dl (65-105)
[2022-07-09 20:31] LABS: Vancomycin Trough 8.9 ug/mL (10.0-20.0)
[2022-07-10] VITALS (33 sets, daily range): BP systolic 103–167; BP diastolic 57–113; PULSE 58–95; RESP 13–23; TEMP 36.6–37.2; O2SAT 90–100
[2022-07-10 00:31] LABS: Glucose Point of Care 118 mg/dl (65-105)
[2022-07-10] MEDS: ALBUTEROL SULFATE NEB 2.5 MG/3 ML INH INHALATION ×4 (02:41→20:43)
[2022-07-10] MEDS: IPRATROPIUM BR 0.02% INH SOLN 0.5 MG/2.5 ML VIAL INHALATION ×4 (02:41→20:43)
[2022-07-10 05:31] LABS: Alveolar/Arterial O2 Gradient 151.2 mmHg; Base Excess ABG 5.9 mEq/l (+/-2.0); Carboxyhemoglobin 0.2 % THb (0-2.0); Fractional Inspired Oxygen 40 %; HCO3 ABG 31.2 mEq/l (22.0-26.0); Methemoglobin ABG 0.3 %THb (0-1.5); Oxygen Content ABG 17.8 %vol (16.0-22.0); Oxygen Saturation ABG 95.8 % (95.0-100.0); Oxyhemoglobin 94.5 % THb (90.0-100.0); PCO2 ABG 48.1 mmHg (35.0-45.0); PO2 ABG 78.7 mmHg (80.0-100.0); PO2 FiO2 Ratio Arterial Blood 1.97 %; Total Hemoglobin 13.4 g/dL (12.0-18.0)
[2022-07-10 05:32] LABS: Device NON-INVASIVE VENT; Modified Allen's Test Pass; Non-Invasive Expiratory Pressure 5 CMH2O; Non-Invasive Inspiratory Pressure 10 CMH2O; Non-Invasive Vent Rate 12 /MIN; Site Drawn RIGHT RADIAL
[2022-07-10 05:46] LABS: Basophils Percent Auto 0.3 % (0.2-1.2); Eosinophils Absolute Auto 0.2 K/mm3 (0-0.3); Eosinophils Percent Auto 1.2 % (0-4.4); Hematocrit 37.7 % (42.0-52.0); Hemoglobin 12.2 g/dL (14.0-18.0); Immature Granulocyte Absolute 0.06 K/mm3 (0.00-0.031); Immature Granulocyte Percent A 0.4 % (0-0.5); Lymphocytes Absolute Auto 1.94 K/mm3 (0.9-3.2); Lymphocytes Percent Auto 12.6 % (18.3-44.2); Mean Corpuscular HGB Conc 32.4 g/dl (32-36); Mean Corpuscular Hemoglobin 30.6 pg (26-34); Mean Corpuscular Volume 94.5 fl (80-100); Mean Platelet Volume 9.3 fl (7.4-10.4); Monocytes Percent Auto 6.6 % (2.6-8.5); Neutrophils Absolute Auto 12.1 K/mm3 (1.3-6.7); Neutrophils Percent Auto 78.9 % (45.5-73.1); Platelet Count Result 341 k/mm3 (150-375); Red Blood Count 3.99 M/mm3 (4.6-6.20); Red Cell Distribution Width 14.8 % (11.5-14.5); White Blood Count 15.4 K/mm3 (4.5-10.0)
[2022-07-10 05:59] LABS: Alanine Aminotransferase 32 U/L (6-50); Albumin Level 4.3 g/dL (3.5-5.1); Alkaline Phosphatase 45 U/L (38-126); Anion Gap 14 mmol/L (8-16); Aspartate Amino Transferase 39 U/L (17-59); Bilirubin,Total 0.9 mg/dL (0.2-1.3); Blood Urea Nitrogen 35 mg/dL (9-20); Calcium 8.9 mg/dL (8.4-10.2); Carbon Dioxide 32 mmol/L (22-30); Chloride 100 mmol/L (98-107); Estimated CRCL calculation 100 ml/min; Estimated Glomerular Filt Rate > 60; Glucose 90 mg/dL (65-110); Magnesium 2.3 mg/dL (1.6-2.3); Phosphorus 3.4 mg/dL (2.5-4.5); Potassium 3.6 mmol/L (3.4-5.0); Sodium 146 mmol/L (137-145)
[2022-07-10] MEDS: CENTRAL LINE FLUSH 10 ML IV PUSH ×4 (06:04→21:20)
[2022-07-10] MEDS: hydrALAZINE HCL 20 MG/ML VIAL IV PUSH (07:32)
[2022-07-10] MEDS: FUROSEMIDE INJ 40 MG/4 ML VIAL IV PUSH ×2 (08:16→17:20)
[2022-07-10] MEDS: DORNASE ALFA INH SOLN 1 MG/ML 2.5 ML AMP 2.5 MG INHALATION ×2 (08:31→20:50)
[2022-07-10] MEDS: PANTOPRAZOLE SODIUM IV 40 MG VIAL IV PUSH (08:47)
[2022-07-10] MEDS: ENOXAPARIN 40 MG/0.4 ML SYRINGE SUB-Q (08:47)
[2022-07-10] MEDS: INSULIN GLARGINE (*BKC) 100 UNITS/ML 20 UNITS SUB-Q (08:48)
[2022-07-10] MEDS: ENALAPRILAT 1.25 MG/ML VIAL IV PUSH ×3 (09:00→17:20)
--- NOTE | 2022-07-10 09:03 | PM.PNCARD ---
Progress Note: A&P Assessment and Plan (1) Acute exacerbation of CHF (congestive heart failure): Code(s): I50.9 - Heart failure, unspecified Status: Acute (2) Ischemic cardiomyopathy: Code(s): I25.5 - Ischemic cardiomyopathy Status: Acute Plan 67-year-old man with severe ischemic cardiomyopathy and low ejection fraction. He is extubated now and is hemodynamically stable but in more pulmonary edema. He has responded well to furosemide intravenously this morning he has been started appropriately and intravenous enalaprilat for afterload reduction. Swallowing study to take place later at that point his carvedilol can be reintroduced slowly. Obviously his condition is tenuous and his prognosis is poor Adria Soriano MD [facility] Subjective Date/time seen: Date of service:07/10/22 09:03 Interval history: follow-up visit in this 67-year-old man with: Severe ischemic cardiomyopathy with infarction of his anterior wall following multivessel PCI earlier this year. Unfortunately this occurred because of abrupt stent thrombosis in the setting of noncompliance with DA PT. 07/10/2022: Patient is extubated as of last evening. He is on BiPAP is alert and responsive. Reports not to be short of breath but is congested on chest x-ray. No longer hypotensive or bradycardic. Exam Const: Other: Chronically ill-appearing white male on BiPAP in ICU room 8. Describes no chest pain or dyspnea HENMT: Mouth: Yes moist mucous membranes Eyes: Sclera: sclerae normal Neck: Neck: supple Resp: Other: coarse breath sound central Cardio: Rate: regular rate Rhythm: regular rhythm GI: GI Palp: Yes Soft to palpation Auscultation: normal bowel sounds Skin: General skin exam: normal color Extrem: Other: adequate distal perfusion, no significant peripheral edema Objective Data Vital Signs Vital Signs: Vital Signs - 24 hr 07/09/22 09:11 07/09/22 09:51 07/09/22 09:51 Temperature Pulse Rate 62 49 L 49 L Respiratory Rate 20 20 20 Blood Pressure Pulse Oximetry Oxygen Delivery Oxygen Flow Rate Fraction of Inspired Oxygen 07/09/22 10:00 07/09/22 10:00 07/09/22 10:44 Temperature 36.8 C Pulse Rate 48 L 47 L 48 L Respiratory Rate 20 Blood Pressure 90/60 L Pulse Oximetry 95 98 Oxygen Delivery Mechanical Ventilation Oxygen Flow Rate Fraction of Inspired Oxygen 35 07/09/22 11:48 07/09/22 11:49 07/09/22 11:59 Temperature Pulse Rate 50 L 50 L 55 L Respiratory Rate 12 12 12 Blood Pressure Pulse Oximetry Oxygen Delivery Oxygen Flow Rate Fraction of Inspired Oxygen 07/09/22 11:59 07/09/22 12:00 07/09/22 12:00 Temperature 36.9 C Pulse Rate 55 L 52 L 68 Respiratory Rate 12 11 L Blood Pressure 94/60 L Pulse Oximetry 92 Oxygen Delivery Oxygen Flow Rate Fraction of Inspired Oxygen 07/09/22 12:00 07/09/22 12:00 07/09/22 12:50 Temperature Pulse Rate Respiratory Rate Blood Pressure Pulse Oximetry 100 Oxygen Delivery Mechanical Ventilation Oxygen Flow Rate Fraction of Inspired Oxygen 35 35 35 07/09/22 12:00 07/09/22 12:46 07/09/22 13:29 Temperature Pulse Rate 77 92 Respiratory Rate 18 Blood Pressure Pulse Oximetry 97 95 Oxygen Delivery Mechanical Ventilation Mechanical Ventilation Oxygen Flow Rate Fraction of Inspired Oxygen 35 35 07/09/22 13:46 07/09/22 14:00 07/09/22 14:00 Temperature 36.8 C Pulse Rate 72 65 65 Respiratory Rate 13 12 Blood Pressure 108/76 Pulse Oximetry 90 Oxygen Delivery Oxygen Flow Rate Fraction of Inspired Oxygen 07/09/22 14:10 07/09/22 14:25 07/09/22 14:26 Temperature Pulse Rate 66 63 Respiratory Rate 14 Blood Pressure Pulse Oximetry 91 91 Oxygen Delivery Venturi Mask Oxygen Flow Rate 12 Fraction of Inspired Oxygen 40 07/09/22 14:10 07/09/22 14:33 07/09/22 16:00 Temperature Pulse R
--- NOTE | 2022-07-10 09:39 | WPDINTPN ---
Progress Note: A&P Assessment and Plan (1) Acute respiratory failure: Code(s): J96.00 - Acute respiratory failure, unspecified whether with hypoxia or hypercapnia Status: Acute Assessment and Plan: Acute multifactorial hypoxic and hypercarbic Respiratory failure secondary to congestive heart failure, COPD and possible community-acquired pneumonia Intubated on 07/03 Extubated on 07/05 Reintubated on 07/06 Extubated on 07/09/2022 -07/10 chest x-ray:Interval development of mild pulmonary edema with small bilateral posterior layering pleural effusions. Superimposed atelectasis or pneumonia not excludable. Patient extubated yesterday, currently on BiPAP 10/5, 40% FiO2, -will diurese patient aggressively, controlled blood pressures -continue vancomycin and cefepime (started on 07/07) for a total of 5 days -07/03/2022: Blood cultures negative x2 -07/05/2022 and 07/07/2022: Sputum cultures negative -His urine drug screen is positive again for amphetamines which may have precipitated the respiratory failure (2) CHF exacerbation: Code(s): I50.9 - Heart failure, unspecified Status: Acute Assessment and Plan: Echocardiogram 07/05/2022 Summary ? 1. The mid to apical anterior wall is akinetic. ? 2. The apex is dyskinetic. ? 3. The mid to apical septum is akinetic. ? 4. The apical lateral wall is akinetic. ? 5. The apical inferior wall is akinetic. ? 6. Left ventricular systolic function is severely reduced, estimated at 25-30%. ? 7. Left atrial chamber dimension is mildly enlarged. ? 8. Compared with examination from March of this year left ventricular systolic function has not changed appreciably. -cardiology following the patient - -patient on Lasix b.i.d., IV enalapril, hydralazine IV p.r.n. -once patient able to swallow will start Coreg -discussed with cardiology was agreeable with the above medications to control blood pressures, given his cardiomyopathy patient goes into flash pulmonary edema (3) Pneumonia: Code(s): J18.9 - Pneumonia, unspecified organism Status: Acute Assessment and Plan: - antibiotics as above -secretions have improved -discontinue Pulmozyme (4) COPD (chronic obstructive pulmonary disease): Code(s): J44.9 - Chronic obstructive pulmonary disease, unspecified Status: Acute Assessment and Plan: Currently on mechanical ventilation, continue bronchodilators -discontinue Solu-Medrol (5) Non-ST elevation [place] (NSTEMI): Code(s): I21.4 - Non-ST elevation (NSTEMI) myocardial infarction Status: Acute Assessment and Plan: Elevated troponin, there is ST segment abnormality on EKG but patient had similar changes on his last admission Patient denied chest pain on presentation Patient has known coronary artery disease and is status post recent stent placement which was followed by acute stent thrombosis of LAD likely due to noncompliance which was intervened Cardiology was consulted in ER and evaluated patient and did not feel the patient needed to go for for emergent cardiac catheterization. Serial troponin were checked and although elevated remained flat for the most part Echo as above Continue aspirin Plavix and statin -start patient on IV enalaprilat, p.r.n. IV hydralazine. Will start p.o. Coreg when able (6) Ischemic cardiomyopathy: Code(s): I25.5 - Ischemic cardiomyopathy Status: Acute Assessment and Plan: Last echo showed EF of 20% post that patient had stents placed Repeat Echo as above (7) Type 2 diabetes mellitus with hyperglycemia: Qualifiers: Diabetes mellitus exterminator termite insulin use: with alf use Qualified Code(s): E11.65 - Type 2 diabetes mellitus with hyperglycemia; Z79.4 - exterminator termite (current) use of insulin Code(s): E11.65 - Type 2 diabetes mellitus with hyperglycemia Status: Acute Assessment and Plan: Continue Sliding scale insulin Lantus decreased as patient wa
[2022-07-10] MEDS: ASPIRIN 325 MG TABLET FEED TUBE (10:43)
[2022-07-10] MEDS: ATORVASTATIN 20 MG TABLET PO (10:44)
[2022-07-10] MEDS: CLOPIDOGREL BISULFATE 75 MG TABLET PO (10:44)
[2022-07-10] MEDS: polyethylene glycoL 3350 17 GM POWD.PACK PO (10:45)
[2022-07-10] MEDS: KCL 40 MEQ/WATER 100 ML 100 ML 25 ML IVPB (10:46)
--- NOTE | 2022-07-10 10:48 | PCSTNOTE ---
Please refer to the Bedside Swallow Evaluation in the EMR. Please note, silent aspiration cannot be ruled out at bedside. Recommend puree (IDDSI level 4) and thin liquid (IDDSI level 0) with no straws, small bites and sips, 1-1 supervision, slow pace. Consult ST with any further concerns, no ST services indicated at this time.
--- NOTE | 2022-07-10 10:54 | PCFNICU ---
ICU Rounding Note: Pt current nutrition is NPO at this time. Nutrition recommendation: Advance diet per ASSOCIATE DIRECTOR OF NURSING recommendations Last recorded weight is 89 kg - stable at this time. Bowel Motility: No BM reported Labs Reviewed: Hgb:12.2, HCT:37.7, NA:146, BUN:35, Glu:167 Meds Noted:Precedex, Cefepime, Lipitor,Lovenox, Lasix, Miralax. Skin: WNL Additional Notes: Pt extubated yesterday. Tube feeds cancelled. Bedside swallow evaluation this morning with speech recommendations for a pureed level 4 diet, thin liquids. Agree with diet order. Recommend to start Ensure compact BID. Following daily in ICU rounds. Monitor tube feeding tolerance, energy needs, meds, weights, labs. Follow up 1 day..
[2022-07-10] MEDS: carvediloL 3.125 MG TABLET PO ×2 (11:20→21:21)
[2022-07-10 12:11] LABS: Glucose Point of Care 112 mg/dl (65-105)
--- NOTE | 2022-07-10 13:04 | PM.IMPN ---
Progress Note: A&P Assessment and Plan (1) Acute respiratory failure: Code(s): J96.00 - Acute respiratory failure, unspecified whether with hypoxia or hypercapnia Status: Acute Assessment and Plan: Acute multifactorial hypoxic and hypercarbic Respiratory failure secondary to congestive heart failure, COPD and possible community-acquired pneumonia Intubated currently -07/09 chest x-ray: Mild airspace opacities in the mid and lower lung zones with improvement on the left, consistent with pulmonary edema versus pneumonia. Now on BiPAP (2) CHF exacerbation: Code(s): I50.9 - Heart failure, unspecified Status: Acute Assessment and Plan: EF 25-30%, acute on chronic systolic Cardiology and ICU managing. (3) Pneumonia: Code(s): J18.9 - Pneumonia, unspecified organism Status: Acute Assessment and Plan: Continue IV antibiotics (4) COPD (chronic obstructive pulmonary disease): Code(s): J44.9 - Chronic obstructive pulmonary disease, unspecified Status: Acute Assessment and Plan: Currently on mechanical ventilation, continue bronchodilators (5) Non-ST elevation [place] (NSTEMI): Code(s): I21.4 - Non-ST elevation (NSTEMI) myocardial infarction Status: Acute Assessment and Plan: Monitor, Cardiology following (6) Type 2 diabetes mellitus with hyperglycemia: Qualifiers: Diabetes mellitus terminal block assembler insulin use: with terminal block assembler use Qualified Code(s): E11.65 - Type 2 diabetes mellitus with hyperglycemia; Z79.4 - FPC (current) use of insulin Code(s): E11.65 - Type 2 diabetes mellitus with hyperglycemia Status: Acute Assessment and Plan: Continue Sliding scale insulin Lantus increased (7) Electrolyte abnormality: Code(s): E87.8 - Other disorders of electrolyte and fluid balance, not elsewhere classified Status: Acute Assessment and Plan: Electrolytes within normal limits (8) Acute kidney injury: Code(s): N17.9 - Acute kidney failure, unspecified Status: Acute Assessment and Plan: Monitor kidney function. Subjective Date/time seen: 07/10/22 13:04 Currently on BiPAP Exam Narrative: General: Patient is awake, alert on BiPAP Lungs/Chest: Trachea central, rales on bilateral lower lung zones, adequate air entry Cardiac: RRR. Normal S1 S2. No murmurs Circulation: Pedal pulses are decreased, symmetrical, feet are warm. Abdomen: Normal bowel sounds. Soft. NT. ND. Extremities: No clubbing, cyanosis or edema. Warm : Armas in place Neurologic: Patient on BiPAP, follows simple commands, answers to questions appropriately Skin: Several tattoos on chest wall, arms Objective Data Vital Signs Vital Signs: Vital Signs - 24 hr 07/09/22 13:29 07/09/22 13:46 07/09/22 14:00 Temperature Pulse Rate 92 72 65 Respiratory Rate 18 13 Blood Pressure Pulse Oximetry Oxygen Delivery Oxygen Flow Rate Fraction of Inspired Oxygen 07/09/22 14:00 07/09/22 14:10 07/09/22 14:25 Temperature 98.2 F Pulse Rate 65 66 63 Respiratory Rate 12 14 Blood Pressure 108/76 Pulse Oximetry 90 91 Oxygen Delivery Oxygen Flow Rate Fraction of Inspired Oxygen 07/09/22 14:26 07/09/22 14:10 07/09/22 14:33 Temperature Pulse Rate 63 Respiratory Rate 14 Blood Pressure Pulse Oximetry 91 90 Oxygen Delivery Venturi Mask Nasal Cannula Oxygen Flow Rate 12 6 Fraction of Inspired Oxygen 40 07/09/22 16:00 07/09/22 16:00 07/09/22 16:00 Temperature 97.7 F Pulse Rate 68 66 Respiratory Rate 12 Blood Pressure 127/70 Pulse Oximetry 92 93 Oxygen Delivery Venturi Mask Oxygen Flow Rate 12 Fraction of Inspired Oxygen 40 07/09/22 17:32 07/09/22 18:00 07/09/22 18:00 Temperature 97.7 F Pulse Rate 71 86 87 Respiratory Rate 14 18 Blood Pressure 142/91 H Pulse Oximetry 92 91 Oxygen Delivery Venturi Mask Oxygen Flow Ra
[2022-07-10 17:28] LABS: Glucose Point of Care 82 mg/dl (65-105)
[2022-07-10] MEDS: ONDANSETRON INJ 4 MG/2 ML VIAL IV PUSH (19:15)
[2022-07-11] VITALS (22 sets, daily range): BP systolic 92–127; BP diastolic 56–86; PULSE 44–75; RESP 11–23; TEMP 36.6–37.1; O2SAT 91–100
[2022-07-11] MEDS: ENALAPRILAT 1.25 MG/ML VIAL IV PUSH ×2 (00:50→05:37)
[2022-07-11] MEDS: ALBUTEROL SULFATE NEB 2.5 MG/3 ML INH INHALATION ×4 (02:20→23:00)
[2022-07-11] MEDS: IPRATROPIUM BR 0.02% INH SOLN 0.5 MG/2.5 ML VIAL INHALATION ×4 (02:20→23:00)
[2022-07-11] MEDS: ONDANSETRON INJ 4 MG/2 ML VIAL IV PUSH (02:47)
[2022-07-11 02:53] LABS: Glucose Point of Care 107 mg/dl (65-105)
[2022-07-11 05:25] LABS: Alveolar/Arterial O2 Gradient 115.2 mmHg; Base Excess ABG 6.7 mEq/l (+/-2.0); Carboxyhemoglobin 0.1 % THb (0-2.0); Fractional Inspired Oxygen 35 %; HCO3 ABG 31.6 mEq/l (22.0-26.0); Methemoglobin ABG 0.3 %THb (0-1.5); Oxygen Content ABG 16.8 %vol (16.0-22.0); Oxygen Saturation ABG 96.3 % (95.0-100.0); Oxyhemoglobin 94.7 % THb (90.0-100.0); PCO2 ABG 46.2 mmHg (35.0-45.0); PO2 ABG 80.6 mmHg (80.0-100.0); Reduced Hemoglobin 4.9 %THb (0-5.0); Total Hemoglobin 12.6 g/dL (12.0-18.0); pH ABG 7.453 (7.350-7.450)
[2022-07-11 05:27] LABS: Device HIGH FLOW THERAPY; Modified Allen's Test Pass; Site Drawn RIGHT RADIAL
[2022-07-11] MEDS: CENTRAL LINE FLUSH 10 ML IV PUSH ×4 (05:38→20:44)
[2022-07-11 05:56] LABS: Basophils Percent Auto 0.2 % (0.2-1.2); Eosinophils Absolute Auto 0.3 K/mm3 (0-0.3); Eosinophils Percent Auto 2.5 % (0-4.4); Hematocrit 34.6 % (42.0-52.0); Hemoglobin 11.4 g/dL (14.0-18.0); Immature Granulocyte Absolute 0.07 K/mm3 (0.00-0.031); Immature Granulocyte Percent A 0.5 % (0-0.5); Lymphocytes Absolute Auto 2.03 K/mm3 (0.9-3.2); Lymphocytes Percent Auto 15.4 % (18.3-44.2); Mean Corpuscular HGB Conc 32.9 g/dl (32-36); Mean Corpuscular Hemoglobin 30.2 pg (26-34); Mean Corpuscular Volume 91.8 fl (80-100); Mean Platelet Volume 9.3 fl (7.4-10.4); Monocytes Absolute Auto 0.9 K/mm3 (0.1-0.6); Monocytes Percent Auto 6.8 % (2.6-8.5); Neutrophils Absolute Auto 9.8 K/mm3 (1.3-6.7); Neutrophils Percent Auto 74.6 % (45.5-73.1); Platelet Count Result 346 k/mm3 (150-375); Red Blood Count 3.77 M/mm3 (4.6-6.20); Red Cell Distribution Width 14.4 % (11.5-14.5); White Blood Count 13.2 K/mm3 (4.5-10.0)
[2022-07-11 06:08] LABS: Alanine Aminotransferase 31 U/L (6-50); Alkaline Phosphatase 41 U/L (38-126); Anion Gap 12 mmol/L (8-16); Aspartate Amino Transferase 36 U/L (17-59); Bilirubin,Total 1.1 mg/dL (0.2-1.3); Blood Urea Nitrogen 28 mg/dL (9-20); Calcium 8.7 mg/dL (8.4-10.2); Carbon Dioxide 33 mmol/L (22-30); Chloride 94 mmol/L (98-107); Estimated CRCL calculation 100 ml/min; Estimated Glomerular Filt Rate > 60; Glucose 87 mg/dL (65-110); Magnesium 2.1 mg/dL (1.6-2.3); Phosphorus 3.4 mg/dL (2.5-4.5); Potassium 3.4 mmol/L (3.4-5.0); Sodium 139 mmol/L (137-145)
[2022-07-11] MEDS: ASPIRIN 325 MG TABLET FEED TUBE (08:21)
[2022-07-11] MEDS: carvediloL 3.125 MG TABLET PO (08:21)
[2022-07-11] MEDS: ATORVASTATIN 20 MG TABLET PO (08:21)
[2022-07-11] MEDS: ENOXAPARIN 40 MG/0.4 ML SYRINGE SUB-Q (08:22)
[2022-07-11] MEDS: CLOPIDOGREL BISULFATE 75 MG TABLET PO (08:22)
[2022-07-11] MEDS: FUROSEMIDE INJ 40 MG/4 ML VIAL IV PUSH ×2 (08:22→17:47)
[2022-07-11] MEDS: PANTOPRAZOLE SODIUM IV 40 MG VIAL IV PUSH (08:22)
[2022-07-11] MEDS: INSULIN GLARGINE (*BKC) 100 UNITS/ML 20 UNITS SUB-Q (08:25)
[2022-07-11] MEDS: DORNASE ALFA INH SOLN 1 MG/ML 2.5 ML AMP 2.5 MG INHALATION ×2 (08:42→23:00)
--- NOTE | 2022-07-11 09:26 | WPDINTPN ---
Progress Note: A&P Assessment and Plan (1) Acute respiratory failure: Code(s): J96.00 - Acute respiratory failure, unspecified whether with hypoxia or hypercapnia Status: Acute Assessment and Plan: Acute multifactorial hypoxic and hypercarbic Respiratory failure secondary to congestive heart failure, COPD and possible community-acquired pneumonia Intubated on 07/03 Extubated on 07/05 Reintubated on 07/06 Extubated on 07/09/2022 -07/11 chest x-ray: Stable small right pleural effusion.. Airspace opacities in the lower lung zones with interval improvement, consistent with atelectasis versus pneumonia Patient extubated yesterday, currently on BiPAP 10/5, 40% FiO2, -will diurese patient , controlled blood pressures -continue vancomycin and cefepime (started on 07/07) for a total of 5 days -07/03/2022: Blood cultures negative x2 -07/05/2022 and 07/07/2022: Sputum cultures negative -His urine drug screen is positive again for amphetamines which may have precipitated the respiratory failure (2) CHF exacerbation: Code(s): I50.9 - Heart failure, unspecified Status: Acute Assessment and Plan: Echocardiogram 07/05/2022 Summary ? 1. The mid to apical anterior wall is akinetic. ? 2. The apex is dyskinetic. ? 3. The mid to apical septum is akinetic. ? 4. The apical lateral wall is akinetic. ? 5. The apical inferior wall is akinetic. ? 6. Left ventricular systolic function is severely reduced, estimated at 25-30%. ? 7. Left atrial chamber dimension is mildly enlarged. ? 8. Compared with examination from March of this year left ventricular systolic function has not changed appreciably. -cardiology following the patient -patient on Lasix b.i.d, hydralazine IV p.r.n. -restart lisinopril -discussed with cardiology was agreeable with the above medications to control blood pressures, given his cardiomyopathy patient goes into flash pulmonary edema (3) Pneumonia: Code(s): J18.9 - Pneumonia, unspecified organism Status: Acute Assessment and Plan: - antibiotics as above -secretions have improved -discontinue Pulmozyme (4) COPD (chronic obstructive pulmonary disease): Code(s): J44.9 - Chronic obstructive pulmonary disease, unspecified Status: Acute Assessment and Plan: Currently on mechanical ventilation, continue bronchodilators -discontinue Solu-Medrol (5) Non-ST elevation [place] (NSTEMI): Code(s): I21.4 - Non-ST elevation (NSTEMI) myocardial infarction Status: Acute Assessment and Plan: Elevated troponin, there is ST segment abnormality on EKG but patient had similar changes on his last admission Patient denied chest pain on presentation Patient has known coronary artery disease and is status post recent stent placement which was followed by acute stent thrombosis of LAD likely due to noncompliance which was intervened Cardiology was consulted in ER and evaluated patient and did not feel the patient needed to go for for emergent cardiac catheterization. Serial troponin were checked and although elevated remained flat for the most part Echo as above Continue aspirin Plavix and statin Continue meds as above (6) Ischemic cardiomyopathy: Code(s): I25.5 - Ischemic cardiomyopathy Status: Acute Assessment and Plan: Last echo showed EF of 20% post that patient had stents placed Repeat Echo as above (7) Type 2 diabetes mellitus with hyperglycemia: Qualifiers: Diabetes mellitus nursing home insulin use: with nursing home use Qualified Code(s): E11.65 - Type 2 diabetes mellitus with hyperglycemia; Z79.4 - gas or water meter installer (current) use of insulin Code(s): E11.65 - Type 2 diabetes mellitus with hyperglycemia Status: Acute Assessment and Plan: Continue Sliding scale insulin Continue Lantus (8) Electrolyte abnormality: Code(s): E87.8 - Other disorders of electrolyte and fluid balance, not elsewhere classified St
[2022-07-11 09:55] LABS: Vancomycin Trough 12.8 ug/mL (10.0-20.0)
--- NOTE | 2022-07-11 09:58 | PM.PNCARD ---
Progress Note: A&P Assessment and Plan (1) Ischemic cardiomyopathy: Code(s): I25.5 - Ischemic cardiomyopathy Status: Acute Plan 67-year-old man with coronary disease medical noncompliance and unfortunately now with signet significant ischemic cardiomyopathy and low ejection fraction. Medical therapy for this has been resumed and we are slowly reintroducing his medication. We should try to Shushan some spironolactone before discharge for optimal Renin angiotensin suppression. As mentioned in previous notes he is rather poor prognosis given his track record of noncompliance and poor ejection fraction. Adria Soriano MD [facility] Subjective Date/time seen: date of service:07/11/22 09:58 Interval history: Follow-up visit in this 67-year-old man with significant ischemic cardiomyopathy unfortunately the result of anterior wall infarction in the setting of medical noncompliance with DA PT following multivessel PCI. He has now been extubated for a couple of days and remains relatively stable in the ICU. Lisinopril has been resumed. He still receiving modest dose of furosemide. Chest x-ray looks better this morning. Patient states he is wondering when he can go home. He might be reasonable for transfer to IMU today but obviously he is not appropriate for discharge at this moment Exam Narrative: INtubated and sedated Const: General: comfortable; No confusion or uncomfortable Orientation/consciousness: No confusion Other: Chronically ill-appearing white male on BiPAP in ICU room 8. Describes no chest pain or dyspnea HENMT: General nose exam: Normal nares present Mouth: Yes moist mucous membranes Eyes: General: appearance normal, both eyes and all related structures Sclera: sclerae normal Neck: Neck: supple Carotids: no bruits Chest: Other: No chest wall deformity Resp: Effort & Inspection: normal respiratory effort Auscultation: clear to auscultation bilaterally and diminished lung sounds Other: coarse breath sound central Cardio: Rate: regular rate Rhythm: regular rhythm Heart sounds: no murmurs GI: Inspection: non-distended Auscultation: normal bowel sounds Skin: General skin exam: normal color Neuro: General: No confusion Speech: No Abnormal speech present Other: Iintubated and sedated. MOves a little when stimulated Extrem: General: no edema Other: adequate distal perfusion, no significant peripheral edema Psych: Mental Status: mental status grossly abnormal Other: sedated Objective Data Vital Signs Vital Signs: Vital Signs - 24 hr 07/10/22 10:00 07/10/22 10:00 07/10/22 11:32 Temperature 36.9 C Pulse Rate 81 83 83 Respiratory Rate 14 14 Blood Pressure 130/74 Pulse Oximetry 93 93 Pulse Oximetry [With Activity During Therapy Session] Oxygen Delivery High Flow Therapy with Na Oxygen Flow Rate 50 Fraction of Inspired Oxygen 40 07/10/22 12:00 07/10/22 12:57 07/10/22 12:00 Temperature 37.2 C Pulse Rate 79 84 Respiratory Rate 23 H Blood Pressure 103/57 L Pulse Oximetry 93 Pulse Oximetry [With Activity During Therapy Session] 90 Oxygen Delivery High Flow Therapy with Na Oxygen Flow Rate 50 Fraction of Inspired Oxygen 07/10/22 14:10 07/10/22 14:20 07/10/22 14:23 Temperature Pulse Rate 58 L 63 62 Respiratory Rate 19 13 23 H Blood Pressure Pulse Oximetry 93 Pulse Oximetry [With Activity During Therapy Session] Oxygen Delivery High Flow Therapy with Na Oxygen Flow Rate 50 Fraction of Inspired Oxygen 40 07/10/22 14:00 07/10/22 14:00 07/10/22 15:40 Temperature 37.1 C Pulse Rate 66 71 63 Respiratory Rate 20 13 Blood Pressure 113/60 Pulse Oximetry 95 97 Pulse Oximetry [With Activity During Therapy Session] Oxygen Delivery High Flow Therapy with Na Oxygen Flow Rate 50 Fraction of Inspired Oxygen 40 07/10/22 15:46 07/10/22 15:51 07/10/22 16:00 Temperature 36.7 C Pul
--- NOTE | 2022-07-11 10:58 | PM.IMPN ---
Progress Note: A&P Assessment and Plan (1) Acute respiratory failure: Code(s): J96.00 - Acute respiratory failure, unspecified whether with hypoxia or hypercapnia Status: Acute Assessment and Plan: Acute multifactorial hypoxic and hypercarbic Respiratory failure secondary to congestive heart failure, COPD and possible community-acquired pneumonia Currently on BiPAP. Breathing much better. Continue vanc and cefepime. (2) CHF exacerbation: Code(s): I50.9 - Heart failure, unspecified Status: Acute Assessment and Plan: Overall much improved. Continue diuretic therapy continue cardiac medications. Cardiology following (3) Pneumonia: Code(s): J18.9 - Pneumonia, unspecified organism Status: Acute Assessment and Plan: Continue IV antibiotics (4) COPD (chronic obstructive pulmonary disease): Code(s): J44.9 - Chronic obstructive pulmonary disease, unspecified Status: Acute Assessment and Plan: On BiPAP. Continue bronchodilators. (5) Non-ST elevation [place] (NSTEMI): Code(s): I21.4 - Non-ST elevation (NSTEMI) myocardial infarction Status: Acute Assessment and Plan: Monitor, Cardiology following (6) Type 2 diabetes mellitus with hyperglycemia: Qualifiers: Diabetes mellitus prison insulin use: with metalworker use Qualified Code(s): E11.65 - Type 2 diabetes mellitus with hyperglycemia; Z79.4 - retail banking manager (current) use of insulin Code(s): E11.65 - Type 2 diabetes mellitus with hyperglycemia Status: Acute Assessment and Plan: Continue insulin, monitor blood sugars (7) Electrolyte abnormality: Code(s): E87.8 - Other disorders of electrolyte and fluid balance, not elsewhere classified Status: Acute Assessment and Plan: Electrolytes within normal limits (8) Acute kidney injury: Code(s): N17.9 - Acute kidney failure, unspecified Status: Acute Assessment and Plan: Kidney function is now normal Subjective Date/time seen: 07/11/22 10:58 Patient reports his breathing is improved. Still on BiPAP. Eating some. Overall doing much better Exam Narrative: General: Patient is awake, alert on Airvo Lungs/Chest: Trachea central, rales on bilateral lower lung zones, adequate air entry Cardiac: RRR. Normal S1 S2. No murmurs Circulation: Pedal pulses are decreased, symmetrical, feet are warm. Abdomen: Normal bowel sounds. Soft. NT. ND. Extremities: No clubbing, cyanosis or edema. Warm : Armas in place Neurologic: Patient is awake, alert, oriented, follows simple commands, answers to questions appropriately Skin: Several tattoos on chest wall, arms Objective Data Vital Signs Vital Signs: Vital Signs - 24 hr 07/10/22 11:32 07/10/22 12:00 07/10/22 12:57 Temperature 99 F Pulse Rate 83 79 Respiratory Rate 14 23 H Blood Pressure 103/57 L Pulse Oximetry 93 93 Pulse Oximetry [With Activity During Therapy Session] 90 Oxygen Delivery High Flow Therapy with Na High Flow Therapy with Na Oxygen Flow Rate 50 50 Fraction of Inspired Oxygen 40 07/10/22 12:00 07/10/22 14:10 07/10/22 14:20 Temperature Pulse Rate 84 58 L 63 Respiratory Rate 19 13 Blood Pressure Pulse Oximetry Pulse Oximetry [With Activity During Therapy Session] Oxygen Delivery Oxygen Flow Rate Fraction of Inspired Oxygen 07/10/22 14:23 07/10/22 14:00 07/10/22 14:00 Temperature 98.7 F Pulse Rate 62 66 71 Respiratory Rate 23 H 20 Blood Pressure 113/60 Pulse Oximetry 93 95 Pulse Oximetry [With Activity During Therapy Session] Oxygen Delivery High Flow Therapy with Na Oxygen Flow Rate 50 Fraction of Inspired Oxygen 40 07/10/22 15:40 07/10/22 15:46 07/10/22 15:51 Temperature 98.1 F Pulse Rate 63 62 65 Respiratory Rate 13 23 H 20 Blood Pressure 123/61 Pulse Oximetry 97 93 96 Pulse Oximetry [With Activity During Therapy Session]
[2022-07-11] MEDS: KCL 40 MEQ/WATER 100 ML 100 ML 25 ML IVPB (11:10)
[2022-07-11 12:45] LABS: Glucose Point of Care 183 mg/dl (65-105)
[2022-07-11 18:54] LABS: Glucose Point of Care 87 mg/dl (65-105)
[2022-07-11 23:48] LABS: Glucose Point of Care 184 mg/dl (65-105)
[2022-07-12] VITALS (22 sets, daily range): BP systolic 97–122; BP diastolic 42–75; PULSE 46–74; RESP 15–23; TEMP 36.2–36.8; O2SAT 91–100
[2022-07-12] MEDS: CENTRAL LINE FLUSH 10 ML IV PUSH ×3 (05:08→21:38)
[2022-07-12 05:39] LABS: Estimated CRCL calculation 100 ml/min; Estimated Glomerular Filt Rate > 60
[2022-07-12 06:09] LABS: Hematocrit 31.5 % (42.0-52.0); Hemoglobin 10.6 g/dL (14.0-18.0); Mean Corpuscular HGB Conc 33.7 g/dl (32-36); Mean Corpuscular Hemoglobin 30.5 pg (26-34); Mean Corpuscular Volume 90.5 fl (80-100); Mean Platelet Volume 9.3 fl (7.4-10.4); Platelet Count Result 317 k/mm3 (150-375); Red Blood Count 3.48 M/mm3 (4.6-6.20); Red Cell Distribution Width 14.2 % (11.5-14.5)
[2022-07-12 06:25] LABS: Anion Gap 9 mmol/L (8-16); Blood Urea Nitrogen 23 mg/dL (9-20); Calcium 8.6 mg/dL (8.4-10.2); Carbon Dioxide 34 mmol/L (22-30); Chloride 90 mmol/L (98-107); Estimated CRCL calculation 100 ml/min; Estimated Glomerular Filt Rate > 60; Glucose 206 mg/dL (65-110); Potassium 3.7 mmol/L (3.4-5.0); Sodium 133 mmol/L (137-145)
[2022-07-12] MEDS: INSULIN ASPART (*BKC) 100 UNITS/ML SUB-Q ×2 (06:28→11:49)
[2022-07-12] MEDS: ALBUTEROL SULFATE NEB 2.5 MG/3 ML INH INHALATION ×3 (09:00→20:30)
[2022-07-12] MEDS: IPRATROPIUM BR 0.02% INH SOLN 0.5 MG/2.5 ML VIAL INHALATION ×3 (09:01→20:30)
[2022-07-12] MEDS: DORNASE ALFA INH SOLN 1 MG/ML 2.5 ML AMP 2.5 MG INHALATION ×2 (09:01→20:30)
[2022-07-12] MEDS: ENOXAPARIN 40 MG/0.4 ML SYRINGE SUB-Q (09:13)
[2022-07-12] MEDS: polyethylene glycoL 3350 17 GM POWD.PACK PO (09:13)
[2022-07-12] MEDS: ATORVASTATIN 20 MG TABLET PO (09:13)
[2022-07-12] MEDS: ASPIRIN 81 MG ENTERIC TABLET PO (09:13)
[2022-07-12] MEDS: PANTOPRAZOLE SODIUM IV 40 MG VIAL IV PUSH (09:13)
[2022-07-12] MEDS: CLOPIDOGREL BISULFATE 75 MG TABLET PO (09:13)
[2022-07-12] MEDS: INSULIN GLARGINE (*BKC) 100 UNITS/ML 20 UNITS SUB-Q (09:14)
[2022-07-12] MEDS: FUROSEMIDE INJ 40 MG/4 ML VIAL IV PUSH (09:22)
--- NOTE | 2022-07-12 11:05 | PC.NURSE ---
This patient, Samuel Conway Sr., was transferred to [[id number]] on 07/12/22 at 1105. Personal belongings sent with patient. Report given to [Jenna VEGA]. Appropriate documentation sent with patient.
--- NOTE | 2022-07-12 11:17 | PM.IMPN ---
Progress Note: A&P Assessment and Plan (1) Acute respiratory failure: Code(s): J96.00 - Acute respiratory failure, unspecified whether with hypoxia or hypercapnia Status: Acute Assessment and Plan: Acute multifactorial hypoxic and hypercarbic Respiratory failure secondary to congestive heart failure, COPD and possible community-acquired pneumonia Currently on BiPAP. Breathing much better. Continue vanc and cefepime. (2) CHF exacerbation: Code(s): I50.9 - Heart failure, unspecified Status: Acute Assessment and Plan: Overall much improved. Continue diuretic therapy continue cardiac medications. Cardiology following (3) Pneumonia: Code(s): J18.9 - Pneumonia, unspecified organism Status: Acute Assessment and Plan: Continue IV antibiotics (4) COPD (chronic obstructive pulmonary disease): Code(s): J44.9 - Chronic obstructive pulmonary disease, unspecified Status: Acute Assessment and Plan: On BiPAP. Continue bronchodilators. (5) Non-ST elevation [place] (NSTEMI): Code(s): I21.4 - Non-ST elevation (NSTEMI) myocardial infarction Status: Acute Assessment and Plan: Monitor, Cardiology following (6) Type 2 diabetes mellitus with hyperglycemia: Qualifiers: Diabetes mellitus prison insulin use: with terminal makeup operator use Qualified Code(s): E11.65 - Type 2 diabetes mellitus with hyperglycemia; Z79.4 - terminal superintendent (current) use of insulin Code(s): E11.65 - Type 2 diabetes mellitus with hyperglycemia Status: Acute Assessment and Plan: Continue insulin, monitor blood sugars (7) Electrolyte abnormality: Code(s): E87.8 - Other disorders of electrolyte and fluid balance, not elsewhere classified Status: Acute Assessment and Plan: Electrolytes within normal limits (8) Acute kidney injury: Code(s): N17.9 - Acute kidney failure, unspecified Status: Acute Assessment and Plan: Kidney function is now normal Subjective Date/time seen: 07/12/22 11:17 Patient wants to go home today Exam Narrative: General: Patient is awake, alert on Airvo Lungs/Chest: Trachea central, rales on bilateral lower lung zones, adequate air entry Cardiac: RRR. Normal S1 S2. No murmurs Circulation: Pedal pulses are decreased, symmetrical, feet are warm. Abdomen: Normal bowel sounds. Soft. NT. ND. Extremities: No clubbing, cyanosis or edema. Warm : Armas in place Neurologic: Patient is awake, alert, oriented, follows simple commands, answers to questions appropriately Skin: Several tattoos on chest wall, arms Objective Data Vital Signs Vital Signs: Vital Signs - 24 hr 07/11/22 12:00 07/11/22 14:00 07/11/22 12:00 Temperature Pulse Rate 63 50 L 52 L Respiratory Rate 20 15 Blood Pressure 101/70 Pulse Oximetry 100 92 Oxygen Delivery High Flow Therapy with Na Oxygen Flow Rate 50 Fraction of Inspired Oxygen 35 07/11/22 14:00 07/11/22 14:31 07/11/22 14:40 Temperature Pulse Rate 60 51 L 58 L Respiratory Rate 16 16 Blood Pressure Pulse Oximetry Oxygen Delivery Oxygen Flow Rate Fraction of Inspired Oxygen 07/11/22 16:00 07/11/22 16:00 07/11/22 16:00 Temperature 98.3 F Pulse Rate 55 L 68 60 Respiratory Rate 20 21 H Blood Pressure 95/57 L Pulse Oximetry 92 95 Oxygen Delivery High Flow Therapy with Na Oxygen Flow Rate 50 Fraction of Inspired Oxygen 30 07/11/22 18:00 07/11/22 18:00 07/11/22 20:00 Temperature Pulse Rate 57 L 55 L 59 L Respiratory Rate 17 Blood Pressure Pulse Oximetry 97 Oxygen Delivery Oxygen Flow Rate Fraction of Inspired Oxygen 07/11/22 20:00 07/11/22 20:00 07/11/22 22:00 Temperature 97.8 F Pulse Rate 55 L 59 L 70 Respiratory Rate 17 19 Blood Pressure 92/70 L Pulse Oximetry 97 100 Oxygen Delivery Nasal Cannula Oxygen Flow Rate 3 Fraction of Inspired Oxygen 09
[2022-07-12 11:42] LABS: Glucose Point of Care 323 mg/dl (65-105)
--- NOTE | 2022-07-12 12:34 | PM.PNCARD ---
Progress Note: A&P Assessment and Plan (1) Ischemic cardiomyopathy: Code(s): I25.5 - Ischemic cardiomyopathy Status: Acute Plan 67-year-old man with: Unfortunate diagnosis of severe ischemic cardiomyopathy with multivessel PCI done earlier in the year following which he had abrupt stent thrombosis of his LAD in the setting of medical noncompliance. He now has a low ejection fraction as a consequence of this. He is out of the ICU now and tolerating lisinopril. He seems to be essentially euvolemic some going to shift him back to oral furosemide and start spironolactone today. He tends to be bradycardic and at this point we are still not giving him beta-jessica treatment. He was on a modest dose of carvedilol previously. Once again prognosis for the long-term is very poor in this gentleman for the reasons described above Adria Soriano MD [facility] Subjective Date/time seen: Date of service: 07/12/22 12:34 Interval history: Follow-up visit in this 67-year-old man with significant ischemic cardiomyopathy unfortunately the result of anterior wall infarction in the setting of medical noncompliance with DA PT following multivessel PCI. He has now been extubated for a couple of days and remains relatively stable in the ICU. Lisinopril has been resumed. He still receiving modest dose of furosemide. Chest x-ray looks better this morning. Patient states he is wondering when he can go home. He might be reasonable for transfer to IMU today but obviously he is not appropriate for discharge at this moment 07/12/2022: Patient resting comfortably in bed flat still on nasal cannula oxygen. Asking questions as to whether he will need oxygen at the time of discharge. No shortness of breath no chest pain Exam Narrative: INtubated and sedated Const: General: comfortable; No confusion or uncomfortable Orientation/consciousness: No confusion Other: Chronically ill-appearing white male on BiPAP in ICU room 8. Describes no chest pain or dyspnea HENMT: General nose exam: Normal nares present Mouth: Yes moist mucous membranes Eyes: General: appearance normal, both eyes and all related structures Sclera: sclerae normal Neck: Neck: supple Carotids: no bruits Chest: Other: No chest wall deformity Resp: Effort & Inspection: normal respiratory effort Auscultation: clear to auscultation bilaterally and diminished lung sounds Other: coarse breath sound central Cardio: Rate: regular rate Rhythm: regular rhythm Heart sounds: no murmurs GI: Inspection: non-distended Auscultation: normal bowel sounds Skin: General skin exam: normal color Neuro: General: No confusion Speech: No Abnormal speech present Other: Iintubated and sedated. MOves a little when stimulated Extrem: General: no edema Other: adequate distal perfusion, no significant peripheral edema Psych: Mental Status: mental status grossly abnormal Other: sedated Objective Data Vital Signs Vital Signs: Vital Signs - 24 hr 07/11/22 14:00 07/11/22 14:00 07/11/22 14:31 Temperature Pulse Rate 50 L 60 51 L Respiratory Rate 15 16 Blood Pressure 101/70 Pulse Oximetry 92 Oxygen Delivery Oxygen Flow Rate Fraction of Inspired Oxygen 07/11/22 14:40 07/11/22 16:00 07/11/22 16:00 Temperature Pulse Rate 58 L 55 L 68 Respiratory Rate 16 20 Blood Pressure Pulse Oximetry 92 Oxygen Delivery High Flow Therapy with Na Oxygen Flow Rate 50 Fraction of Inspired Oxygen 30 07/11/22 16:00 07/11/22 18:00 07/11/22 18:00 Temperature 36.8 C Pulse Rate 60 57 L 55 L Respiratory Rate 21 H 17 Blood Pressure 95/57 L Pulse Oximetry 95 97 Oxygen Delivery Oxygen Flow Rate Fraction of Inspired Oxygen 07/11/22 20:00 07/11/22 20:00 07/11/22 20:00 Temperature 36.6 C Pulse Rate 59 L 55 L 59 L Respiratory Rate 17 19 Blood Pressure 92/70 L Pulse Oximetry 97 100 Oxygen Delivery Nasal Cannula
[2022-07-12 16:43] LABS: Glucose Point of Care 127 mg/dl (65-105)
[2022-07-13] VITALS (8 sets, daily range): BP systolic 123–130; BP diastolic 64–75; PULSE 52–95; RESP 16–20; TEMP 36.6–36.8; O2SAT 94–97
[2022-07-13] MEDS: ALBUTEROL SULFATE NEB 2.5 MG/3 ML INH INHALATION ×2 (02:37→08:18)
[2022-07-13] MEDS: IPRATROPIUM BR 0.02% INH SOLN 0.5 MG/2.5 ML VIAL INHALATION ×2 (02:37→08:17)
[2022-07-13] MEDS: guaiFENesin/CODEINE (*CRX) 200/20 MG 10 ML SYRUP PO (04:59)
[2022-07-13] MEDS: CENTRAL LINE FLUSH 10 ML IV PUSH (07:09)
[2022-07-13 07:50] LABS: Glucose Point of Care 129 mg/dl (65-105)
[2022-07-13] MEDS: ENOXAPARIN 40 MG/0.4 ML SYRINGE SUB-Q (08:35)
[2022-07-13] MEDS: PANTOPRAZOLE SODIUM IV 40 MG VIAL IV PUSH (08:35)
[2022-07-13] MEDS: ATORVASTATIN 20 MG TABLET PO (08:35)
[2022-07-13] MEDS: FUROSEMIDE 40 MG TABLET PO (08:35)
[2022-07-13] MEDS: lisinopriL 5 MG TABLET PO (08:36)
[2022-07-13] MEDS: CLOPIDOGREL BISULFATE 75 MG TABLET PO (08:36)
[2022-07-13] MEDS: ASPIRIN 81 MG ENTERIC TABLET PO (08:36)
[2022-07-13] MEDS: SPIRONOLACTONE 25 MG TABLET PO (08:36)
[2022-07-13] MEDS: INSULIN GLARGINE (*BKC) 100 UNITS/ML 20 UNITS SUB-Q (08:42)
[2022-07-13] MEDS: DORNASE ALFA INH SOLN 1 MG/ML 2.5 ML AMP 2.5 MG INHALATION (09:24)
[2022-07-13 09:54] LABS: Hematocrit 31.4 % (42.0-52.0); Hemoglobin 10.5 g/dL (14.0-18.0); Mean Corpuscular HGB Conc 33.4 g/dl (32-36); Mean Corpuscular Hemoglobin 30.3 pg (26-34); Mean Corpuscular Volume 90.8 fl (80-100); Mean Platelet Volume 9.7 fl (7.4-10.4); Platelet Count Result 330 k/mm3 (150-375); Red Blood Count 3.46 M/mm3 (4.6-6.20); Red Cell Distribution Width 14.4 % (11.5-14.5); White Blood Count 10.3 K/mm3 (4.5-10.0)
[2022-07-13 10:04] LABS: Anion Gap 7 mmol/L (8-16); Blood Urea Nitrogen 19 mg/dL (9-20); Calcium 9.2 mg/dL (8.4-10.2); Carbon Dioxide 33 mmol/L (22-30); Chloride 95 mmol/L (98-107); Estimated CRCL calculation 100 ml/min; Estimated Glomerular Filt Rate > 60; Glucose 338 mg/dL (65-110); Potassium 4.2 mmol/L (3.4-5.0); Sodium 135 mmol/L (137-145)
--- NOTE | 2022-07-13 10:42 | PCNFU ---
Nutrition Follow-Up Complete: Inadequate energy intake related to NPO status as evidenced by diet order Goal: PO intake 75% of meals. Pt current nutrition is Pureed level 4, heart healthy per [employer] recommendations. Ensure compact BID for an additional 220kcals, 9g protein per shake. Nutrition recommendation: Continue with current plan of care. Last recorded weight is 86.7 kg -stable at this time Bowel Motility: +BM 07/11 Labs Reviewed: Hgb:10.5, HCT:31.4, NA:135, Glu:338 Meds Noted: lipitor, lovenox, lasix, protonix Skin: WNL Additional Notes: Pt diet advanced per [employer] recs. Intake 50-100% most meals, tolerating well. Ensure compact BID in place. Agree with diet orders. Monitor intake, wt, labs. Follow up every 7 days.
[2022-07-13 11:44] LABS: Glucose Point of Care 368 mg/dl (65-105)
[2022-07-13] MEDS: INSULIN ASPART (*BKC) 100 UNITS/ML SUB-Q (11:46)
--- NOTE | 2022-07-13 12:08 | PCSTNOTE ---
Please refer to the Bedside Swallow Evaluation in the EMR. Please note, silent aspiration cannot be ruled out at bedside.
[2022-07-13] MEDS: NEOMYCIN/POLYMYXIN/BACITRACIN OINTMENT PACKET 1 PACKET (14:40)
--- NOTE | 2022-07-13 14:52 | PM.DS ---
DS: Admitting Diagnosis Discharge Date 07/13/2022 Admitting Diagnosis chest pain DS: Discharge Diagnosis Discharge Diagnosis (1) Acute respiratory failure: Code(s): J96.00 - Acute respiratory failure, unspecified whether with hypoxia or hypercapnia Status: Acute Assessment and Plan: Acute multifactorial hypoxic and hypercarbic Respiratory failure secondary to congestive heart failure, COPD and possible community-acquired pneumonia Currently on BiPAP. Breathing much better. Continue vanc and cefepime. (2) CHF exacerbation: Code(s): I50.9 - Heart failure, unspecified Status: Acute Assessment and Plan: Overall much improved. Continue diuretic therapy continue cardiac medications. Cardiology following (3) Pneumonia: Code(s): J18.9 - Pneumonia, unspecified organism Status: Acute Assessment and Plan: Continue IV antibiotics (4) COPD (chronic obstructive pulmonary disease): Code(s): J44.9 - Chronic obstructive pulmonary disease, unspecified Status: Acute Assessment and Plan: On BiPAP. Continue bronchodilators. (5) Non-ST elevation AL (NSTEMI): Code(s): I21.4 - Non-ST elevation (NSTEMI) myocardial infarction Status: Acute Assessment and Plan: Monitor, Cardiology following (6) Type 2 diabetes mellitus with hyperglycemia: Qualifiers: Diabetes mellitus middle or intermediate school principal insulin use: with middle or intermediate school principal use Qualified Code(s): E11.65 - Type 2 diabetes mellitus with hyperglycemia; Z79.4 - long-term (current) use of insulin Code(s): E11.65 - Type 2 diabetes mellitus with hyperglycemia Status: Acute Assessment and Plan: Continue insulin, monitor blood sugars (7) Electrolyte abnormality: Code(s): E87.8 - Other disorders of electrolyte and fluid balance, not elsewhere classified Status: Acute Assessment and Plan: Electrolytes within normal limits (8) Acute kidney injury: Code(s): N17.9 - Acute kidney failure, unspecified Status: Acute Assessment and Plan: Kidney function is now normal DS: Summary Hospital Course Reason for hospitalization: chest pain Narrative: ?this is a 67-year-old male patient with a history of COPD COPD and diabetes.? The patient came to the emergency room with complaints of shortness of breath.? It was sudden onset just prior to arrival to the emergency room.? It was reported that the patient has been compliant with his home medications.? Patient was tripoding in the non-rebreather was placed on the patient.? Also BiPAP was attempted.? The patient was intubated in the emergency room.? The patient was placed on propofol drip.? His white count is noted to be 21.1.? Initial chest x-ray was read as patchy bilateral airspace opacities consistent with atelectasis versus pneumonia versus pulmonary edema.? Follow-up chest x-ray shows endotracheal tube ending approximately 3 cm above the rutahnn otherwise no change.? Abdominal x-ray shows OG tube in the stomach with proximal side port at the gastroesophageal junction.? Recommend advancing 4-5 cm.? The patient was started on a azithromycin Rocephin.? The patient was given nitroglycerin, Lasix IV, Ativan, and rapid sequence intubation medication.? The patient was initially admitted to observation but then changed to inpatient.? The patient is being admitted to ICU as inpatient status on 07/03/2022. Hospital Course: patient with shortness of breath, respiratry failure was on vent 2/2 multifactorial secondary to exacerbation of? acute on chronic systolic congestive Heart failure patient is being diuresed seen by cardiology resume lisinopril and added Coreg,? community-acquired pneumonia being treated with ceftriaxone and azithromycin, exacerbation of COPD patient is being treated with steroids and bronchodilator, also patient with a drug abuse and positive for amphetamine, on 07/05? patient was given SBT and extubated, stated he
--- NOTE | 2022-07-13 15:00 | PM.PNCARD ---
Progress Note: A&P Assessment and Plan (1) Ischemic cardiomyopathy: Code(s): I25.5 - Ischemic cardiomyopathy Status: Acute Assessment and Plan: Continue current regimen. Continue dual anti-platelet therapy, carvedilol, lisinopril, spironolactone and up titrate meds as need be an able. Plan 67-year-old man with: Unfortunate diagnosis of severe ischemic cardiomyopathy with multivessel PCI done earlier in the year following which he had abrupt stent thrombosis of his LAD in the setting of medical noncompliance. He now has a low ejection fraction as a consequence of this. He is out of the ICU now and tolerating lisinopril. He seems to be essentially euvolemic some going to shift him back to oral furosemide and start spironolactone today. He tends to be bradycardic and at this point we are still not giving him beta-jessica treatment. He was on a modest dose of carvedilol previously. Once again prognosis for the long-term is very poor in this gentleman for the reasons described above Subjective Date/time seen: 07/13/22 15:00 Interval history: Follow-up visit in this 67-year-old man with significant ischemic cardiomyopathy unfortunately the result of anterior wall infarction in the setting of medical noncompliance with DA PT following multivessel PCI. He has now been extubated for a couple of days and remains relatively stable in the ICU. Lisinopril has been resumed. He still receiving modest dose of furosemide. Chest x-ray looks better this morning. Patient states he is wondering when he can go home. He might be reasonable for transfer to IMU today but obviously he is not appropriate for discharge at this moment 07/12/2022: Patient resting comfortably in bed flat still on nasal cannula oxygen. Asking questions as to whether he will need oxygen at the time of discharge. No shortness of breath no chest pain Date of service 07/13/2022: Wants to go home. Already dressed in rate ago. No chest pain or shortness of breath. Review of Systems Review of Systems: All systems reviewed & are unremarkable except as noted in HPI and below ROS unobtainable: Yes unobtainable due to endotracheal tube and unobtainable due to mental status Constitutional: Constitutional: Denies body ache(s) and Denies excessive sweating Eyes: Eyes: Denies blurry vision ENT: Denies lip swelling and Denies epistaxis Cardiovascular: Cardiovascular: Denies leg edema and Reports dyspnea Respiratory: Respiratory: Reports dyspnea Gastrointestinal: Gastrointestinal: Denies melena Genitourinary: Genitourinary: Denies hematuria Musculoskeletal: Musculoskeletal: Denies arthralgias Integumentary/Breasts: Skin/Breast: Denies unusual bruising Neurologic: Denies Abnormal speech present and Denies confusion Psychiatric: Psychiatric: Denies confusion Endocrine: Endocrine: Denies excessive sweating Hematologic/Lymphatic: Hematologic/Lymphatic: Reports easy bleeding Allergic/Immunologic: Allergic/Immunologic: Denies lip swelling Exam Narrative: INtubated and sedated Const: General: comfortable; No confusion or uncomfortable Orientation/consciousness: No confusion Other: Chronically ill-appearing white male on BiPAP in ICU room 8. Describes no chest pain or dyspnea HENMT: General nose exam: Normal nares present Mouth: Yes moist mucous membranes Eyes: General: appearance normal, both eyes and all related structures Sclera: sclerae normal Neck: Neck: supple Carotids: no bruits Chest: Other: No chest wall deformity Resp: Effort & Inspection: normal respiratory effort Auscultation: clear to auscultation bilaterally and diminished lung sounds Other: coarse breath sound central Cardio: Rate: regular rate Rhythm: regular rhythm Heart sounds: no murmurs GI: Inspection: non-distended Auscultation: normal bowel sounds Skin: General skin exam: normal color Neuro: General: No confusion Speech: No Abnormal speech pr
--- NOTE | 2022-07-13 15:15 | PC.NURSE ---
Discharge Instructions, gave patient instructions on central line removal, and went over dressing changes. Patient was anxious and restless.
--- OUTSIDE RECORDS SUMMARY | 2022-07-14 10:59 | XMS_ITS ---
:1955 Author Care Team Providers Name Role Phone Margot Ayala Audrey Primary Care Provider Unavailable Allergies Code Code System Name Reaction Severity Status Onset NKDA ? Medications Name Status Start Date Stop Date ? ? Accu-Chek Guide Glucose Meter Active ? No t available USE DIRECTED Accu-Chek Guide test strips Active ? Not available USE DIRECTED TO TEST BLOOD SUGARS TWICE A DAY Accu-Chek Softclix Lancets Active ? Not a vailable MAY SUBSTITUTE TO IN-STOCK AND/OR COVER ED BY INSURANCE LANCETS. USE DIRECTED albuterol sulf 90 mcg/actuation breath activated powder inhaler, sensor Active ? Not available Inhale 2 puffs every 4 hours by inhalation route. albuterol sulfate 2.5 mg/3 mL (0.083 %) solution for Active ? Not available nebulization albuterol sulfate HFA 90 mcg/actuation aerosol inhaler Active ? Not available INHALE 2 PUFFS BY MOUTH EVERY 4 HOURS NEEDED FOR DIFFICULTY BREATHING Alcohol Prep Pads Active ? Not available DIRECTED FOR BLOOD GLUCOSE TESTING atorvastatin 40 mg tablet Active ? Not av ailable TAKE 1 TABLET BY MOUTH EVERY DAY AT NIGHT BD Ultra-Fine Short Pen Needle 31 gauge x 5/16 Active ? Not available USE ONCE DAILY WITH LANTUS SOLOSTAR Bevespi Aerosphere 9 mcg-4.8 mcg HFA aerosol inhaler Active ? Not available Brilinta 90 mg tablet Active ? Not availa ble TAKE 1 TABLET BY MOUTH 2 TIMES A DAY. carvedilol 3.125 mg tablet Active ? Not a vailable TAKE 1 TABLET BY MOUTH TWICE A DAY WITH MEALS
== END 2022-07-13 15:15 | disposition home or self-care (01) | DRG 208 ==
LOC: ANHED 15:22 → ANHICU 16:17 → ANH3MEDSUR 07-13 14:52 → ANHICU 07-14 10:57
PROVIDERS: Internal Medicine; Admitting Provider Chiropractor; Emergency Provider Emergency Medicine; PCP Internal Medicine; Visit Provider Family Medicine
DX: J96.01 Acute respiratory failure with hypoxia (principal); J18.9 Pneumonia, unspecified organism; I21.4 Non-ST elevation (NSTEMI) myocardial infarction; I50.23 Acute on chronic systolic (congestive) heart failure; J44.0 Chronic obstructive pulmonary disease with (acute) lower respiratory infection; J44.1 Chronic obstructive pulmonary disease with (acute) exacerbation; N17.9 Acute kidney failure, unspecified; I95.9 Hypotension, unspecified; E87.8 Other disorders of electrolyte and fluid balance, not elsewhere classified; J96.02 Acute respiratory failure with hypercapnia; R00.1 Bradycardia, unspecified; I25.10 Atherosclerotic heart disease of native coronary artery without angina pectoris; I25.5 Ischemic cardiomyopathy; E11.65 Type 2 diabetes mellitus with hyperglycemia; F17.210 Nicotine dependence, cigarettes, uncomplicated; F15.10 Other stimulant abuse, uncomplicated; G47.33 Obstructive sleep apnea (adult) (pediatric); Z79.4 Long term (current) use of insulin; Z79.84 Long term (current) use of oral hypoglycemic drugs; Z79.899 Other long term (current) drug therapy; Z85.828 Personal history of other malignant neoplasm of skin; Z91.19 Patient's noncompliance with other medical treatment and regimen; Z95.5 Presence of coronary angioplasty implant and graft
CPT/HCPCS: 31500; 36415; 36600; 71045; 74019; 80048; 80053; 80202; 80307; 82375; 82565; 82805; 82948; 83050; 83605; 83735; 83880; 84100; 84145; 84484; 85025; 85027; 85610; 85730; 87040; 87070; 87081; 87205; 92610; 93005; 93308; 94002; 94003; 94640; 96375; 97110; 97116; 97161; 97165; 99291; A9270; C1751; C8924; C9113; J0330; J0360; J0456; J0692; J0696; J1650; J1815; J1940; J2060; J2250; J2270; J2405; J2704; J2930; J3010; J3370; J3480; J7030; P9045; P9047; Q9957

== ENCOUNTER 2022-07-14 02:57 | Inpatient (IN) | payer MEDICARE, MEDICAID, SELFPAY ==
[2022-07-14] VITALS (88 sets, daily range): BP systolic 77–146; BP diastolic 50–94; PULSE 50–133; RESP 17–31; TEMP 36.5–37; O2SAT 77–100; BMI 24.0
--- NOTE | ~2022-07-14 | XR_ITS ---
XR chest 1V portable DATE: 07/17/2022 06:43 INDICATION: Intubation. Respiratory distress. TECHNIQUE: Portable AP chest on 07/17/2022 at 0553 hours COMPARISON: 07/16/2022 portable AP chest at 0527 hours FINDINGS: Right internal jugular central venous catheter tip overlies upper right atrium. No pneumoth orax. No endotracheal tube is identified. Heart size is within normal range. Persistent infiltrates and/or atelectasis in the right mid and both lower lung zones, mildly improved since 07/26/2022. No pleural effusion. IMPRESSION: Persistent right mid and bilateral lower lung infiltrate and/atelectasis, with mild impro vement since 07/26/2022 Reviewed, dictated and finalized at location A. IMPRESSION: Persistent right mid and bilateral lower lung infiltrate and/atelec tasis, with mild improvement since 07/26/2022
--- NOTE | ~2022-07-14 | XR_ITS ---
EXAMINATION: XR chest ET placement DATE: 07/14/2022 03:49 INDICATION: Intubation. TECHNIQUE: A single frontal view of the chest was obtained on 2 radiographs. COMPARISON: Chest single view 07/11/2022 FINDINGS: There is a diffuse interstitial pattern, consistent mild pulmonary edema. No pleural effusi on or pneumothorax. The heart size is normal. The endotracheal tube tip is 6.1 cm above the ruthann. T he nasogastric tube tip is in the stomach. IMPRESSION: 1. Mild pulmonary edema. Reviewed, dictated and finalized at location A. IMPRESSION: 1. Mild pulmonary edema.
--- NOTE | ~2022-07-14 | XR_ITS ---
EXAMINATION: XR abdomen NG/feed tube insert DATE: 07/14/2022 03:49 INDICATION: Nasogastric tube placement. TECHNIQUE: A supine view of the abdomen was obtained. COMPARISON: None. FINDINGS: The lower abdomen is excluded. The nasogastric tube tip is in the stomach. IMPRESSION: 1. Nasogastric tube tip in the stomach. Reviewed, dictated and finalized at location A.
--- NOTE | ~2022-07-14 | XR_ITS ---
EXAMINATION: XR chest 1V portable DATE: 07/15/2022 05:47 INDICATION: Intubated. TECHNIQUE: A single frontal view of the chest was obtained. COMPARISON: Chest single view 07/14/2022 FINDINGS: There are airspace opacities in right mid and lower lung zones and left lower lung zone. No pleural effusion or pneumothorax. The heart size is normal. The endotracheal tube tip is 6 mm above the ruthann. The nasogastric tube tip is in the stomach. A right internal jugular central venous mary ter is seen with tip in the proximal right atrium. IMPRESSION: 1. Airspace opacities in the right mid and lower lung zones and left lower lung zone with improvement on the left, consistent with pulmonary edema versus pneumonia. 2. Endotracheal tube tip 6 mm above the ruthann. Reviewed, dictated and finalized at location A. IMPRESSION: 1. Airspace opacities in the right mid and lower lung zones and left lower lung zone with improvement on the left, consistent with pulmonary edema versus pneu monia. 2. Endotracheal tube tip 6 mm above the ruthann.
--- NOTE | ~2022-07-14 | XR_ITS ---
EXAMINATION: XR chest port-a-cath/central DATE: 07/14/2022 05:45 INDICATION: Central line placement. TECHNIQUE: A single frontal view of the chest was obtained on 2 radiographs. COMPARISON: Chest single view at 3:39 AM, CT abdomen and pelvis 09/03/2020 FINDINGS: There are mild airspace opacities in the perihilar regions, left worse in right. No pleural effusion or pneumothorax. The heart size is normal. The endotracheal tube tip is 4.1 cm above the ca anil. The nasogastric tube tip is in the stomach. A right internal jugular central venous catheter is seen with tip at the superior cavoatrial junction. IMPRESSION: 1. Central line tip at superior cavoatrial junction. 2. Airspace opacities in the perihilar regions, consistent with pulmonary edema without or with super imposed pneumonia. Reviewed, dictated and finalized at location A. IMPRESSION: 1. Central line tip at superior cavoatrial junction. 2. Airspace opacities in the perihilar regions, consistent with pulmonary edema without or with superimposed pneumonia.
--- NOTE | ~2022-07-14 | XR_ITS ---
EXAMINATION: XR chest 1V portable DATE: 07/16/2022 05:34 INDICATION: Respiratory distress. TECHNIQUE: A single frontal view of the chest was obtained on 2 radiographs. COMPARISON: Chest single view 07/15/2022, CT abdomen and pelvis 09/03/2020 FINDINGS: There is a small right pleural effusion. There are airspace opacities in the mid and lower lung zones. No pneumothorax. The heart size is normal. A right internal jugular central venous cathet er is seen with tip at the superior cavoatrial junction. IMPRESSION: 1. Worsened small right pleural effusion. 2. Airspace opacities in the mid and lower lung zones with worsening on the right, consistent with pu lmonary edema versus pneumonia. Reviewed, dictated and finalized at location A. IMPRESSION: 1. Worsened small right pleural effusion. 2. Airspace opacities in the mid and lower lung zones with worsening on the rig ht, consistent with pulmonary edema versus pneumonia.
[2022-07-14] MEDS: LORazepam INJ (*CRX) 2 MG/ML VIAL (03:07)
[2022-07-14] MEDS: ALBUTEROL SULFATE NEB 2.5 MG/0.5 ML INH 15 MG (03:10)
[2022-07-14] MEDS: IPRATROPIUM BR 0.02% INH SOLN 0.5 MG/2.5 ML VIAL 1.5 MG (03:10)
[2022-07-14 03:21] LABS: Glucose Point of Care 429 mg/dl (65-105)
[2022-07-14] MEDS: RAPID SEQUENCE INTUBATION KIT 1 EACH (03:24)
--- NOTE | 2022-07-14 03:25 | PC.NURSE ---
Intubated by Dr Bauer. 8.0 tube placed at 24 cm at the teeth. Color change noted. Breathe sounds bilaterally
--- NOTE | 2022-07-14 03:28 | ECG_ITS ---
Measurements Intervals [place] Rate: 98 P: 72 VA: 192 QRS: 66 QRSD: 102 T: 83 QT: 337 QTc: 432 Interpretive Statements SINUS RHYTHM POSSIBLE LEFT ATRIAL ENLARGEMENT SEPTAL INFARCT, PROBABLY RECENT ST ABNORMALITY IN LATERAL LEADS- CONSIDER ISCHEMIA ABNORMAL ECG COMPARED TO ECG 07/03/2022 12:38:06 HE[address] DECRE[address] ABNORMALITY IN LATERAL LEADS- CONSIDER ISCHEMIA Electronically Signed On 07-14-2022 6:47:09 CDT by Jordan Wright D.O.
[2022-07-14 03:35] LABS: Hematocrit 32.7 % (42.0-52.0); Hemoglobin 10.2 g/dL (14.0-18.0); Mean Corpuscular HGB Conc 31.2 g/dl (32-36); Mean Corpuscular Volume 96.2 fl (80-100); Mean Platelet Volume 9.5 fl (7.4-10.4); Platelet Count Result 485 k/mm3 (150-375); Red Cell Distribution Width 14.6 % (11.5-14.5); White Blood Count 22.2 K/mm3 (4.5-10.0)
--- NOTE | 2022-07-14 03:35 | PC.NURSE ---
OG tube placed. Checked placement with auscultation and xray
[2022-07-14] MEDS: MIDAZOLAM HCL (*CRX) 2 MG/2 ML VIAL 4 MG IV PUSH (03:40)
--- NOTE | 2022-07-14 03:42 | ED.SOB ---
HPI - SOB/Dyspnea General Chief Complaint: Shortness of Breath/Dyspnea Stated Complaint: RESP DISTRESS Time Seen by Provider: 07/14/22 03:07 History of Present Illness HPI Narrative: HPI limited due to acuity of condition This is a 67-year-old male with past medical history of CHF, who left AMA yesterday for CHF exacerbation, brought in by EMS for difficulty breathing. EMS reports patient was hypoxic to the low 70s, he was placed on CPAP and given magnesium, Solu-Medrol and albuterol with mild improvement in route. Patient states he cannot breathe. He denies chest pain. Related Data Home Medications Medication Instructions Recorded Confirmed carvedilol 3.125 mg tablet 3.125 mg PO BID 07/03/22 07/03/22 clopidogrel 75 mg tablet 75 mg PO DAILY 07/03/22 07/03/22 lisinopril 5 mg tablet 5 mg PO DAILY 07/03/22 07/03/22 metformin 500 mg tablet 500 mg PO BIDWM 07/03/22 07/03/22 Allergies Allergy/AdvReac Type Severity Reaction Status Date / Time No Known Allergies Allergy Verified 07/03/22 11:33 Review of Systems Review of Systems: Review of systems limited due to acuity of condition CONSTITUTIONAL: Denies fever, chills, or sweats. CARDIOVASCULAR: Denies chest pain, palpitations, or edema. RESPIRATORY: Dyspnea. GASTROINTESTINAL: Denies abdominal pain, nausea, vomiting, or diarrhea. [facility] Past Medical History Medical History COPD (chronic obstructive pulmonary disease) Diabetes mellitus Hemoglobin A1c 12.09 August 2020 Obstructive sleep apnea Renal lesion Skin cancer Surgical History Surgical History History of left knee surgery History of right knee surgery History of shoulder surgery Left Family History Family History Sibling Diabetes mellitus Father Emphysema lung Social History Social History Social History: He lives with his significant other. He smokes about a 3rd of pack of cigarettes per day. He denies any alcohol abuse or illicit drugs. He has 4 children. Code status: Full code Smoking packs per day: 0.33 Smoking cigarettes per day: 6.6 Years smoked: 58 Smoking pack-years: 19.14 Smoking status: Current every day smoker Tobacco type: cigarettes Second hand tobacco smoke exposure: Yes Additional smoking assessment comments: currently wearing nocitone patch, reports he is cutting down and trying to Alcohol intake: current Drinks per week: 2 Substance use: current Substance use type: marijuana and methamphetamine Other substance usage details: Unknown Last use: daughter suspects amphetamine use-not sure Gender identity (if verbalized by the patient): Male Spiritual care concerns: No Exam Narrative: GENERAL: Well-nourished, in significant distress due to dyspnea HEAD: Normocephalic, atraumatic. EYES: PERRLA and EOMI. ENT: Nares clear, no rhinorrhea or epistaxis. Mucous membranes moist. Oropharynx without tonsillar hypertrophy exudate or other lesions. Upper and lower dentures in place NECK: No carotid bruits or JVD CHEST: Using accessory muscles of respiration, tripoding, diffuse rales noted with poor aeration, in respiratory distress. HEART: Regular rate and rhythm. No murmur heard. Normal peripheral pulses. ABDOMEN: Soft, nontender, nondistended, normal active bowel sounds. EXTREMITIES: Normal range of motion. No edema. SKIN: Cool, mottled, dry NEURO: No focal deficits. Moving all 4, following commands, alert and oriented x3. PSYCH: Anxious Course Course Emergency Course: 03:25 -bedside ultrasound shows bilateral B-lines, technically difficult study, unable to assess ventricular function review of documentation shows patient left AMA yesterday was being treated for CHF exacerbation. Patient is severely anxious, will give
[2022-07-14 03:45] LABS: INR 1.3; Prothrombin Time 15.4 Seconds (11.1-14.7)
[2022-07-14] MEDS: FUROSEMIDE INJ 40 MG/4 ML VIAL IV PUSH (03:45)
[2022-07-14 03:47] LABS: Alanine Aminotransferase 38 U/L (6-50); Albumin Level 4.6 g/dL (3.5-5.1); Alkaline Phosphatase 56 U/L (38-126); Anion Gap 14 mmol/L (8-16); Aspartate Amino Transferase 49 U/L (17-59); Bilirubin,Total 0.7 mg/dL (0.2-1.3); Blood Urea Nitrogen 22 mg/dL (9-20); Calcium 8.9 mg/dL (8.4-10.2); Carbon Dioxide 26 mmol/L (22-30); Chloride 98 mmol/L (98-107); Estimated Glomerular Filt Rate > 60; Glucose 453 mg/dL (65-110); Magnesium 2.8 mg/dL (1.6-2.3); Potassium 3.6 mmol/L (3.4-5.0); Sodium 138 mmol/L (137-145)
[2022-07-14 03:54] LABS: D Dimer 0.76 ug/mL (<0.48)
[2022-07-14 03:54] LABS: Base Excess ABG -4.6 mEq/l (+/-2.0); Carboxyhemoglobin 0.1 % THb (0-2.0); Fractional Inspired Oxygen 100 %; HCO3 ABG 24.3 mEq/l (22.0-26.0); Methemoglobin ABG 0.3 %THb (0-1.5); Oxygen Content ABG 15.6 %vol (16.0-22.0); Oxygen Saturation ABG 99.1 % (95.0-100.0); Oxyhemoglobin 97.9 % THb (90.0-100.0); PO2 ABG 203.7 mmHg (80.0-100.0); PO2 FiO2 Ratio Arterial Blood 2.04 %; Reduced Hemoglobin 1.7 %THb (0-5.0)
[2022-07-14 03:56] LABS: pH ABG 7.189 (7.350-7.450)
[2022-07-14 03:57] LABS: Device VENTILATOR; Modified Allen's Test Pass; PCO2 ABG 65.3 mmHg (35.0-45.0); Site Drawn RIGHT RADIAL
[2022-07-14 03:58] LABS: Arterial Blood Gas PEEP 8 cmH2O; Arterial Blood Gas Tidal Volume 470 ml; Arterial Blood Gas Vent Mode CMV; Arterial Blood Gas Ventilator rate 18 /MIN
[2022-07-14 03:59] LABS: Band Neutrophils Percent 1 % (0-6); Basophils Absolute Manual 0.66 K/mm3 (0.0-0.1); Basophils Percent Manual 3 % (0-1); Eosinophils Absolute Manual 0.44 K/mm3 (0.02-0.5); Eosinophils Percent Manual 2 % (0-4); Giant Platelets Present; Lymphocytes Absolute Manual 5.55 K/mm3 (1.1-4.5); Metamyelocytes Percent 4 %; Monocytes Absolute Manual 0.66 K/mm3 (0.1-0.90); Monocytes Percent Manual 3 % (3-9); Neutrophils Absolute Manual 13.98 K/mm3 (1.3-6.7); Neutrophils Percent Manual 62 % (46-73); Poikilocytosis 1+ (NORMAL); Total Cells Counted 100
[2022-07-14 04:00] LABS: Acanthocytes 2+ (NORMAL); Burr Cells 1+ (NORMAL); Crenated RBC 2+ (NORMAL)
[2022-07-14 04:01] LABS: Lactic Acid Reflex 6.4 mmol/L (0.7-2.0); Microcytosis 1+ (NORMAL)
[2022-07-14 04:02] LABS: Anisocytosis 1+ (NORMAL); Macrocytosis 1+ (NORMAL); NT Pro B Type Natriuretic Pept 9540 pg/mL (5-100); Troponin I 0.139 ng/mL (0.000-0.034)
[2022-07-14 04:06] LABS: Appearance Urine Clear (Clear); Bilirubin Urine Negative (Negative); Blood Urine Negative (Negative); Color Urine Yellow (Yellow); Glucose Urine UA 2+ mg/dL (Negative); Ketones Urine Negative (Negative); Leukocyte Esterase Ur Negative LEU/UL (Negative); Nitrate Urine Negative (Negative); Protein Urine 3+ mg/dL (Negative); Specific Grav Ur 1.025 (1.001-1.035)
[2022-07-14] MEDS: FENTANYL 2,500MCG/NS250ML(*CRX 2,500 MCG/250 ML BAG IV CONT (04:09)
[2022-07-14] MEDS: MIDAZOLAM 100MG/NS 100ML(*CRX) 100 MG/100 ML BAG IV CONT ×2 (04:10→22:27)
[2022-07-14 04:12] LABS: Add Urine Microscopic? YES
[2022-07-14] MEDS: MIDAZOLAM HCL (*CRX) 2 MG/2 ML VIAL 4 MG (04:14)
[2022-07-14 04:15] LABS: RBC Urine 0-2 /hpf (0-2)
[2022-07-14 04:17] LABS: Squamous Epithelial Cell Urine Few /hpf (Few)
[2022-07-14 04:18] LABS: Bacteria Urine None seen /hpf; Mucus Urine Few /lpf
[2022-07-14] MEDS: NOREPINEPHRINE 8 MG/D5W 250 ML 8 MG/250 ML BAG 9.38 MG IV CONT (04:20)
[2022-07-14 04:26] LABS: Amphetamine Screen Urine Negative (Negative); Barbiturate Screen Urine Negative (Negative); Benzodiazepines Screen Urine Negative (Negative); Cannabinoid Screen Urine Negative (Negative); Cocaine Screen Urine Negative (Negative); Methadone Screen Urine Negative (Negative); Opiate Screen Urine Positive (Negative); Phencyclidine Screen Urine Negative (Negative)
[2022-07-14 04:47] LABS: Lactic Acid Reflex 2.6 mmol/L (0.7-2.0)
--- NOTE | 2022-07-14 05:00 | PM.IMHP ---
H&P: HPI History of Present Illness Date/Time: 07/14/22 05:00 Chief Complaint: shortness of breath Narrative: This is a 67-year-old male with past medical history significant for ischemic cardiomyopathy, multiple vessel disease, status post PCI, in stent Thrombosis and occlusion of LAD, ejection fraction 20% to 30% approximately patient just recently went home against medical advice had been on ventilator support due to hypoxic and hypercarbic respiratory failure with multifactorial reasons which mainly stem out from severe cardiomyopathy and congestive heart failure or treated for pneumonia as well patient returns to the emergency room with worsening shortness of breath while in ED patient then progressively became obtunded an ABG showed a pH of 7.1 with a pCO2 of 67 PO2 in the 200 placed on ventilator support his blood pressure or was systolic in the 80s patient require vasopressors his chemistry panel was significant for brain natriuretic peptide of 9000 a lactic acid initially was 6.5 WBC was 22,000. patient has been admitted for further evaluation management and treatment. Review of Systems Review of Systems: ROS unobtainable: Yes unobtainable due to medical condition ( on ventilator support) [facility] Past Medical History Medical History COPD (chronic obstructive pulmonary disease) Diabetes mellitus Hemoglobin A1c 12.09 August 2020 Obstructive sleep apnea Renal lesion Skin cancer Surgical History Surgical History History of left knee surgery History of right knee surgery History of shoulder surgery Left Family History Family History Sibling Diabetes mellitus Father Emphysema lung Social History Social History Social History: He lives with his significant other. He smokes about a 3rd of pack of cigarettes per day. He denies any alcohol abuse or illicit drugs. He has 4 children. Code status: Full code Smoking packs per day: 0.33 Smoking cigarettes per day: 6.6 Years smoked: 58 Smoking pack-years: 19.14 Smoking status: Current every day smoker Tobacco type: cigarettes Second hand tobacco smoke exposure: Yes Additional smoking assessment comments: currently wearing nocitone patch, reports he is cutting down and trying to Alcohol intake: current Drinks per week: 2 Substance use: current Substance use type: marijuana and amphetamines Other substance usage details: former meth user current marijuana, drinks 1 a month Last use: daughter suspects amphetamine use-not sure Gender identity (if verbalized by the patient): Male Spiritual care concerns: No Meds Home Medications and Allergies Home Medications Medication Instructions Recorded Confirmed Type albuterol sulfate 90 mcg/actuation 2 puff inhalation QID PRN 12/14/20 07/03/22 Rx aerosol inhaler (ProAir HFA) Shortness Of Breath Or Wheezing #6.7 grams blood sugar diagnostic (OneTouch #1 pkg 12/14/20 07/03/22 Rx Verio test strips) blood-glucose meter (OneTouch #1 pkg 12/14/20 07/03/22 Rx Verio Flex Meter) lancets 30 gauge (OneTouch Delica #1 pkg 12/14/20 07/03/22 Rx Plus Lancet) pen needle, diabetic 32 gauge x #1 pkg 12/14/20 07/03/22 Rx 5/32 (BD Ultra-Fine Vannessa Pen Needle) insulin glargine 100 unit/mL 45 unit (0.45 mL) subcut HS #10 mL 05/28/21 07/03/22 Rx subcutaneous solution (Lantus U-100 Insulin) carvedilol 3.125 mg tablet 3.125 mg PO BID 07/03/22 07/03/22 History clopidogrel 75 mg tablet 75 mg PO DAILY 07/03/22 07/03/22 History lisinopril 5 mg tablet 5 mg PO DAILY 07/03/22 07/03/22 History metformin 500 mg tablet 500 mg PO BIDWM 07/03/22 07/03/22 History aspirin 81 mg tablet,delayed 81 mg PO QAM #30 tabs 07/13/22 Rx release atorvastatin 20 mg tablet 20
--- NOTE | 2022-07-14 05:18 | PC.NURSE ---
MD at bedside trying to place central line. Meds given due to pt fighting MD and team at bedside
[2022-07-14 06:34] LABS: Reflex Lactic Acid Yes or No Add Lactic
[2022-07-14] MEDS: ROCURONIUM BROMIDE 50 MG/5 ML VIAL IV PUSH (06:37)
[2022-07-14] MEDS: fentaNYL CITRATE INJ (*CRX) 100 MCG/2 ML VIAL 50 MCG IV PUSH (06:37)
[2022-07-14] MEDS: MIDAZOLAM HCL (*CRX) 2 MG/2 ML VIAL 6 MG (06:47)
[2022-07-14 06:48] LABS: Glucose Point of Care 383 mg/dl (65-105)
--- NOTE | 2022-07-14 06:50 | ADMGEN ---
This patient, Samuel Conway , was admitted to Intensive Care Unit-5 at 0620. Patient/family oriented to hospital policies and general routines including ID bracelet, bed and alarms, visiting hours, pain management, procedures, bathroom and other care routines, personal items, smoking policy, room service/diet, and visiting hours. Information on how to activate the Rapid Response Team has been discussed. Patient/Family are encouraged to report perceived risks to care and to ask questions if they do not understand what they are told or what they should do.
--- NOTE | 2022-07-14 08:00 | WPDCNINT ---
Assessment and Plan Assessment and plan (1) Acute respiratory failure with hypoxia and hypercapnia: Code(s): J96.01 - Acute respiratory failure with hypoxia; J96.02 - Acute respiratory failure with hypercapnia Status: Acute Assessment and Plan: Acute Respiratory failure secondary to pulmonary edema and congestive heart failure with baseline COPD Continue full mechanical ventilation support to prevent hypoxemia/hypercarbia and end organ damage. ABG reviewed. Respiratory rate increased to 22. FiO2 weaned down to 65%. Peep is at 8. ABG PCXR reviewed and advance ET tube by 3 cm Hold diuretics at this time due to shock Low tidal volume ventilation strategy to prevent volutrauma Will order Bronchodilators Hold steroid On broad-spectrum antibiotics at this time (2) Acute on chronic systolic heart failure: Code(s): I50.23 - Acute on chronic systolic (congestive) heart failure Status: Acute Assessment and Plan: Hold diuretics at this time due to shock Echocardiogram 07/05/2022 Summary ? 1. The mid to apical anterior wall is akinetic. ? 2. The apex is dyskinetic. ? 3. The mid to apical septum is akinetic. ? 4. The apical lateral wall is akinetic. ? 5. The apical inferior wall is akinetic. ? 6. Left ventricular systolic function is severely reduced, estimated at 25-30%. ? 7. Left atrial chamber dimension is mildly enlarged. ? 8. Compared with examination from March of this year left ventricular systolic function has not changed appreciably. (3) CAD (coronary artery disease): Code(s): I25.10 - Atherosclerotic heart disease of [place] coronary artery without angina pectoris Status: Acute Assessment and Plan: EKG reviewed Continue aspirin Plavix and statin Hold beta-jessica, lisinopril and Aldactone to shock (4) Non-ST elevation VT (NSTEMI): Code(s): I21.4 - Non-ST elevation (NSTEMI) myocardial infarction Status: Acute Assessment and Plan: Patient always has mildly elevated troponin levels. Continue serial troponin See treatment as above EKG reviewed (5) Ischemic cardiomyopathy: Code(s): I25.5 - Ischemic cardiomyopathy Status: Acute Assessment and Plan: See above (6) COPD (chronic obstructive pulmonary disease): Code(s): J44.9 - Chronic obstructive pulmonary disease, unspecified Status: Acute Assessment and Plan: Continue bronchodilators Oral steroid as patient does not appear to be in exacerbation (7) Type 2 diabetes mellitus with hyperglycemia: Qualifiers: Diabetes mellitus halfway insulin use: with halfway use Qualified Code(s): E11.65 - Type 2 diabetes mellitus with hyperglycemia; Z79.4 - bed bug exterminator (current) use of insulin Code(s): E11.65 - Type 2 diabetes mellitus with hyperglycemia Status: Acute Assessment and Plan: Start insulin Add Lantus once tube feeds are resumed (8) Shock: Code(s): R57.9 - Shock, unspecified Status: Acute Assessment and Plan: Post intubation patient became hypotensive. Patient was not given IV fluids due to congestive heart failure and was started on vasopressors Shock likely multifactorial -cardiogenic, positive pressure ventilation, possible sepsis Continue Levophed titration to maintain map (9) Sepsis: Code(s): A41.9 - Sepsis, unspecified organism Status: Acute Assessment and Plan: Patient presented with picture consistent with sepsis with elevated WBC count, lactic acid level hypoxia and later became hypotensive Patient was recently treated for pneumonia during last hospitalization and patient left AMA yesterday. It is unlikely the patient about new infection in less than 12 hours Patient was started on vancomycin and cefepime in ER will be continued for now Check procalcitonin level Blood Cultures have been sent. I will add sputum cultures Will deescalate in 48 hours if no obvious source of infection UA is negati
[2022-07-14 08:06] LABS: Lactic Acid 0.9 mmol/L (0.7-2.0)
[2022-07-14] MEDS: CLOPIDOGREL BISULFATE 75 MG TABLET PO (08:21)
[2022-07-14] MEDS: ATORVASTATIN 20 MG TABLET PO (08:21)
[2022-07-14] MEDS: ASPIRIN 325 MG TABLET PO (08:21)
[2022-07-14] MEDS: INSULIN ASPART (*BKC) 100 UNITS/ML SUB-Q ×3 (08:22→16:00)
[2022-07-14] MEDS: polyethylene glycoL 3350 17 GM POWD.PACK PO (08:22)
[2022-07-14] MEDS: PANTOPRAZOLE SODIUM IV 40 MG VIAL IV PUSH (08:22)
[2022-07-14] MEDS: MINERAL OIL/WHITE PETROLATUM OINTMENT 1 APPLIC EACH EYE ×2 (08:26→20:37)
[2022-07-14 08:35] LABS: Alveolar/Arterial O2 Gradient 316.4 mmHg; Device VENTILATOR; Fractional Inspired Oxygen 65 %; HCO3 ABG 27.1 mEq/l (22.0-26.0); Modified Allen's Test Pass; Oxygen Content ABG 14.6 %vol (16.0-22.0); Oxygen Saturation ABG 96.7 % (95.0-100.0); Oxyhemoglobin 95.2 % THb (90.0-100.0); PCO2 ABG 50.1 mmHg (35.0-45.0); PO2 ABG 92.6 mmHg (80.0-100.0); PO2 FiO2 Ratio Arterial Blood 1.42 %; Site Drawn LEFT RADIAL; Total Hemoglobin 10.8 g/dL (12.0-18.0); pH ABG 7.351 (7.350-7.450)
[2022-07-14 08:36] LABS: Arterial Blood Gas PEEP 8 cmH2O; Arterial Blood Gas Tidal Volume 470 ml; Arterial Blood Gas Vent Mode CMV; Arterial Blood Gas Ventilator rate 20 /MIN
[2022-07-14 08:55] LABS: Procalcitonin 0.3 ng/mL
[2022-07-14] MEDS: INSULIN GLARGINE (*BKC) 100 UNITS/ML 30 UNITS SUB-Q (08:58)
[2022-07-14] MEDS: POTASSIUM CHLORIDE 20 MEQ PACKET (FOR LIQUID) FEED TUBE (08:59)
[2022-07-14] MEDS: ENOXAPARIN 40 MG/0.4 ML SYRINGE SUB-Q (09:19)
[2022-07-14 11:35] LABS: Glucose Point of Care 284 mg/dl (65-105)
[2022-07-14] MEDS: NOREPINEPHRINE 8 MG/D5W 250 ML 8 MG/250 ML BAG 18.75 MG IV CONT (12:18)
[2022-07-14] MEDS: CENTRAL LINE FLUSH 10 ML IV PUSH ×3 (14:52→20:43)
--- NOTE | 2022-07-14 15:53 | PM.IMPN ---
Progress Note: A&P Assessment and Plan (1) Acute hypercapnic respiratory failure: Code(s): J96.02 - Acute respiratory failure with hypercapnia Status: Acute Assessment and Plan: currently on ventilator support vent management as per Critical Care (2) Acute on chronic systolic heart failure: Code(s): I50.23 - Acute on chronic systolic (congestive) heart failure Status: Acute Assessment and Plan: Diuretic on hold due to shock and requiring vasopressor Strict I's and O's daily cardiology consulted EF 25-30% 07/05 (3) CAD (coronary artery disease): Code(s): I25.10 - Atherosclerotic heart disease of [place] coronary artery without angina pectoris Status: Acute Assessment and Plan: continue DAPT CONTINUE CARVEDILOL hold bb, lisinopril and aldactone due to hypotension (4) Ischemic cardiomyopathy: Code(s): I25.5 - Ischemic cardiomyopathy Status: Acute Assessment and Plan: EJECTION FRACTION 20-30% POOR PROGNOSIS (5) Type 2 diabetes mellitus with hyperglycemia: Qualifiers: Diabetes mellitus shelter insulin use: with shelter use Qualified Code(s): E11.65 - Type 2 diabetes mellitus with hyperglycemia; Z79.4 - [facility] (current) use of insulin Code(s): E11.65 - Type 2 diabetes mellitus with hyperglycemia Status: Acute Assessment and Plan: HOLD METFORMIN INSULIN SLIDING SCALE NEEDED (6) Tobacco abuse: Code(s): Z72.0 - Tobacco use Status: Acute Assessment and Plan: WILL BENEFIT FROM TOBACCO CESSATION (7) Amphetamine abuse: Code(s): F15.10 - Other stimulant abuse, uncomplicated Status: Acute Assessment and Plan: WILL BENEFIT FROM AMPHETAMINE USE CESSATION (8) COPD (chronic obstructive pulmonary disease): Code(s): J44.9 - Chronic obstructive pulmonary disease, unspecified Status: Acute Assessment and Plan: NOT ACTIVELY WHEEZING BREATHING TREATMENTS NEEDED PULMONARY TOILET (9) Elevated troponin: Code(s): R77.8 - Other specified abnormalities of plasma proteins Status: Acute Assessment and Plan: CONTINUE TO TREND EKG WITH NO ACUTE CHANGES Subjective Date/time seen: 07/14/22 15:53 Interval history: This is a 67-year-old male with past medical history significant for ischemic cardiomyopathy, multiple vessel disease, status post PCI, in stent ? Thrombosis? and occlusion of LAD, ejection fraction? 20% to 30% approximately patient just recently went home against medical advice had been on ventilator support due to hypoxic and hypercarbic respiratory failure with multifactorial reasons which mainly stem out from severe cardiomyopathy and congestive heart failure or treated for pneumonia as well patient returns to the emergency room with worsening shortness of breath while in ED patient then progressively became obtunded an ABG showed a pH of 7.1 with a pCO2 of 67 PO2 in the 200 placed on ventilator support his blood pressure or was systolic in the 80s patient require vasopressors his chemistry panel was significant for brain natriuretic peptide of 9000 a lactic acid initially was 6.5 WBC? was 22,000. patient has been admitted for further evaluation management and treatment. 07/14/2022 no overnight events. Reviewed chart. Discussed with nursing staff. Echo reviewed. Review of Systems Review of Systems: ROS unobtainable: Yes unobtainable due to mental status Exam Narrative: GENERAL:?intubated, sedated on vent HEAD: Normocephalic, atraumatic. EYES: PERRLA and EOMI. NECK:? No carotid bruits or JVD CHEST: bilateral equal airentry, no respiratory distress HEART: Regular rate and rhythm.? No murmur heard.? Normal peripheral pulses. ABDOMEN: Soft, nontender, nondistended, normal active bowel sounds. EXTREMITIES: Normal range of motion.? No edema. SKIN:no rash, no lesions NEURO: sedated, on vent. Objective Data Vital Si
[2022-07-14 16:05] LABS: Glucose Point of Care 221 mg/dl (65-105)
[2022-07-14] MEDS: FENTANYL 2,500MCG/NS250ML(*CRX 2,500 MCG/250 ML BAG 10 MCG IV CONT (18:34)
[2022-07-14 19:38] LABS: Glucose Point of Care 192 mg/dl (65-105)
[2022-07-15] VITALS (33 sets, daily range): BP systolic 96–140; BP diastolic 54–93; PULSE 52–95; RESP 14–21; TEMP 36.1–37.1; O2SAT 92–100
[2022-07-15 00:19] LABS: Glucose Point of Care 251 mg/dl (65-105)
[2022-07-15] MEDS: INSULIN ASPART (*BKC) 100 UNITS/ML SUB-Q ×2 (00:23→21:16)
[2022-07-15] MEDS: NOREPINEPHRINE 8 MG/D5W 250 ML 8 MG/250 ML BAG 16.88 MG IV CONT (02:27)
[2022-07-15 05:00] LABS: Glucose Point of Care 199 mg/dl (65-105)
[2022-07-15 05:20] LABS: Alveolar/Arterial O2 Gradient 77.6 mmHg; Base Excess ABG 6.2 mEq/l (+/-2.0); Carboxyhemoglobin 0.3 % THb (0-2.0); Fractional Inspired Oxygen 28 %; HCO3 ABG 29.9 mEq/l (22.0-26.0); Methemoglobin ABG 0.4 %THb (0-1.5); Oxygen Saturation ABG 96.2 % (95.0-100.0); Oxyhemoglobin 94.2 % THb (90.0-100.0); PCO2 ABG 39.4 mmHg (35.0-45.0); PO2 ABG 75.6 mmHg (80.0-100.0); Reduced Hemoglobin 5.1 %THb (0-5.0); Total Hemoglobin 10.5 g/dL (12.0-18.0); pH ABG 7.498 (7.350-7.450)
[2022-07-15 05:21] LABS: Hematocrit 27.8 % (42.0-52.0); Hemoglobin 9.2 g/dL (14.0-18.0); Mean Corpuscular HGB Conc 33.1 g/dl (32-36); Mean Corpuscular Hemoglobin 30.3 pg (26-34); Mean Corpuscular Volume 91.4 fl (80-100); Mean Platelet Volume 9.4 fl (7.4-10.4); Platelet Count Result 355 k/mm3 (150-375); Red Blood Count 3.04 M/mm3 (4.6-6.20); Red Cell Distribution Width 14.7 % (11.5-14.5); White Blood Count 20.1 K/mm3 (4.5-10.0)
[2022-07-15 05:21] LABS: Arterial Blood Gas PEEP 8 cmH2O; Arterial Blood Gas Tidal Volume 470 ml; Arterial Blood Gas Vent Mode CMV; Arterial Blood Gas Ventilator rate 20 /MIN; Device VENTILATOR; Modified Allen's Test Pass; Site Drawn RIGHT RADIAL
[2022-07-15] MEDS: CENTRAL LINE FLUSH 10 ML IV PUSH ×4 (05:25→21:17)
[2022-07-15 05:36] LABS: Alanine Aminotransferase 40 U/L (6-50); Albumin Level 3.8 g/dL (3.5-5.1); Alkaline Phosphatase 43 U/L (38-126); Anion Gap 8 mmol/L (8-16); Aspartate Amino Transferase 35 U/L (17-59); Bilirubin,Total 0.4 mg/dL (0.2-1.3); Blood Urea Nitrogen 32 mg/dL (9-20); Carbon Dioxide 30 mmol/L (22-30); Chloride 99 mmol/L (98-107); Estimated CRCL calculation 79 ml/min; Estimated Glomerular Filt Rate > 60; Glucose 175 mg/dL (65-110); Magnesium 2.5 mg/dL (1.6-2.3); Phosphorus 2.9 mg/dL (2.5-4.5); Potassium 4.1 mmol/L (3.4-5.0); Sodium 137 mmol/L (137-145)
[2022-07-15] MEDS: ENOXAPARIN 40 MG/0.4 ML SYRINGE SUB-Q (08:23)
[2022-07-15] MEDS: MINERAL OIL/WHITE PETROLATUM OINTMENT 1 APPLIC EACH EYE ×2 (08:23→21:16)
[2022-07-15] MEDS: ASPIRIN 325 MG TABLET PO (08:24)
[2022-07-15] MEDS: CLOPIDOGREL BISULFATE 75 MG TABLET PO (08:24)
[2022-07-15] MEDS: polyethylene glycoL 3350 17 GM POWD.PACK PO (08:24)
[2022-07-15] MEDS: PANTOPRAZOLE SODIUM IV 40 MG VIAL IV PUSH (08:24)
[2022-07-15] MEDS: ATORVASTATIN 20 MG TABLET PO (08:24)
[2022-07-15] MEDS: INSULIN GLARGINE (*BKC) 100 UNITS/ML 30 UNITS SUB-Q (08:34)
--- NOTE | 2022-07-15 08:40 | WPDINTPN ---
Progress Note: A&P Assessment and Plan (1) Acute respiratory failure with hypoxia and hypercapnia: Code(s): J96.01 - Acute respiratory failure with hypoxia; J96.02 - Acute respiratory failure with hypercapnia Status: Acute Assessment and Plan: Acute Respiratory failure secondary to pulmonary edema and congestive heart failure with baseline COPD Continue full mechanical ventilation support to prevent hypoxemia/hypercarbia and end organ damage. ABG reviewed. Respiratory rate decreased to 18. FiO2 weaned down to 28%. Decrease PEEP to 5 PCXR reviewed and withdraw ET tube by 2 cm Lasix IV x1 today Will attempt sedation holiday and a weaning trial Continue Bronchodilators Not on steroids Continue broad-spectrum antibiotics at this time (2) Acute on chronic systolic heart failure: Code(s): I50.23 - Acute on chronic systolic (congestive) heart failure Status: Acute Assessment and Plan: Lasix 40 mg IV x1 today. Echocardiogram 07/05/2022 Summary ? 1. The mid to apical anterior wall is akinetic. ? 2. The apex is dyskinetic. ? 3. The mid to apical septum is akinetic. ? 4. The apical lateral wall is akinetic. ? 5. The apical inferior wall is akinetic. ? 6. Left ventricular systolic function is severely reduced, estimated at 25-30%. ? 7. Left atrial chamber dimension is mildly enlarged. ? 8. Compared with examination from March of this year left ventricular systolic function has not changed appreciably. (3) CAD (coronary artery disease): Code(s): I25.10 - Atherosclerotic heart disease of [place] coronary artery without angina pectoris Status: Acute Assessment and Plan: EKG reviewed Continue aspirin Plavix and statin Hold beta-jessica, lisinopril and Aldactone due toto shock (4) Non-ST elevation [place] (NSTEMI): Code(s): I21.4 - Non-ST elevation (NSTEMI) myocardial infarction Status: Acute Assessment and Plan: Patient always has mildly elevated troponin levels. 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 Patient was not given IV fluids due to congestive heart failure and was started on vasopressors Shock likely multifactorial -cardiogenic, positive pressure ventilation Unlikely to be sepsis Continue Levophed titration to maintain map (9) Sepsis: Code(s): A41.9 - Sepsis, unspecified organism Status: Acute Assessment and Plan: Patient presented with picture consistent with sepsis with elevated WBC count, lactic acid level hypoxia and later became hypotensive Patient was recently treated for pneumonia during last hospitalization and patient left AMA yesterday. It is unlikely the patient about new infection in less than 12 hours Patient was started on vancomycin and cefepime in ER will be continued for now His procalcitonin level is low at less than 0.3 and he is afebrile Blood Cultures have been sent and are pending Pending sputum cultures Will deescalate in 48 hours if no obvious source of infection UA is negative Plan DVT
[2022-07-15 08:48] LABS: Glucose Point of Care 201 mg/dl (65-105)
[2022-07-15] MEDS: FUROSEMIDE INJ 40 MG/4 ML VIAL IV PUSH (08:49)
[2022-07-15 10:21] LABS: Alveolar/Arterial O2 Gradient 67.9 mmHg; Base Excess ABG 5.8 mEq/l (+/-2.0); Fractional Inspired Oxygen 28 %; HCO3 ABG 31.3 mEq/l (22.0-26.0); Oxygen Content ABG 13.7 %vol (16.0-22.0); Oxygen Saturation ABG 94.4 % (95.0-100.0); Oxyhemoglobin 92.6 % THb (90.0-100.0); PCO2 ABG 50.7 mmHg (35.0-45.0); PO2 ABG 71.9 mmHg (80.0-100.0); PO2 FiO2 Ratio Arterial Blood 2.57 %; Total Hemoglobin 10.5 g/dL (12.0-18.0); pH ABG 7.409 (7.350-7.450)
[2022-07-15 10:23] LABS: Device VENTILATOR; Modified Allen's Test Pass; Site Drawn LEFT RADIAL
[2022-07-15 10:24] LABS: Arterial Blood Gas PEEP 5 cmH2O; Arterial Blood Gas Pressure Support 5 cmH2O; Arterial Blood Gas Vent Mode SPONTANEOUS
--- NOTE | 2022-07-15 10:31 | PCFNICU ---
ICU Rounding Note: Pt current nutrition is Vital AF 1.2 at 50 ml/hr. Nutrition recommendation: 65 ml/hr Last recorded weight is 86.4 kg, up from 82.9 kg on admit. Bowel Motility:No Bm reported. Labs Reviewed:BUN 32, Glu 175,Mg 2.5, Hgb 9.2,Hct 27.8 Meds Noted:Lasix,Lovenox, Lantus, Miralax, Cefepime. Skin: WNL Additional Notes: Patient remains on mechanical vent. Tube feedings are currently on hold for breathing trail. No sedation. If patient fails breathing trail, plans to restart tube feedings and increase to goal rate of 65 ml/hr. Free water flush remains at 30 ml q 4 hours. Agree with diet orders. Following daily in ICU rounds. Will follow daily in ICU rounds and reassessing every Tuesday and Tuesday.
--- NOTE | 2022-07-15 10:38 | P.PNCROSS_ITS ---
Event Note Event Note Event Note: 5/5 PSV SBT done for more than 1 hour. RSBI, ABGI and Vitals acceptable. Pt christianne ke and following commands. Will extubate and monitor. NPO for now. Bipap PRN
--- NOTE | 2022-07-15 12:27 | WPDPROCEDUR ---
Procedures Central Line Placement Right IJ: Central Line Date: 07/15/22 Central Line Time: 02:30 Consent: I have discussed with the patient and/or surrogate, the non-emergent placement of a central venous catheter, including its clinical necessity/indication and associated potential risks and complications. The patient and/or surrogate understand(s) and acknowledge(s) the need to proceed with central venous catheter insertion as an important element of the patient's clinical management.
[2022-07-15 12:29] LABS: Glucose Point of Care 129 mg/dl (65-105)
[2022-07-15 17:55] LABS: Glucose Point of Care 85 mg/dl (65-105)
--- NOTE | 2022-07-15 18:06 | PM.IMPN ---
Progress Note: A&P Assessment and Plan (1) Acute respiratory failure with hypoxia and hypercapnia: Code(s): J96.01 - Acute respiratory failure with hypoxia; J96.02 - Acute respiratory failure with hypercapnia Status: Acute Assessment and Plan: Acute Respiratory failure secondary to pulmonary edema and congestive heart failure with baseline COPD intubated and placed on mechanical ventialtion on arrival extubated 07/15/22. continue oxygen supplementation Continue broad-spectrum antibiotics at this time (2) Acute on chronic systolic heart failure: Code(s): I50.23 - Acute on chronic systolic (congestive) heart failure Status: Acute Assessment and Plan: Echocardiogram 07/05/2022 Summary ? 1. The mid to apical anterior wall is akinetic. ? 2. The apex is dyskinetic. ? 3. The mid to apical septum is akinetic. ? 4. The apical lateral wall is akinetic. ? 5. The apical inferior wall is akinetic. ? 6. Left ventricular systolic function is severely reduced, estimated at 25-30%. ? 7. Left atrial chamber dimension is mildly enlarged. ? 8. Compared with examination from March of this year left ventricular systolic function has not changed appreciably. diureis as needed (3) CAD (coronary artery disease): Code(s): I25.10 - Atherosclerotic heart disease of [place] coronary artery without angina pectoris Status: Acute Assessment and Plan: EKG reviewed Continue aspirin Plavix and statin Hold beta-jessica, lisinopril and Aldactone due to shock (4) Non-ST elevation [place] (NSTEMI): Code(s): I21.4 - Non-ST elevation (NSTEMI) myocardial infarction Status: Acute Assessment and Plan: Patient always has mildly elevated troponin levels. 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 Patient was not given IV fluids due to congestive heart failure and was started on vasopressors Shock likely multifactorial -cardiogenic, positive pressure ventilation Unlikely to be sepsis Continue Levophed titration to maintain map (9) Sepsis: Code(s): A41.9 - Sepsis, unspecified organism Status: Acute Assessment and Plan: Patient presented with picture consistent with sepsis with elevated WBC count, lactic acid level hypoxia and later became hypotensive Patient was recently treated for pneumonia during last hospitalization and patient left AMA yesterday. It is unlikely the patient about new infection in less than 12 hours Patient was started on vancomycin and cefepime in ER will be continued for now His procalcitonin level is low at less than 0.3 and he is afebrile Blood Cultures have been sent and are pending Pending sputum cultures Will deescalate in 48 hours if no obvious source of infection UA is negative Plan DVT prophylaxis -subcutaneous Lovenox Stress ulcer prophylaxis -PPI Nutrition -continue Tube Feeds Code Status - Full Code Subjective Date/time seen: 07/15/22 18:06 Interval history: This is a 67-year-old male with past medical history significant for ischemic
[2022-07-15 20:00] LABS: Glucose Point of Care 234 mg/dl (65-105)
[2022-07-16] VITALS (14 sets, daily range): BP systolic 97–128; BP diastolic 52–87; PULSE 65–80; RESP 13–24; TEMP 36.4–36.8; O2SAT 94–100
[2022-07-16 04:53] LABS: Hematocrit 28.8 % (42.0-52.0); Hemoglobin 9.3 g/dL (14.0-18.0); Mean Corpuscular HGB Conc 32.3 g/dl (32-36); Mean Corpuscular Hemoglobin 30.7 pg (26-34); Mean Platelet Volume 9.5 fl (7.4-10.4); Platelet Count Result 255 k/mm3 (150-375); Red Blood Count 3.03 M/mm3 (4.6-6.20); Red Cell Distribution Width 14.6 % (11.5-14.5); White Blood Count 10.3 K/mm3 (4.5-10.0)
[2022-07-16 05:02] LABS: Alveolar/Arterial O2 Gradient 91.1 mmHg; Base Excess ABG 5.4 mEq/l (+/-2.0); Carboxyhemoglobin 0.3 % THb (0-2.0); Fractional Inspired Oxygen 32 %; HCO3 ABG 30.4 mEq/l (22.0-26.0); Methemoglobin ABG 0.5 %THb (0-1.5); Oxygen Content ABG 14.2 %vol (16.0-22.0); Oxygen Saturation ABG 96.3 % (95.0-100.0); Oxyhemoglobin 94.9 % THb (90.0-100.0); PCO2 ABG 46.6 mmHg (35.0-45.0); PO2 ABG 82.5 mmHg (80.0-100.0); PO2 FiO2 Ratio Arterial Blood 2.58 %; Reduced Hemoglobin 4.3 %THb (0-5.0); Total Hemoglobin 10.6 g/dL (12.0-18.0); pH ABG 7.432 (7.350-7.450)
[2022-07-16 05:03] LABS: Device NASAL CANNULA; Modified Allen's Test Pass; Site Drawn RIGHT RADIAL
[2022-07-16 05:10] LABS: Alanine Aminotransferase 45 U/L (6-50); Albumin Level 3.8 g/dL (3.5-5.1); Alkaline Phosphatase 40 U/L (38-126); Anion Gap 10 mmol/L (8-16); Aspartate Amino Transferase 41 U/L (17-59); Bilirubin,Total 0.4 mg/dL (0.2-1.3); Blood Urea Nitrogen 24 mg/dL (9-20); Calcium 8.6 mg/dL (8.4-10.2); Carbon Dioxide 33 mmol/L (22-30); Chloride 98 mmol/L (98-107); Estimated CRCL calculation 100 ml/min; Estimated Glomerular Filt Rate > 60; Glucose 64 mg/dL (65-110); Magnesium 2.3 mg/dL (1.6-2.3); Phosphorus 3.9 mg/dL (2.5-4.5); Potassium 3.9 mmol/L (3.4-5.0); Sodium 141 mmol/L (137-145)
[2022-07-16] MEDS: CENTRAL LINE FLUSH 10 ML IV PUSH ×4 (06:23→21:14)
[2022-07-16 06:27] LABS: Glucose Point of Care 65 mg/dl (65-105)
[2022-07-16] MEDS: ATORVASTATIN 20 MG TABLET PO (08:35)
[2022-07-16] MEDS: ASPIRIN 325 MG TABLET PO (08:35)
[2022-07-16] MEDS: acetaZOLAMIDE SODIUM FOR INJ 500 MG VIAL IV PUSH (08:35)
[2022-07-16] MEDS: ENOXAPARIN 40 MG/0.4 ML SYRINGE SUB-Q (08:35)
[2022-07-16] MEDS: CLOPIDOGREL BISULFATE 75 MG TABLET PO (08:35)
[2022-07-16] MEDS: polyethylene glycoL 3350 17 GM POWD.PACK PO (08:36)
[2022-07-16] MEDS: PANTOPRAZOLE SODIUM IV 40 MG VIAL IV PUSH (08:36)
--- NOTE | 2022-07-16 08:40 | WPDINTPN ---
Progress Note: A&P Assessment and Plan (1) Acute respiratory failure with hypoxia and hypercapnia: Code(s): J96.01 - Acute respiratory failure with hypoxia; J96.02 - Acute respiratory failure with hypercapnia Status: Acute Assessment and Plan: Acute Respiratory failure secondary to pulmonary edema and congestive heart failure with baseline COPD 07/15 extubated after his successful weaning trial Maintaining oxygenation on nasal cannula at this time Continue BiPAP p.r.n. and at night PCXR reviewed Continue diuresis and will give a dose of Diamox today Continue Bronchodilators Not on steroids Will discontinue broad-spectrum antibiotics 07/16 (2) Acute on chronic systolic heart failure: Code(s): I50.23 - Acute on chronic systolic (congestive) heart failure Status: Acute Assessment and Plan: Continue diuresis Echocardiogram 07/05/2022 Summary ? 1. The mid to apical anterior wall is akinetic. ? 2. The apex is dyskinetic. ? 3. The mid to apical septum is akinetic. ? 4. The apical lateral wall is akinetic. ? 5. The apical inferior wall is akinetic. ? 6. Left ventricular systolic function is severely reduced, estimated at 25-30%. ? 7. Left atrial chamber dimension is mildly enlarged. ? 8. Compared with examination from March of this year left ventricular systolic function has not changed appreciably. (3) CAD (coronary artery disease): Code(s): I25.10 - Atherosclerotic heart disease of [place] coronary artery without angina pectoris Status: Acute Assessment and Plan: EKG reviewed Continue aspirin Plavix and statin Resume low-dose beta-jessica Resume lisinopril and Aldactone as allowed by blood pressure (4) Non-ST elevation [place] (NSTEMI): Code(s): I21.4 - Non-ST elevation (NSTEMI) myocardial infarction Status: Acute Assessment and Plan: Patient always has mildly elevated troponin levels. 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 Patient was not given IV fluids due to congestive heart failure and was started on vasopressors Shock likely multifactorial -cardiogenic, positive pressure ventilation Unlikely to be sepsis Resolved and off Levophed now (9) Sepsis: Code(s): A41.9 - Sepsis, unspecified organism Status: Acute Assessment and Plan: Patient presented with picture consistent with sepsis with elevated WBC count, lactic acid level hypoxia and later became hypotensive Patient was recently treated for pneumonia during last hospitalization and patient left AMA yesterday. It is unlikely the patient about new infection in less than 12 hours Patient was started on vancomycin and cefepime in ER which were continued in the ICU His procalcitonin level is low at less than 0.3 and he is afebrile Blood Cultures have been sent and are pending Pending sputum cultures Antibiotics discontinued after 48 hours as there is no obvious source of infection UA was negative Plan DVT prophylaxis -subcutaneous Lovenox
[2022-07-16] MEDS: carvediloL 3.125 MG TABLET PO ×2 (09:56→21:13)
--- NOTE | 2022-07-16 10:42 | PCNFU ---
Nutrition Follow-Up Complete: Inadequate food and beverage intake as related to mechanical ventilation as evidenced by NPO. goal: Meet estimated nutritional needs Patient is progressing towards goal. Will continue current goal. Pt current nutrition is DBCC. Last recorded weight is 81.6 kg-stable Bowel Motility: No BM reported-Miralax given today. Labs Reviewed:Glu 64, Hgb 9.3,Hct 28.8,BUN 24 Meds Noted: Miralax, Lipitor, Coreg, Plavix, Lovenox, Protonix Skin: WNL Additional Notes: Patient extubated 07/15. Patient is tolerating diet, has advanced to a DBCC diet. Agree with diet orders. Monitoring: Will monitor every 5 days.
[2022-07-16 12:53] LABS: Glucose Point of Care 147 mg/dl (65-105)
--- NOTE | 2022-07-16 14:17 | PM.IMPN ---
Progress Note: A&P Assessment and Plan (1) Acute respiratory failure with hypoxia and hypercapnia: Code(s): J96.01 - Acute respiratory failure with hypoxia; J96.02 - Acute respiratory failure with hypercapnia Status: Acute Assessment and Plan: Acute Respiratory failure secondary to pulmonary edema and congestive heart failure with baseline COPD intubated and placed on mechanical ventialtion on arrival Due to hypercarbic respiratory failure extubated 07/15/22. continue oxygen supplementation, on BiPAP at night started on broad-spectrum antibiotics which is been discontinued now No signs of infection likely related to congestive heart failure (2) Acute on chronic systolic heart failure: Code(s): I50.23 - Acute on chronic systolic (congestive) heart failure Status: Acute Assessment and Plan: Echocardiogram 07/05/2022 Summary ? 1. The mid to apical anterior wall is akinetic. ? 2. The apex is dyskinetic. ? 3. The mid to apical septum is akinetic. ? 4. The apical lateral wall is akinetic. ? 5. The apical inferior wall is akinetic. ? 6. Left ventricular systolic function is severely reduced, estimated at 25-30%. ? 7. Left atrial chamber dimension is mildly enlarged. ? 8. Compared with examination from March of this year left ventricular systolic function has not changed appreciably. diureis as needed (3) CAD (coronary artery disease): Code(s): I25.10 - Atherosclerotic heart disease of [place] coronary artery without angina pectoris Status: Acute Assessment and Plan: EKG reviewed Continue aspirin Plavix and statin Hold beta-jessica, lisinopril and Aldactone due to shock (4) Non-ST elevation [place] (NSTEMI): Code(s): I21.4 - Non-ST elevation (NSTEMI) myocardial infarction Status: Acute Assessment and Plan: Patient always has mildly elevated troponin levels. 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 Patient was not given IV fluids due to congestive heart failure and was started on vasopressors Shock likely multifactorial -cardiogenic, positive pressure ventilation Unlikely to be sepsis Continue Levophed titration to maintain map which has been discontinued now. Antibiotics stopped (9) Sepsis: Code(s): A41.9 - Sepsis, unspecified organism Status: Acute Assessment and Plan: Patient presented with picture consistent with sepsis with elevated WBC count, lactic acid level hypoxia and later became hypotensive Patient was recently treated for pneumonia during last hospitalization and patient left AMA 1 day prior to admission. It is unlikely the patient about new infection in less than 12 hours Patient was started on vancomycin and cefepime in ER will be continued for now His procalcitonin level is low at less than 0.3 and he is afebrile Blood Cultures Have been no growth to date. Pending sputum cultures UA is negative Antibiotics stopped Plan DVT prophylaxis -subcutaneous Lovenox Stress ulcer prophylaxis -PPI Nutrition -continue Tube Feeds
[2022-07-16 17:48] LABS: Glucose Point of Care 141 mg/dl (65-105)
[2022-07-16] MEDS: INSULIN GLARGINE (*BKC) 100 UNITS/ML 30 UNITS SUB-Q (21:14)
[2022-07-16 21:31] LABS: Glucose Point of Care 191 mg/dl (65-105)
[2022-07-17] VITALS (13 sets, daily range): BP systolic 109–125; BP diastolic 51–85; PULSE 55–78; RESP 12–25; TEMP 36.4–37.1; O2SAT 96–100
[2022-07-17] MEDS: CENTRAL LINE FLUSH 20 ML IV PUSH (05:20)
[2022-07-17] MEDS: CENTRAL LINE FLUSH 10 ML IV PUSH ×2 (05:20→14:05)
[2022-07-17 05:50] LABS: Hematocrit 28.9 % (42.0-52.0); Hemoglobin 9.3 g/dL (14.0-18.0); Mean Corpuscular HGB Conc 32.2 g/dl (32-36); Mean Corpuscular Hemoglobin 30.5 pg (26-34); Mean Corpuscular Volume 94.8 fl (80-100); Mean Platelet Volume 9.5 fl (7.4-10.4); Platelet Count Result 280 k/mm3 (150-375); Red Blood Count 3.05 M/mm3 (4.6-6.20); Red Cell Distribution Width 14.2 % (11.5-14.5); White Blood Count 9.3 K/mm3 (4.5-10.0)
[2022-07-17 06:02] LABS: Alanine Aminotransferase 46 U/L (6-50); Albumin Level 3.9 g/dL (3.5-5.1); Alkaline Phosphatase 40 U/L (38-126); Anion Gap 11 mmol/L (8-16); Aspartate Amino Transferase 38 U/L (17-59); Bilirubin,Total 0.5 mg/dL (0.2-1.3); Blood Urea Nitrogen 19 mg/dL (9-20); Calcium 8.7 mg/dL (8.4-10.2); Carbon Dioxide 26 mmol/L (22-30); Chloride 100 mmol/L (98-107); Estimated CRCL calculation 79 ml/min; Estimated Glomerular Filt Rate > 60; Glucose 179 mg/dL (65-110); Magnesium 2.1 mg/dL (1.6-2.3); Phosphorus 3.6 mg/dL (2.5-4.5); Potassium 4.2 mmol/L (3.4-5.0); Sodium 137 mmol/L (137-145)
[2022-07-17 08:38] LABS: Glucose Point of Care 105 mg/dl (65-105)
[2022-07-17] MEDS: ASPIRIN 325 MG TABLET PO (09:21)
[2022-07-17] MEDS: CLOPIDOGREL BISULFATE 75 MG TABLET PO (09:21)
[2022-07-17] MEDS: polyethylene glycoL 3350 17 GM POWD.PACK PO (09:21)
[2022-07-17] MEDS: carvediloL 3.125 MG TABLET PO ×2 (09:22→20:35)
[2022-07-17] MEDS: PANTOPRAZOLE SODIUM IV 40 MG VIAL IV PUSH (09:25)
[2022-07-17] MEDS: ENOXAPARIN 40 MG/0.4 ML SYRINGE SUB-Q (09:25)
[2022-07-17] MEDS: ATORVASTATIN 20 MG TABLET PO (09:25)
[2022-07-17 12:08] LABS: Glucose Point of Care 154 mg/dl (65-105)
--- NOTE | 2022-07-17 13:55 | PM.IMPN ---
Progress Note: A&P Assessment and Plan (1) Acute respiratory failure with hypoxia and hypercapnia: Code(s): J96.01 - Acute respiratory failure with hypoxia; J96.02 - Acute respiratory failure with hypercapnia Status: Acute Assessment and Plan: Acute Respiratory failure secondary to pulmonary edema and congestive heart failure with baseline COPD intubated and placed on mechanical ventialtion on arrival Due to hypercarbic respiratory failure extubated 07/15/22. continue oxygen supplementation, on BiPAP at night started on broad-spectrum antibiotics which is been discontinued now No signs of infection likely related to congestive heart failure will do home oxygen evaluation (2) Acute on chronic systolic heart failure: Code(s): I50.23 - Acute on chronic systolic (congestive) heart failure Status: Acute Assessment and Plan: Echocardiogram 07/05/2022 Summary ? 1. The mid to apical anterior wall is akinetic. ? 2. The apex is dyskinetic. ? 3. The mid to apical septum is akinetic. ? 4. The apical lateral wall is akinetic. ? 5. The apical inferior wall is akinetic. ? 6. Left ventricular systolic function is severely reduced, estimated at 25-30%. ? 7. Left atrial chamber dimension is mildly enlarged. ? 8. Compared with examination from March of this year left ventricular systolic function has not changed appreciably. start oral lasix today (3) CAD (coronary artery disease): Code(s): I25.10 - Atherosclerotic heart disease of [place] coronary artery without angina pectoris Status: Acute Assessment and Plan: EKG reviewed Continue aspirin Plavix and statin Hold beta-jessica, lisinopril and Aldactone due to shock bp improving, will slowly restart these medications. add carvedilol and lsioinopril (4) Non-ST elevation [place] (NSTEMI): Code(s): I21.4 - Non-ST elevation (NSTEMI) myocardial infarction Status: Acute Assessment and Plan: Patient always has mildly elevated troponin levels. 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 Patient was not given IV fluids due to congestive heart failure and was started on vasopressors Shock likely multifactorial -cardiogenic, positive pressure ventilation Unlikely to be sepsis Continue Levophed titration to maintain map which has been discontinued now. Antibiotics stopped (9) Sepsis: Code(s): A41.9 - Sepsis, unspecified organism Status: Acute Assessment and Plan: Patient presented with picture consistent with sepsis with elevated WBC count, lactic acid level hypoxia and later became hypotensive Patient was recently treated for pneumonia during last hospitalization and patient left AMA 1 day prior to admission. It is unlikely the patient about new infection in less than 12 hours Patient was started on vancomycin and cefepime in ER will be continued for now His procalcitonin level is low at less than 0.3 and he is afebrile Blood Cultures Have been no growth to date. Pending sputum cultures UA is negative Antibioti
[2022-07-17] MEDS: NEOMYCIN/POLYMYXIN/BACITRACIN OINTMENT PACKET 1 PACKET (14:45)
[2022-07-17 17:34] LABS: Glucose Point of Care 127 mg/dl (65-105)
[2022-07-17] MEDS: FUROSEMIDE 40 MG TABLET PO (18:07)
[2022-07-17] MEDS: INSULIN ASPART (*BKC) 100 UNITS/ML SUB-Q (20:36)
[2022-07-17] MEDS: INSULIN GLARGINE (*BKC) 100 UNITS/ML 30 UNITS SUB-Q (20:39)
[2022-07-17 22:17] LABS: Glucose Point of Care 220 mg/dl (65-105)
[2022-07-18] VITALS (16 sets, daily range): BP systolic 100–126; BP diastolic 56–68; PULSE 55–77; RESP 14–18; TEMP 36.2–36.6; O2SAT 98–100
[2022-07-18 05:20] LABS: Alveolar/Arterial O2 Gradient 85.4 mmHg; Base Excess ABG 0.8 mEq/l (+/-2.0); Carboxyhemoglobin 0.2 % THb (0-2.0); Fractional Inspired Oxygen 32 %; HCO3 ABG 26.1 mEq/l (22.0-26.0); Methemoglobin ABG 0.4 %THb (0-1.5); Oxygen Content ABG 14.5 %vol (16.0-22.0); Oxygen Saturation ABG 96.7 % (95.0-100.0); Oxyhemoglobin 95.3 % THb (90.0-100.0); PCO2 ABG 44.8 mmHg (35.0-45.0); PO2 ABG 90.3 mmHg (80.0-100.0); PO2 FiO2 Ratio Arterial Blood 2.82 %; Reduced Hemoglobin 4.1 %THb (0-5.0); Total Hemoglobin 10.7 g/dL (12.0-18.0); pH ABG 7.383 (7.350-7.450)
[2022-07-18 05:21] LABS: Device NASAL CANNULA; Modified Allen's Test Pass; Site Drawn RIGHT RADIAL
[2022-07-18 06:15] LABS: Hematocrit 29.2 % (42.0-52.0); Hemoglobin 9.6 g/dL (14.0-18.0); Mean Corpuscular HGB Conc 32.9 g/dl (32-36); Mean Corpuscular Hemoglobin 30.8 pg (26-34); Mean Corpuscular Volume 93.6 fl (80-100); Mean Platelet Volume 9.8 fl (7.4-10.4); Platelet Count Result 316 k/mm3 (150-375); Red Blood Count 3.12 M/mm3 (4.6-6.20); Red Cell Distribution Width 14.2 % (11.5-14.5); White Blood Count 10.2 K/mm3 (4.5-10.0)
[2022-07-18] MEDS: INSULIN ASPART (*BKC) 100 UNITS/ML SUB-Q ×2 (06:19→20:04)
[2022-07-18 06:26] LABS: Alanine Aminotransferase 49 U/L (6-50); Albumin Level 3.8 g/dL (3.5-5.1); Alkaline Phosphatase 41 U/L (38-126); Anion Gap 10 mmol/L (8-16); Aspartate Amino Transferase 32 U/L (17-59); Bilirubin,Total 0.3 mg/dL (0.2-1.3); Blood Urea Nitrogen 24 mg/dL (9-20); Calcium 8.4 mg/dL (8.4-10.2); Carbon Dioxide 26 mmol/L (22-30); Chloride 100 mmol/L (98-107); Estimated CRCL calculation 72 ml/min; Estimated Glomerular Filt Rate > 60; Glucose 178 mg/dL (65-110); Magnesium 2.2 mg/dL (1.6-2.3); Phosphorus 3.3 mg/dL (2.5-4.5); Potassium 4.6 mmol/L (3.4-5.0); Sodium 136 mmol/L (137-145)
[2022-07-18 06:33] LABS: Glucose Point of Care 235 mg/dl (65-105)
[2022-07-18 08:03] LABS: Glucose Point of Care 123 mg/dl (65-105)
[2022-07-18] MEDS: ASPIRIN 81 MG ENTERIC TABLET PO (08:12)
[2022-07-18] MEDS: ASPIRIN 325 MG TABLET PO (08:12)
[2022-07-18] MEDS: FUROSEMIDE 40 MG TABLET PO (08:12)
[2022-07-18] MEDS: carvediloL 3.125 MG TABLET PO ×2 (08:13→20:06)
[2022-07-18] MEDS: ATORVASTATIN 20 MG TABLET PO (08:13)
[2022-07-18] MEDS: lisinopriL 5 MG TABLET PO (08:13)
[2022-07-18] MEDS: PANTOPRAZOLE SODIUM IV 40 MG VIAL IV PUSH (08:13)
[2022-07-18] MEDS: CLOPIDOGREL BISULFATE 75 MG TABLET PO (08:13)
[2022-07-18 11:44] LABS: Glucose Point of Care 134 mg/dl (65-105)
--- NOTE | 2022-07-18 15:06 | PM.IMPN ---
Progress Note: A&P Assessment and Plan (1) Acute respiratory failure with hypoxia and hypercapnia: Code(s): J96.01 - Acute respiratory failure with hypoxia; J96.02 - Acute respiratory failure with hypercapnia Status: Acute Assessment and Plan: Acute Respiratory failure secondary to pulmonary edema and congestive heart failure with baseline COPD intubated and placed on mechanical ventialtion on arrival Due to hypercarbic respiratory failure extubated 07/15/22. continue oxygen supplementation, on BiPAP at night started on broad-spectrum antibiotics which is been discontinued now No signs of infection likely related to congestive heart failure Home oxygen evaluation pending (2) Acute on chronic systolic heart failure: Code(s): I50.23 - Acute on chronic systolic (congestive) heart failure Status: Acute Assessment and Plan: Echocardiogram 07/05/2022 Summary ? 1. The mid to apical anterior wall is akinetic. ? 2. The apex is dyskinetic. ? 3. The mid to apical septum is akinetic. ? 4. The apical lateral wall is akinetic. ? 5. The apical inferior wall is akinetic. ? 6. Left ventricular systolic function is severely reduced, estimated at 25-30%. ? 7. Left atrial chamber dimension is mildly enlarged. ? 8. Compared with examination from March of this year left ventricular systolic function has not changed appreciably. start oral lasix today (3) CAD (coronary artery disease): Code(s): I25.10 - Atherosclerotic heart disease of [place] coronary artery without angina pectoris Status: Acute Assessment and Plan: EKG reviewed Continue aspirin Plavix and statin Hold beta-jessica, lisinopril and Aldactone due to shock bp improving, will slowly restart these medications. add carvedilol and lsioinopril (4) Non-ST elevation [place] (NSTEMI): Code(s): I21.4 - Non-ST elevation (NSTEMI) myocardial infarction Status: Acute Assessment and Plan: Patient always has mildly elevated troponin levels. 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 Patient was not given IV fluids due to congestive heart failure and was started on vasopressors Shock likely multifactorial -cardiogenic, positive pressure ventilation Unlikely to be sepsis Continue Levophed titration to maintain map which has been discontinued now. Antibiotics stopped (9) Sepsis: Code(s): A41.9 - Sepsis, unspecified organism Status: Acute Assessment and Plan: Patient presented with picture consistent with sepsis with elevated WBC count, lactic acid level hypoxia and later became hypotensive Patient was recently treated for pneumonia during last hospitalization and patient left AMA 1 day prior to admission. It is unlikely the patient about new infection in less than 12 hours Patient was started on vancomycin and cefepime in ER will be continued for now His procalcitonin level is low at less than 0.3 and he is afebrile Blood Cultures Have been no growth to date. Pending sputum cultures UA is negative Antibio
[2022-07-18 16:51] LABS: Glucose Point of Care 158 mg/dl (65-105)
[2022-07-18] MEDS: INSULIN GLARGINE (*BKC) 100 UNITS/ML 30 UNITS SUB-Q (20:04)
[2022-07-18 21:11] LABS: Glucose Point of Care 269 mg/dl (65-105)
[2022-07-19] VITALS (12 sets, daily range): BP systolic 112–113; BP diastolic 64–65; PULSE 55–64; RESP 16–17; TEMP 36.6–36.7; O2SAT 79–100
[2022-07-19 05:22] LABS: Hematocrit 29.2 % (42.0-52.0); Hemoglobin 9.6 g/dL (14.0-18.0); Mean Corpuscular HGB Conc 32.9 g/dl (32-36); Mean Corpuscular Hemoglobin 30.7 pg (26-34); Mean Corpuscular Volume 93.3 fl (80-100); Mean Platelet Volume 9.4 fl (7.4-10.4); Platelet Count Result 295 k/mm3 (150-375); Red Blood Count 3.13 M/mm3 (4.6-6.20); Red Cell Distribution Width 14.3 % (11.5-14.5); White Blood Count 9.7 K/mm3 (4.5-10.0)
[2022-07-19 05:35] LABS: Alanine Aminotransferase 51 U/L (6-50); Albumin Level 3.8 g/dL (3.5-5.1); Alkaline Phosphatase 37 U/L (38-126); Anion Gap 9 mmol/L (8-16); Aspartate Amino Transferase 34 U/L (17-59); Bilirubin,Total 0.3 mg/dL (0.2-1.3); Blood Urea Nitrogen 17 mg/dL (9-20); Calcium 8.6 mg/dL (8.4-10.2); Carbon Dioxide 31 mmol/L (22-30); Chloride 98 mmol/L (98-107); Estimated CRCL calculation 88 ml/min; Estimated Glomerular Filt Rate > 60; Glucose 115 mg/dL (65-110); Magnesium 2.3 mg/dL (1.6-2.3); Phosphorus 3.3 mg/dL (2.5-4.5); Potassium 4.2 mmol/L (3.4-5.0); Sodium 138 mmol/L (137-145)
[2022-07-19 08:16] LABS: Glucose Point of Care 154 mg/dl (65-105)
[2022-07-19] MEDS: FUROSEMIDE 40 MG TABLET PO (09:10)
[2022-07-19] MEDS: PANTOPRAZOLE SODIUM IV 40 MG VIAL IV PUSH (09:10)
[2022-07-19] MEDS: lisinopriL 5 MG TABLET PO (09:10)
[2022-07-19] MEDS: CLOPIDOGREL BISULFATE 75 MG TABLET PO (09:10)
[2022-07-19] MEDS: ATORVASTATIN 20 MG TABLET PO (09:10)
[2022-07-19] MEDS: carvediloL 3.125 MG TABLET PO (09:10)
[2022-07-19] MEDS: ASPIRIN 81 MG ENTERIC TABLET PO (09:10)
--- NOTE | 2022-07-19 09:31 | HOMEO2EVAL ---
Evaluation was performed at [facility] Home Oxygen Evaluation RC: Home Oxygen (O2) Evaluation Start: 07/17/22 14:00 Freq: ONCE Status: Active Protocol: RPE Activity Type Activity Date Activity User E-sign Co-sign Detail Recorded Client Recorded Date Recorded By Document 07/19/22 08:30 PKH [email or web address] 07/19/22 09:04 PKH Document 07/19/22 08:35 [email or web address] [email or web address] 07/19/22 09:04 PKH Document 07/19/22 08:36 [email or web address] [email or web address] 07/19/22 09:04 PKH Document 07/19/22 08:38 [email or web address] [email or web address] 07/19/22 09:04 PKH Document 07/19/22 08:40 [email or web address] [email or web address] 07/19/22 09:04 PKH Document 07/19/22 08:55 [email or web address] [email or web address] 07/19/22 09:04 PKH 07/19/22 07/19/22 07/19/22 08:30 08:35 08:36 Home O2 Evaluation Test Phase Resting Exercise Exercise Oxygen Delivery Room Air Room Air Nasal Cannula Oxygen Flow Rate (L/min) Pulse Oximetry (90-100 %) 96 79 L 82 L Pulse Rate (60-100 beats/min) 59 L 59 L 61 Activity Tolerance Ambulation Distance (feet) Ambulation Distance (meters) Home Oxygen Evaluation Comments Treatment Charges O2 Evaluation - Inpatient 07/19/22 07/19/22 07/19/22 08:38 08:40 08:55 Home O2 Evaluation Test Phase Exercise Exercise Resting Oxygen Delivery Nasal Cannula Nasal Cannula Room Air Oxygen Flow Rate (L/min) 2 Pulse Oximetry (90-100 %) 86 L 92 95 Pulse Rate (60-100 beats/min) 61 58 L 55 L Activity Tolerance Good Ambulation Distance (feet) 200 Ambulation Distance (meters) 60.95 Home Oxygen Evaluation Comments Patient Home O2 requirements Room Air with rest. 3LPM with activity. RN notified. Treatment Charges
--- NOTE | 2022-07-19 11:41 | PM.DS ---
DS: Admitting Diagnosis Discharge Date 07/19/2022 Admitting Diagnosis respiratory failure DS: Discharge Diagnosis Discharge Diagnosis (1) Acute respiratory failure with hypoxia and hypercapnia: Code(s): J96.01 - Acute respiratory failure with hypoxia; J96.02 - Acute respiratory failure with hypercapnia Status: Acute (2) Acute on chronic systolic heart failure: Code(s): I50.23 - Acute on chronic systolic (congestive) heart failure Status: Acute (3) CAD (coronary artery disease): Code(s): I25.10 - Atherosclerotic heart disease of [place] coronary artery without angina pectoris Status: Acute (4) Non-ST elevation [place] (NSTEMI): Code(s): I21.4 - Non-ST elevation (NSTEMI) myocardial infarction Status: Acute (5) Ischemic cardiomyopathy: Code(s): I25.5 - Ischemic cardiomyopathy Status: Acute (6) COPD (chronic obstructive pulmonary disease): Code(s): J44.9 - Chronic obstructive pulmonary disease, unspecified Status: Acute (7) Type 2 diabetes mellitus with hyperglycemia: Qualifiers: Diabetes mellitus [facility] insulin use: with [facility] use Qualified Code(s): E11.65 - Type 2 diabetes mellitus with hyperglycemia; Z79.4 - [facility]DC (current) use of insulin Code(s): E11.65 - Type 2 diabetes mellitus with hyperglycemia Status: Acute (8) Shock: Code(s): R57.9 - Shock, unspecified Status: Acute (9) Sepsis: Code(s): A41.9 - Sepsis, unspecified organism Status: Acute DS: Summary Hospital Course Reason for hospitalization: This is a 67-year-old male with past medical history significant for ischemic cardiomyopathy, multiple vessel disease, status post PCI, in stent ? Thrombosis? and occlusion of LAD, ejection fraction? 20% to 30% approximately patient just recently went home against medical advice had been on ventilator support due to hypoxic and hypercarbic respiratory failure with multifactorial reasons which mainly stem out from severe cardiomyopathy and congestive heart failure or treated for pneumonia as well patient returns to the emergency room with worsening shortness of breath while in ED patient then progressively became obtunded an ABG showed a pH of 7.1 with a pCO2 of 67 PO2 in the 200 placed on ventilator support his blood pressure or was systolic in the 80s patient require vasopressors his chemistry panel was significant for brain natriuretic peptide of 9000 a lactic acid initially was 6.5 WBC? was 22,000. patient has been admitted for further evaluation management and treatment. Hospital Course: # Acute respiratory failure with hypoxia and hypercapnia: patient presented with acute Respiratory failure secondary to pulmonary edema and congestive heart failure with baseline COPD intubated and placed on mechanical ventialtion on? arrival ? Due to hypercarbic respiratory failure. He was extubated 07/15/22. continue oxygen supplementation, on BiPAP at night which was discontinued. He was initially started on broad-spectrum antibiotics due to suspicion of sepsis and underlying infection however furthermore there were no signs of infection seen and hence was discontinued . Home oxygen evaluation was done he required 3 L with exertion which was arranged with the help of respiratory therapy the time of discharge # acute on chronic systolic heart failure: Recent admission for the same. He is on lisinopril/carvedilol. Spironolactone discontinued due to hypotension and borderline blood pressure at discharge. This needs to be restarted as an outpatient basis she has follow-up with Cardiology as previously scheduled. Echocardiogram 07/05/2022 Summary ? 1. The mid to apical anterior wall is akinetic. ? 2. The apex is dyskinetic. ? 3. The mid to apical septum is akinetic. ? 4. The apical lateral wall is akinetic. ? 5. The apical inferior wall is akinetic. ? 6. Left ventricular systolic function is severely reduced, estimated
[2022-07-19 12:09] LABS: Glucose Point of Care 149 mg/dl (65-105)
== END 2022-07-19 14:30 | disposition home or self-care (01) | DRG 208 ==
LOC: ANHED 03:18 → ANHICU 07:38 → ANH2MED 07-19 11:40 → ANHICU 07-20 14:33 → ANH2MED 07-20 14:34 → ANHICU 07-20 14:34
PROVIDERS: Internal Medicine; Admitting Provider Internal Medicine; Emergency Provider Preventive Medicine Aerospace Medicine; Visit Provider Internal Medicine
DX: J96.01 Acute respiratory failure with hypoxia (principal); I50.23 Acute on chronic systolic (congestive) heart failure; I21.4 Non-ST elevation (NSTEMI) myocardial infarction; R57.8 Other shock; R57.0 Cardiogenic shock; J96.02 Acute respiratory failure with hypercapnia; E11.65 Type 2 diabetes mellitus with hyperglycemia; F19.10 Other psychoactive substance abuse, uncomplicated; F15.10 Other stimulant abuse, uncomplicated; F17.210 Nicotine dependence, cigarettes, uncomplicated; G47.33 Obstructive sleep apnea (adult) (pediatric); I95.9 Hypotension, unspecified; I25.5 Ischemic cardiomyopathy; I25.10 Atherosclerotic heart disease of native coronary artery without angina pectoris; J44.9 Chronic obstructive pulmonary disease, unspecified; Z85.828 Personal history of other malignant neoplasm of skin; Z95.5 Presence of coronary angioplasty implant and graft; Z79.84 Long term (current) use of oral hypoglycemic drugs; Z79.02 Long term (current) use of antithrombotics/antiplatelets; Z79.4 Long term (current) use of insulin; Z79.82 Long term (current) use of aspirin; Z91.19 Patient's noncompliance with other medical treatment and regimen
CPT/HCPCS: 31500; 36415; 36556; 36600; 71045; 80053; 80307; 81001; 82375; 82805; 82948; 83050; 83605; 83735; 83880; 84100; 84145; 84484; 85025; 85027; 85380; 85610; 85730; 87040; 87070; 87086; 87205; 93005; 94002; 94003; 94618; 94640; 96365; 96366; 96367; 96368; 96375; 96376; 97110; 97116; 97161; 97165; 97535; 99291; A9270; C1751; C9113; J0330; J0692; J1120; J1650; J1815; J1940; J2060; J2250; J3010; J3370

== ENCOUNTER 2023-03-07 21:15 | Observation (INO) | payer MEDICARE, MEDICAID, SELFPAY ==
--- NOTE | ~2023-03-07 | XR_ITS ---
EXAMINATION: XR chest 2V Exam Date/Time: 03/07/2023 21:29 CDT HISTORY: chest pain Comparison: 07/17/2022. RESULT: Lines, tubes, and devices: Coronary stents. Lungs and pleura: Clear. Cardiomediastinal silhouette: Stable. Other: No acute osseous or upper abdominal finding. IMPRESSION: No acute cardiopulmonary process. Reviewed, dictated and finalized at location K.
--- NOTE | 2023-03-07 21:16 | ECG_ITS ---
Measurements Intervals [place] Rate: 99 P: 74 WI: 164 QRS: 73 QRSD: 105 T: 89 QT: 335 QTc: 430 Interpretive Statements SINUS RHYTHM ANTEROSEPTAL INFARCT, AGE INDETERMINATE BORDERLINE T WAVE ABNORMALITY- HIGH LATERAL LEADS BASELINE ARTIFACT- III, V5 ABNORMAL ECG COMPARED TO ECG 07/14/2022 03:42:36 NO SIGNIFICANT CHANGES Electronically Signed On 03-08-2023 6:40:42 CDT by Jordan Wright D.O.
[2023-03-07 21:22] VITALS: BP 102/56; PULSE 96; RESP 22; TEMP 36.5; O2SAT 94
[2023-03-07 21:39] LABS: Basophils Absolute Auto 0.1 K/mm3 (0.0-0.1); Eosinophils Absolute Auto 0.3 K/mm3 (0-0.3); Eosinophils Percent Auto 3.5 % (0-4.4); Hematocrit 33.7 % (42.0-52.0); Hemoglobin 11.5 g/dL (14.0-18.0); Immature Granulocyte Absolute 0.02 K/mm3 (0.00-0.031); Immature Granulocyte Percent A 0.3 % (0-0.5); Lymphocytes Absolute Auto 2.78 K/mm3 (0.9-3.2); Lymphocytes Percent Auto 35.2 % (18.3-44.2); Mean Corpuscular HGB Conc 34.1 g/dl (32-36); Mean Corpuscular Hemoglobin 31.7 pg (26-34); Mean Corpuscular Volume 92.8 fl (80-100); Mean Platelet Volume 9.4 fl (7.4-10.4); Monocytes Absolute Auto 0.7 K/mm3 (0.1-0.6); Monocytes Percent Auto 9.2 % (2.6-8.5); Neutrophils Percent Auto 50.8 % (45.5-73.1); Platelet Count Result 208 k/mm3 (150-375); Red Blood Count 3.63 M/mm3 (4.6-6.20); Red Cell Distribution Width 13.3 % (11.5-14.5); White Blood Count 7.9 K/mm3 (4.5-10.0)
[2023-03-07 21:48] LABS: Alanine Aminotransferase 46 U/L (6-50); Albumin Level 4.3 g/dL (3.5-5.1); Alkaline Phosphatase 50 U/L (38-126); Anion Gap 12 mmol/L (8-16); Aspartate Amino Transferase 38 U/L (17-59); Bilirubin,Total 0.4 mg/dL (0.2-1.3); Blood Urea Nitrogen 28 mg/dL (9-20); Calcium 8.7 mg/dL (8.4-10.2); Carbon Dioxide 22 mmol/L (22-30); Chloride 103 mmol/L (98-107); Estimated CRCL calculation 60 ml/min; Estimated Glomerular Filt Rate > 60; Glucose 237 mg/dL (65-110); Lipase 103 U/L (23-300); Potassium 4.1 mmol/L (3.4-5.0); Sodium 137 mmol/L (137-145)
[2023-03-07 21:49] LABS: Prothrombin Time 13.6 Seconds (11.1-14.7)
[2023-03-07 21:50] LABS: Partial Thromboplastin Time 27.9 SECONDS (22.3-36.8)
[2023-03-07 22:00] VITALS: BP 108/64; PULSE 94; RESP 18; O2SAT 96
[2023-03-07 22:00] LABS: Troponin I 0.031 ng/mL (0.000-0.034)
[2023-03-07 22:30] VITALS: BP 115/64; PULSE 88; RESP 17; O2SAT 98
[2023-03-07 23:01] VITALS: BP 117/76; PULSE 83; RESP 17; O2SAT 100
[2023-03-08] VITALS (33 sets, daily range): BP systolic 108–157; BP diastolic 65–88; PULSE 53–112; RESP 12–99; TEMP 35.6–36.4; O2SAT 92–100; BMI 27.3
--- NOTE | 2023-03-08 00:31 | PC.NURSE ---
Charleen [phone]
[2023-03-08] MEDS: ALBUTEROL SULFATE NEB 2.5 MG/3 ML INH 10 MG INHALATION (01:03)
[2023-03-08] MEDS: IPRATROPIUM BR 0.02% INH SOLN 0.5 MG/2.5 ML VIAL 1 MG INHALATION (01:04)
[2023-03-08 01:10] LABS: Alveolar/Arterial O2 Gradient 98.9 mmHg; Base Excess ABG 1.8 mEq/l (+/-2.0); Fractional Inspired Oxygen 32 %; HCO3 ABG 27.2 mEq/l (22.0-26.0); Oxygen Content ABG 15.9 %vol (16.0-22.0); Oxyhemoglobin 93.2 % THb (90.0-100.0); PCO2 ABG 45.8 mmHg (35.0-45.0); PO2 ABG 75.7 mmHg (80.0-100.0); PO2 FiO2 Ratio Arterial Blood 2.37 %; Total Hemoglobin 12.1 g/dL (12.0-18.0); pH ABG 7.391 (7.350-7.450)
[2023-03-08 01:13] LABS: Device NASAL CANNULA; Modified Allen's Test Pass; Site Drawn RIGHT RADIAL
--- NOTE | 2023-03-08 01:36 | PC.NURSE ---
Mechanic/Welder spoke with patient's significant other and Charleen reports she will bring up his battery pack and extra battery.
[2023-03-08 02:00] LABS: NT Pro B Type Natriuretic Pept 1430 pg/mL (19.9-100)
[2023-03-08 02:25] LABS: Troponin I 0.038 ng/mL (0.000-0.034)
--- NOTE | 2023-03-08 02:31 | ED.GENADULT ---
HPI - General Adult General Chief complaint: Chest Pain Stated complaint: chest pain, life vest on for CHF Time Seen by Provider: 03/07/23 23:51 History of Present Illness HPI narrative: This is a 67-year-old male with history of CHF with a LifeVest, COPD presenting ED with chest pain/difficulty breathing. Says his chest pain is started 2-3 days ago and is a pressure in the center of his chest that radiates to his back. it is 8/10 in intensity. It is getting worse. He says he has had this 2 or 3 times a month the last 5 years. It is worse with exertion, associated with nausea vomiting and diaphoresis. He denies fever chills. He has his normal cough. Patient has severe respiratory compromise and can only walk about 25-30 steps before coming short of breath. Denies lower extremity edema. Related Data Home Medications Medication Instructions Recorded Confirmed metformin 500 mg tablet 500 mg PO BIDWM 07/03/22 03/08/23 albuterol sulfate 90 mcg/actuation 2 puff inhalation BID 03/08/23 03/08/23 aerosol inhaler atorvastatin 20 mg tablet 20 mg PO DAILY 03/08/23 03/08/23 carvedilol 3.125 mg tablet 3.125 mg PO BID 03/08/23 03/08/23 clopidogrel 75 mg tablet 75 mg PO BID 03/08/23 03/08/23 furosemide 40 mg tablet 40 mg PO DAILY 03/08/23 03/08/23 lisinopril 5 mg tablet 5 mg PO BID 03/08/23 03/08/23 spironolactone 25 mg tablet 25 mg PO DAILY 03/08/23 03/08/23 Allergies Allergy/AdvReac Type Severity Reaction Status Date / Time No Known Allergies Allergy Verified 03/07/23 21:16 [facility] Past Medical History Medical History COPD (chronic obstructive pulmonary disease) Diabetes mellitus Hemoglobin A1c 12.09 August 2020 Obstructive sleep apnea Renal lesion Skin cancer Surgical History Surgical History History of left knee surgery History of right knee surgery History of shoulder surgery Left Family History Family History Sibling Diabetes mellitus Father Emphysema lung Social History Social History Social History: He lives with his significant other. He smokes about a 3rd of pack of cigarettes per day. He denies any alcohol abuse or illicit drugs. He has 4 children. Code status: Full code Smoking packs per day: 0.33 Smoking cigarettes per day: 6.6 Years smoked: 58 Smoking pack-years: 19.14 Smoking status: Current every day smoker Tobacco type: cigarettes Second hand tobacco smoke exposure: Yes Additional smoking assessment comments: currently wearing nocitone patch, reports he is cutting down and trying to Alcohol intake: current Drinks per week: 2 Substance use: current Substance use type: marijuana and methamphetamine Other substance usage details: Unknown Last use: daughter suspects amphetamine use-not sure Gender identity (if verbalized by the patient): Male Spiritual care concerns: No Exam Narrative: APPEARANCE: Patient appears chronically unwell Head: atraumatic. EYES: EOMI, NOSE: Atraumatic NECK: Trachea midline RESPIRATORY: wheezing in all [place], tachypneic at rest CARDIOVASCULAR: RRR,, no peripheral edema, life vest in place ABDOMINAL: Non-distended MUSCULOSKELETAl: No obvious deformities NEURO: Alert. Moving 4/4 extremities SKIN:: Warm, dry. Normal color PSYCHIATRIC: Normal affect Course Vital Signs Vital signs: Vital Signs Temperature 97.7 F 03/07/23 21:22 Pulse Rate 96 03/07/23 21:22 Respiratory Rate 22 H 03/07/23 21:22 Blood Pressure 102/56 L 03/07/23 21:22 Pulse Oximetry 94 03/07/23 21:22 Oxygen Delivery Nasal Cannula 03/07/23 21:22 Oxygen Flow Rate 3 03/07/23 21:22 Temperature 97.7 F 03/07/23 21:22 Pulse Rate 93 03/08/23 03:00 Respiratory Rate 15 03/08/23 03:00 Blood Pressure
[2023-03-08 04:31] LABS: Glucose Point of Care 186 mg/dl (65-105)
--- NOTE | 2023-03-08 05:20 | PM.IMHP ---
H&P: HPI History of Present Illness Date/Time: 03/08/23 05:20 Chief Complaint: Chest pain and shortness of breath Narrative: 67-year-old male with a past medical history of COPD, obstructive sleep apnea, multivessel coronary artery disease, severe ischemic cardiomyopathy and chronic hypercapnic hypoxic respiratory failure requiring prior intubations who presented to the ER with chest pain and shortness of breath. Patient arrived to the ER with LifeVest in place. The patient had a non STEMI in March 2022 with cardiac catheterization that demonstrated multiple vessel severe coronary artery disease patient was transferred to [facility] for stent placement and thrombosis of the LAD. He has persistent ischemic cardiomyopathy with repeat echo June 2022 demonstrated EF of 25-30% and dyskinetic apex, akinetic anterior wall and all apical harrell are akinetic. Patient is on chronic home O2 of 3 L nasal cannula. However, he did not bring his oxygen with him when he came to the ER. He arrived to the ER satting 90% on room air. Source of information is from ER physician report, and review of past medical records. The patient himself is only fair to poor historian. New reports that he has been having increased cough probably for a couple of days. He denies any fevers or chills. With this cough he is having some left-sided chest pain a. The pain as travels into his shoulder and causes some muscle spasm in the back of his neck. The pain is different that is cardiac pain. He also has been having what sounds like frequent reflux symptoms. He has had difficulty with swallowing both solids and liquids. He occasionally has to cough is food back up when he gets stuck in his throat. 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 He reports that when he does smoke a cigarette he feels like he produces more sputum. He denies any recent ill contacts. He has been outside doing some yd work the day prior to his symptoms getting worse. It sounds like he has intermittent orthopnea. He denies any lower extremity swelling. He wears a LifeVest chronically. He was post follow-up with Dr. Trevizo 2 days ago but did not due to his increased shortness of breath and cough. He reports that he has been having some cramping in his lower extremities. He does have symptoms of peripheral neuropathy in his toes are very sensitive. He denies any foot wounds. He reports that he has cut back on his cigarette smoking significantly. He usually uses a 14 mg nicotine patch at home and still smokes a couple of cigarettes with nicotine patch on. At the time of my evaluation the patient is not moving much air anteriorly and has marked in expiratory wheezing in the upper [place] posteriorly. He reports that he takes a Lantus daily but has not taken Lantus in about 48 hours. He usually takes between 35 and 45 units subQ daily. Unfortunately the ER nursing staff marked the patient's med rec is reviewed when it had not yet been reviewed. The medications that a reviewed and started technically have not been confirmed. Except for the Lantus. The patient states that he knows that he takes 35-45 units during the day and less his sugars are really high then he decided to take it at night. He also takes some short-acting insulin or he is taking extra doses of his Lantus although again the patient is a poor historian. But the medications that I have reconciled where his closest I could get by reviewing external medication documents from electronic records the pharmacy. Review of Systems Review of Systems: 12 systems were reviewed with pertinent positives and negatives per HPI. Except as documented in the HPI, all other systems were reviewed and are negative. [facility] Past Medical History Medical History (Updated 03/08/23 @ 08:38 by Renetta Palacios DO) Chronic respiratory failure with hypoxia and hypercapnia COPD (chronic obstructive pulm
[2023-03-08 05:26] LABS: Troponin I 0.036 ng/mL (0.000-0.034)
--- NOTE | 2023-03-08 06:52 | ADMGEN ---
This patient, Samuel Conway , was admitted to 3 [facility] Surg Room 311-01. Patient/family oriented to hospital policies and general routines including ID bracelet, bed and alarms, visiting hours, pain management, procedures, bathroom and other care routines, personal items, smoking policy, room service/diet, and visiting hours. Information on how to activate the Rapid Response Team has been discussed. Patient/Family are encouraged to report perceived risks to care and to ask questions if they do not understand what they are told or what they should do.
[2023-03-08 08:17] LABS: Glucose Point of Care 217 mg/dl (65-105)
--- NOTE | 2023-03-08 08:18 | PC.NURSE ---
Called hospitalist and no answer. Message sent.
--- NOTE | 2023-03-08 09:13 | PM.CNCAR ---
Assessment and Plan Assessment and plan (1) Acute exacerbation of CHF (congestive heart failure): Code(s): I50.9 - Heart failure, unspecified Status: Acute Assessment and Plan: Presents with complaint of significant dyspnea with exertion for the past couple of weeks. On exam he does not appear to be volume overloaded. His chest XR did not show any evidence of CHF. Unclear whether he is compliant with his medication regimen at home. Dyspnea probably mostly secondary to COPD vs. CHF. Would recommend resuming his home medications including lisinopril, coreg, ASA, atorvastatin, and spironolactone. History of Present Illness History of Present Illness Consult date/time: 03/08/23 09:13 Requesting physician: Renetta Palacios, Consult reason: Other (cardiomyopathy) Reason For Visit: Acute on Chronic Resp Failure Narrative: Samuel Conway is a 67 year old male with a history of COPD with ongoing tobacco use, uncontrolled diabetes, MARTIN, polysubstance abuse including methamphetamines, and a reported history of CAD with prior HI in 1996, NSTEMI in March of 2022 at with coronary angiogram showed multivessel disease. He was transferred from to [facility] where Dr. Irving performed Impella supported PCI with stenting of the LAD and LPDA. At that time he was also found to have a severe cardiomyopathy with an EF of 20%. He presents to the hospital now with a chief complaint of shortness of breath and chest pain. Patient states he has been experiencing worsening shortness of breath for 2-3 weeks. Also having intermittent chest pain that he is not able to describe well. Currently, his main complaint is his shortness of breath No swelling or palpitations. He is free from chest pain at the time of my visit. He denies any missed doses of medications but does not know which medications he takes at home. He states his most recent methamphetamine use was about 2-3 weeks ago, after which he began to experience increasing shortness of breath. He is unable to walk even short distances without having to stop to rest and states it takes him about 30 minutes to recover. Review of Systems Review of Systems: All systems reviewed & are unremarkable except as noted in HPI and below PMFSH Past Medical History Medical History Chronic respiratory failure with hypoxia and hypercapnia COPD (chronic obstructive pulmonary disease) Diabetes mellitus Hemoglobin A1c 12.09 August 2020 Ischemic cardiomyopathy Non-STEMI (non-ST elevated myocardial infarction) (03/2022) Obstructive sleep apnea Renal lesion Skin cancer Tobacco use disorder, continuous Surgical History Surgical History History of coronary artery stent placement (03/2022) Multi-vessel PCI performed at [facility] 03/2022 and acute stent thrombosis of LAD sometime between March and June 2022 History of left knee surgery History of right knee surgery History of shoulder surgery Left Family History Family History Sibling Diabetes mellitus Father Emphysema lung Social History Social History Social History: He lives with his significant other. He smokes about a 3rd of pack of cigarettes per day. He has 4 children. Patient has smoked as much as a pack of cigarettes per day. He states that he is down to a few cigarettes a day but still wears a nicotine patch. He is still intermittently using methamphetamines. Code status: Full code Smoking packs per day: 0.5 Smoking cigarettes per day: 10.0 Years smoked: 58 Smoking pack-years: 29.00 Smoking status: Current every day smoker Second hand tobacco smoke exposure: Yes Alcohol intake: current Drinks per week: 9 Substance use: current Subs
--- NOTE | 2023-03-08 09:41 | PC.NURSE ---
This patient, Samuel Conway , was admitted to 3 [facility] Surg Room 311-01. Patient/family oriented to hospital policies and general routines including ID bracelet, bed and alarms, visiting hours, pain management, procedures, bathroom and other care routines, personal items, smoking policy, room service/diet, and visiting hours. Information on how to activate the Rapid Response Team has been discussed. Patient/Family are encouraged to report perceived risks to care and to ask questions if they do not understand what they are told or what they should do.
[2023-03-08] MEDS: PANTOPRAZOLE 40 MG TABLET PO (09:45)
[2023-03-08] MEDS: methylPREDNISolone SOD SUCC 40 MG VIAL IV PUSH (09:46)
--- NOTE | 2023-03-08 11:08 | PC.NURSE ---
Spoke with Dr. Palacios (evening hospitalist this morning) and she verified patients medications because ER went over medications with patient. After policy writer typist and Dr. Palacios spoke with patient, the patient does not know the correct dosages to the medication he takes. Patient states Charleen knows what he takes. Global Account Executive tried to call Charleen to get patients medication list from her but she is not answering at this time.
[2023-03-08 11:17] LABS: Glucose Point of Care 410 mg/dl (65-105)
[2023-03-08] MEDS: INSULIN GLARGINE (*BKC) 100 UNITS/ML 30 UNITS SUB-Q (11:22)
[2023-03-08] MEDS: INSULIN ASPART (*BKC) 100 UNITS/ML SUB-Q ×2 (11:25→18:34)
--- NOTE | 2023-03-08 11:30 | PC.NURSE ---
Charleen called back and radio news writer went over medication list with her to verify patients medications.
[2023-03-08] MEDS: metFORMIN HCL 500 MG TABLET PO ×2 (11:54→18:33)
[2023-03-08] MEDS: carvediloL 3.125 MG TABLET PO ×2 (11:54→20:28)
[2023-03-08] MEDS: ATORVASTATIN 20 MG TABLET PO (11:54)
[2023-03-08] MEDS: ASPIRIN 81 MG ENTERIC TABLET PO (11:54)
[2023-03-08] MEDS: CLOPIDOGREL BISULFATE 75 MG TABLET PO (11:54)
[2023-03-08] MEDS: FUROSEMIDE 40 MG TABLET PO (11:55)
[2023-03-08] MEDS: SPIRONOLACTONE 25 MG TABLET PO (11:55)
[2023-03-08] MEDS: lisinopriL 5 MG TABLET PO (11:55)
[2023-03-08 12:22] LABS: Barbiturate Screen Urine Negative (Negative); Benzodiazepines Screen Urine Negative (Negative)
[2023-03-08 12:28] LABS: Amphetamine Screen Urine Positive (Negative); Methadone Screen Urine Negative (Negative); Opiate Screen Urine Negative (Negative); Phencyclidine Screen Urine Negative (Negative)
[2023-03-08 12:38] LABS: Cocaine Screen Urine Negative (Negative)
[2023-03-08 12:43] LABS: Cannabinoid Screen Urine Negative (Negative)
--- NOTE | 2023-03-08 13:09 | PC.NURSE ---
Updated Dr. Guillory on medication changes and patients sugar being greater than 400. Medications given accordingly (SEE MAR).
[2023-03-08] MEDS: IPRATROPIUM BR 0.02% INH SOLN 0.5 MG/2.5 ML VIAL INHALATION ×2 (13:43→20:20)
[2023-03-08] MEDS: LEVALBUTEROL NEB 1.25 MG/3 ML INHALATION ×2 (13:43→20:20)
[2023-03-08] MEDS: NICOTINE (*PBKC) 21 MG PATCH 1 PATCH TRANSDERM (14:11)
[2023-03-08 16:44] LABS: Glucose Point of Care 248 mg/dl (65-105)
[2023-03-08 22:17] LABS: Glucose Point of Care 170 mg/dl (65-105)
[2023-03-09] VITALS (11 sets, daily range): BP systolic 115; BP diastolic 75; PULSE 60–95; RESP 18–20; TEMP 36.3; O2SAT 94–98
[2023-03-09] MEDS: LEVALBUTEROL NEB 1.25 MG/3 ML INHALATION ×2 (02:02→07:47)
[2023-03-09] MEDS: IPRATROPIUM BR 0.02% INH SOLN 0.5 MG/2.5 ML VIAL INHALATION ×2 (02:02→07:47)
[2023-03-09 06:25] LABS: Hematocrit 38.1 % (42.0-52.0); Hemoglobin 12.9 g/dL (14.0-18.0); Mean Corpuscular HGB Conc 33.9 g/dl (32-36); Mean Corpuscular Hemoglobin 31.5 pg (26-34); Mean Corpuscular Volume 93.2 fl (80-100); Mean Platelet Volume 9.4 fl (7.4-10.4); Platelet Count Result 290 k/mm3 (150-375); Red Blood Count 4.09 M/mm3 (4.6-6.20); White Blood Count 17.2 K/mm3 (4.5-10.0)
[2023-03-09 06:53] LABS: Anion Gap 2 mmol/L (8-16); Blood Urea Nitrogen 27 mg/dL (9-20); Calcium 9.5 mg/dL (8.4-10.2); Carbon Dioxide 38 mmol/L (22-30); Chloride 101 mmol/L (98-107); Estimated CRCL calculation 65 ml/min; Estimated Glomerular Filt Rate > 60; Glucose 152 mg/dL (65-110); Sodium 141 mmol/L (137-145)
[2023-03-09 07:00] LABS: Potassium 4.6 mmol/L (3.4-5.0)
[2023-03-09 07:41] LABS: Glucose Point of Care 164 mg/dl (65-105)
[2023-03-09] MEDS: INSULIN GLARGINE (*BKC) 100 UNITS/ML 30 UNITS SUB-Q (08:38)
[2023-03-09] MEDS: NICOTINE (*PBKC) 21 MG PATCH 1 PATCH TRANSDERM (08:40)
[2023-03-09] MEDS: FUROSEMIDE 40 MG TABLET PO (08:43)
[2023-03-09] MEDS: BENZOCAINE/MENTHOL (*BKC) 18 EA LOZENGE 1 LOZENGE PO (08:43)
[2023-03-09] MEDS: CLOPIDOGREL BISULFATE 75 MG TABLET PO (08:44)
[2023-03-09] MEDS: PANTOPRAZOLE 40 MG TABLET PO (08:44)
[2023-03-09] MEDS: lisinopriL 5 MG TABLET PO (08:44)
[2023-03-09] MEDS: ATORVASTATIN 20 MG TABLET PO (08:45)
[2023-03-09] MEDS: carvediloL 3.125 MG TABLET PO (08:45)
[2023-03-09] MEDS: metFORMIN HCL 500 MG TABLET PO (08:45)
[2023-03-09] MEDS: SPIRONOLACTONE 25 MG TABLET PO (08:45)
[2023-03-09] MEDS: ASPIRIN 81 MG ENTERIC TABLET PO (08:47)
[2023-03-09] MEDS: methylPREDNISolone SOD SUCC 40 MG VIAL IV PUSH (08:47)
--- NOTE | 2023-03-09 11:23 | PM.DS ---
DS: Admitting Diagnosis Discharge Date 03/09/2023 Admitting Diagnosis Chest pain and shortness of breath DS: Discharge Diagnosis Discharge Diagnosis (1) COPD with acute exacerbation: Code(s): J44.1 - Chronic obstructive pulmonary disease with (acute) exacerbation Status: Acute Assessment and Plan: Treated with nebulisers and IV steroids (2) Chronic respiratory failure with hypoxia and hypercapnia: Code(s): J96.11 - Chronic respiratory failure with hypoxia; J96.12 - Chronic respiratory failure with hypercapnia Status: Acute Assessment and Plan: Pt off oxygen on DC (3) Elevated troponin: Code(s): R77.8 - Other specified abnormalities of plasma proteins Status: Acute Assessment and Plan: Pt seen by cardiology trop level and cxr reviewed, sob unlikley cardiac related (4) Dysphagia: Qualifiers: Dysphagia type: esophageal phase Qualified Code(s): R13.19 - Other dysphagia Code(s): R13.10 - Dysphagia, unspecified Status: Acute Assessment and Plan: Improved on throat drops pt states he can eat an drink well now (5) GERD (gastroesophageal reflux disease): Qualifiers: Esophagitis presence: esophagitis presence not specified Qualified Code(s): K21.9 - Gastro-esophageal reflux disease without esophagitis Code(s): K21.9 - Gastro-esophageal reflux disease without esophagitis Status: Acute Assessment and Plan: HIstory of esophagitis advanced to quit smoking (6) Tobacco use disorder, continuous: Code(s): F17.209 - Nicotine dependence, unspecified, with unspecified nicotine-induced disorders Status: Acute Assessment and Plan: Discharged on nicotine patches (7) Type 2 diabetes mellitus with hyperglycemia: Qualifiers: Diabetes mellitus senior living insulin use: with senior living use Qualified Code(s): E11.65 - Type 2 diabetes mellitus with hyperglycemia; Z79.4 - exterminator termite (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 I think the patient's chest pain is more due to his COPD exacerbation affect that he was probably having some shortness of breath and or hypoxia with activity. Also some of his chest pain could be due to cough. He is also having some dysphagia symptoms and what sounds like intermittent GERD symptoms which could be leading to chest pain. The patient had serial troponins with relatively flat troponin profile. He was post follow-up with his machine programmer [address] consult for patient's machine programmer Dr. Trevizo as the patient would like to see him while hospitalized. The patient's patient's home Coreg aspirin atorvastatin Plavix and Lasix. The patient has been placed on steroid therapy and scheduled nebulizer treatments for COPD exacerbation. Will continue monitor. Given the patient's report of dysphagia and GERD and lives a he was started on Protonix as outpatient sometime last year. He already has a follow-up with a launch operator in [place] later this month or next month. No need for emergent evaluation at this point. Patient has continuous tobacco use. He requested 21 mg nicotine patch even though he only uses a 14 mg nicotine patch at home. He states that it is easier to not smoke as much at home because he is distracted doing yd work and other such activities. Patient has historically uncontrolled diabetes and per the patient's own report he is not the most compliant with taking his Lantus every day. Is been almost 48 hours since he has taken his Lantus. Will give the patient his home Lantus but will decrease the dose given that he reports his glucoses are running lower the last couple of days. I suspect the patient truly has not been eating
[2023-03-09 11:33] LABS: Glucose Point of Care 262 mg/dl (65-105)
[2023-03-09] MEDS: INSULIN ASPART (*BKC) 100 UNITS/ML SUB-Q (11:36)
== END 2023-03-09 13:15 | disposition home or self-care (01) ==
LOC: ANHED 03-08 04:45 → ANH3MEDSUR 03-09 11:23
PROVIDERS: Admitting Provider Internal Medicine; Emergency Provider Emergency Medicine; PCP Internal Medicine; Visit Provider Family Medicine
DX: J44.1 Chronic obstructive pulmonary disease with (acute) exacerbation (principal); J96.11 Chronic respiratory failure with hypoxia; J96.12 Chronic respiratory failure with hypercapnia; R77.8 Other specified abnormalities of plasma proteins; R13.10 Dysphagia, unspecified; K21.9 Gastro-esophageal reflux disease without esophagitis; F17.209 Nicotine dependence, unspecified, with unspecified nicotine-induced disorders; E11.65 Type 2 diabetes mellitus with hyperglycemia; R07.9 Chest pain, unspecified; Z99.81 Dependence on supplemental oxygen; I50.9 Heart failure, unspecified; G47.33 Obstructive sleep apnea (adult) (pediatric); I25.10 Atherosclerotic heart disease of native coronary artery without angina pectoris; Z95.811 Presence of heart assist device; I25.2 Old myocardial infarction; I25.5 Ischemic cardiomyopathy; F10.90 Alcohol use, unspecified, uncomplicated; R94.31 Abnormal electrocardiogram [ECG] [EKG]; Z79.84 Long term (current) use of oral hypoglycemic drugs; Z79.51 Long term (current) use of inhaled steroids; Z79.02 Long term (current) use of antithrombotics/antiplatelets; Z79.899 Other long term (current) drug therapy; Z83.3 Family history of diabetes mellitus; Z84.89 Family history of other specified conditions
CPT/HCPCS: 36415; 36600; 71046; 80048; 80053; 80307; 82805; 82948; 83690; 83880; 84484; 85025; 85027; 85610; 85730; 93005; 94640; 96374; 96376; 99285; A9270; G0378; J1100; J1815; J2920

== ENCOUNTER 2023-03-12 19:26 | Emergency (ER) | payer MEDICARE, MEDICAID, SELFPAY ==
[2023-03-12 19:28] VITALS: BP 92/46; PULSE 112; RESP 21; TEMP 36.7; O2SAT 93
[2023-03-12 19:37] LABS: Glucose Point of Care > 500 mg/dl (65-105)
[2023-03-12 20:12] LABS: Basophils Percent Auto 0.3 % (0.2-1.2); Eosinophils Percent Auto 0.3 % (0-4.4); Hematocrit 35.6 % (42.0-52.0); Hemoglobin 11.9 g/dL (14.0-18.0); Immature Granulocyte Absolute 0.06 K/mm3 (0.00-0.031); Immature Granulocyte Percent A 0.5 % (0-0.5); Lymphocytes Absolute Auto 1.82 K/mm3 (0.9-3.2); Lymphocytes Percent Auto 15.4 % (18.3-44.2); Mean Corpuscular HGB Conc 33.4 g/dl (32-36); Mean Corpuscular Hemoglobin 31.8 pg (26-34); Mean Corpuscular Volume 95.2 fl (80-100); Mean Platelet Volume 9.8 fl (7.4-10.4); Monocytes Absolute Auto 0.6 K/mm3 (0.1-0.6); Monocytes Percent Auto 4.8 % (2.6-8.5); Neutrophils Absolute Auto 9.3 K/mm3 (1.3-6.7); Neutrophils Percent Auto 78.7 % (45.5-73.1); Platelet Count Result 314 k/mm3 (150-375); Red Blood Count 3.74 M/mm3 (4.6-6.20); Red Cell Distribution Width 13.3 % (11.5-14.5); White Blood Count 11.8 K/mm3 (4.5-10.0)
[2023-03-12 20:26] VITALS: BP 93/68; PULSE 106; RESP 20; O2SAT 99
[2023-03-12 20:26] LABS: Alanine Aminotransferase 35 U/L (6-50); Albumin Level 4.3 g/dL (3.5-5.1); Alkaline Phosphatase 58 U/L (38-126); Anion Gap 11 mmol/L (8-16); Aspartate Amino Transferase 29 U/L (17-59); Bilirubin,Total 0.5 mg/dL (0.2-1.3); Blood Urea Nitrogen 36 mg/dL (9-20); Calcium 8.7 mg/dL (8.4-10.2); Carbon Dioxide 25 mmol/L (22-30); Chloride 98 mmol/L (98-107); Estimated CRCL calculation 51 ml/min; Estimated Glomerular Filt Rate 55; Potassium 4.7 mmol/L (3.4-5.0); Sodium 134 mmol/L (137-145)
[2023-03-12 20:34] LABS: Glucose 649 mg/dL (65-110)
--- NOTE | 2023-03-12 20:41 | ED.GENADULT ---
HPI - General Adult General Chief complaint: Recheck/Abnormal Lab/Rx Stated complaint: high blood sugar Time Seen by Provider: 03/12/23 20:25 History of Present Illness HPI narrative: Patient 67-year-old gentleman who presents the emergency department with chief complaint of hyperglycemia. Patient reports he was just in the hospital and was discharged home on steroids. Patient reports he has just been taking Lantus for his blood sugar. The patient reports he is currently not on a sliding scale although when the patient's records were reviewed he was supposed to be on a sliding scale at discharge Related Data Home Medications Medication Instructions Recorded Confirmed metformin 500 mg tablet 500 mg PO BIDWM 07/03/22 03/08/23 albuterol sulfate 90 mcg/actuation 2 puff inhalation BID 03/08/23 03/08/23 aerosol inhaler atorvastatin 20 mg tablet 20 mg PO DAILY 03/08/23 03/08/23 carvedilol 3.125 mg tablet 3.125 mg PO BID 03/08/23 03/08/23 clopidogrel 75 mg tablet 75 mg PO DAILY 03/08/23 03/08/23 furosemide 40 mg tablet 40 mg PO DAILY 03/08/23 03/08/23 insulin glargine 100 unit/mL (3 45 unit subcut DAILY 03/08/23 03/08/23 mL) subcutaneous pen (Lantus Solostar U-100 Insulin) lisinopril 5 mg tablet 5 mg PO BID 03/08/23 03/08/23 spironolactone 25 mg tablet 25 mg PO DAILY 03/08/23 03/08/23 Allergies Allergy/AdvReac Type Severity Reaction Status Date / Time No Known Allergies Allergy Verified 03/07/23 21:16 Review of Systems Review of Systems: A 10 system review of systems was completed on the patient and is negative except for what is stated in the HPI. Nursing and ancillary documentation was reviewed. [facility] Past Medical History Medical History Chronic respiratory failure with hypoxia and hypercapnia COPD (chronic obstructive pulmonary disease) Diabetes mellitus Hemoglobin A1c 12.09 August 2020 Ischemic cardiomyopathy Non-STEMI (non-ST elevated myocardial infarction) (03/2022) Obstructive sleep apnea Renal lesion Skin cancer Tobacco use disorder, continuous Surgical History Surgical History History of coronary artery stent placement (03/2022) Multi-vessel PCI performed at [facility] 03/2022 and acute stent thrombosis of LAD sometime between March and June 2022 History of left knee surgery History of right knee surgery History of shoulder surgery Left Family History Family History Sibling Diabetes mellitus Father Emphysema lung Social History Social History Social History: He lives with his significant other. He smokes about a 3rd of pack of cigarettes per day. He has 4 children. Patient has smoked as much as a pack of cigarettes per day. He states that he is down to a few cigarettes a day but still wears a nicotine patch. He is still intermittently using methamphetamines. Code status: Full code Smoking packs per day: 0.5 Smoking cigarettes per day: 10.0 Years smoked: 58 Smoking pack-years: 29.00 Smoking status: Current every day smoker Second hand tobacco smoke exposure: Yes Alcohol intake: current Drinks per week: 9 Substance use: current Substance use type: marijuana and methamphetamine Last use: 3 weeks ago Lack of Transportation: No Lack of Food: Often True Current Housing: I Have Housing Concerned About Future Housing: YES Difficulty Paying Gas/Electric Bills: No Difficulty Paying for Meds: No Currently Unemployed: No Education: Grade School Difficulty w/ Childcare or Family Care: No Gender identity (if verbalized by the patient): Male Spiritual care concerns: No Exam Narrative: GENERAL: Well-appearing, well-nourished, and in no acute distress. HEAD: Normocephali
[2023-03-12] MEDS: INSULIN HUMAN REGULAR (*BKC) 100 UNITS/ML 10 UNITS SUB-Q (20:52)
[2023-03-12 21:33] LABS: Glucose Point of Care 415 mg/dl (65-105)
== END 2023-03-12 21:59 | disposition home or self-care (01) ==
PROVIDERS: Emergency Provider Emergency Medicine; PCP Internal Medicine
DX: E11.65 Type 2 diabetes mellitus with hyperglycemia (principal); J96.12 Chronic respiratory failure with hypercapnia; J96.11 Chronic respiratory failure with hypoxia; I25.5 Ischemic cardiomyopathy; I25.2 Old myocardial infarction; G47.33 Obstructive sleep apnea (adult) (pediatric); F17.210 Nicotine dependence, cigarettes, uncomplicated; Z95.5 Presence of coronary angioplasty implant and graft; Z85.828 Personal history of other malignant neoplasm of skin; Z79.4 Long term (current) use of insulin; Z79.84 Long term (current) use of oral hypoglycemic drugs
CPT/HCPCS: 36415; 80053; 82948; 85025; 99283; J1815

== ENCOUNTER 2023-05-04 20:49 | Inpatient (IN) | payer MEDICARE, MEDICAID, SELFPAY ==
[2023-05-04] VITALS (16 sets, daily range): BP systolic 51–193; BP diastolic 13–74; PULSE 27–119; RESP 0–100; O2SAT 60–99
--- NOTE | ~2023-05-04 | XR_ITS ---
Portable chest x-ray Comparison: 05/04/2023 Clinical History: Tube placement Findings: Endotracheal tube and NG tube are in satisfactory positions. Stable left IJ line with tip at the superior left mediastinum. There is worsening left lower lobe airspace consolidation. There is mild patchy airspace disease in the remainder of the lungs. Cardiomediastinal silhouette is stable. Bones and soft tissues are unremarkable. Impression: Support tubes, as above, unchanged. Left IJ line tip remains at the superior mediastinum. Consider ad vancement into the SVC as indicated. Worsening left lower lobe consolidation with additional mild patchy hazy airspace disease in the rosio marietta lungs. Findings are compatible with pneumonia. Reviewed, dictated and finalized at [facility]. Impression: Support tubes, as above, unchanged. Left IJ line tip remains at the superior me diastinum. Consider advancement into the SVC as indicated. Worsening left lower lobe consolidation with additional mild patchy hazy airspa ce disease in the remainder lungs. Findings are compatible with pneumonia.
--- NOTE | ~2023-05-04 | XR_ITS ---
EXAMINATION: XR chest 1V portable Exam Date/Time: 05/04/2023 21:40 CDT HISTORY: CARDIAC ARREST Comparison: 03/26/2023. RESULT: Lines, tubes, and devices: Endotracheal tube, terminating 4.7 cm above the ruthann. Left IJ central v enous line terminating at the confluence of the internal jugular and brachiocephalic veins. An NG tub e traverses the image, terminating out of the [id number]. External defibrillator overlies the mid chest. Lungs and pleura: Diffuse somewhat coarse appearing reticulonodular opacities. Patchy airspace disea se in the left lung base. Cardiomediastinal silhouette: Stable. Other: No acute osseous or upper abdominal finding. IMPRESSION: Endotracheal tube 4.7 cm above the ruthann. NG tube terminates out of the [id number] but is subdiap hragmatic. Left IJ central venous line terminating at the confluence of the internal jugular vein and brachiocephalic vein. Subsegmental left lower lung airspace disease may represent atelectasis, infection, or aspiration. Mi ld interstitial edema. Reviewed, dictated and finalized at [facility]. IMPRESSION: Endotracheal tube 4.7 cm above the ruthann. NG tube terminates out of the field- of-view but is subdiaphragmatic. Left IJ central venous line terminating at the confluence of the internal jugular vein and brachiocephalic vein. Subsegmental left lower lung airspace disease may represent atelectasis, infect ion, or aspiration. Mild interstitial edema.
--- NOTE | 2023-05-04 20:34 | PC.NURSE ---
pt to ED via EMS with cardiac arrest. EMS stated it was a witnessed code. Life vest shocked pt 3x. First round of epi via EMS was at 834. Pt arrived at 2043 on the Americo. Pt airway is bvm. Life vest started shocking before EMS arrived. Americo was started when EMS arrived. Pt called with complaint of chest pain of 1 hour. Epi 2 minutes ago. IO initiated by EMS on the left parisi. EMS has IVF going through IO. EDP intubating patient at 2046 with a 7.5 and 25 at the lip. 18 in right AC at 2046. Round of epi at 2046 through the right AC. Round of bicarb at 2048 though the right AC. Pulse check at 2048 with no pulse in carotid , femoral or brachial. another round of epi pushed at 2049. Vitals at 2049 were 106 HR, 51 RR, 160/39. Third round of epi given at 2051. Pt was pulseless at 2051. Vital signs at 2051 were 81 HR, 62%, and 59 RR with a BP of 160/39. Americo is still going on patient. Pulse found at 2053 in the carotid, and femoral. Vital signs are 65 HR, 11 RR, and 181/103 without the Americo. Continued giving fluids through IO. Vital signs at 2054, 87 HR, 0 RR, and BP of 172/81. At 2055 18 gauge IV in the left wrist. At 2057 loss of pulse. EDP ordered another round of EPI. Epi given at 2057.Vital signs at 2057 were 62 HR, 15%, 15 RR, and 69/25 BP. At 2099 Americo and BVM were still being used. Another round of epi at 2099 in the right AC. Sodium bicarb was given at 2101. Vital signs at 2101 was 193/13, 60% BVM, 0 RR, 87 HR. Pulse check at 2102 with pulse in the carotid and femoral artery Americo paused. Pulse lost at 2105. 6th round of EPI at 2106. Americo started again. Vital signs at 2107 were 53/16, 101RR, and 28HR. Americo paused at 2108 for a pulse check. Pulse felt in the right femoral artery. IVF/ Lactated ringers infusing through the right AC with pressure. Vital signs at 2111 were 58 HR, and 53/16. Americo started back at 2112. 7th round of epi at 2112. At 2114 pulse check in the carotid with a pulse. Vital signs at 2116 were 69 HR, 7 RR, and 102/24 with no americo being used. Blood pressure at 2117 was 87/74 without the americo. Lactated ringers finished infusing at 2117. Sodium chloride started to be infused at 2118 with pressure bagging. At 2118 another round of Epi was given. 9th round of epi given at 2121. Vital signs at 2121 were 88HR, 97RR and 113/53 BP. Pulse check at 2123, pulse found at 2123 in the right femoral artery. Central line (20F) inserted in the left carotid at 2124. Vital signs at 2125 is 69 HR, 4 RR, and 132/76. Pulse still palpable in right femoral artery and right carotid at 2126. Blood pressure at 2126 was 101/65. Pulse check at 2129 palpable in bilateral femoral arteries, and in the right carotid. Levofed at 2129 4mcg/ min in right wrist. Vital signs at 2131 were 75 HR, 13 RR, 88%, and blood pressure was 63/44. No pulse palpable at 2132. Chest compressions started at 2132. Chest compressions ended and switched to the Americo at 2134. 2135 EPI. Paused Levo at . No pulse palpable in the left femoral artery at 2137. OG tube placed at 2137 at 65 at the lip. Air bolus heard in stomach for placement. OG tube hooked up to suction. Lactated ringers started at 2139 and 4mcg of Levo was unpaused. Americo paused at 2140, pulse check palpable in the left femoral artery. Pulse was palable at 2147 in the right carotid artery. VS at 2147 were 58 HR, 20 RR, and 98/62. Pt was transferred from the BVM to the [facility] at 2139. Pulse check at 2151 palpable at 2151. vital signs were 56 HR, 20 RR and 92/48.
--- NOTE | 2023-05-04 21:23 | ECG_ITS ---
Measurements Intervals Mentor Rate: 57 P: 70 ND: 169 QRS: 73 QRSD: 114 T: 89 QT: 402 QTc: 394 Interpretive Statements SINUS BRADYCARDIA MODERATE INTRAVENTRICULAR CONDUCTION DELAY [110+ ms QRS DURATION] ST ELEVATION, CONSIDER SEPTAL INJURY [MARKED ST ELEVATION W/O NORMALLY INFLECTED T- WAVE IN V1/V2] ACUTE NV COMPARED TO ECG 03/07/2023 21:19:08 SINUS BRADYCARDIA NOW PRESENT ST ELEVATION ONW PRESENT Electronically Signed On 05-05-2023 11:44:10 CDT by Clifford Gonzalez M.D.
[2023-05-04 21:29] LABS: Basophils Absolute Auto 0.1 K/mm3 (0.0-0.1); Basophils Percent Auto 0.7 % (0.2-1.2); Eosinophils Absolute Auto 0.4 K/mm3 (0-0.3); Eosinophils Percent Auto 2.4 % (0-4.4); Hematocrit 35.5 % (42.0-52.0); Hemoglobin 11.4 g/dL (14.0-18.0); Immature Granulocyte Absolute 0.16 K/mm3 (0.00-0.031); Immature Granulocyte Percent A 0.9 % (0-0.5); Lymphocytes Absolute Auto 7.47 K/mm3 (0.9-3.2); Lymphocytes Percent Auto 41.5 % (18.3-44.2); Mean Corpuscular HGB Conc 32.1 g/dl (32-36); Mean Corpuscular Hemoglobin 32.5 pg (26-34); Mean Corpuscular Volume 101.1 fl (80-100); Mean Platelet Volume 9.4 fl (7.4-10.4); Monocytes Absolute Auto 1.4 K/mm3 (0.1-0.6); Monocytes Percent Auto 7.9 % (2.6-8.5); Neutrophils Absolute Auto 8.4 K/mm3 (1.3-6.7); Neutrophils Percent Auto 46.6 % (45.5-73.1); Nucleated Red Blood Cells Perc 0.1 % (0.0-0.2); Platelet Count Result 323 k/mm3 (150-375); Red Blood Count 3.51 M/mm3 (4.6-6.20); Red Cell Distribution Width 13.4 % (11.5-14.5)
[2023-05-04 21:36] LABS: Alanine Aminotransferase 48 U/L (6-50); Alkaline Phosphatase 59 U/L (38-126); Anion Gap 17 mmol/L (8-16); Aspartate Amino Transferase 45 U/L (17-59); Bilirubin,Total 0.3 mg/dL (0.2-1.3); Blood Urea Nitrogen 22 mg/dL (9-20); Calcium 9.2 mg/dL (8.4-10.2); Carbon Dioxide 23 mmol/L (22-30); Chloride 101 mmol/L (98-107); Estimated Glomerular Filt Rate 47; Glucose 350 mg/dL (65-110); Lipase 149 U/L (23-300); Potassium 5.1 mmol/L (3.4-5.0); Sodium 141 mmol/L (137-145)
[2023-05-04 21:45] LABS: INR 1.1; Prothrombin Time 15.1 Seconds (11.1-14.7)
[2023-05-04 21:46] LABS: Partial Thromboplastin Time 35.4 SECONDS (22.3-36.8)
[2023-05-04 21:48] LABS: Troponin I 0.045 ng/mL (0.000-0.034)
--- NOTE | 2023-05-04 21:57 | PC.NURSE ---
Temp sensing goyal was placed at 7 16 F. temp at 2156 was 34.2. Dopamine started at 7.4mL/hour at 2157 into the central line. EKG was taken at 2204. Vital signs at 2207 were 56 HRm 91%, 28RR, and 102/62. temp is 34.5 at 2208.
--- NOTE | 2023-05-04 22:01 | ED.GENADULT ---
HPI - General Adult General Chief complaint: Cardiac Arrest/CPR Stated complaint: CARDIAC ARREST Time Seen by Provider: 05/04/23 20:57 History of Present Illness HPI narrative: 67-year-old male with history of COPD CHF and a LifeVest in place presented the emergency department by EMS after full arrest. Patient was having some shortness of breath and called EMS. Shortly after getting into the rig the patient did have his LifeVest fired once and patient was in normal sinus rhythm afterwards. EMS states the vest fired again and then patient became unresponsive and was in PEA for approximately 30 minutes until arrival to the emergency department. CPR was started and patient was in a Americo device upon arrival to the ED. patient did have an LMA in place but had copious amounts of emesis and concern for aspiration Related Data Home Medications Medication Instructions Recorded Confirmed metformin 500 mg tablet 500 mg PO BIDWM 07/03/22 03/08/23 albuterol sulfate 90 mcg/actuation 2 puff inhalation BID 03/08/23 03/08/23 aerosol inhaler atorvastatin 20 mg tablet 20 mg PO DAILY 03/08/23 03/08/23 carvedilol 3.125 mg tablet 3.125 mg PO BID 03/08/23 03/08/23 clopidogrel 75 mg tablet 75 mg PO DAILY 03/08/23 03/08/23 furosemide 40 mg tablet 40 mg PO DAILY 03/08/23 03/08/23 insulin glargine 100 unit/mL (3 45 unit subcut DAILY 03/08/23 03/08/23 mL) subcutaneous pen (Lantus Solostar U-100 Insulin) lisinopril 5 mg tablet 5 mg PO BID 03/08/23 03/08/23 spironolactone 25 mg tablet 25 mg PO DAILY 03/08/23 03/08/23 Allergies Allergy/AdvReac Type Severity Reaction Status Date / Time No Known Allergies Allergy Verified 03/07/23 21:16 Review of Systems Review of Systems: ROS unobtainable: Yes unobtainable due to medical condition PMFSH Past Medical History Medical History Chronic respiratory failure with hypoxia and hypercapnia COPD (chronic obstructive pulmonary disease) Diabetes mellitus Hemoglobin A1c 12.09 August 2020 Ischemic cardiomyopathy Non-STEMI (non-ST elevated myocardial infarction) (03/2022) Obstructive sleep apnea Renal lesion Skin cancer Tobacco use disorder, continuous Surgical History Surgical History History of coronary artery stent placement (03/2022) Multi-vessel PCI performed at [facility] 03/2022 and acute stent thrombosis of LAD sometime between March and June 2022 History of left knee surgery History of right knee surgery History of shoulder surgery Left Family History Family History Sibling Diabetes mellitus Father Emphysema lung Social History Social History Social History: He lives with his significant other. He smokes about a 3rd of pack of cigarettes per day. He has 4 children. Patient has smoked as much as a pack of cigarettes per day. He states that he is down to a few cigarettes a day but still wears a nicotine patch. He is still intermittently using methamphetamines. Code status: Full code Smoking packs per day: 1 Smoking cigarettes per day: 20.0 Years smoked: 40 Smoking pack-years: 40.00 Smoking status: Current every day smoker Second hand tobacco smoke exposure: Yes Alcohol intake: current Drinks per week: 9 Substance use: never Substance use type: marijuana and methamphetamine Last use: 3 weeks ago Lack of Transportation: No Lack of Food: Often True Current Housing: I Have Housing Concerned About Future Housing: YES Difficulty Paying Gas/Electric Bills: No Difficulty Paying for Meds: No Currently Unemployed: No Education: Grade School Difficulty w/ Childcare or Family Care: No Gender identity (if verbalized by the patient): Male Spiritual care concerns: No Exam Narrative: APPEARANCE: Cyanotic and u
--- NOTE | 2023-05-04 22:03 | ECG_ITS ---
Measurements Intervals [place] Rate: 67 P: [place]: 0 QRS: 72 QRSD: 103 T: 83 QT: 395 QTc: 419 Interpretive Statements SINUS RHYTHM WITH SINUS ARRHYTHMIA LOW QRS VOLTAGE [QRS DEFLECTION < 0.5/1.0 mV IN LIMB/CHEST LEADS] SEPTAL MYOCARDIAL INFARCTION , PROBABLY RECENT [40+ ms Q WAVE IN V1/V2] MARKED ST ELEVATION, CONSIDER ANTERIOR INJURY [MARKED ST ELEVATION W/O NORMALLY INFLECTED T-WAVE IN V2-V5] ACUTE PR COMPARED TO ECG 05/04/2023 21:50:24 NO SIGNIFICANT CHANGES Electronically Signed On 05-05-2023 11:44:56 CDT by Clifford Gonzalez M.D.
[2023-05-04] MEDS: ASPIRIN 300 MG SUPPOSITORY RECTAL (22:27)
[2023-05-04] MEDS: HEPARIN SODIUM 5,000 UNITS/ML VIAL 4000 UNITS IV PUSH (22:27)
--- NOTE | 2023-05-04 22:32 | PC.NURSE ---
4.1mL of dopamine infused.
[2023-05-04] MEDS: MIDAZOLAM HCL (*CRX) 2 MG/2 ML VIAL 4 MG IV PUSH (22:34)
[2023-05-04] MEDS: HEPARIN SOD/D5W 100 UNITS/ML 25,000 UNITS/250 ML BAG 10 UNITS IV CONT (22:38)
[2023-05-04] MEDS: TICAGRELOR 90 MG TABLET 180 MG PO (22:44)
--- NOTE | 2023-05-04 22:48 | PC.NURSE ---
Increased norepi to 9mg at [address] Ramirez.
--- NOTE | 2023-05-04 22:51 | PC.NURSE ---
blood pressure was 61/42 at 2251. Norepi increased to 14mg per EDP Dr. Ramirez.
--- NOTE | 2023-05-04 22:54 | PC.NURSE ---
Upon laboratory operations coordinator arrival suction was changed over and suction canister was at 900 with orange emesis. Armas catheter had 15mLs of bright yellow urine. vital signs before transport was 104 HR, 97%, 36RR, and Blood pressure was 61/42.
--- NOTE | 2023-05-04 22:56 | PC.NURSE ---
Pt transferred on air mattress.
--- NOTE | 2023-05-04 22:58 | PC.NURSE ---
Dopamine restarted prior to transfer of patient to ammunition assembly laborer at 2259 at a rate of 7.4mls/hr, 2mcgs/kg/mg with weight of 98.3kg.
[2023-05-05] VITALS (9 sets, daily range): BP systolic 101–136; BP diastolic 54–74; PULSE 80–102; RESP 16–34; TEMP 35; O2SAT 75–90; BMI 30.9
[2023-05-05] MEDS: VASOPRESSIN INJ 100 UNITS in DEXTROSE 5% 95 ML IV CONT ×2 (00:30→01:56)
--- NOTE | 2023-05-05 01:08 | PM.IMHP ---
H&P: HPI History of Present Illness Date/Time: 05/05/23 01:08 Chief Complaint: Cardiac arrest, STEMI Narrative: This is a 67-year-old male who presented with ongoing cardiac arrest. Patient has known coronary artery disease with prior PCI to the proximal-mid LAD and LPDA on 04/08/2022, heart failure with reduced ejection fraction with LVEF 30-35%, COPD, tobacco dependence, uncontrolled diabetes, polysubstance abuse, medication noncompliance, AMRTIN. Patient is currently intubated, therefore, no history can be obtained from the patient. History obtained from the ER team and patient's medical chart. Patient was having shortness of breath and called EMS. Shortly after getting into the ambulance, patient had his LifeVest fired once and patient was in normal sinus rhythm afterwards. EMS stated that the LifeVest fired again and then patient became unresponsive and was in PEA for approximately 30 minutes until arrival to the Emergency Department. CPR was started and patient was in a Americo device upon arrival to the ED. Patient was then intubated, a left IJ central line was placed, and patient started on Levophed and Dopamine for shock. Patient received multiple rounds of Epinephrine due to frequent loss of pulse. EKG obtain 10 minutes after stable ROSC showed sinus bradycardia with ST elevations in the anterior leads with reciprocal depressions in the inferior leads. Repeat EKG after a few minutes showed the same. Therefore, STEMI team activated. Review of Systems Review of Systems: ROS unobtainable: Yes unobtainable due to endotracheal tube and unobtainable due to medical condition PMFSH Past Medical History Medical History Chronic respiratory failure with hypoxia and hypercapnia COPD (chronic obstructive pulmonary disease) Diabetes mellitus Hemoglobin A1c 12.09 August 2020 Ischemic cardiomyopathy Non-STEMI (non-ST elevated myocardial infarction) (03/2022) Obstructive sleep apnea Renal lesion Skin cancer Tobacco use disorder, continuous Surgical History Surgical History History of coronary artery stent placement (03/2022) Multi-vessel PCI performed at [facility] 03/2022 and acute stent thrombosis of LAD sometime between March and June 2022 History of left knee surgery History of right knee surgery History of shoulder surgery Left Family History Family History Sibling Diabetes mellitus Father Emphysema lung Social History Social History Social History: He lives with his significant other. He smokes about a 3rd of pack of cigarettes per day. He has 4 children. Patient has smoked as much as a pack of cigarettes per day. He states that he is down to a few cigarettes a day but still wears a nicotine patch. He is still intermittently using methamphetamines. Code status: Full code Smoking packs per day: 0.5 Smoking cigarettes per day: 10.0 Years smoked: 58 Smoking pack-years: 29.00 Smoking status: Current every day smoker Second hand tobacco smoke exposure: Yes Alcohol intake: current Drinks per week: 9 Substance use: current Substance use type: marijuana and methamphetamine Last use: 3 weeks ago Lack of Transportation: No Lack of Food: Often True Current Housing: I Have Housing Concerned About Future Housing: YES Difficulty Paying Gas/Electric Bills: No Difficulty Paying for Meds: No Currently Unemployed: No Education: Grade School Difficulty w/ Childcare or Family Care: No Gender identity (if verbalized by the patient): Male Spiritual care concerns: No Meds Home Medications and Allergies Home Medications Medication Instructions Recorded Confirmed Type blood sugar diagnostic (Oneuch #1 pkg 12/14/20 03/08/23 Rx Verio test strips) blood-glucose
--- NOTE | 2023-05-05 01:27 | ECG_ITS ---
Measurements Intervals [place] Rate: 80 P: 81 OR: 236 QRS: 79 QRSD: 97 T: 92 QT: 365 QTc: 421 Interpretive Statements SINUS RHYTHM WITH FIRST DEGREE AV BLOCK WITH OCCASIONAL VENTRICULAR PREMATURE COMPLEXES ANTEROSEPTAL MYOCARDIAL INFARCTION [40+ ms Q WAVE IN V1-V4], PROBABLY RECENT COMPARED TO ECG 05/04/2023 22:11:44 FIRST DEGREE AV BLOCK NOW PRESENT Electronically Signed On 05-05-2023 11:46:19 CDT by Clifford Gonzalez M.D.
--- NOTE | 2023-05-05 01:28 | WPDCARDPROC ---
Cardiac Cath Procedure Note Date of procedure:: 05/05/23 Performing physician:: CATHETERIZATION LABORATORY REPORT Procedure Date: 05/04/2023 Lactation Coordinator: Clifford Gonzalez M.D., [facility]? Referring Physician: Dr. Ramirez ([facility]) ? Anesthesia: Versed and Fentanyl were ordered and given in my presence at 23:28, procedure ended at 00:49. Supervision of nurse monitored moderate sedation with Versed and Fentanyl was provided for 81 minutes. No IV sedation was administered for this procedure. Pre-op Diagnosis: STEMI, cardiac arrest Post-op Diagnosis: 1. Significant ostial-proximal LAD lesion s/p PCI with HILDA x 1, PTCA of ostial LCX. 2. Left ventricular end-diastolic pressure of 29mmHg 3. Towards the end of the case, after stenting, patient went into monomorphic ventricular tachycardia. He was defibrillated on the cardiac photographic laboratory technician table x 2. Blood pressure very low after that and no pulse was felt, therefore, chest compressions were started for a few minutes. After that, ROSC was obtained. Procedure(s): 1. Ultrasound-guided access of the right common femoral artery 2. Coronary angiography 3. Left heart cath 4. PCI of the ostial LAD with HILDA x 1, PTCA of the ostial LCX. Access Site: Right common femoral artery Brief History and Clinical Indications: Patient is a 67-year-old male with known coronary artery disease with prior PCI to the proximal-mid LAD and LPDA on 04/08/2022, heart failure with reduced ejection fraction with LVEF 30-35%, COPD, tobacco dependence, uncontrolled diabetes, polysubstance abuse, medication noncompliance, MARTIN. Patient is currently intubated, therefore, no history can be obtained from the patient. History obtained from the ER team and patient's medical chart. Patient was having shortness of breath and called EMS. Shortly after getting into the ambulance, patient had his LifeVest fired once and patient was in normal sinus rhythm afterwards. EMS stated that the LifeVest fired again and then patient became unresponsive and was in PEA for approximately 30 minutes until arrival to the Emergency Department. CPR was started and patient was in a Americo device upon arrival to the ED. Patient was then intubated, a left IJ central line was placed, and patient started on Levophed and Dopamine for shock. Patient received multiple rounds of Epinephrine due to frequent loss of pulse. EKG obtain 10 minutes after stable ROSC showed sinus bradycardia with ST elevations in the anterior leads with reciprocal depressions in the inferior leads. Repeat EKG after a few minutes showed the same. Therefore, STEMI team activated. Findings: LEFT HEART CATHETERIZATION FINDINGS: 1. Left main: The left main coronary artery is widely patent without obstructive disease. 2. Left anterior descending: The ostial - proximal LAD has an 80-90% stenosis. Patient stents seen in the proximal-mid LAD with diffuse mild in-stent restenosis. The distal LAD is small caliber. 3. Left circumflex: The left circumflex artery and the main marginal branches have mild diffuse disease. Patent stent seen in the LDPA with mild in stent restenosis. 4. Right coronary artery: The RCA is the non-dominant coronary artery. The proximal-mid segment has an 80-90% stenosis followed by an 80% stenosis in its mid portion. 5. Left ventricle: End-diastolic pressure 29mmHg. Description of Procedure: Patient transferred to photographic laboratory technician room. Prepped and draped in usual sterile fashion. 2% lidocaine in right groin area. Micropuncture needle used to access right common femoral artery with Seldinger technique under fluoroscopic and ultrasound guidance. J wire advanced, micropuncture cannula placed. Right iliofemoral angiogram performed, access confirmed and micropuncture cannula exchanged for 6-FR sheath. 5F FL 4 diagnostic catheter engaged Left Main Coronary Artery. 5F FR 4 diagnostic catheter engaged Right Coronary Artery. Multiple orthogonal angiogram obtained and reviewed Angioma
[2023-05-05 01:37] LABS: Alveolar/Arterial O2 Gradient 565.4 mmHg; Base Excess ABG -5.5 mEq/l (+/-2.0); Fractional Inspired Oxygen 100 %; HCO3 ABG 27.2 mEq/l (22.0-26.0); PO2 ABG 54.3 mmHg (80.0-100.0); PO2 FiO2 Ratio Arterial Blood 0.54 %
[2023-05-05 01:38] LABS: PCO2 ABG 93.3 mmHg (35.0-45.0); pH ABG 7.082 (7.350-7.450)
[2023-05-05 01:39] LABS: Device AMBU BAG; Oxygen Saturation ABG 73.4 % (95.0-100.0); Site Drawn ARTLINE
[2023-05-05] MEDS: SODIUM BICARBONATE 8.4% 50 MEQ/50 ML SYRINGE 150 MEQ IV PUSH (01:40)
[2023-05-05] MEDS: FUROSEMIDE INJ 40 MG/4 ML VIAL IV PUSH (01:50)
[2023-05-05 01:55] LABS: Hematocrit 33.6 % (42.0-52.0); Hemoglobin 11.4 g/dL (14.0-18.0); Mean Corpuscular HGB Conc 33.9 g/dl (32-36); Mean Corpuscular Hemoglobin 32.2 pg (26-34); Mean Corpuscular Volume 94.9 fl (80-100); Platelet Count Result 363 k/mm3 (150-375); Red Blood Count 3.54 M/mm3 (4.6-6.20); Red Cell Distribution Width 13.4 % (11.5-14.5)
[2023-05-05] MEDS: EPINEPHrine INJ 1 MG/10 ML SYRINGE 3 MG (01:55)
[2023-05-05] MEDS: ASPIRIN 81 MG CHEWABLE TABLET 324 MG PO (01:55)
[2023-05-05] MEDS: SODIUM BICARBONATE 8.4% 50 MEQ/50 ML SYRINGE (01:56)
[2023-05-05] MEDS: FENTANYL 2,500MCG/NS250ML(*CRX 2,500 MCG/250 ML BAG IV CONT (02:00)
[2023-05-05 02:05] LABS: Lactic Acid Reflex 3.7 mmol/L (0.7-2.0)
[2023-05-05 02:11] LABS: INR 3.6; Prothrombin Time 39.5 Seconds (11.1-14.7)
[2023-05-05 02:13] LABS: Alanine Aminotransferase 75 U/L (6-50); Albumin Level 3.1 g/dL (3.5-5.1); Alkaline Phosphatase 105 U/L (38-126); Anion Gap 3 mmol/L (8-16); Aspartate Amino Transferase 157 U/L (17-59); Bilirubin,Total 0.5 mg/dL (0.2-1.3); Blood Urea Nitrogen 31 mg/dL (9-20); Calcium 7.4 mg/dL (8.4-10.2); Carbon Dioxide 38 mmol/L (22-30); Chloride 97 mmol/L (98-107); Creatine Kinase 693 U/L (55-170); Estimated Glomerular Filt Rate 40; Glucose 297 mg/dL (65-110); Magnesium 2.2 mg/dL (1.6-2.3); Potassium 6.7 mmol/L (3.4-5.0); Sodium 138 mmol/L (137-145)
[2023-05-05] MEDS: NOREPINEPHRINE 8 MG/D5W 250 ML 8 MG/250 ML BAG 9.38 MG IV CONT (02:19)
[2023-05-05 02:25] LABS: Partial Thromboplastin Time > 200.0 SECONDS (22.3-36.8)
[2023-05-05 02:25] LABS: Alveolar/Arterial O2 Gradient 561.2 mmHg; Base Excess ABG 1.5 mEq/l (+/-2.0); Fractional Inspired Oxygen 100 %; HCO3 ABG 34.1 mEq/l (22.0-26.0); PO2 ABG 50.7 mmHg (80.0-100.0); PO2 FiO2 Ratio Arterial Blood 0.51 %
[2023-05-05 02:29] LABS: PCO2 ABG 101.1 mmHg (35.0-45.0); pH ABG 7.146 (7.350-7.450)
[2023-05-05 02:30] LABS: Device AMBU BAG; Oxygen Saturation ABG 72.3 % (95.0-100.0); Site Drawn LEFT BRACHIAL
[2023-05-05] MEDS: MIDAZOLAM 100MG/NS 100ML(*CRX) 100 MG/100 ML BAG IV CONT (02:48)
[2023-05-05] MEDS: ROCURONIUM BROMIDE 50 MG/5 ML VIAL (02:49)
--- NOTE | 2023-05-05 03:32 | PCRCNOTE ---
Patient was terminally extubated by RT at 0324 with RN at bedside.
--- NOTE | 2023-05-05 04:22 | PM.IMHP ---
H&P: HPI History of Present Illness Date/Time: 05/05/23 04:22 Chief Complaint: Cardiac arrest Narrative: This is a 67-year-old male with past medical history significant for advanced congestive heart failure ejection fraction 25-30% on life vest was broad after witnessed cardiac arrest by EMS, patient had called EMS with complaints of shortness of breath and upon getting on the rig the patient was shocked by his cardiac device. Noted to be on P for roughly 30 minutes ROSC was achieved in emergency room taken to clinical laboratory technician immediately. EXAMINATION:? XR chest 1V portable Exam Date/Time:? 05/04/2023 21:40 CDT HISTORY: CARDIAC ARREST ? Comparison:? 03/26/2023. RESULT: Lines, tubes, and devices:? Endotracheal tube, terminating 4.7 cm above the ruthann. Left IJ central venous line terminating at the confluence of the internal jugular and brachiocephalic veins. An NG tube traverses the image, terminating out of the [id number]. External defibrillator overlies the mid chest. Lungs and pleura:? Diffuse somewhat coarse appearing reticulonodular opacities. Patchy airspace disease in the left lung base. Cardiomediastinal silhouette:? Stable. Other:? No acute osseous or upper abdominal finding. ? IMPRESSION: Endotracheal tube 4.7 cm above the ruthann. NG tube terminates out of the [id number] but is subdiaphragmatic. Left IJ central venous line terminating at the confluence of the internal jugular vein and brachiocephalic vein. Subsegmental left lower lung airspace disease may represent atelectasis, infection, or aspiration. Mild interstitial edema. Review of Systems Review of Systems: ROS unobtainable: Yes unobtainable due to endotracheal tube and unobtainable due to medical condition [facility] Past Medical History Medical History Chronic respiratory failure with hypoxia and hypercapnia COPD (chronic obstructive pulmonary disease) Diabetes mellitus Hemoglobin A1c 12.09 August 2020 Ischemic cardiomyopathy Non-STEMI (non-ST elevated myocardial infarction) (03/2022) Obstructive sleep apnea Renal lesion Skin cancer Tobacco use disorder, continuous Surgical History Surgical History History of coronary artery stent placement (03/2022) Multi-vessel PCI performed at [facility] 03/2022 and acute stent thrombosis of LAD sometime between March and June 2022 History of left knee surgery History of right knee surgery History of shoulder surgery Left Family History Family History Sibling Diabetes mellitus Father Emphysema lung Social History Social History Social History: He lives with his significant other. He smokes about a 3rd of pack of cigarettes per day. He has 4 children. Patient has smoked as much as a pack of cigarettes per day. He states that he is down to a few cigarettes a day but still wears a nicotine patch. He is still intermittently using methamphetamines. Code status: Full code Smoking packs per day: 1 Smoking cigarettes per day: 20.0 Years smoked: 40 Smoking pack-years: 40.00 Smoking status: Current every day smoker Second hand tobacco smoke exposure: Yes Alcohol intake: current Drinks per week: 9 Substance use: never Substance use type: marijuana and methamphetamine Last use: 3 weeks ago Lack of Transportation: No Lack of Food: Often True Current Housing: I Have Housing Concerned About Future Housing: YES Difficulty Paying Gas/Electric Bills: No Difficulty Paying for Meds: No Currently Unemployed: No Education: Grade School Difficulty w/ Childcare or Family Care: No Gender identity (if verbalized by the patient): Male Spiritual care concerns: No Meds Home Medications and Allergies Home Medications Medication Instructions
--- NOTE | 2023-05-05 04:25 | P.DN_ITS ---
Discharge Summary Date and Time Date of : 05/05/23 Time of : 03:31 Provider Pronounced By: sandra villafana Probable Cause of Probable Cause of : Cardiogenic shock Summary Hospital Course: 67-year-old male with past medical history significant for congestive heart failure ejection fraction 25-30% patient on life vest was brought to the emergency room via EMS on cardiac arrest patient was resuscitated and was taken to the blood bank laboratory professional where he had a stent to the LAD please see blood bank laboratory professional report somewhere else patient then was transferred to intensive care unit he was on several vasopressors due to hypotension, his oxygen saturation was low in spite of being on ventilator 100% FiO2 after lengthy discussion with daughter who was at bedside decision was made to withdraw support of care and made the patient comfort care measures only. Additional Data Confirmation of as documented by pronouncing clinician: Pupillary Reflex, Palpable Pulses, Response to Stimuli, Heart Tones and Breath Sounds Name of Provider Notified: dr callahan Time Provider Notified: 03:34 Provider Requests Autopsy: No Family Requests Autopsy: No Certified Recreational Therapist Notified: Yes Date [facility] Notified of : 05/05/23 Time [facility] Notified of : 03:46
--- NOTE | 2023-05-05 04:37 | ADMGEN ---
This patient, Samuel Conway , was admitted to Intensive Care Unit-6. Patient/family oriented to hospital policies and general routines including ID bracelet, bed and alarms, visiting hours, pain management, procedures, bathroom and other care routines, personal items, smoking policy, room service/diet, and visiting hours. Information on how to activate the Rapid Response Team has been discussed. Patient/Family are encouraged to report perceived risks to care and to ask questions if they do not understand what they are told or what they should do. pt brought from research laboratory technician intubated on vasopressors visa central line . intubated respiratory using bmv on 100% o2
[2023-05-05 04:52] LABS: Reflex Lactic Acid Yes or No Add Lactic
[2023-05-11 08:43] LABS: Glucose Point of Care 247 mg/dl (65-105)
== END 2023-05-05 03:31 | disposition expired | DRG 246 ==
LOC: ANHED 20:57 → ANHICU 05-05 02:43
PROVIDERS: Internal Medicine; Admitting Provider Internal Medicine; Emergency Provider Emergency Medicine; PCP Internal Medicine; Visit Provider Internal Medicine
PROC: 4A023N7 Measurement of Cardiac Sampling and Pressure, Left Heart, Percutaneous Approach (ICD-10-PCS; CPT 93452; principal; 2023-05-04 22:35)
PROC: 027034Z Dilation of Coronary Artery, One Artery with Drug-eluting Intraluminal Device, Percutaneous Approach (ICD-10-PCS; 2023-05-04 22:35)
PROC: 02703ZZ Dilation of Coronary Artery, One Artery, Percutaneous Approach (ICD-10-PCS; CPT 92920; 2023-05-04 22:35)
PROC: 5A2204Z Restoration of Cardiac Rhythm, Single (ICD-10-PCS; CPT 92950; 2023-05-04 22:35)
DX: I21.3 ST elevation (STEMI) myocardial infarction of unspecified site (principal); J96.21 Acute and chronic respiratory failure with hypoxia; J96.12 Chronic respiratory failure with hypercapnia; I47.29 Other ventricular tachycardia; T82.855A Stenosis of coronary artery stent, initial encounter; R57.0 Cardiogenic shock; I46.9 Cardiac arrest, cause unspecified; J44.9 Chronic obstructive pulmonary disease, unspecified; I50.9 Heart failure, unspecified; G47.33 Obstructive sleep apnea (adult) (pediatric); F17.210 Nicotine dependence, cigarettes, uncomplicated; I25.10 Atherosclerotic heart disease of native coronary artery without angina pectoris; E11.9 Type 2 diabetes mellitus without complications; F19.10 Other psychoactive substance abuse, uncomplicated; I25.2 Old myocardial infarction; Z85.828 Personal history of other malignant neoplasm of skin; Z95.5 Presence of coronary angioplasty implant and graft; Z91.148 Patient's other noncompliance with medication regimen for other reason; Z79.84 Long term (current) use of oral hypoglycemic drugs
CPT/HCPCS: 31500; 36415; 36556; 36600; 71045; 80053; 82375; 82550; 82805; 82948; 83050; 83605; 83690; 83735; 84484; 85025; 85027; 85610; 85730; 87040; 92920; 92950; 93005; 93458; 94002; 99285; A9270; C1725; C1751; C1769; C1874; C1887; C1894; C9606; J0171; J0583; J1265; J1644; J1940; J2250; J2370; J3010; J7030; J7040; J7060; J7120